=== PATIENT | male | born 1955 | race Caucasian/White ===

== ENCOUNTER 2016-06-23 15:27 | Inpatient (IN) | payer BC ==
--- NOTE | 2016-06-23 15:50 | CT ---
HISTORY: Stroke-like symptoms Study: CT brain without contrast Comparison: None available Technique: Multiple axial images of the brain were obtained from the skull base to the vertex without administr ation of IV contrast. Dose reduction techniques including Automated Exposure Control (AEC) and adju stment of mA and kV were utilized. Findings: No acute intraparenchymal hemorrhage or mass can be identified. No extra-axial fluid collections ar e seen. No alteration in the attenuation of the brain parenchyma can be identified to suggest acute or subacute ischemic change. The ventricular system is symmetric and nondilated. The extracranial structures are grossly unremarkable. IMPRESSION: 1. No acute intracranial process can be identified. Reported By:
--- NOTE | 2016-06-23 16:21 | DR.GENAD ---
HPI - PCP Primary Care Physician: DR. PETER - Complaint/Symptoms Chief Complaint:: PT'S SPOUSE STATES " HE WOKE UP AT THIS AM AND AT 0530 AND HIS BP WAS ELEVATED WITH A BP OF 202/106, AND AROUND 0630- PT STARTED HAVING PROBLEMS SWOLLWING .. PT THOUGHT THAT IS WOULD GO AWAY.... Self Treatment fo Chief Complaint: PT STATES "I TOOK A SHOWER AND I COULD NOT FEEL MY RIGHT SIDE "/ - Source History Provided: Patient - Mode of Arrival Mode of Arrival: Ambulatory - Timing Onset of Chief Complaint: 06/23/16 PMH - PMH Past Medical History: Yes Past Medical History: Hypertension Past Surgical History: No - Family History History of Family Medical Conditions: No - Social History Does patient currently use any type of tobacco product: No Have you used tobacco products in the last 12 months: No Type of Tobacco Use: None Does any household member use tobacco: No Alcohol Use: None Do you use any recreational Drugs:: No Lives With: Spouse Lives Where: Home - infectious screening In the last 2 months have you had wt loss of >10#?: NO Have you had fever, night sweats or hemotysis?: No Have you traveled outside the country in the last 6 months?: No Isolation: Standard PE - Vital Signs Vitals: Temperature 97.8 F Pulse Rate 58 Respiratory Rate 22 Blood Pressure [Right Radial 176/96 Artery] Blood Pressure [Left Arm] 164/97 Blood Pressure [Sitting] 119/77 Blood Pressure [Lying] 121/79 Blood Pressure 202/106 O2 Sat by Pulse Oximetry 94 Course - Consultation Called: 16:30 (Admit for observation and further evaluation) - Diagnosis Discharge Problem: TIA (transient ischemic attack) Qualifiers: 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
[2016-06-23] MEDS ORDERED: ATIVAN INJ 2 MG VIAL IVP ONE (16:38)
--- NOTE | 2016-06-23 16:43 | RAD ---
HISTORY: Dysphagia Study: Single-view chest Comparison: None available Findings: The trachea is midline. The cardiac silhouette is enlarged with a tortuous thoracic aorta. The lisseth gs are clear without focal infiltrate or effusion. The bony thorax is unremarkable. IMPRESSION: 1. No acute cardiopulmonary disease. Reported By:
[2016-06-23] MEDS ORDERED: ZOFRAN INJ 4 MG VIAL IVP PRN (16:51)
[2016-06-23] MEDS ORDERED: NS 1000 ML 1,000 ML ONE (16:54)
[2016-06-23] MEDS ORDERED: ATIVAN INJ 2 MG VIAL ONE (16:55)
[2016-06-23] MEDS ORDERED: NS 1000 ML 1,000 ML IV SCH (17:00)
[2016-06-23] MEDS: NS 1000 ML 1,000 ML IV SCH (17:01)
[2016-06-23 17:04] LABS: BASOPHILS % (AUTO) 0.4 % (0.2-1.0); EOSINOPHILS # (AUTO) 0.1 x10^3/uL (0.0-0.2); EOSINOPHILS % (AUTO) 2.2 % (0.9-2.9); HEMATOCRIT 42.3 % (42.0-54.0); HEMOGLOBIN 14.3 g/dL (13.5-18.0); LYMPHOCYTES # (AUTO) 1.2 X10^3/uL (1.3-2.9); LYMPHOCYTES % (AUTO) 18.7 % (21.0-51.0); MEAN CORPUSCULAR HEMOGLOBIN 31.1 pg (27.0-34.0); MEAN CORPUSCULAR HGB CONC 33.7 g/dL (33.0-35.0); MEAN CORPUSCULAR VOLUME 92.1 fL (80.0-100.0); MEAN PLATELET VOLUME 9.1 fL (7.4-11.0); MONOCYTES # (AUTO) 0.9 x10^3/uL (0.3-0.8); MONOCYTES % (AUTO) 14.4 % (0.0-13.0); NEUTROPHILS # (AUTO) 4.1 x10^3/uL (2.2-4.8); NEUTROPHILS % (AUTO) 64.3 % (42.0-75.0); PLATELET COUNT 151 X10^3/uL (150.0-450.0); RED CELL DISTRIBUTION WIDTH 13.9 % (11.6-16.5); WHITE BLOOD COUNT 6.4 X10^3/uL (3.6-10.0)
[2016-06-23 17:18] LABS: ALANINE AMINOTRANSFERASE 24 Units/L (12-78); ALBUMIN 3.6 g/dL (3.4-5.0); ALKALINE PHOSPHATASE 67 Units/L (46-116); ASPARTATE AMINO TRANSFERASE 19 Units/L (15-37); BLOOD UREA NITROGEN 12 mg/dL (7-18); CALCIUM 8.5 mg/dL (8.5-10.1); CARBON DIOXIDE 28.9 mmol/L (21-32); CHLORIDE 109 mmol/L (98-107); CREATININE 0.96 mg/dL (0.70-1.30); GLUCOSE 101 mg/dL (65-99); SODIUM 145 mmol/L (136-145); TOTAL PROTEIN 7.1 g/dL (6.4-8.2); eGFR BLACK RACES > 60 (>60); eGFR NON BLACK RACES > 60 (>60)
[2016-06-23] MEDS ORDERED: APRESOLINE INJ 20 MG VIAL IVP PRN (19:09)
[2016-06-23 21:51] LABS: BILIRUBIN,URINE NEGATIVE (NEGATIVE); BLOOD/HEMOGLOBIN,URINE NEGATIVE (NEGATIVE); GLUCOSE, URINE NEGATIVE (NEGATIVE); KETONES,URINE NEGATIVE (NEGATIVE); LEUKOCYTE ESTERASE ,URINE 1+ (NEGATIVE); NITRITES,URINE NEGATIVE (NEGATIVE); PROTEIN,URINE NEGATIVE (NEGATIVE); UROBILINOGEN,URINE NORMAL (NORMAL)
[2016-06-23 21:59] LABS: APPEARANCE,URINE CLEAR (CLEAR); BACTERIA,URINE TRACE /HPF (NEGATIVE); COLOR,URINE YELLOW (YELLOW); RBC,URINE NONE SEEN /HPF (NEGATIVE); SQUAMOUS EPITHELIAL CELL,UR RARE /HPF (NEGATIVE)
[2016-06-24 04:18] LABS: BASOPHILS % (AUTO) 0.7 % (0.2-1.0); EOSINOPHILS # (AUTO) 0.1 x10^3/uL (0.0-0.2); EOSINOPHILS % (AUTO) 1.1 % (0.9-2.9); HEMATOCRIT 42.9 % (42.0-54.0); HEMOGLOBIN 14.3 g/dL (13.5-18.0); LYMPHOCYTES # (AUTO) 1.4 X10^3/uL (1.3-2.9); LYMPHOCYTES % (AUTO) 21.7 % (21.0-51.0); MEAN CORPUSCULAR HEMOGLOBIN 30.8 pg (27.0-34.0); MEAN CORPUSCULAR HGB CONC 33.3 g/dL (33.0-35.0); MEAN CORPUSCULAR VOLUME 92.6 fL (80.0-100.0); MEAN PLATELET VOLUME 9.2 fL (7.4-11.0); MONOCYTES # (AUTO) 0.9 x10^3/uL (0.3-0.8); MONOCYTES % (AUTO) 13.5 % (0.0-13.0); NEUTROPHILS # (AUTO) 4.1 x10^3/uL (2.2-4.8); PLATELET COUNT 144 X10^3/uL (150.0-450.0); RED BLOOD COUNT 4.64 X10^6/uL (4.7-6.0); RED CELL DISTRIBUTION WIDTH 14.1 % (11.6-16.5); WHITE BLOOD COUNT 6.5 X10^3/uL (3.6-10.0)
[2016-06-24 04:33] LABS: ALANINE AMINOTRANSFERASE 25 Units/L (12-78); ALBUMIN 3.5 g/dL (3.4-5.0); ALKALINE PHOSPHATASE 68 Units/L (46-116); ASPARTATE AMINO TRANSFERASE 20 Units/L (15-37); BLOOD UREA NITROGEN 12 mg/dL (7-18); CALCIUM 8.2 mg/dL (8.5-10.1); CARBON DIOXIDE 25.6 mmol/L (21-32); CHLORIDE 111 mmol/L (98-107); CREATININE 0.82 mg/dL (0.70-1.30); GLUCOSE 104 mg/dL (65-99); SODIUM 145 mmol/L (136-145); eGFR BLACK RACES > 60 (>60); eGFR NON BLACK RACES > 60 (>60)
[2016-06-24] MEDS: NS 1000 ML 1,000 ML IV SCH ×3 (05:39→22:30)
[2016-06-24] MEDS ORDERED: [UNRECOGNIZED DRUG - OTHER] PO SCH (09:00)
--- NOTE | 2016-06-24 09:26 | DR.H&P ---
H&P - History & Physical for Day of: H&P Date: 07/23/16 - Chief Complaint Chief Complaint: Transient right-sided weakness and difficulty swallowing - Allergies Allergies/Adverse Reactions: Allergies Allergy/AdvReac Type Severity Reaction Status Date / Time Clarithromycin [From Biaxin] Allergy Verified 06/23/16 15:42 - History of Present Illness History of Present Illness: The patient is a 61-year-old white male whose primary care patient of Dr. Adair's who presented to the emergency room setting complaining of right-sided numbness and tingling and difficulty swallowing. Patient states that he awoke with the above symptoms at approximately 5:30 AM but presented to the emergency room greater than 6 hours later. Patient states that when he awoke he noticed himself having right-sided numbness and tingling with some difficulty swallowing. The patient subsequently presented to the emergency room for further evaluation. The patient's initial CT scan of the head was reported as negative. The report given to me by the emergency room physician was that the patient's neurological symptoms had resolved; however, at the time of my evaluation shortly after the patient had arrived on the floor the patient was noted to have obvious mild left facial droop and was having difficulty swallowing secretions, but the patient did state that his right upper and lower extremity numbness and tingling had resolved. Patient's blood pressure was noted to be markedly elevated emergency room setting at approximately 202/106 and the patient admits to noncompliance with his antihypertensive medication because he states the medication makes him "feel bad". Patient was subsequently admitted for further workup. - Past Medical History Past Medical History: Hypertension - Past Surgical History Additional Surgical History: Previous colonoscopy performed approx 6 years ago during a hospitalization for LGI bleeding - at which time no active bleeding or bleeding site was noted - per pt history. - Family History Family Medical History: Cancer, [place] - Social History Does patient currently use any type of tobacco product: No Have you used tobacco products in the last 12 months: No Type of Tobacco Use: None Does any household member use tobacco: No Alcohol Use: None Drug Use: None - Medications Home Medications: Losartan Potassium 1 tab PO DAILY 06/23/16 [History Confirmed 06/23/16] - Review of Systems Constitutional: No Symptoms Reported Eyes: No Symptoms Reported ENT: See HPI (difficulty swallowing secretions) Respiratory: No Symptoms Reported Cardiovascular: No Symptoms Reported Gastrointestinal: No Symptoms Reported Genitourinary: No Symptoms Reported Musculoskeletal: See HPI (mild right facial droop more predominantly involving the right periorbital region) Skin: No Symptoms Reported Neurological: See HPI - Physical Exam Vital Signs: Temperature 97.5 F Pulse Rate [Left Brachial] 53 Pulse Rate [Brachial] 66 Respiratory Rate 18 Blood Pressure [Right Radial 165/99 Artery] Blood Pressure [Left Arm] 166/88 O2 Sat by Pulse Oximetry 94 Oriented: Normal Eyes: Normal Ear: Normal Nose: Normal Throat: Normal Respiratory: Clear Throughout Cardiovascular: Normal : Normal Auscultation: Bowel Sounds: Normal Palpation: Normal Tenderness: Normal Skin: Normal Musculoskeletal: Right (mild right facial droop was noted more predominantly involving the right periorbital region.) Psychiatric: Normal Mood Description: Calm Affect: Normal Speech Pattern: Clear - Assessment/Plan (1) TIA (transient ischemic attack) Qualifiers: Qualified Code(s): G45.0 - Vertebro-basilar artery syndrome Narrative Support Text: TIA versus CVA; patient presented with right upper and lower extremity numbness and tingling that had resolved at the time of presentation in the ER, with persistent right facial weakness and dysphagia. Status: Acute Plan: 1. Admit for further workup. 2. CT scan of the head. 3. CMP and CBC. 4. UA C&S. 5. Hydralazine 10 mg IV every 4 hours when necessary for blood pressures greater than equal to 180/100. 6. Enteric-coated aspirin 81 mg by mouth daily. 7. Modified barium swallow in a.m. 8. Nothing by mouth except for ice chips. 9. For further orders see chart (2) Hypertensive urgency Status: Acute Plan: as above (3) Dysphagia Qualifiers: Dysphagia type: unspecified Qualified Code(s): R13.10 - Dysphagia, unspecified Status: Acute Plan: as above
[2016-06-24] MEDS: COZAAR PO SCH (10:06)
[2016-06-24] MEDS ORDERED: PHARMACY CONSULT - DOSE _____ XX SCH (11:00)
[2016-06-24] MEDS: APRESOLINE INJ 20 MG VIAL IVP SCH ×3 (12:53→22:23)
--- NOTE | 2016-06-24 16:07 | PCM.PROG ---
Progress Note - Progress Note for Day of Date: 06/24/16 - Subjective Subjective: PATIENT RESTS IN BED, AT BEDSIDE. PATIENT IS NOTED WITH RIGHT FACIAL DROOPING. RIGHT EYE LID IS NOTED WITH DROOPING ALONG WITH RIGHT SIDE OF MOUTH. PATIENT IS ALSO NOTED WITH SLURRED SPEECH AND HE IS REPORTING DYSPHAGIA. HE REPORTS HE CAN'T SWALLOW SALIVA, MEDICATIONS, OR LIQUIDS. PATIENT REPORTS WHEN HE ATTEMPTS TO SWALLOW, THE LIQUIDS COME BACK UP. PATIENT HAS EQUAL, BILATERAL STRENGTH TO EXTREMITIES. HE UNDERSTANDING AND OBEYS COMMANDS APPROPRIATELY. CBC WNL EXCEPT: PLT COUNT 144. CMP WNL EXCEPT: CHL 111 , GLUCOSE 104, CALCIUM 8.2. WE WILL HOLD PO MEDICATION AND HOLD PATIENT NPO UNTIL EVALUATED BY SPEECH THERAPY. WE WILL OBTAIN AN MRI OF BRAIN TODAY TO RULE OUT CVA AND CONTINUE TO MONITOR. WE WILL FOLLOW UP IN AM WITH ADDITIONAL LABS. - Past Medical Family Social History Past Med/Fam/Surg Hx: No changes since H&P Allergies: Allergies Clarithromycin [From Biaxin] Allergy (Verified 06/23/16 15:42) - Review of Systems ROS: No change since H&P - Vital Signs and I&O's Vital Signs: Temperature 98.6 F Pulse Rate [Left Brachial] 52 Pulse Rate [Brachial] 66 Respiratory Rate 18 Blood Pressure [Right Radial 165/99 Artery] Blood Pressure [Left Arm] 175/92 O2 Sat by Pulse Oximetry 97 Intake and Output: Intake & Output 06/22/16 06/23/16 06/24/16 06/25/16 11:59 11:59 11:59 11:59 Intake Total 1280 660 Balance 1280 660 - Physical Exam Oriented: Normal, Time, Person, Place Eyes: Other (Right periorbital drooping). negative: Blurred Vision, Diplopia, Discharge, Pain, Redness, Photophobia Ear: Normal. negative: Swelling, Ecchymosis, Hemotypanum, Abrasion, Laceration Nose: Normal. negative: Injected, Discharge, Blood Throat: negative: Tonsillar Hypertrophy, Red, Exudate Respiratory: Normal Cardiovascular: Normal. negative: Murmur, Edema : Normal. negative: Dysuria, Hematuria, Frequency, Discharge, Testicular Pain Auscultation: Bowel Sounds: Normal. negative: Bruit Palpation: Normal. negative: Spleen Enlarged, Liver Enlarged, Mass Pulsatile Tenderness: Normal. negative: Rebound, Guarding, Rigidity Skin: Normal. negative: Diaphoresis, Wound, Bruising, Ecchymosis Musculoskeletal: Right (Right facial muscle weakness and drooping, involving the right periorbital region, and right corner of mouth), Instability Psychiatric: Normal Mood Description: Calm, Appropriate Affect: Normal Speech Pattern: Clear, Appropriate - Laboratory and Diagnostics Result Diagrams: 06/24/16 03:55 06/24/16 03:55 Labs: Laboratory WBC 6.5 X10^3/uL (3.6-10.0) 06/24/16 03:55 RBC 4.64 X10^6/uL (4.7-6.0) L 06/24/16 03:55 Hgb 14.3 g/dL (13.5-18.0) 06/24/16 03:55 Hct 42.9 % (42.0-54.0) 06/24/16 03:55 MCV 92.6 fL (80.0-100.0) 06/24/16 03:55 MCH 30.8 pg (27.0-34.0) 06/24/16 03:55 MCHC 33.3 g/dL (33.0-35.0) 06/24/16 03:55 RDW 14.1 % (11.6-16.5) 06/24/16 03:55 Plt Count 144 X10^3/uL (150.0-450.0) L 06/24/16 03:55 MPV 9.2 fL (7.4-11.0) 06/24/16 03:55 Neut % 63.0 % (42.0-75.0) 06/24/16 03:55 Lymph % 21.7 % (21.0-51.0) 06/24/16 03:55 [place] % 13.5 % (0.0-13.0) H 06/24/16 03:55 Eos % 1.1 % (0.9-2.9) 06/24/16 03:55 Baso % 0.7 % (0.2-1.0) 06/24/16 03:55 Neut # 4.1 x10^3/uL (2.2-4.8) 06/24/16 03:55 Lymph # 1.4 X10^3/uL (1.3-2.9) 06/24/16 03:55 [place] # 0.9 x10^3/uL (0.3-0.8) H 06/24/16 03:55 Eos # 0.1 x10^3/uL (0.0-0.2) 06/24/16 03:55 Baso # 0.0 X10^3/uL (0.0-0.1) 06/24/16 03:55 Absolute Nucleated RBC 0.1 /100WBC 06/24/16 03:55 Sodium 145 mmol/L (136-145) 06/24/16 03:55 Corrected Sodium TNP 06/24/16 03:55 Potassium 4.0 mmol/L (3.5-5.1) 06/24/16 03:55 Chloride 111 mmol/L (98-107) H 06/24/16 03:55 Carbon Dioxide 25.6 mmol/L (21-32) 06/24/16 03:55 BUN 12 mg/dL (7-18) 06/24/16 03:55 Creatinine 0.82 mg/dL (0.70-1.30) 06/24/16 03:55 Est GFR (MDRD) Af Amer > 60 (>60) 06/24/16 03:55 Est GFR (MDRD) Non-Af > 60 (>60) 06/24/16 03:55 Glucose 104 mg/dL (65-99) H 06/24/16 03:55 Calcium 8.2 mg/dL (8.5-10.1) L 06/24/16 03:55 Corrected Calcium TNP 06/24/16 03:55 Total Bilirubin 0.50 mg/dL (0.2-1.0) 06/24/16 03:55 AST 20 Units/L (15-37) 06/24/16 03:55 ALT 25 Units/L (12-78) 06/24/16 03:55 Alkaline Phosphatase 68 Units/L (46-116) 06/24/16 03:55 Total Protein 7.0 g/dL (6.4-8.2) 06/24/16 03:55 Albumin 3.5 g/dL (3.4-5.0) 06/24/16 03:55 Globulin 3.5 g/dL (2.5-4.5) 06/24/16 03:55 Albumin/Globulin Ratio 1.0 Ratio (1.1-2.1) L 06/24/16 03:55 Specimen Type Clean catch urine 06/23/16 21:38 Urine Color Yellow (YELLOW) 06/23/16 21:38 Urine Appearance Clear (CLEAR) 06/23/16 21:38 Urine pH 6.0 (5.0 - 8.0) 06/23/16 21:38 Ur Specific [place] 1.015 (1.000-1.030) 06/23/16 21:38 Urine Protein Negative (NEGATIVE) 06/23/16 21:38 Urine Glucose (UA) Negative (NEGATIVE) 06/23/16 21:38 Urine Ketones Negative (NEGATIVE) 06/23/16 21:38 Urine Occult Blood Negative (NEGATIVE) 06/23/16 21:38 Urine Nitrite Negative (NEGATIVE) 06/23/16 21:38 Urine Bilirubin Negative (NEGATIVE) 06/23/16 21:38 Urine Urobilinogen Normal (NORMAL) 06/23/16 21:38 Ur Leukocyte Esterase 1+ (NEGATIVE) 06/23/16 21:38 Urine RBC None seen /HPF (NEGATIVE) 06/23/16 21:38 Urine WBC 0-3 /HPF (NEGATIVE) 06/23/16 21:38 Ur Squamous Epith Cells Rare /HPF (NEGATIVE) 06/23/16 21:38 Urine Bacteria Trace /HPF (NEGATIVE) 06/23/16 21:38 Ur Culture Indicated? No/not indicated 06/23/16 21:38 - Plan (1) CVA (cerebral vascular accident) Status: Suspected Qualifiers: CVA mechanism: C Precerebral and cerebral artery: P Laterality of affected vessel: left Plan: OBTAIN AN MRI OF BRAIN TODAY, CONTINUE TO MONITOR NEURO STATUS. (2) Dysphagia Status: Acute Qualifiers: Dysphagia type: unspecified Qualified Code(s): R13.10 - Dysphagia, unspecified Plan: CONSULT SPEECH THERAPY, HOLD NPO, MONITOR. (3) Facial droop Status: Acute Plan: ABOVE. (4) Hypertension Status: Chronic Qualifiers: Hypertension type: essential hypertension Qualified Code(s): I10 - Essential (primary) hypertension (5) Arthritis Status: Chronic
[2016-06-24 16:24] VITALS: BMI 36.2
--- NOTE | 2016-06-24 16:47 | MRI ---
Indication: Slurred speech and dysphagia. Exam: MRI brain without contrast. Comparison: CT head 06/23/2016. Findings: The ventricles are mildly enlarged and there is diffuse mild prominence of the cortical whitehead lci. There is a small 5 mm focus of abnormal signal on the diffusion-weighted data set along the bra instem inferior on the right , just below the cerebellar peduncle. No intracranial hemorrhage is see n and there is no extra-axial fluid collection. The midline structures are unremarkable. The vascula r structures show normal flow voids. The 7th and 8th nerve complexes are symmetric and normal size a nd signal intensity. There is minimal increased signal in the periventricular white matter. There is no extra-axial fluid collection or mass. No enhancing lesion or mass is seen. Impression: Small focus of acute ischemia along the brainstem inferiorly on the right, just below the cerebellar peduncle . There is no mass effect and no abnormal enhancement or hemorrhage is seen in the area. Mild atrophy and minimal chronic microischemic changes in the deep white matter. Reported By:
--- NOTE | 2016-06-24 16:51 | MRI ---
Indication: Dysphagia and slurred speech Exam: MRA brain. Technique: 3D [id number] images were obtained of the intracranial vessels. The raw data was revi ewed and 3D reconstructions were performed. Findings: Both internal carotid arteries are patent and normal caliber. The carotid siphons are unre markable. There is a normal bifurcation intracranially. There is good tapering of the peripheral MCA and PHIL vessels. Both vertebral arteries are patent and there are small foci of mild to moderate at herosclerotic narrowing along the proximal and mid basilar artery which is patent distally. There is a circulation involving both posterior cerebral arteries which are tapering distally with no proximal filling defect or vessel cut off seen. There is no vascular malformation or aneurysm. Impression: Small foci of mild to moderate atherosclerotic narrowing along the proximal and mid basi lar artery with flow seen distally . There is a circulation involving both posterior cerebral arteries. No vascular malformation is seen Reported By:
[2016-06-25 05:22] LABS: BASOPHILS % (AUTO) 0.4 % (0.2-1.0); EOSINOPHILS # (AUTO) 0.1 x10^3/uL (0.0-0.2); EOSINOPHILS % (AUTO) 1.2 % (0.9-2.9); HEMATOCRIT 44.7 % (42.0-54.0); HEMOGLOBIN 15.1 g/dL (13.5-18.0); LYMPHOCYTES % (AUTO) 16.1 % (21.0-51.0); MEAN CORPUSCULAR HEMOGLOBIN 31.1 pg (27.0-34.0); MEAN CORPUSCULAR HGB CONC 33.8 g/dL (33.0-35.0); MEAN CORPUSCULAR VOLUME 91.9 fL (80.0-100.0); MEAN PLATELET VOLUME 9.4 fL (7.4-11.0); MONOCYTES # (AUTO) 0.8 x10^3/uL (0.3-0.8); MONOCYTES % (AUTO) 11.8 % (0.0-13.0); NEUTROPHILS # (AUTO) 4.6 x10^3/uL (2.2-4.8); NEUTROPHILS % (AUTO) 70.5 % (42.0-75.0); PLATELET COUNT 156 X10^3/uL (150.0-450.0); RED BLOOD COUNT 4.87 X10^6/uL (4.7-6.0); RED CELL DISTRIBUTION WIDTH 13.9 % (11.6-16.5); WHITE BLOOD COUNT 6.5 X10^3/uL (3.6-10.0)
[2016-06-25 05:32] LABS: ALANINE AMINOTRANSFERASE 27 Units/L (12-78); ALBUMIN 3.7 g/dL (3.4-5.0); ALKALINE PHOSPHATASE 67 Units/L (46-116); ASPARTATE AMINO TRANSFERASE 21 Units/L (15-37); BLOOD UREA NITROGEN 11 mg/dL (7-18); CALCIUM 8.6 mg/dL (8.5-10.1); CARBON DIOXIDE 27.3 mmol/L (21-32); CHLORIDE 109 mmol/L (98-107); CREATININE 0.91 mg/dL (0.70-1.30); GLUCOSE 95 mg/dL (65-99); SODIUM 144 mmol/L (136-145); TOTAL PROTEIN 7.4 g/dL (6.4-8.2); eGFR BLACK RACES > 60 (>60); eGFR NON BLACK RACES > 60 (>60)
[2016-06-25] MEDS ORDERED: PHARMACY CONSULT - TPN XX SCH (10:00)
[2016-06-25] MEDS ORDERED: [UNRECOGNIZED DRUG - OTHER] IV SCH ×5 (10:00)
[2016-06-25] MEDS ORDERED: TPN ELECTROLYTES IV SCH ×5 (10:00)
[2016-06-25] MEDS ORDERED: MVI IV SCH ×5 (10:00)
[2016-06-25] MEDS ORDERED: CLINIMIX IV SCH ×5 (10:00)
[2016-06-25] MEDS: APRESOLINE INJ 20 MG VIAL IVP SCH ×4 (10:23→20:03)
[2016-06-25] MEDS ORDERED: ATIVAN INJ 2 MG VIAL IVP ONE (12:03)
[2016-06-25] MEDS: NS 1000 ML 1,000 ML IV SCH (12:54)
[2016-06-25] MEDS ORDERED: DIPRIVAN VIAL 20 ML ONE (12:54)
--- NOTE | 2016-06-25 17:11 | PCM.PROG ---
Progress Note - Progress Note for Day of Date: 06/25/16 - Subjective Subjective: PATIENT RESTS IN BED, AT BEDSIDE. PATIENT'S RIGHT FACIAL DROOPING IS IMPROVING SLIGHTLY. PATIENT HAS BEEN HELD NPO DUE TO UNSAFE SWALLOWING. MRI OF BRAIN REPORTS: SMALL FOCUS OF ACUTE ISCHEMIA ALONG THE BRAINSTEM INFERIORLY ON THE RIGHT, JUST BELOW THE CEREBELLAR PEDUNCLE. WE DISCUSS THIS WITH PATIENT AND BOTH VOICE UNDERSTANDING. WE ALSO DISCUSS POSSIBILITY OF PEG TUBE PLACEMENT FOR FURTHER NUTRITION. RIGHT SIDE IS NOTED WITH WEAKNESS THIS MORNING. HE UNDERSTANDING AND OBEYS COMMANDS APPROPRIATELY. CBC WNL. CMP WNL EXCEPT: CHL 109. WE WILL CONTINUE TO HOLD NPO. WE WILL CONSULT GI AND START TPN, ALBUMIN, AND LOVENOX. WE WILL FOLLOW UP IN AM WITH ADDITIONAL LABS. - Past Medical Family Social History Past Med/Fam/Surg Hx: No changes since H&P Allergies: Allergies Clarithromycin [From Biaxin] Allergy (Verified 06/23/16 15:42) - Review of Systems ROS: No change since H&P - Vital Signs and I&O's Vital Signs: Temperature 97.7 F Pulse Rate [Left Brachial] 62 Respiratory Rate 18 Blood Pressure [Left Arm] 180/84 O2 Sat by Pulse Oximetry 96 Intake and Output: Intake & Output 06/23/16 06/24/16 06/25/16 06/26/16 11:59 11:59 11:59 11:59 Intake Total 640 Balance 640 - Physical Exam Oriented: Normal, Time, Person, Place Eyes: Other (Right periorbital drooping). negative: Blurred Vision, Diplopia, Discharge, Pain, Redness, Photophobia Ear: Normal. negative: Swelling, Ecchymosis, Hemotypanum, Abrasion, Laceration Nose: Normal. negative: Injected, Discharge, Blood Throat: negative: Tonsillar Hypertrophy, Red, Exudate Respiratory: Normal Cardiovascular: Normal. negative: Murmur, Edema : Normal. negative: Dysuria, Hematuria, Frequency, Discharge, Testicular Pain Auscultation: Bowel Sounds: Normal. negative: Bruit Palpation: Normal. negative: Spleen Enlarged, Liver Enlarged, Mass Pulsatile Tenderness: Normal. negative: Rebound, Guarding, Rigidity Skin: Normal. negative: Diaphoresis, Wound, Bruising, Ecchymosis Musculoskeletal: Right (Right facial muscle weakness and drooping, involving the right periorbital region, and right corner of mouth), Instability Psychiatric: Normal Mood Description: Calm, Appropriate Affect: Normal Speech Pattern: Clear, Appropriate - Laboratory and Diagnostics Result Diagrams: 06/25/16 05:00 06/25/16 05:00 Labs: Laboratory WBC 6.5 X10^3/uL (3.6-10.0) 06/25/16 05:00 RBC 4.87 X10^6/uL (4.7-6.0) 06/25/16 05:00 Hgb 15.1 g/dL (13.5-18.0) 06/25/16 05:00 Hct 44.7 % (42.0-54.0) 06/25/16 05:00 MCV 91.9 fL (80.0-100.0) 06/25/16 05:00 MCH 31.1 pg (27.0-34.0) 06/25/16 05:00 MCHC 33.8 g/dL (33.0-35.0) 06/25/16 05:00 RDW 13.9 % (11.6-16.5) 06/25/16 05:00 Plt Count 156 X10^3/uL (150.0-450.0) 06/25/16 05:00 MPV 9.4 fL (7.4-11.0) 06/25/16 05:00 Neut % 70.5 % (42.0-75.0) 06/25/16 05:00 Lymph % 16.1 % (21.0-51.0) L 06/25/16 05:00 [place] % 11.8 % (0.0-13.0) 06/25/16 05:00 Eos % 1.2 % (0.9-2.9) 06/25/16 05:00 Baso % 0.4 % (0.2-1.0) 06/25/16 05:00 Neut # 4.6 x10^3/uL (2.2-4.8) 06/25/16 05:00 Lymph # 1.0 X10^3/uL (1.3-2.9) L 06/25/16 05:00 [place] # 0.8 x10^3/uL (0.3-0.8) 06/25/16 05:00 Eos # 0.1 x10^3/uL (0.0-0.2) 06/25/16 05:00 Baso # 0.0 X10^3/uL (0.0-0.1) 06/25/16 05:00 Absolute Nucleated RBC 0.1 /100WBC 06/25/16 05:00 Sodium 144 mmol/L (136-145) 06/25/16 05:00 Corrected Sodium TNP 06/25/16 05:00 Potassium 3.9 mmol/L (3.5-5.1) 06/25/16 05:00 Chloride 109 mmol/L (98-107) H 06/25/16 05:00 Carbon Dioxide 27.3 mmol/L (21-32) 06/25/16 05:00 BUN 11 mg/dL (7-18) 06/25/16 05:00 Creatinine 0.91 mg/dL (0.70-1.30) 06/25/16 05:00 Est GFR (MDRD) Af Amer > 60 (>60) 06/25/16 05:00 Est GFR (MDRD) Non-Af > 60 (>60) 06/25/16 05:00 Glucose 95 mg/dL (65-99) 06/25/16 05:00 Calcium 8.6 mg/dL (8.5-10.1) 06/25/16 05:00 Corrected Calcium TNP 06/25/16 05:00 Total Bilirubin 0.70 mg/dL (0.2-1.0) 06/25/16 05:00 AST 21 Units/L (15-37) 06/25/16 05:00 ALT 27 Units/L (12-78) 06/25/16 05:00 Alkaline Phosphatase 67 Units/L (46-116) 06/25/16 05:00 Total Protein 7.4 g/dL (6.4-8.2) 06/25/16 05:00 Albumin 3.7 g/dL (3.4-5.0) 06/25/16 05:00 Globulin 3.7 g/dL (2.5-4.5) 06/25/16 05:00 Albumin/Globulin Ratio 1.0 Ratio (1.1-2.1) L 06/25/16 05:00 Specimen Type Clean catch urine 06/23/16 21:38 Urine Color Yellow (YELLOW) 06/23/16 21:38 Urine Appearance Clear (CLEAR) 06/23/16 21:38 Urine pH 6.0 (5.0 - 8.0) 06/23/16 21:38 Ur Specific [place] 1.015 (1.000-1.030) 06/23/16 21:38 Urine Protein Negative (NEGATIVE) 06/23/16 21:38 Urine Glucose (UA) Negative (NEGATIVE) 06/23/16 21:38 Urine Ketones Negative (NEGATIVE) 06/23/16 21:38 Urine Occult Blood Negative (NEGATIVE) 06/23/16 21:38 Urine Nitrite Negative (NEGATIVE) 06/23/16 21:38 Urine Bilirubin Negative (NEGATIVE) 06/23/16 21:38 Urine Urobilinogen Normal (NORMAL) 06/23/16 21:38 Ur Leukocyte Esterase 1+ (NEGATIVE) 06/23/16 21:38 Urine RBC None seen /HPF (NEGATIVE) 06/23/16 21:38 Urine WBC 0-3 /HPF (NEGATIVE) 06/23/16 21:38 Ur Squamous Epith Cells Rare /HPF (NEGATIVE) 06/23/16 21:38 Urine Bacteria Trace /HPF (NEGATIVE) 06/23/16 21:38 Ur Culture Indicated? No/not indicated 06/23/16 21:38 Tissue Pathology To follow 06/25/16 15:05 - Plan (1) CVA (cerebral vascular accident) Status: Acute Qualifiers: CVA mechanism: C Precerebral and cerebral artery: P Laterality of affected vessel: right Plan: START LOVENOX, CONTINUE TO MONITOR NEURO STATUS. (2) Dysphagia Status: Acute Qualifiers: Dysphagia type: unspecified Qualified Code(s): R13.10 - Dysphagia, unspecified Plan: START TPN, ALBUMIN, CONSULT GI, HOLD NPO, MONITOR. (3) Facial droop Status: Acute Plan: ABOVE. (4) Hypertension Status: Chronic Qualifiers: Hypertension type: essential hypertension Qualified Code(s): I10 - Essential (primary) hypertension (5) Arthritis Status: Chronic
[2016-06-25] MEDS: TPN ELECTROLYTES IV SCH ×10 (17:31→20:08)
[2016-06-25] MEDS: ALBUMIN HUMAN 25%- 100ML 100 ML IV SCH (17:31)
[2016-06-25] MEDS: [UNRECOGNIZED DRUG - OTHER] IV SCH ×10 (17:31→20:08)
[2016-06-25] MEDS: MVI IV SCH ×10 (17:31→20:08)
[2016-06-25] MEDS: CLINIMIX IV SCH ×10 (17:31→20:08)
[2016-06-25] MEDS: LOVENOX INJ 60 MG SYR SC SCH (20:09)
[2016-06-25] MEDS: PROTONIX INJ 40 MG VIAL IVP SCH (20:12)
[2016-06-25] MEDS ORDERED: ATIVAN INJ 2 MG VIAL IVP PRN (21:20)
[2016-06-26] MEDS: NS 1000 ML 1,000 ML IV SCH (00:48)
[2016-06-26] MEDS: CLINIMIX IV SCH ×20 (02:05→16:30)
[2016-06-26] MEDS: MVI IV SCH ×20 (02:05→16:30)
[2016-06-26] MEDS: [UNRECOGNIZED DRUG - OTHER] IV SCH ×20 (02:05→16:30)
[2016-06-26] MEDS: TPN ELECTROLYTES IV SCH ×20 (02:05→16:30)
[2016-06-26 05:27] LABS: ALANINE AMINOTRANSFERASE 23 Units/L (12-78); ALBUMIN 3.9 g/dL (3.4-5.0); ALKALINE PHOSPHATASE 63 Units/L (46-116); ASPARTATE AMINO TRANSFERASE 16 Units/L (15-37); BLOOD UREA NITROGEN 18 mg/dL (7-18); CALCIUM 8.7 mg/dL (8.5-10.1); CARBON DIOXIDE 24.5 mmol/L (21-32); CHLORIDE 108 mmol/L (98-107); COR NA(FOR HYPERGLY) 143 mmol/L (136-145); CREATININE 0.95 mg/dL (0.70-1.30); GLUCOSE 112 mg/dL (65-99); SODIUM 143 mmol/L (136-145); TOTAL PROTEIN 7.3 g/dL (6.4-8.2); eGFR BLACK RACES > 60 (>60); eGFR NON BLACK RACES > 60 (>60)
[2016-06-26 05:59] LABS: BASOPHILS % (AUTO) 0.4 % (0.2-1.0); EOSINOPHILS % (AUTO) 0.2 % (0.9-2.9); HEMATOCRIT 43.7 % (42.0-54.0); HEMOGLOBIN 14.8 g/dL (13.5-18.0); LYMPHOCYTES # (AUTO) 1.3 X10^3/uL (1.3-2.9); LYMPHOCYTES % (AUTO) 11.6 % (21.0-51.0); MEAN CORPUSCULAR HEMOGLOBIN 30.9 pg (27.0-34.0); MEAN CORPUSCULAR HGB CONC 33.8 g/dL (33.0-35.0); MEAN CORPUSCULAR VOLUME 91.3 fL (80.0-100.0); MEAN PLATELET VOLUME 9.6 fL (7.4-11.0); MONOCYTES # (AUTO) 1.1 x10^3/uL (0.3-0.8); MONOCYTES % (AUTO) 10.3 % (0.0-13.0); NEUTROPHILS # (AUTO) 8.4 x10^3/uL (2.2-4.8); NEUTROPHILS % (AUTO) 77.5 % (42.0-75.0); PLATELET COUNT 158 X10^3/uL (150.0-450.0); RED BLOOD COUNT 4.78 X10^6/uL (4.7-6.0); WHITE BLOOD COUNT 10.8 X10^3/uL (3.6-10.0)
[2016-06-26] MEDS: ALBUMIN HUMAN 25%- 100ML 100 ML IV SCH (08:51)
[2016-06-26] MEDS: LOVENOX INJ 60 MG SYR SC SCH ×2 (08:52→21:51)
[2016-06-26] MEDS: PROTONIX INJ 40 MG VIAL IVP SCH ×2 (08:52→21:51)
[2016-06-26] MEDS: APRESOLINE INJ 20 MG VIAL IVP SCH ×4 (08:52→21:55)
--- NOTE | 2016-06-26 14:46 | RAD ---
HISTORY: Fever, leukocytosis Study: Chest one view Comparison: June 23, 2016 Findings: The heart is within normal limits in size. The nayana are normal. The lungs are well inflated and free of acute alveolar infiltrates. No pleural effusions are identified. The bony thorax is unremarkable . IMPRESSION: Lungs clear Reported By:
--- NOTE | 2016-06-26 16:38 | VAS ---
HISTORY: Speech difficulty Study: Carotid sonogram Comparison: None Technique: Multiple watt scale and color flow Doppler images of the right and left carotid arterial system were obtained. The vertebral arterial system was evaluated as well. Findings: Normal color flow Doppler is seen throughout the right and left carotid arterial system. No hemodyn amically significant stenosis is seen based on velocity criteria. The right and left vertebral yazmin andrey demonstrate antegrade flow. IMPRESSION: 1. No hemodynamically significant stenosis. Reported By:
[2016-06-26] MEDS: PEPCID 20 MG IV PREMIX* 20 MG/50 ML BAG IV SCH (17:44)
[2016-06-26 19:28] LABS: BILIRUBIN,URINE NEGATIVE (NEGATIVE); BLOOD/HEMOGLOBIN,URINE NEGATIVE (NEGATIVE); GLUCOSE, URINE NEGATIVE (NEGATIVE); KETONES,URINE NEGATIVE (NEGATIVE); LEUKOCYTE ESTERASE ,URINE 1+ (NEGATIVE); NITRITES,URINE NEGATIVE (NEGATIVE); PROTEIN,URINE 2+ (NEGATIVE); UROBILINOGEN,URINE 2+ (NORMAL)
[2016-06-26 19:44] LABS: APPEARANCE,URINE CLEAR (CLEAR); BACTERIA,URINE TRACE /HPF (NEGATIVE); COLOR,URINE AMBER (YELLOW); HYALINE CASTS, URINE MANY /LPF (NEGATIVE); MUCUS,URINE MODERATE /HPF (NEGATIVE); RBC,URINE NONE SEEN /HPF (NEGATIVE); SQUAMOUS EPITHELIAL CELL,UR FEW /HPF (NEGATIVE)
[2016-06-26] MEDS: CRESTOR TAB 10 MG PO SCH (21:51)
[2016-06-27] MEDS: PEPCID 20 MG IV PREMIX* 20 MG/50 ML BAG IV SCH ×3 (00:03→21:15)
[2016-06-27] MEDS: TPN ELECTROLYTES IV SCH ×10 (01:38→18:57)
[2016-06-27] MEDS: [UNRECOGNIZED DRUG - OTHER] IV SCH ×10 (01:38→18:57)
[2016-06-27] MEDS: CLINIMIX IV SCH ×10 (01:38→18:57)
[2016-06-27] MEDS: MVI IV SCH ×10 (01:38→18:57)
[2016-06-27 05:18] LABS: ALANINE AMINOTRANSFERASE 23 Units/L (12-78); ALBUMIN 3.7 g/dL (3.4-5.0); ALKALINE PHOSPHATASE 58 Units/L (46-116); ASPARTATE AMINO TRANSFERASE 17 Units/L (15-37); BLOOD UREA NITROGEN 24 mg/dL (7-18); CALCIUM 8.5 mg/dL (8.5-10.1); CHLORIDE 109 mmol/L (98-107); COR NA(FOR HYPERGLY) 144 mmol/L (136-145); CREATININE 0.94 mg/dL (0.70-1.30); GLUCOSE 117 mg/dL (65-99); SODIUM 144 mmol/L (136-145); eGFR BLACK RACES > 60 (>60); eGFR NON BLACK RACES > 60 (>60)
[2016-06-27 05:29] LABS: BASOPHILS % (AUTO) 0.5 % (0.2-1.0); EOSINOPHILS # (AUTO) 0.3 x10^3/uL (0.0-0.2); EOSINOPHILS % (AUTO) 3.6 % (0.9-2.9); HEMATOCRIT 41.9 % (42.0-54.0); HEMOGLOBIN 14.2 g/dL (13.5-18.0); LYMPHOCYTES # (AUTO) 1.7 X10^3/uL (1.3-2.9); LYMPHOCYTES % (AUTO) 20.5 % (21.0-51.0); MEAN CORPUSCULAR HEMOGLOBIN 31.1 pg (27.0-34.0); MEAN CORPUSCULAR HGB CONC 33.9 g/dL (33.0-35.0); MEAN CORPUSCULAR VOLUME 91.8 fL (80.0-100.0); MEAN PLATELET VOLUME 9.8 fL (7.4-11.0); MONOCYTES # (AUTO) 1.1 x10^3/uL (0.3-0.8); MONOCYTES % (AUTO) 13.1 % (0.0-13.0); NEUTROPHILS # (AUTO) 5.1 x10^3/uL (2.2-4.8); NEUTROPHILS % (AUTO) 62.3 % (42.0-75.0); PLATELET COUNT 147 X10^3/uL (150.0-450.0); RED BLOOD COUNT 4.56 X10^6/uL (4.7-6.0); RED CELL DISTRIBUTION WIDTH 13.9 % (11.6-16.5); WHITE BLOOD COUNT 8.1 X10^3/uL (3.6-10.0)
[2016-06-27] MEDS: PROTONIX INJ 40 MG VIAL IVP SCH (09:12)
[2016-06-27] MEDS: ALBUMIN HUMAN 25%- 100ML 100 ML IV SCH (09:12)
[2016-06-27] MEDS: LOVENOX INJ 60 MG SYR SC SCH ×2 (09:13→21:15)
[2016-06-27] MEDS: PATANOL 0.1% EYE DROPS OP SCH ×2 (10:53→21:16)
[2016-06-27] MEDS: PLAVIX PO SCH (10:54)
[2016-06-27] MEDS: COZAAR PO SCH (10:54)
[2016-06-27] MEDS: ZANTAC PO SCH ×2 (18:56→21:15)
[2016-06-27] MEDS: CRESTOR TAB 10 MG PO SCH (21:14)
[2016-06-28] MEDS: CLINIMIX IV SCH ×5 (02:41)
[2016-06-28] MEDS: [UNRECOGNIZED DRUG - OTHER] IV SCH ×5 (02:41)
[2016-06-28] MEDS: TPN ELECTROLYTES IV SCH ×5 (02:41)
[2016-06-28] MEDS: MVI IV SCH ×5 (02:41)
[2016-06-28 06:16] LABS: BASOPHILS % (AUTO) 0.5 % (0.2-1.0); EOSINOPHILS # (AUTO) 0.4 x10^3/uL (0.0-0.2); EOSINOPHILS % (AUTO) 5.2 % (0.9-2.9); HEMOGLOBIN 13.8 g/dL (13.5-18.0); LYMPHOCYTES # (AUTO) 1.2 X10^3/uL (1.3-2.9); LYMPHOCYTES % (AUTO) 14.6 % (21.0-51.0); MEAN CORPUSCULAR HEMOGLOBIN 31.2 pg (27.0-34.0); MEAN CORPUSCULAR HGB CONC 33.7 g/dL (33.0-35.0); MEAN CORPUSCULAR VOLUME 92.7 fL (80.0-100.0); MEAN PLATELET VOLUME 9.5 fL (7.4-11.0); MONOCYTES # (AUTO) 1.2 x10^3/uL (0.3-0.8); NEUTROPHILS # (AUTO) 5.2 x10^3/uL (2.2-4.8); NEUTROPHILS % (AUTO) 64.7 % (42.0-75.0); PLATELET COUNT 133 X10^3/uL (150.0-450.0); RED BLOOD COUNT 4.42 X10^6/uL (4.7-6.0); RED CELL DISTRIBUTION WIDTH 13.7 % (11.6-16.5)
[2016-06-28 07:00] LABS: ALANINE AMINOTRANSFERASE 21 Units/L (12-78); ALBUMIN 3.7 g/dL (3.4-5.0); ALKALINE PHOSPHATASE 56 Units/L (46-116); ASPARTATE AMINO TRANSFERASE 11 Units/L (15-37); BLOOD UREA NITROGEN 21 mg/dL (7-18); CALCIUM 8.5 mg/dL (8.5-10.1); CARBON DIOXIDE 26.2 mmol/L (21-32); CHLORIDE 111 mmol/L (98-107); CREATININE 0.91 mg/dL (0.70-1.30); GLUCOSE 109 mg/dL (65-99); SODIUM 148 mmol/L (136-145); TOTAL PROTEIN 6.9 g/dL (6.4-8.2); eGFR BLACK RACES > 60 (>60); eGFR NON BLACK RACES > 60 (>60)
[2016-06-28] MEDS: PEPCID 20 MG IV PREMIX* 20 MG/50 ML BAG IV SCH (09:08)
[2016-06-28] MEDS: COZAAR PO SCH (09:09)
[2016-06-28] MEDS: PLAVIX PO SCH (09:12)
[2016-06-28] MEDS: LOVENOX INJ 60 MG SYR SC SCH (09:13)
[2016-06-28] MEDS: PATANOL 0.1% EYE DROPS OP SCH (09:14)
[2016-06-28] MEDS: ALBUMIN HUMAN 25%- 100ML 100 ML IV SCH (09:14)
[2016-06-28] MEDS: ZANTAC PO SCH (09:14)
[2016-06-28 12:16] VITALS: BP 177/83
--- NOTE | 2016-06-28 17:34 | PCM.PROG ---
Progress Note - Progress Note for Day of Date: 06/26/16 - Subjective Subjective: PATIENT RESTS IN BED, AT BEDSIDE. PATIENT'S RIGHT FACIAL DROOPING CONTINUES TO IMPROVE. PATIENTS SPEECH IS BETTER WITH LESS SLURRING NOTED. PATIENT HAD AN EGD YESTERDAY THAT REPORTED ULCERS AND HE ALSO HAD A MANNING DILATATION. PATIENT REPORTS IT IS EASIER TO SWALLOW THIS MORNING. WE WILL HAVE SPEECH RE-EVALUATE. AT BEDSIDE. PATIENT HAD SOME ANXIETY YESTERDAY PRIOR TO EGD AND ATIVAN WAS ORDERED AND ANXIETY IMPROVED. CBC WNL EXCEPT: WBC 10.8. CMP WNL EXCEPT: CHL 108, GLUCOSE 112. WE WILL CONSULT SPEECH AND CONTINUE WITH TPN, ALBUMIN, AND LOVENOX. WE WILL START CRESTOR AND PEPCID. FOLLOW UP IN AM WITH ADDITIONAL LABS. - Past Medical Family Social History Past Med/Fam/Surg Hx: No changes since H&P Allergies: Allergies Clarithromycin [From Biaxin] Allergy (Verified 06/23/16 15:42) - Review of Systems ROS: No change since H&P - Vital Signs and I&O's Vital Signs: Temperature 97.9 F Pulse Rate [Right Brachial] 68 Pulse Rate [Left Brachial] 72 Respiratory Rate 20 Blood Pressure [Right Arm] 177/83 Blood Pressure [Right Radial 187/97 Artery] Blood Pressure [Left Arm] 138/68 O2 Sat by Pulse Oximetry 95 Intake and Output: Intake & Output 06/26/16 06/27/16 06/28/16 06/29/16 11:59 11:59 11:59 11:59 Intake Total 2160 1360 3582 Balance 2160 1360 3582 - Physical Exam Oriented: Normal, Time, Person, Place Eyes: Other (Right periorbital drooping). negative: Blurred Vision, Diplopia, Discharge, Pain, Redness, Photophobia Ear: Normal. negative: Swelling, Ecchymosis, Hemotypanum, Abrasion, Laceration Nose: Normal. negative: Injected, Discharge, Blood Throat: negative: Tonsillar Hypertrophy, Red, Exudate Respiratory: Normal Cardiovascular: Normal. negative: Murmur, Edema : Normal. negative: Dysuria, Hematuria, Frequency, Discharge, Testicular Pain Auscultation: Bowel Sounds: Normal. negative: Bruit Palpation: Normal. negative: Spleen Enlarged, Liver Enlarged, Mass Pulsatile Tenderness: Normal. negative: Rebound, Guarding, Rigidity Skin: Normal. negative: Diaphoresis, Wound, Bruising, Ecchymosis Musculoskeletal: Right (Right facial muscle weakness and drooping, involving the right periorbital region, and right corner of mouth), Instability Psychiatric: Normal Mood Description: Calm Affect: Normal Speech Pattern: Clear, Appropriate - Laboratory and Diagnostics Result Diagrams: 06/28/16 03:50 06/28/16 03:50 Labs: Laboratory WBC 8.0 X10^3/uL (3.6-10.0) 06/28/16 03:50 RBC 4.42 X10^6/uL (4.7-6.0) L 06/28/16 03:50 Hgb 13.8 g/dL (13.5-18.0) 06/28/16 03:50 Hct 41.0 % (42.0-54.0) L 06/28/16 03:50 MCV 92.7 fL (80.0-100.0) 06/28/16 03:50 MCH 31.2 pg (27.0-34.0) 06/28/16 03:50 MCHC 33.7 g/dL (33.0-35.0) 06/28/16 03:50 RDW 13.7 % (11.6-16.5) 06/28/16 03:50 Plt Count 133 X10^3/uL (150.0-450.0) L 06/28/16 03:50 MPV 9.5 fL (7.4-11.0) 06/28/16 03:50 Neut % 64.7 % (42.0-75.0) 06/28/16 03:50 Lymph % 14.6 % (21.0-51.0) L 06/28/16 03:50 [place] % 15.0 % (0.0-13.0) H 06/28/16 03:50 Eos % 5.2 % (0.9-2.9) H 06/28/16 03:50 Baso % 0.5 % (0.2-1.0) 06/28/16 03:50 Neut # 5.2 x10^3/uL (2.2-4.8) H 06/28/16 03:50 Lymph # 1.2 X10^3/uL (1.3-2.9) L 06/28/16 03:50 [place] # 1.2 x10^3/uL (0.3-0.8) H 06/28/16 03:50 Eos # 0.4 x10^3/uL (0.0-0.2) H 06/28/16 03:50 Baso # 0.0 X10^3/uL (0.0-0.1) 06/28/16 03:50 Absolute Nucleated RBC 0.0 /100WBC 06/28/16 03:50 Sodium 148 mmol/L (136-145) H 06/28/16 03:50 Corrected Sodium TNP 06/28/16 03:50 Potassium 3.6 mmol/L (3.5-5.1) 06/28/16 03:50 Chloride 111 mmol/L (98-107) H 06/28/16 03:50 Carbon Dioxide 26.2 mmol/L (21-32) 06/28/16 03:50 BUN 21 mg/dL (7-18) H 06/28/16 03:50 Creatinine 0.91 mg/dL (0.70-1.30) 06/28/16 03:50 Est GFR (MDRD) Af Amer > 60 (>60) 06/28/16 03:50 Est GFR (MDRD) Non-Af > 60 (>60) 06/28/16 03:50 Glucose 109 mg/dL (65-99) H 06/28/16 03:50 Calcium 8.5 mg/dL (8.5-10.1) 06/28/16 03:50 Corrected Calcium TNP 06/28/16 03:50 Total Bilirubin 0.50 mg/dL (0.2-1.0) 06/28/16 03:50 AST 11 Units/L (15-37) L 06/28/16 03:50 ALT 21 Units/L (12-78) 06/28/16 03:50 Alkaline Phosphatase 56 Units/L (46-116) 06/28/16 03:50 Total Protein 6.9 g/dL (6.4-8.2) 06/28/16 03:50 Albumin 3.7 g/dL (3.4-5.0) 06/28/16 03:50 Globulin 3.2 g/dL (2.5-4.5) 06/28/16 03:50 Albumin/Globulin Ratio 1.2 Ratio (1.1-2.1) 06/28/16 03:50 Specimen Type Clean catch urine 06/26/16 19:04 Urine Color Mimi (YELLOW) 06/26/16 19:04 Urine Appearance Clear (CLEAR) 06/26/16 19:04 Urine pH 5.0 (5.0 - 8.0) 06/26/16 19:04 Ur Specific [place] 1.020 (1.000-1.030) 06/26/16 19:04 Urine Protein 2+ (NEGATIVE) 06/26/16 19:04 Urine Glucose (UA) Negative (NEGATIVE) 06/26/16 19:04 Urine Ketones Negative (NEGATIVE) 06/26/16 19:04 Urine Occult Blood Negative (NEGATIVE) 06/26/16 19:04 Urine Nitrite Negative (NEGATIVE) 06/26/16 19:04 Urine Bilirubin Negative (NEGATIVE) 06/26/16 19:04 Urine Urobilinogen 2+ (NORMAL) 06/26/16 19:04 Ur Leukocyte Esterase 1+ (NEGATIVE) 06/26/16 19:04 Urine RBC None seen /HPF (NEGATIVE) 06/26/16 19:04 Urine WBC 0-3 /HPF (NEGATIVE) 06/26/16 19:04 Ur Squamous Epith Cells Few /HPF (NEGATIVE) 06/26/16 19:04 Urine Bacteria Trace /HPF (NEGATIVE) 06/26/16 19:04 Hyaline Casts Many /LPF (NEGATIVE) 06/26/16 19:04 Urine Mucus Moderate /HPF (NEGATIVE) 06/26/16 19:04 Ur Culture Indicated? No/not indicated 06/26/16 19:04 Tissue Pathology To follow 06/25/16 15:05 - Plan (1) CVA (cerebral vascular accident) Status: Acute Qualifiers: CVA mechanism: C Precerebral and cerebral artery: P Laterality of affected vessel: right Plan: START CRESTOR, CONTINUE LOVENOX, CONTINUE TO MONITOR NEURO STATUS. (2) Dysphagia Status: Acute Qualifiers: Dysphagia type: unspecified Qualified Code(s): R13.10 - Dysphagia, unspecified Plan: SPEECH TO RE-EVALUATE, START PEPCID, CONTINUE TPN, ALBUMIN, MONITOR. (3) Gastrointestinal ulcer Status: Acute Plan: START PEPCID, CONTINUE PROTONIX, MONITOR. (4) Facial droop Status: Acute Plan: ABOVE. (5) Hypertension Status: Chronic Qualifiers: Hypertension type: essential hypertension Qualified Code(s): I10 - Essential (primary) hypertension (6) Arthritis Status: Chronic
--- NOTE | 2016-06-28 17:40 | PCM.PROG ---
Progress Note - Progress Note for Day of Date: 06/27/16 - Subjective Subjective: PATIENT RESTS IN BED, AT BEDSIDE. PATIENT'S RIGHT FACIAL DROOPING CONTINUES TO IMPROVE. SPEECH THERAPY RE-EVALUATED PATIENT HAD SAW THAT IT WAS SAFE FOR PATIENT TO HAVE A REGULAR DIET WITH CHOPPED MEATS. PATIENT IS TOLERATING DIET WELL. HE REPORTS HE EATS SLOW AND IS DOING WELL. CBC WNL. CMP WNL EXCEPT: CHL 109, GLUCOSE 117. WE WILL DISCONTINUE PEPCID AND PROTONIX. WE WILL START ZANTAC BID, PLAVIX, AND PATANOL FOR RIGHT EYE. WE WILL CONTINUE WITH TPN, ALBUMIN, LOVENOX, AND CRESTOR. WE WILL FOLLOW UP IN AM WITH ADDITIONAL LABS. - Past Medical Family Social History Past Med/Fam/Surg Hx: No changes since H&P Allergies: Allergies Clarithromycin [From Biaxin] Allergy (Verified 06/23/16 15:42) - Review of Systems ROS: No change since H&P - Vital Signs and I&O's Vital Signs: Temperature 97.9 F Pulse Rate [Right Brachial] 68 Pulse Rate [Left Brachial] 72 Respiratory Rate 20 Blood Pressure [Right Arm] 177/83 Blood Pressure [Right Radial 187/97 Artery] Blood Pressure [Left Arm] 138/68 O2 Sat by Pulse Oximetry 95 Intake and Output: Intake & Output 06/26/16 06/27/16 06/28/16 06/29/16 11:59 11:59 11:59 11:59 Intake Total 2160 1360 3582 Balance 2160 1360 3582 - Physical Exam Oriented: Normal, Time, Person, Place Eyes: Other (Right periorbital drooping). negative: Blurred Vision, Diplopia, Discharge, Pain, Redness, Photophobia Ear: Normal. negative: Swelling, Ecchymosis, Hemotypanum, Abrasion, Laceration Nose: Normal. negative: Injected, Discharge, Blood Throat: negative: Tonsillar Hypertrophy, Red, Exudate Respiratory: Normal Cardiovascular: Normal. negative: Murmur, Edema : Normal. negative: Dysuria, Hematuria, Frequency, Discharge, Testicular Pain Auscultation: Bowel Sounds: Normal. negative: Bruit Palpation: Normal. negative: Spleen Enlarged, Liver Enlarged, Mass Pulsatile Tenderness: Normal. negative: Rebound, Guarding, Rigidity Skin: Normal. negative: Diaphoresis, Wound, Bruising, Ecchymosis Musculoskeletal: Right (Right facial muscle weakness and drooping, involving the right periorbital region, and right corner of mouth), Instability Psychiatric: Normal Mood Description: Calm Affect: Normal Speech Pattern: Clear, Appropriate - Laboratory and Diagnostics Result Diagrams: 06/28/16 03:50 06/28/16 03:50 Labs: Laboratory WBC 8.0 X10^3/uL (3.6-10.0) 06/28/16 03:50 RBC 4.42 X10^6/uL (4.7-6.0) L 06/28/16 03:50 Hgb 13.8 g/dL (13.5-18.0) 06/28/16 03:50 Hct 41.0 % (42.0-54.0) L 06/28/16 03:50 MCV 92.7 fL (80.0-100.0) 06/28/16 03:50 MCH 31.2 pg (27.0-34.0) 06/28/16 03:50 MCHC 33.7 g/dL (33.0-35.0) 06/28/16 03:50 RDW 13.7 % (11.6-16.5) 06/28/16 03:50 Plt Count 133 X10^3/uL (150.0-450.0) L 06/28/16 03:50 MPV 9.5 fL (7.4-11.0) 06/28/16 03:50 Neut % 64.7 % (42.0-75.0) 06/28/16 03:50 Lymph % 14.6 % (21.0-51.0) L 06/28/16 03:50 [place] % 15.0 % (0.0-13.0) H 06/28/16 03:50 Eos % 5.2 % (0.9-2.9) H 06/28/16 03:50 Baso % 0.5 % (0.2-1.0) 06/28/16 03:50 Neut # 5.2 x10^3/uL (2.2-4.8) H 06/28/16 03:50 Lymph # 1.2 X10^3/uL (1.3-2.9) L 06/28/16 03:50 [place] # 1.2 x10^3/uL (0.3-0.8) H 06/28/16 03:50 Eos # 0.4 x10^3/uL (0.0-0.2) H 06/28/16 03:50 Baso # 0.0 X10^3/uL (0.0-0.1) 06/28/16 03:50 Absolute Nucleated RBC 0.0 /100WBC 06/28/16 03:50 Sodium 148 mmol/L (136-145) H 06/28/16 03:50 Corrected Sodium TNP 06/28/16 03:50 Potassium 3.6 mmol/L (3.5-5.1) 06/28/16 03:50 Chloride 111 mmol/L (98-107) H 06/28/16 03:50 Carbon Dioxide 26.2 mmol/L (21-32) 06/28/16 03:50 BUN 21 mg/dL (7-18) H 06/28/16 03:50 Creatinine 0.91 mg/dL (0.70-1.30) 06/28/16 03:50 Est GFR (MDRD) Af Amer > 60 (>60) 06/28/16 03:50 Est GFR (MDRD) Non-Af > 60 (>60) 06/28/16 03:50 Glucose 109 mg/dL (65-99) H 06/28/16 03:50 Calcium 8.5 mg/dL (8.5-10.1) 06/28/16 03:50 Corrected Calcium TNP 06/28/16 03:50 Total Bilirubin 0.50 mg/dL (0.2-1.0) 06/28/16 03:50 AST 11 Units/L (15-37) L 06/28/16 03:50 ALT 21 Units/L (12-78) 06/28/16 03:50 Alkaline Phosphatase 56 Units/L (46-116) 06/28/16 03:50 Total Protein 6.9 g/dL (6.4-8.2) 06/28/16 03:50 Albumin 3.7 g/dL (3.4-5.0) 06/28/16 03:50 Globulin 3.2 g/dL (2.5-4.5) 06/28/16 03:50 Albumin/Globulin Ratio 1.2 Ratio (1.1-2.1) 06/28/16 03:50 Specimen Type Clean catch urine 06/26/16 19:04 Urine Color Mimi (YELLOW) 06/26/16 19:04 Urine Appearance Clear (CLEAR) 06/26/16 19:04 Urine pH 5.0 (5.0 - 8.0) 06/26/16 19:04 Ur Specific [place] 1.020 (1.000-1.030) 06/26/16 19:04 Urine Protein 2+ (NEGATIVE) 06/26/16 19:04 Urine Glucose (UA) Negative (NEGATIVE) 06/26/16 19:04 Urine Ketones Negative (NEGATIVE) 06/26/16 19:04 Urine Occult Blood Negative (NEGATIVE) 06/26/16 19:04 Urine Nitrite Negative (NEGATIVE) 06/26/16 19:04 Urine Bilirubin Negative (NEGATIVE) 06/26/16 19:04 Urine Urobilinogen 2+ (NORMAL) 06/26/16 19:04 Ur Leukocyte Esterase 1+ (NEGATIVE) 06/26/16 19:04 Urine RBC None seen /HPF (NEGATIVE) 06/26/16 19:04 Urine WBC 0-3 /HPF (NEGATIVE) 06/26/16 19:04 Ur Squamous Epith Cells Few /HPF (NEGATIVE) 06/26/16 19:04 Urine Bacteria Trace /HPF (NEGATIVE) 06/26/16 19:04 Hyaline Casts Many /LPF (NEGATIVE) 06/26/16 19:04 Urine Mucus Moderate /HPF (NEGATIVE) 06/26/16 19:04 Ur Culture Indicated? No/not indicated 06/26/16 19:04 Tissue Pathology To follow 06/25/16 15:05 - Plan (1) CVA (cerebral vascular accident) Status: Acute Qualifiers: CVA mechanism: C Precerebral and cerebral artery: P Laterality of affected vessel: right Plan: START PLAVIX, CONTINUE CRESTOR, LOVENOX, CONTINUE TO MONITOR NEURO STATUS. (2) Dysphagia Status: Acute Qualifiers: Dysphagia type: unspecified Qualified Code(s): R13.10 - Dysphagia, unspecified Plan: CONTINUE TPN, ALBUMIN, MONITOR. (3) Gastrointestinal ulcer Status: Acute Plan: DISCONTINUE PEPCID, PROTONIX, START ZANTAC, MONITOR. (4) Facial droop Status: Acute Plan: ABOVE. (5) Hypertension Status: Chronic Qualifiers: Hypertension type: essential hypertension Qualified Code(s): I10 - Essential (primary) hypertension (6) Arthritis Status: Chronic
== END 2016-06-28 11:15 | disposition home or self-care (01) | DRG 69 ==
LOC: ER 15:29 → MED/SURG 16:46 → OBSVTOIN 06-24 17:00
PROVIDERS: ADMIT Internal Medicine; ATTEND Internal Medicine
PROC: 0D757ZZ Dilation of Esophagus, Via Natural or Artificial Opening (ICD-10-PCS; 2016-06-25)
PROC: 0DB68ZX Excision of Stomach, Via Natural or Artificial Opening Endoscopic, Diagnostic (ICD-10-PCS; principal; 2016-06-25 13:00)
DX: G45.8 Other transient cerebral ischemic attacks and related syndromes (principal); I63.8 Other cerebral infarction; I15.8 Other secondary hypertension; R13.11 Dysphagia, oral phase; R29.810 Facial weakness; R47.81 Slurred speech; M13.89 Other specified arthritis, multiple sites; K21.9 Gastro-esophageal reflux disease without esophagitis; K25.3 Acute gastric ulcer without hemorrhage or perforation; R26.89 Other abnormalities of gait and mobility; K22.10 Ulcer of esophagus without bleeding; K31.9 Disease of stomach and duodenum, unspecified; K22.4 Dyskinesia of esophagus; K29.60 Other gastritis without bleeding
CPT/HCPCS: 36415; 70450; 70544; 70552; 71010; 80053; 81001; 85025; 93880; 94760; 96365; 96374; 99283; 99284; A4222; C9113; G8978; G8979; P9047; S0028; A4217; G0378; J0360; J1650; J2060; J3490

== ENCOUNTER 2016-08-29 13:28 | Emergency (ER) | payer BC ==
[2016-08-29 13:32] VITALS: BMI 37.6
[2016-08-29 14:01] VITALS: BP 153/91
--- NOTE | 2016-08-29 14:53 | DR.GENAD ---
HPI - PCP Primary Care Physician: DR. PETER - Complaint/Symptoms Chief Complaint Doctors Comments: " Facial numbness and dizzy since 3am" Chief Complaint:: PATIENT STATED THAT HE IS FEELING TINGLING ALL OVER. HE HAD A STROKE JUNE 23. THESE SYMPTOMS STARTED AGAIN LAST NIGHT. - Nurses notes reviewed Nurses Notes Review: Yes - Source History Provided: Patient - Mode of Arrival Mode of Arrival: Ambulatory - Timing Onset of Chief Complaint: 08/28/16 Came on: Gradually - Severity Severity: Mild - Modifying Factors Worsens:: Pt has been eating salty watermelons frequently. - Associated Signs and Symptoms Associated Signs and Symptoms: fatigue, dizzy and face,neck and head tingling. PMH - PMH Past Medical History: Yes Past Medical History: CVA, Hypertension Past Surgical History: No - Family History History of Family Medical Conditions: Yes Family Medical History: Cancer, [place] - Social History Does patient currently use any type of tobacco product: No Have you used tobacco products in the last 12 months: No Type of Tobacco Use: None Does any household member use tobacco: No Alcohol Use: None Do you use any recreational Drugs:: No Lives With: Family Lives Where: Home - infectious screening In the last 2 months have you had wt loss of >10#?: NO Have you had fever, night sweats or hemotysis?: No Have you traveled outside the country in the last 6 months?: No Isolation: Standard ROS - Review of Systems Constitutional: Weakness, Fatigue Eyes: No Symptoms Reported ENTM: No Symptoms Reported Respiratoy: No Symptoms Reported Cardiovascular: No Symptoms Reported Gastrointestinal/Abdominal: No Symptoms Reported Genitourinary: No Symptoms Reported Neurological: Anxiety, Numbness, Weakness, Dizziness Musculoskeletal: No Symptoms Reported Integumentary: No Symptoms Reported Hematologic/Lymphatic: No Symptoms Reported Endocrine: No Symptoms Reported Psychiatric: No Symptoms Reported All Other Systems: Reviewed and Negative PE - Vital Signs Vitals: Pulse Rate [Apical] 70 Pulse Rate 78 Respiratory Rate 20 Blood Pressure [Right Arm] 153/91 Blood Pressure [Right Radial 187/97 Artery] Blood Pressure [Left Arm] 138/68 Blood Pressure [Sitting] 119/77 Blood Pressure [Lying] 121/79 Blood Pressure 143/100 O2 Sat by Pulse Oximetry 97 - General Limitations: No Limitations General Appearance: Alert, Anxious, Obese - Head Head Exam: Normal Inspection - Eyes Eye exam: Normal Appearance, PERRL, EOMI, Scleral Icterus - ENT ENT Exam: Normal Exam, Normal Oropharynx, Normal External Ear Exam, Mucous Membranes Moist, TM's Normal Bilaterally External Ear Exam: Normal External Inspection, Pain with Movement Nose Exam: Normal Nose Exam Mouth Exam: Normal Inspection - Neck Neck Exam: Normal Inspection, Full ROM, Trachea Midline - Chest Chest Inspection: Normal Inspection, Symmetric Chest Wall Rise - Respiratory Respiratory Exam: Normal Lung Sounds Bilat - Cardiovascular Cardiovascular Exam: Regular Rate, Normal Rhythm, Systolic Murmur - Abdominal Exam Abdominal Exam: Normal Inspection, Normal Bowel Sounds, Soft - Extremities Extremities Exam: Normal Inspection - Back Back Exam: Normal Inspection - Neurologic Neurological Exam: Alert, Oriented X3, CN II-XII Intact - Psychiatric Psychiatric Exam: Anxious - Skin Skin Exam: Warm, Dry, Intact, Normal Color ROR - Labs Reviewed Result Diagrams: 08/29/16 14:17 08/29/16 14:17 Laboratory: WBC 6.4 X10^3/uL (3.6-10.0) 08/29/16 14:17 RBC 4.50 X10^6/uL (4.7-6.0) L 08/29/16 14:17 Hgb 14.5 g/dL (13.5-18.0) 08/29/16 14:17 Hct 41.9 % (42.0-54.0) L 08/29/16 14:17 MCV 93.1 fL (80.0-100.0) 08/29/16 14:17 MCH 32.2 pg (27.0-34.0) 08/29/16 14:17 MCHC 34.5 g/dL (33.0-35.0) 08/29/16 14:17 RDW 14.0 % (11.6-16.5) 08/29/16 14:17 Plt Count 186 X10^3/uL (150.0-450.0) 08/29/16 14:17 MPV 8.3 fL (7.4-11.0) 08/29/16 14:17 Neut % 59.5 % (42.0-75.0) 08/29/16 14:17 Lymph % 23.3 % (21.0-51.0) 08/29/16 14:17 [place] % 13.2 % (0.0-13.0) H 08/29/16 14:17 Eos % 3.5 % (0.9-2.9) H 08/29/16 14:17 Baso % 0.5 % (0.2-1.0) 08/29/16 14:17 Neut # 3.8 x10^3/uL (2.2-4.8) 08/29/16 14:17 Lymph # 1.5 X10^3/uL (1.3-2.9) 08/29/16 14:17 [place] # 0.8 x10^3/uL (0.3-0.8) 08/29/16 14:17 Eos # 0.2 x10^3/uL (0.0-0.2) 08/29/16 14:17 Baso # 0.0 X10^3/uL (0.0-0.1) 08/29/16 14:17 Absolute Nucleated RBC 0.2 /100WBC 08/29/16 14:17 D-Dimer < 100 ng/mL (0-400) 08/29/16 14:17 Sodium 144 mmol/L (136-145) 08/29/16 14:17 Corrected Sodium TNP 08/29/16 14:17 Potassium 4.5 mmol/L (3.5-5.1) 08/29/16 14:17 Chloride 109 mmol/L (98-107) H 08/29/16 14:17 Carbon Dioxide 29.7 mmol/L (21-32) 08/29/16 14:17 BUN 10 mg/dL (7-18) 08/29/16 14:17 Creatinine 0.93 mg/dL (0.70-1.30) 08/29/16 14:17 Est GFR (MDRD) Af Amer > 60 (>60) 08/29/16 14:17 Est GFR (MDRD) Non-Af > 60 (>60) 08/29/16 14:17 Glucose 107 mg/dL (65-99) H 08/29/16 14:17 Calcium 8.3 mg/dL (8.5-10.1) L 08/29/16 14:17 Corrected Calcium TNP 08/29/16 14:17 Total Bilirubin 0.40 mg/dL (0.2-1.0) 08/29/16 14:17 AST 23 Units/L (15-37) 08/29/16 14:17 ALT 33 Units/L (12-78) 08/29/16 14:17 Alkaline Phosphatase 64 Units/L (46-116) 08/29/16 14:17 Creatine Kinase 81 Units/L (39-308) 08/29/16 14:17 CK-MB (CK-2) < 1.0 ng/mL (0-4.0) 08/29/16 14:17 CK/CKMB % Calc 1.2 % (<4) 08/29/16 14:17 Troponin I < 0.02 ng/mL (0-1.5) 08/29/16 14:17 B-Natriuretic Peptide 31.0 pg/mL (0-79) 08/29/16 14:17 Total Protein 7.0 g/dL (6.4-8.2) 08/29/16 14:17 Albumin 3.4 g/dL (3.4-5.0) 08/29/16 14:17 Globulin 3.6 g/dL (2.5-4.5) 08/29/16 14:17 Albumin/Globulin Ratio 0.9 Ratio (1.1-2.1) L 08/29/16 14:17 Specimen Type Clean catch urine 08/29/16 15:10 Urine Color Yellow (YELLOW) 08/29/16 15:10 Urine Appearance Clear (CLEAR) 08/29/16 15:10 Urine pH 6.5 (5.0 - 8.0) 08/29/16 15:10 Ur Specific [place] 1.010 (1.000-1.030) 08/29/16 15:10 Urine Protein Negative (NEGATIVE) 08/29/16 15:10 Urine Glucose (UA) Negative (NEGATIVE) 08/29/16 15:10 Urine Ketones Negative (NEGATIVE) 08/29/16 15:10 Urine Occult Blood Negative (NEGATIVE) 08/29/16 15:10 Urine Nitrite Negative (NEGATIVE) 08/29/16 15:10 Urine Bilirubin Negative (NEGATIVE) 08/29/16 15:10 Urine Urobilinogen 1+ (NORMAL) 08/29/16 15:10 Ur Leukocyte Esterase Negative (NEGATIVE) 08/29/16 15:10 Urine RBC 0-2 /HPF (NEGATIVE) 08/29/16 15:10 Urine WBC 0-1 /HPF (NEGATIVE) 08/29/16 15:10 Ur Squamous Epith Cells Negative /HPF (NEGATIVE) 08/29/16 15:10 Amorphous Sediment Trace /HPF (NEGATIVE) 08/29/16 15:10 Urine Bacteria Trace /HPF (NEGATIVE) 08/29/16 15:10 Ur Culture Indicated? No/not indicated 08/29/16 15:10 - Diagnosis Discharge Problem: Hypertension, Anxiety about health - Discharge Plan Condition: Stable - Follow ups/Referrals Follow ups/Referrals: Lauri Peter [Primary Care Provider] - 3 days - Instructions
[2016-08-29 14:55] LABS: BASOPHILS % (AUTO) 0.5 % (0.2-1.0); EOSINOPHILS # (AUTO) 0.2 x10^3/uL (0.0-0.2); EOSINOPHILS % (AUTO) 3.5 % (0.9-2.9); HEMATOCRIT 41.9 % (42.0-54.0); HEMOGLOBIN 14.5 g/dL (13.5-18.0); LYMPHOCYTES # (AUTO) 1.5 X10^3/uL (1.3-2.9); LYMPHOCYTES % (AUTO) 23.3 % (21.0-51.0); MEAN CORPUSCULAR HEMOGLOBIN 32.2 pg (27.0-34.0); MEAN CORPUSCULAR HGB CONC 34.5 g/dL (33.0-35.0); MEAN CORPUSCULAR VOLUME 93.1 fL (80.0-100.0); MEAN PLATELET VOLUME 8.3 fL (7.4-11.0); MONOCYTES # (AUTO) 0.8 x10^3/uL (0.3-0.8); MONOCYTES % (AUTO) 13.2 % (0.0-13.0); NEUTROPHILS # (AUTO) 3.8 x10^3/uL (2.2-4.8); NEUTROPHILS % (AUTO) 59.5 % (42.0-75.0); PLATELET COUNT 186 X10^3/uL (150.0-450.0); WHITE BLOOD COUNT 6.4 X10^3/uL (3.6-10.0)
--- NOTE | 2016-08-29 15:09 | CT ---
HISTORY: Headache, dizziness, paresthesias Study: CT brain without contrast Comparison: June 23, 2016 Technique: Multiple axial images of the brain were obtained from the skull base to the vertex without administr ation of IV contrast. Coronal and sagittal reformats were performed. Dose reduction procedures were used with MA/kv adjusted for body size. Findings: No acute intraparenchymal hemorrhage or mass can be identified. No extra-axial fluid collections ar e seen. No alteration in the attenuation of the brain parenchyma can be identified to suggest acute or subacute ischemic change. The ventricular system is symmetric and nondilated. The extracranial structures are grossly unremarkable. if acute CVA is a strong clinical consideration MRI with diffu buddy imaging would be of further diagnostic value in should be considered. IMPRESSION: . No significant intracranial abnormality identified Reported By:
[2016-08-29 15:10] LABS: BLOOD UREA NITROGEN 10 mg/dL (7-18); CALCIUM 8.3 mg/dL (8.5-10.1); CARBON DIOXIDE 29.7 mmol/L (21-32); CHLORIDE 109 mmol/L (98-107); CREATININE 0.93 mg/dL (0.70-1.30); GLUCOSE 107 mg/dL (65-99); SODIUM 144 mmol/L (136-145); TROPONIN I < 0.02 ng/mL (0-1.5); eGFR BLACK RACES > 60 (>60); eGFR NON BLACK RACES > 60 (>60)
[2016-08-29 15:14] LABS: ALANINE AMINOTRANSFERASE 33 Units/L (12-78); ALBUMIN 3.4 g/dL (3.4-5.0); ALKALINE PHOSPHATASE 64 Units/L (46-116); ASPARTATE AMINO TRANSFERASE 23 Units/L (15-37); CKMB % 1.2 % (<4); CREATINE KINASE 81 Units/L (39-308); CREATINE KINASE MB < 1.0 ng/mL (0-4.0)
[2016-08-29 15:22] LABS: D DIMER < 100 ng/mL (0-400)
[2016-08-29 15:39] LABS: BILIRUBIN,URINE NEGATIVE (NEGATIVE); BLOOD/HEMOGLOBIN,URINE NEGATIVE (NEGATIVE); GLUCOSE, URINE NEGATIVE (NEGATIVE); KETONES,URINE NEGATIVE (NEGATIVE); LEUKOCYTE ESTERASE ,URINE NEGATIVE (NEGATIVE); NITRITES,URINE NEGATIVE (NEGATIVE); PH,URINE 6.5 (5.0 - 8.0); PROTEIN,URINE NEGATIVE (NEGATIVE); UROBILINOGEN,URINE 1+ (NORMAL)
[2016-08-29 15:46] LABS: AMORPHOUS SEDIMENT,UR TRACE /HPF (NEGATIVE); APPEARANCE,URINE CLEAR (CLEAR); BACTERIA,URINE TRACE /HPF (NEGATIVE); COLOR,URINE YELLOW (YELLOW); RBC,URINE 0-2 /HPF (NEGATIVE); SQUAMOUS EPITHELIAL CELL,UR NEGATIVE /HPF (NEGATIVE)
[2016-08-29] MEDS ORDERED: ATIVAN INJ 2 MG VIAL IM ONE (16:04)
[2016-08-29] MEDS ORDERED: ATIVAN INJ 2 MG VIAL ONE (16:04)
== END 2016-08-29 16:25 | disposition home or self-care (01) ==
LOC: ER 13:39
DX: F41.8 Other specified anxiety disorders (principal); I10 Essential (primary) hypertension
CPT/HCPCS: 36415; 70450; 80053; 81001; 82550; 82553; 83880; 84484; 85025; 85378; 93005; 96372; 99283; J2060

== ENCOUNTER → 2016-11-01 | Outpatient (CLI) | payer BC ==
--- NOTE | 2016-11-01 12:23 | MRI ---
STUDY: MRI OF THE BRAIN WITHOUT GADOLINIUM HISTORY: Cerebral infarction. Neck pain. Technique: Multiplanar multi-sequence MRI of the brain was obtained utilizing standard departmental p rotocol. Sagittal and axial T1, axial T2, FLAIR, diffusion (DWI/ADC) images through the brain were pe rformed. Comparison: Head CT from August 29, 2016. Findings: The sulci, cisterns and ventricles are age appropriate. There are confluent and scattered foci of T2 prolongation in the periventricular and subcortical white matter of both hemispheres. This is a nonsp ecific finding which likely represents mild microangiopathic change in a patient of this age. There is no evidence of acute territorial infarction, hemorrhage, mass, mass effect, or midline shift . There are no abnormal intra-axial or extra-axial fluid collections. The major intracranial vascular flow voids appear intact. The left vertebral artery appears dominant. The right vertebral artery is not clearly identified. IMPRESSION: 1. No evidence of acute intracranial abnormality. 2. Nonspecific white matter change. Reported By:
== END ==
LOC: RAD 10:32
PROVIDERS: ATTEND Internal Medicine
DX: I63.8 Other cerebral infarction (principal); M54.2 Cervicalgia
CPT/HCPCS: 70551

== ENCOUNTER → 2017-02-03 | Outpatient (CLI) | payer BC ==
--- NOTE | 2017-02-03 10:45 | RAD ---
Examination: Left humerus, two views History: Numbness in humerus Findings: Normal appearance of left humerus, no evidence for fracture, bone destruction or contour de formity. Impression: Normal examination. Reported By:
== END ==
LOC: RAD 10:17
PROVIDERS: ATTEND Internal Medicine
DX: R20.2 Paresthesia of skin (principal)
CPT/HCPCS: 73060

== ENCOUNTER → 2017-02-05 | Outpatient (CLI) | payer BC ==
--- NOTE | 2017-02-07 09:10 | CT ---
HISTORY: Numbness and tingling of the left humerus. Study: CT left humerus without contrast Comparison: Left humeral series dated February 03, 2017. Technique: Multiple axial images of the left humerus without administration of IV contrast. Sagittal and coronal reformats were performed and reviewed. Dose reduction techniques including Automated Exp osure Control (AEC) and adjustment of mA and kV were utilized. Findings: No acute fracture or dislocation. The visualized soft tissues are unremarkable. 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 No significant effusion. IMPRESSION: Unremarkable exam. Reported By:
== END ==
LOC: RAD 09:59
PROVIDERS: ATTEND Internal Medicine
DX: R20.2 Paresthesia of skin (principal)
CPT/HCPCS: 73200

== ENCOUNTER 2020-07-06 20:34 | Observation (INO) ==
--- NOTE | 2020-07-06 21:53 | DR.EXTPAIN ---
HPI Time seen Time Seen by Provider: 07/06/20 21:37 PCP Primary Care Physician: DR. PETER HPI Comment HPI Comment: PATIENT WITH A HISTORY OF PREVIOUS AORTIC VALVE REPLACEMENT, CONGESTIVE HEART FAILURE, INCREASING FLUID RETENTION IN LOWER LEGS PAST WEEK WITH A WEIGHT GAIN OF 20 POUNDS. HAS 2 PILLOW ORTHOPNEA AND EXERTIONAL DYSPNEA. DENIES CHEST PAIN, CHILLS OR COUGH. Complaint/Symptoms Chief Complaint Doctor Comments: INCREASING FLUID RETENTION IN LOWER EXTREMITIES Chief Complaint:: STATES THAT PT HAS FLUID BUILDUP IN BILATERAL LOWER EXTREMITIES. STATES THE FLUID BUILDUP IS HAS WENT TO THE GROIN AREA. STATES HE IS COMPLAINING OF PAIN IN HIS GROIN AREA. STATES HIS WEIGHT AT HOME WAS 284LBS YESTERDAY AND 286LBS TODAY. PT WAS PLACED ON STANDING SCALE IN TRIAGE AND NOTED TO BE 279.2LBS. COVID-19 Coronavirus risk:travel/contact w/high risk person: No Has patient experienced Coronavirus symptoms: No Nurses notes reviewed Nurses Notes Review: Yes Source History Provided: Patient, Parent and Significant Other Mode of arrival Mode of Arrival: Ambulatory Timing Onset of Chief Complaint: 07/04/20 Associated signs and symptoms Associated Signs and Symptoms: Swelling (MARKED SWELLING IN LOWER EXTREMITIES) and Shortness of Breath PMH PMH Past Medical History: Yes Past Medical History: CVA, Dyslipidemia and Hypertension Past Surgical History: Yes Surgical History: Angioplasty/Stents, CABG/Valve Surgery and Other Past Surgical History Comment: AORTA REPAIR Family History History of Family Medical Conditions: Yes Family Medical History: Cancer and [place] Social History Does any household member use tobacco: No Alcohol Use: None Do you use any recreational Drugs:: No Lives With: Spouse Lives Where: Home Travel Risk Coronavirus risk:travel/contact w/high risk person: No Has patient experienced Coronavirus symptoms: No Infectious screening Have you traveled outside the country in the last 6 months?: No Isolation: Standard ROS Review of Systems Constitutional: See HPI Eyes: No Symptoms Reported ENTM: No Symptoms Reported Respiratoy: Short of Breath Cardiovascular: Edema Gastrointestinal/Abdominal: No Symptoms Reported Genitourinary: No Symptoms Reported Neurological: No Symptoms Reported Musculoskeletal: No Symptoms Reported Integumentary: No Symptoms Reported Hematologic/Lymphatic: No Symptoms Reported Endocrine: No Symptoms Reported Psychiatric: No Symptoms Reported All Other Systems: Reviewed and Negative PE Vital Signs Vitals: Temperature 97.8 F Pulse Rate 67 Respiratory Rate 25 Blood Pressure [Right Arm] 173/77 Blood Pressure [Right Radial 187/97 Artery] Blood Pressure [Left Arm] 140/83 Blood Pressure [Standing] 119/72 Blood Pressure [Sitting] 123/76 Blood Pressure [Lying] 124/78 Blood Pressure 130/61 O2 Sat by Pulse Oximetry 98 General General Appearance: Alert and In No Apparent Distress Head Head Exam: Normal Inspection and Atraumatic Eyes Eye exam: Normal Appearance, PERRL and EOMI Neck Neck Exam: Normal Inspection Chest Chest Inspection: Normal Inspection and Symmetric Chest Wall Rise Respiratory Respiratory Exam: Normal Lung Sounds Bilat Respiratory Exam: Right: Decreased Breath Sounds and Lower: Decreased Breath Sounds Cardiovascular Cardiovascular Exam: Regular Rate, Normal Rhythm and JVD Abdominal Exam Abdominal Exam: Normal Inspection, Normal Bowel Sounds and Soft Extremities Extremities Exam: Edema (3+ PITTING EDEMA ANKLE TO KNEES) Neurological Neurological Exam: Alert and Oriented X3 MDM Differential Diagnosis Differential Diagnosis: Other (ACUTE CONGESTIVE HEART FAILURE) COURSE Treatment Treatment: IV LASIX 60MG, DIURESIS OVER 1 LITER Reevaluation 1st: Unchanged Consultation Call Returned: 23:55 Consultation Comments: DISCUSSED FINDINGS WITH DR PETER AT 2355 FOR OBSERVATION ROR Labs Reviewed Laboratory Results Reviewed?: Yes Result Diagrams: 07/06/20 21:55 07/06/20 21:55 Laboratory: WBC 7.6 X10^3/uL (3.6-10.0) 07/06/20 21:55 RBC 3.50 X10^6/uL (4.7-6.0) L 07/06/20 21:55 Hgb 11.4 g/dL (13.5-18.0) L 07/06/20 21:55 Hct 34.1 % (42.0-54.0) L 07/06/20 21:55 MCV 97.5 fL (80.0-100.0) 07/06/20 21:55 MCH 32.7 pg (27.0-34.0) 07/06/20 21:55 MCHC 33.5 g/dL (33.0-35.0) 07/06/20 21:55 RDW 14.3 % (11.6-16.5) 07/06/20 21:55 Plt Count 201 X10^3/uL (150.0-450.0) 07/06/20 21:55 MPV 7.9 fL (7.4-11.0) 07/06/20 21:55 Neut % (Auto) 67.0 % (42.0-75.0) 07/06/20 21:55 Lymph % (Auto) 14.5 % (21.0-51.0) L 07/06/20 21:55 [place] % (Auto) 13.3 % (0.0-13.0) H 07/06/20 21:55 Eos % (Auto) 4.7 % (0.9-2.9) H 07/06/20 21:55 Baso % (Auto) 0.5 % (0.2-1.0) 07/06/20 21:55 Neut # (Auto) 5.1 x10^3/uL (2.2-4.8) H 07/06/20 21:55 Lymph # (Auto) 1.1 X10^3/uL (1.3-2.9) L 07/06/20 21:55 [place] # (Auto) 1.0 x10^3/uL (0.3-0.8) H 07/06/20 21:55 Eos # (Auto) 0.4 x10^3/uL (0.0-0.2) H 07/06/20 21:55 Baso # (Auto) 0.0 X10^3/uL (0.0-0.1) 07/06/20 21:55 Absolute Nucleated RBC 0.0 /100WBC 07/06/20 21:55 PT 15.6 SECONDS (11.8-14.3) 07/06/20 21:55 INR Target Range - 07/06/20 21:55 INR 1.30 (0.8-1.3) 07/06/20 21:55 Sodium 140 mmol/L (136-145) 07/06/20 21:55 Corrected Sodium TNP 07/06/20 21:55 Potassium 3.4 mmol/L (3.5-5.1) L 07/06/20 21:55 Chloride 106 mmol/L (98-107) 07/06/20 21:55 Carbon Dioxide 39.2 mmol/L (21-32) H 07/06/20 21:55 BUN 19 mg/dL (7-18) H 07/06/20 21:55 Creatinine 1.37 mg/dL (0.70-1.30) H 07/06/20 21:55 Est GFR (MDRD) Af Amer > 60 (>60) 07/06/20 21:55 Est GFR (MDRD) Non-Af 55 (>60) L 07/06/20 21:55 Glucose 87 mg/dL (65-99) 07/06/20 21:55 Calcium 8.8 mg/dL (8.5-10.1) 07/06/20 21:55 Corrected Calcium TNP 07/06/20 21:55 Magnesium 2.1 mg/dL (1.7-2.9) 07/06/20 21:55 Total Bilirubin 0.90 mg/dL (0.2-1.0) 07/06/20 21:55 AST 29 Units/L (15-37) 07/06/20 21:55 ALT 24 Units/L (12-78) 07/06/20 21:55 Alkaline Phosphatase 147 Units/L (46-116) H 07/06/20 21:55 Troponin I < 0.02 ng/mL (0-1.5) 07/06/20 21:55 B-Natriuretic Peptide 97.2 pg/mL (0-79) H 07/06/20 21:55 Total Protein 7.5 g/dL (6.4-8.2) 07/06/20 21:55 Albumin 3.4 g/dL (3.4-5.0) 07/06/20 21:55 Globulin 4.1 g/dL (2.5-4.5) 07/06/20 21:55 Albumin/Globulin Ratio 0.8 Ratio (1.1-2.1) L 07/06/20 21:55 Influenza Type A Ag Negative-presumptive (NEGATIVE) 07/06/20 21:53 Influenza Type B Ag Negative-presumptive (NEGATIVE) 07/06/20 21:53 XRAY X-ray Results: PORTABLE CHEST XRAY CONSISTENT WITH A MODERATE RIGHT PLEURAL E FFUSION EKG Rate: 68 Rhythm: NSR Block: RBBB Opioid Opioid Risk Tool Age (Albert box if 16-45): No Total: 0 Total Score Risk Category: Low Risk Copyright: [facility] predicting aberrant behaviors Diagnosis Discharge Problem: Acute CHF (congestive heart failure), Pleural effusion Instructions Forms: Precautions for COVID19 Patient Portal Social Distancing
[2020-07-06] MEDS ORDERED: LASIX IVP ONE (22:20)
[2020-07-06 22:31] LABS: BASOPHILS % (AUTO) 0.5 % (0.2-1.0); EOSINOPHILS # (AUTO) 0.4 x10^3/uL (0.0-0.2); EOSINOPHILS % (AUTO) 4.7 % (0.9-2.9); HEMATOCRIT 34.1 % (42.0-54.0); HEMOGLOBIN 11.4 g/dL (13.5-18.0); LYMPHOCYTES # (AUTO) 1.1 X10^3/uL (1.3-2.9); LYMPHOCYTES % (AUTO) 14.5 % (21.0-51.0); MEAN CORPUSCULAR HEMOGLOBIN 32.7 pg (27.0-34.0); MEAN CORPUSCULAR HGB CONC 33.5 g/dL (33.0-35.0); MEAN CORPUSCULAR VOLUME 97.5 fL (80.0-100.0); MEAN PLATELET VOLUME 7.9 fL (7.4-11.0); MONOCYTES % (AUTO) 13.3 % (0.0-13.0); NEUTROPHILS # (AUTO) 5.1 x10^3/uL (2.2-4.8); PLATELET COUNT 201 X10^3/uL (150.0-450.0); RED CELL DISTRIBUTION WIDTH 14.3 % (11.6-16.5); WHITE BLOOD COUNT 7.6 X10^3/uL (3.6-10.0)
[2020-07-06 22:42] LABS: ALANINE AMINOTRANSFERASE 24 Units/L (12-78); ALBUMIN 3.4 g/dL (3.4-5.0); ALKALINE PHOSPHATASE 147 Units/L (46-116); ASPARTATE AMINO TRANSFERASE 29 Units/L (15-37); BLOOD UREA NITROGEN 19 mg/dL (7-18); CALCIUM 8.8 mg/dL (8.5-10.1); CARBON DIOXIDE 39.2 mmol/L (21-32); CHLORIDE 106 mmol/L (98-107); CREATININE 1.37 mg/dL (0.70-1.30); MAGNESIUM 2.1 mg/dL (1.7-2.9); SODIUM 140 mmol/L (136-145); TOTAL PROTEIN 7.5 g/dL (6.4-8.2); TROPONIN I < 0.02 ng/mL (0-1.5); eGFR NON BLACK RACES 55 (>60)
--- NOTE | 2020-07-06 23:03 | RAD ---
STUDY: FRONTAL VIEW CHESTCOMPARISON: September 21, 2018HISTORY: PT HAS FLUID BUILDUP IN BILATERAL LOWER EXTREMITIES. STATES THE FLUID BUILDUP IS HAS WENT TO THE GROIN AREA.FINDINGS:Moderate size right-sided pleural effusion is seen with right lower lobe airspace disease. This could represent an infectious process. Left lower lobe subsegmental atelectasis is noted.The heart size is magnified on this portable technique but also appears enlarged and stable from prior exam.The mediastinum is unremarkable.There is no evidence of pleural effusion or gross pneumothorax.The trachea is midline.IMPRESSION:1. Moderate size right-sided pleural effusion is seen with right lower lobe airspace disease. This could represent an infectious process and was not present on the prior exam.Electronically signed by: Vitor Penny (July 06, 2020 23:01:31)
[2020-07-07] MEDS ORDERED: PATIENT'S HOME MEDICATION (Oxycodone-Acetaminophen 7.5-325 mg Tablet) PO PRN (00:41)
[2020-07-07 03:23] VITALS: BMI 37.8
[2020-07-07 05:09] LABS: BASOPHILS % (AUTO) 0.4 % (0.2-1.0); EOSINOPHILS # (AUTO) 0.4 x10^3/uL (0.0-0.2); EOSINOPHILS % (AUTO) 6.1 % (0.9-2.9); HEMATOCRIT 31.1 % (42.0-54.0); HEMOGLOBIN 10.7 g/dL (13.5-18.0); LYMPHOCYTES % (AUTO) 16.4 % (21.0-51.0); MEAN CORPUSCULAR HEMOGLOBIN 33.1 pg (27.0-34.0); MEAN CORPUSCULAR HGB CONC 34.5 g/dL (33.0-35.0); MEAN CORPUSCULAR VOLUME 95.9 fL (80.0-100.0); MEAN PLATELET VOLUME 8.1 fL (7.4-11.0); MONOCYTES # (AUTO) 1.1 x10^3/uL (0.3-0.8); MONOCYTES % (AUTO) 17.4 % (0.0-13.0); NEUTROPHILS # (AUTO) 3.6 x10^3/uL (2.2-4.8); NEUTROPHILS % (AUTO) 59.7 % (42.0-75.0); PLATELET COUNT 205 X10^3/uL (150.0-450.0); RED BLOOD COUNT 3.25 X10^6/uL (4.7-6.0); RED CELL DISTRIBUTION WIDTH 14.3 % (11.6-16.5)
[2020-07-07 05:25] LABS: BLOOD UREA NITROGEN 21 mg/dL (7-18); CALCIUM 8.6 mg/dL (8.5-10.1); CARBON DIOXIDE 34.2 mmol/L (21-32); CHLORIDE 102 mmol/L (98-107); CREATININE 1.19 mg/dL (0.70-1.30); SODIUM 145 mmol/L (136-145); eGFR NON BLACK RACES > 60 (>60)
[2020-07-07] MEDS: COREG TAB 3.125 MG PO SCH ×2 (08:17→20:46)
[2020-07-07] MEDS: PLAVIX PO SCH (08:18)
[2020-07-07] MEDS: LASIX IVP SCH ×2 (08:18→18:32)
[2020-07-07] MEDS: HEMOCYTE-PLUS PO SCH (08:18)
[2020-07-07] MEDS: K-DUR TAB 20 MEQ PO SCH (08:18)
[2020-07-07] MEDS: SYNTHROID 75 mcg TAB PO SCH (08:19)
[2020-07-07] MEDS: PROzac PO SCH (08:19)
[2020-07-07] MEDS: WELLBUTRIN XL 150 MG (DAILY) PO SCH (08:19)
[2020-07-07] MEDS: REQUIP PO SCH ×2 (08:19→20:45)
[2020-07-07] MEDS: PriLOSEC PO SCH (08:19)
[2020-07-07] MEDS ORDERED: LASIX IVP SCH (09:00)
[2020-07-07] MEDS: ALBUMIN HUMAN 25%- 100 ML 100 ML IV SCH (10:12)
[2020-07-07] MEDS: FLOMAX PO SCH (20:45)
[2020-07-07] MEDS: OXYBUTYNIN CHLORIDE ER PO SCH (20:45)
[2020-07-07] MEDS: NEURONTIN CAP 300 MG PO SCH (20:46)
[2020-07-07] MEDS: CRESTOR TAB 10 MG PO SCH (20:46)
[2020-07-07] MEDS: PERCOCET TAB 5/325 MG PO PRN (21:17)
[2020-07-08 05:31] LABS: BASOPHILS % (AUTO) 0.6 % (0.2-1.0); EOSINOPHILS # (AUTO) 0.3 x10^3/uL (0.0-0.2); EOSINOPHILS % (AUTO) 6.1 % (0.9-2.9); HEMATOCRIT 32.8 % (42.0-54.0); HEMOGLOBIN 11.3 g/dL (13.5-18.0); LYMPHOCYTES % (AUTO) 18.4 % (21.0-51.0); MEAN CORPUSCULAR HEMOGLOBIN 33.1 pg (27.0-34.0); MEAN CORPUSCULAR HGB CONC 34.5 g/dL (33.0-35.0); MEAN CORPUSCULAR VOLUME 96.1 fL (80.0-100.0); MEAN PLATELET VOLUME 8.3 fL (7.4-11.0); MONOCYTES # (AUTO) 0.8 x10^3/uL (0.3-0.8); MONOCYTES % (AUTO) 15.1 % (0.0-13.0); NEUTROPHILS # (AUTO) 3.3 x10^3/uL (2.2-4.8); NEUTROPHILS % (AUTO) 59.8 % (42.0-75.0); PLATELET COUNT 199 X10^3/uL (150.0-450.0); RED BLOOD COUNT 3.42 X10^6/uL (4.7-6.0); RED CELL DISTRIBUTION WIDTH 14.1 % (11.6-16.5); WHITE BLOOD COUNT 5.5 X10^3/uL (3.6-10.0)
[2020-07-08 05:40] LABS: ALANINE AMINOTRANSFERASE 20 Units/L (12-78); ALBUMIN 3.2 g/dL (3.4-5.0); ALKALINE PHOSPHATASE 136 Units/L (46-116); ASPARTATE AMINO TRANSFERASE 20 Units/L (15-37); BLOOD UREA NITROGEN 25 mg/dL (7-18); CALCIUM 8.5 mg/dL (8.5-10.1); CARBON DIOXIDE 34.6 mmol/L (21-32); CHLORIDE 104 mmol/L (98-107); COR CA(FOR HYPOALB) 9.1 mg/dL (8.5-10.1); CREATININE 1.38 mg/dL (0.70-1.30); SODIUM 144 mmol/L (136-145); TOTAL PROTEIN 6.8 g/dL (6.4-8.2); eGFR NON BLACK RACES 55 (>60)
[2020-07-08] MEDS: ALBUMIN HUMAN 25%- 100 ML 100 ML IV SCH (06:07)
--- NOTE | 2020-07-08 06:24 | RAD ---
HISTORYDOBSTUDYCHEST, 1 [id number]/13/2021FINDINGSThe cardiomediastinal silhouette is stable. Similar post sternotomy and valve replacement changes. Similar bibasilar opacities, right worse left. The bony thorax appears intact.IMPRESSIONSimilar bibasilar opacities, right worse than left.Electronically signed by: LUDA QUEZADA (July 08, 2020 06:22:10)
[2020-07-08] MEDS: PriLOSEC PO SCH (09:43)
[2020-07-08] MEDS: HEMOCYTE-PLUS PO SCH (09:43)
[2020-07-08] MEDS: PROzac PO SCH (09:44)
[2020-07-08] MEDS: SYNTHROID 75 mcg TAB PO SCH (09:44)
[2020-07-08] MEDS: K-DUR TAB 20 MEQ PO SCH (09:44)
[2020-07-08] MEDS: REQUIP PO SCH ×2 (09:44→20:34)
[2020-07-08] MEDS: WELLBUTRIN XL 150 MG (DAILY) PO SCH (09:44)
[2020-07-08] MEDS: COREG TAB 3.125 MG PO SCH ×2 (09:45→20:35)
[2020-07-08] MEDS: LASIX IVP SCH ×2 (09:45→17:57)
[2020-07-08] MEDS: PLAVIX PO SCH (09:45)
[2020-07-08] MEDS: NEURONTIN CAP 300 MG PO SCH (20:33)
[2020-07-08] MEDS: CRESTOR TAB 10 MG PO SCH (20:34)
[2020-07-08] MEDS: PERCOCET TAB 5/325 MG PO PRN (20:35)
[2020-07-08] MEDS: FLOMAX PO SCH (20:35)
[2020-07-08] MEDS: OXYBUTYNIN CHLORIDE ER PO SCH (20:35)
[2020-07-09 05:02] LABS: BASOPHILS # (AUTO) 0.2 X10^3/uL (0.0-0.1); BASOPHILS % (AUTO) 2.6 % (0.2-1.0); EOSINOPHILS # (AUTO) 0.3 x10^3/uL (0.0-0.2); EOSINOPHILS % (AUTO) 5.5 % (0.9-2.9); HEMATOCRIT 33.8 % (42.0-54.0); HEMOGLOBIN 11.2 g/dL (13.5-18.0); LYMPHOCYTES # (AUTO) 0.8 X10^3/uL (1.3-2.9); LYMPHOCYTES % (AUTO) 14.3 % (21.0-51.0); MEAN CORPUSCULAR HEMOGLOBIN 32.5 pg (27.0-34.0); MEAN CORPUSCULAR HGB CONC 33.1 g/dL (33.0-35.0); MEAN CORPUSCULAR VOLUME 98.2 fL (80.0-100.0); MEAN PLATELET VOLUME 8.6 fL (7.4-11.0); MONOCYTES # (AUTO) 0.5 x10^3/uL (0.3-0.8); MONOCYTES % (AUTO) 8.2 % (0.0-13.0); NEUTROPHILS # (AUTO) 4.1 x10^3/uL (2.2-4.8); NEUTROPHILS % (AUTO) 69.4 % (42.0-75.0); PLATELET COUNT 176 X10^3/uL (150.0-450.0); RED BLOOD COUNT 3.44 X10^6/uL (4.7-6.0); RED CELL DISTRIBUTION WIDTH 14.3 % (11.6-16.5); WHITE BLOOD COUNT 5.9 X10^3/uL (3.6-10.0)
[2020-07-09 05:13] LABS: ALANINE AMINOTRANSFERASE 18 Units/L (12-78); ALBUMIN 3.3 g/dL (3.4-5.0); ALKALINE PHOSPHATASE 135 Units/L (46-116); ASPARTATE AMINO TRANSFERASE 22 Units/L (15-37); BLOOD UREA NITROGEN 29 mg/dL (7-18); CALCIUM 8.7 mg/dL (8.5-10.1); CARBON DIOXIDE 33.8 mmol/L (21-32); CHLORIDE 104 mmol/L (98-107); COR CA(FOR HYPOALB) 9.3 mg/dL (8.5-10.1); CREATININE 1.22 mg/dL (0.70-1.30); SODIUM 144 mmol/L (136-145); TOTAL PROTEIN 7.2 g/dL (6.4-8.2); eGFR NON BLACK RACES > 60 (>60)
--- NOTE | 2020-07-09 05:34 | RAD ---
PROCEDURE: Chest X-ray 1 View .HISTORY: Short of breath.TECHNIQUE: AP view .COMPARISON: 07/08/2020.TECHNICAL QUALITY: Satisfactory .FINDINGS:Heart size upper limits of normal and unchanged.Normal central vascularity.Continued consolidation right base with small effusion similar to previous study. Minimal consolidation left base. No pneumothorax.IMPRESSION:Unchanged bibasilar consolidation greatest on the right with small right pleural effusion.Electronically signed by: Jourdan Selby (July 09, 2020 05:32:36)
[2020-07-09] MEDS: ALBUMIN HUMAN 25%- 100 ML 100 ML IV SCH (06:10)
[2020-07-09] MEDS: LASIX IVP SCH (09:25)
[2020-07-09] MEDS: REQUIP PO SCH (09:25)
[2020-07-09] MEDS: PriLOSEC PO SCH (09:30)
[2020-07-09] MEDS: HEMOCYTE-PLUS PO SCH (09:31)
[2020-07-09] MEDS: SYNTHROID 75 mcg TAB PO SCH (09:31)
[2020-07-09] MEDS: COREG TAB 3.125 MG PO SCH (09:31)
[2020-07-09] MEDS: PLAVIX PO SCH (09:31)
[2020-07-09] MEDS: PROzac PO SCH (09:31)
[2020-07-09] MEDS: WELLBUTRIN XL 150 MG (DAILY) PO SCH (09:32)
[2020-07-09] MEDS: K-DUR TAB 20 MEQ PO SCH (09:32)
[2020-07-09 13:01] VITALS: BP 135/71
--- NOTE | 2020-07-09 19:06 | DR.H&P ---
H&P - History & Physical for Day of: H&P Date: 07/07/20 - Chief Complaint Chief Complaint: SOB, LOWER EXTREMITY SWELLING, SCROTUM SWELLING, WEIGHT GAIN - History of Present Illness History of Present Illness: IS A 65 YEAR OLD PATIENT OF OURS. HE PRESENTED TO THE ER WITH COMPLAINTS OF SHORTNESS OF BREATH AND SWELLING TO THE BILATERAL LOWER EXTREMITIES AND SCROTUM. HE REPORTS A 3 POUND WEIGHT GAIN OF TWENTY POUNDS IN THE PAST WEEK. HE HAS TWO PILLOW ORTHOPNEA AND EXERTIONAL DYSPNEA. HE DENIES CHEST PAIN, CHILLS, OR COUGH. HIS PMH INCLUES AORTIC VALVE REPLACEMENT, CONGESTIVE HEART FAILURE, HTN. EXAMINATION REVEALED + PITTING EDEMA TO BILATERAL LOWER EXTREMITIES. ON ARRIVAL TO THE ER, VITALS WERE 97.8-68-18-98%-144/66. LABS WERE OBTAINED. ABNORMAL LAB VALUES INCLUDED THE FOLLOWING: RBC 3.50, HGB 11.4, HCT 34.1, POTASSIUM 3.4, CARBON DIOXIDE 39.2, BUN 19, CREATININE 1.37, ALK PHOS 147, BNP 97.2. INFLUENZA NEGATIVE. A CHEST XRAY WAS OBTAINED AND REVEALED: 1. Moderate size right-sided pleural effusion is seen with right lower lobe airspace disease. This could represent an infectious process and was not present on the prior exam. EKG REVEALED SINUS RHYTHM WITH HR 68. AN ECHO WAS OBTAINED IN JANUARY AND REVEALED AN EJECTION FRACTION OF 54%. IN THE ER, HE WAS GIVEN LASIX 80MG IV X 1 DOSE. HE WAS ADMITTED TO THE HOSPITAL FOR FURTHER EVALUATION AND TREATMENT OF ACUTE CONGESTIVE HEART FAILURE AND PLEURAL EFFUSION. HE WAS STARTED ON LASIX 60MG IV DAILY AND HIS HOME MEDICATIONS WERE RESUMED. OTHERWISE, WE PLAN TO FOLLOW UP WITH AM LABS AND CHEST XRAY AND CONTINUE TO MONITOR. TIME SPENT ON CLINICAL ASSESSMENT, REVIEWING LABS AND IMAGING, DECISION MAKING, AND DOCUMENTATION WAS GREATER THAN 75 MINUTES. - Past Medical History Past Medical History: Hypertension, Dyslipidemia, CVA - Past Surgical History Surgical History: Angioplasty/Stents, CABG/Valve Surgery Additional Surgical History: Previous colonoscopy performed approx 6 years ago during a hospitalization for LGI bleeding - at which time no active bleeding or bleeding site was noted - per pt history. - Family History Family Medical History: Cancer, [place] - Social History Does any household member use tobacco: No Alcohol Use: None Drug Use: None - Medications Home Medications: cilastatin [From Primaxin] Allergy (Verified 09/21/18 14:46) clarithromycin [From Biaxin] Allergy (Verified 07/06/20 21:25) imipenem [From Primaxin] Allergy (Verified 09/21/18 14:46) CONTINUE taking the following medications aspirin [Aspir-81] 81 mg PO QAM 07/06/20 [History] bupropion HCl 150 mg PO QAM 07/06/20 [History] carvedilol 3.125 mg PO BID 07/06/20 [History] ferrous fumarate-folic acid [Ferrocite-F] 1 tab PO QAM 07/06/20 [History] fluoxetine 40 mg PO QAM 07/06/20 [History] furosemide 80 mg PO BID 07/06/20 [History] gabapentin 600 mg PO QHS 07/06/20 [History] levothyroxine 75 mcg PO QAM 07/06/20 [History] meclizine 25 mg PO QHS 07/06/20 [History] omeprazole 20 mg PO QAM 07/06/20 [History] oxybutynin chloride 10 mg PO QHS 07/06/20 [History] oxycodone-acetaminophen 1 tab PO Q8H PRN 07/06/20 [History] potassium chloride 20 meq PO QAM 07/06/20 [History] ropinirole 2 mg PO BID 07/06/20 [History] tamsulosin 0.4 mg PO QHS 07/06/20 [History] triamterene-hydrochlorothiazid 1 cap PO QHS 07/06/20 [History] - Review of Systems Constitutional: Weakness Eyes: No Symptoms Reported ENT: No Symptoms Reported Respiratory: See HPI, Shortness of Breath, SOB with Excertion Cardiovascular: Edema Gastrointestinal: No Symptoms Reported Genitourinary: No Symptoms Reported Musculoskeletal: No Symptoms Reported Skin: No Symptoms Reported Neurological: No Symptoms Reported - Physical Exam Vital Signs: Temperature 97.6 F Pulse Rate [Brachial] 59 Pulse Rate 68 Respiratory Rate 20 Blood Pressure [Right Arm] 135/71 Blood Pressure [Right Radial 187/97 Artery] Blood Pressure [Left Arm] 103/65 Blood Pressure [Standing] 119/72 Blood Pressure [Sitting] 123/76 Blood Pressure [Lying] 124/78 Blood Pressure 130/61 O2 Sat by Pulse Oximetry 100 Oriented: Normal Eyes: Normal Ear: Normal Nose: Normal Throat: Normal Respiratory: Diminished Throughout Cardiovascular: Normal : Normal Auscultation: Bowel Sounds: Normal Palpation: Normal Tenderness: Normal Skin: Normal Musculoskeletal: Normal Psychiatric: Normal Mood Description: Calm Affect: Normal Speech Pattern: Clear - Assessment/Plan (1) Acute CHF (congestive heart failure) Qualifiers: Heart failure type: unspecified Qualified Code(s): I50.9 - Heart failure, unspecified Status: Acute Plan: ADMIT, LASIX 60MG IV DAILY, RESUME HOME MEDICATIONS (2) Pleural effusion Status: Acute - Allergies Allergies/Adverse Reactions: Allergies Allergy/AdvReac Type Severity Reaction Status Date / Time cilastatin [From Primaxin] Allergy Verified 09/21/18 14:46 clarithromycin [From Biaxin] Allergy Verified 07/06/20 21:25 imipenem [From Primaxin] Allergy Verified 09/21/18 14:46
[2020-07-09] MEDS ORDERED: COREG TAB 3.125 MG PO SCH (21:00)
== END 2020-07-09 13:31 | disposition home or self-care (01) ==
LOC: ER 20:44 → MED/SURG 20:44
PROVIDERS: ADMIT Internal Medicine; ATTEND Internal Medicine
DX: R06.02 Shortness of breath; R94.31 Abnormal electrocardiogram [ECG] [EKG]; R94.4 Abnormal results of kidney function studies; I11.0 Hypertensive heart disease with heart failure; R00.0 Tachycardia, unspecified; Z79.01 Long term (current) use of anticoagulants; R60.0 Localized edema; Z79.899 Other long term (current) drug therapy; I50.9 Heart failure, unspecified; N50.89 Other specified disorders of the male genital organs

== ENCOUNTER 2020-09-05 13:00 | Observation (INO) ==
[2020-09-05 16:28] LABS: BASOPHILS % (AUTO) 0.8 % (0.2-1.0); EOSINOPHILS # (AUTO) 0.2 x10^3/uL (0.0-0.2); EOSINOPHILS % (AUTO) 5.1 % (0.9-2.9); HEMATOCRIT 33.8 % (42.0-54.0); HEMOGLOBIN 11.4 g/dL (13.5-18.0); LYMPHOCYTES # (AUTO) 0.8 X10^3/uL (1.3-2.9); MEAN CORPUSCULAR HEMOGLOBIN 32.2 pg (27.0-34.0); MEAN CORPUSCULAR HGB CONC 33.6 g/dL (33.0-35.0); MEAN CORPUSCULAR VOLUME 95.8 fL (80.0-100.0); MEAN PLATELET VOLUME 8.2 fL (7.4-11.0); MONOCYTES # (AUTO) 0.7 x10^3/uL (0.3-0.8); MONOCYTES % (AUTO) 16.1 % (0.0-13.0); NEUTROPHILS # (AUTO) 2.6 x10^3/uL (2.2-4.8); PLATELET COUNT 136 X10^3/uL (150.0-450.0); RED BLOOD COUNT 3.52 X10^6/uL (4.7-6.0); RED CELL DISTRIBUTION WIDTH 14.1 % (11.6-16.5); WHITE BLOOD COUNT 4.4 X10^3/uL (3.6-10.0)
[2020-09-05 16:46] LABS: ALANINE AMINOTRANSFERASE 20 Units/L (12-78); ALBUMIN 3.7 g/dL (3.4-5.0); ALKALINE PHOSPHATASE 126 Units/L (46-116); ASPARTATE AMINO TRANSFERASE 26 Units/L (15-37); BLOOD UREA NITROGEN 27 mg/dL (7-18); CALCIUM 8.9 mg/dL (8.5-10.1); CARBON DIOXIDE 35.2 mmol/L (21-32); CHLORIDE 107 mmol/L (98-107); CKMB % 1.5 % (<4); CREATINE KINASE 139 Units/L (39-308); CREATINE KINASE MB 2.1 ng/mL (0-4.0); CREATININE 1.33 mg/dL (0.70-1.30); SODIUM 146 mmol/L (136-145); TOTAL PROTEIN 7.8 g/dL (6.4-8.2); TROPONIN I < 0.02 ng/mL (0-1.5); eGFR NON BLACK RACES 57 (>60)
[2020-09-05] MEDS: LASIX IVP SCH (19:15)
[2020-09-05 21:52] LABS: CKMB % 1.5 % (<4); CREATINE KINASE 131 Units/L (39-308); CREATINE KINASE MB 1.9 ng/mL (0-4.0); TROPONIN I < 0.02 ng/mL (0-1.5)
[2020-09-05] MEDS ORDERED: NEURONTIN TAB 600 MG PO ONE (22:44)
[2020-09-05] MEDS ORDERED: NEURONTIN TAB 600 MG ONE (22:45)
[2020-09-06 03:48] LABS: BASOPHILS % (AUTO) 0.7 % (0.2-1.0); EOSINOPHILS # (AUTO) 0.2 x10^3/uL (0.0-0.2); EOSINOPHILS % (AUTO) 5.4 % (0.9-2.9); HEMATOCRIT 31.8 % (42.0-54.0); HEMOGLOBIN 10.8 g/dL (13.5-18.0); LYMPHOCYTES # (AUTO) 0.7 X10^3/uL (1.3-2.9); LYMPHOCYTES % (AUTO) 16.3 % (21.0-51.0); MEAN CORPUSCULAR HEMOGLOBIN 32.5 pg (27.0-34.0); MEAN CORPUSCULAR HGB CONC 33.8 g/dL (33.0-35.0); MEAN CORPUSCULAR VOLUME 96.1 fL (80.0-100.0); MEAN PLATELET VOLUME 8.2 fL (7.4-11.0); MONOCYTES # (AUTO) 0.7 x10^3/uL (0.3-0.8); MONOCYTES % (AUTO) 15.7 % (0.0-13.0); NEUTROPHILS # (AUTO) 2.8 x10^3/uL (2.2-4.8); NEUTROPHILS % (AUTO) 61.9 % (42.0-75.0); PLATELET COUNT 129 X10^3/uL (150.0-450.0); RED BLOOD COUNT 3.31 X10^6/uL (4.7-6.0); RED CELL DISTRIBUTION WIDTH 13.9 % (11.6-16.5); WHITE BLOOD COUNT 4.4 X10^3/uL (3.6-10.0)
[2020-09-06 04:23] LABS: ALANINE AMINOTRANSFERASE 20 Units/L (12-78); ALBUMIN 3.3 g/dL (3.4-5.0); ALKALINE PHOSPHATASE 135 Units/L (46-116); ASPARTATE AMINO TRANSFERASE 28 Units/L (15-37); BLOOD UREA NITROGEN 27 mg/dL (7-18); CALCIUM 8.6 mg/dL (8.5-10.1); CARBON DIOXIDE 36.4 mmol/L (21-32); CHLORIDE 108 mmol/L (98-107); CKMB % 1.5 % (<4); COR CA(FOR HYPOALB) 9.2 mg/dL (8.5-10.1); CREATINE KINASE 102 Units/L (39-308); CREATINE KINASE MB 1.5 ng/mL (0-4.0); CREATININE 1.32 mg/dL (0.70-1.30); SODIUM 149 mmol/L (136-145); TROPONIN I < 0.02 ng/mL (0-1.5); eGFR NON BLACK RACES 58 (>60)
--- NOTE | 2020-09-06 08:25 | RAD ---
HISTORYShortness of breathSTUDYCHEST x-ray, 1 VIEWCOMPARISONX-ray 07/09/2020FINDINGSProbable CHF. Moderate right pleural effusion. The changes are similar to prior study. No definite pulmonary edema or pneumothorax.IMPRESSIONProbable CHF and moderate right pleural effusion, similar to prior study.Electronically signed by: Robert Collier (Sep 06, 2020 08:24:08)
[2020-09-06] MEDS: LASIX IVP SCH (10:03)
[2020-09-06] MEDS ORDERED: PHENERGAN INJ 25 MG IM PRN (10:12)
[2020-09-06] MEDS ORDERED: ZOSYN VIAL 3.375 GRAMS 3.375 G in NS 100 ML IV + SPIKE MINIBAG* 100 ML IV SCH (10:13)
[2020-09-06] MEDS: GENTAMICIN TOPICAL CRM TOP SCH ×2 (11:33→20:32)
[2020-09-06] MEDS ORDERED: PERCOCET TAB 5/325 MG PO PRN (14:58)
[2020-09-06] MEDS: ZOSYN VIAL 3.375 GRAMS 3.375 G in NS 50 ML IV + SPIKE MINIBAG* 50 ML IV SCH ×2 (15:26→21:27)
[2020-09-06] MEDS: ASPIRIN EC 81 MG PO SCH (15:34)
[2020-09-06] MEDS: PROzac PO SCH (15:35)
[2020-09-06] MEDS: SYNTHROID 75 mcg TAB PO SCH (15:35)
[2020-09-06] MEDS: WELLBUTRIN XL 150 MG (DAILY) PO SCH (15:35)
[2020-09-06] MEDS: K-DUR TAB 20 MEQ PO SCH (15:36)
[2020-09-06] MEDS: PLAVIX PO SCH (15:36)
--- NOTE | 2020-09-06 16:40 | DR.UPDATE ---
H&P Update History and Physical Update: History and Physical reviewed and patient examined. Changes noted: Yes with the following: TIME SPENT ON CLINICAL ASSESSMENT, REVIEWING LABS AND IMAGING, DECISION MAKING, AND DOCUMENTATION WAS GREATER THAN 45 MINUTES. IS A 65 YEAR OLD PATIENT OF OURS. HE PRESENTED TO THE OFFICE WITH COMPLAINTS OF BLATERAL LOWER EXTREMITY SWELLING AND INCREASED SHORTNESS OF BREATH. SYMPTOMS STARTED SEVERAL DAYS AGO AND HAS PROGRESSIVELY GOTTEN WORSE. HE DOES ADMIT TO WEEPING OF THE LOWER EXTREMITIES. HE HAS TWO PILLOW ORTHOPNEA AND EXERTIONAL DYSPNEA. HE DENIES CHEST PAIN, CHILLS, OR COUGH. HIS PMH INCLUES AORTIC VALVE REPLACEMENT, CONGESTIVE HEART FAILURE, LYMPHEDEMA, HTN. EXAMINATION REVEALED 2+ PITTING EDEMA TO BILATERAL LOWER EXTREMITIES. THERE IS ALSO MODERATE ERYTHEMA NOTED. HE WAS ADMITTED TO THE HOSPITAL FOR FURTEHR EVALUATION AND TREATMENT OF CHF EXACERBATION AND LOWER EXTREMITY CELLULITIS. ON ARRIVAL TO THE HOSPITAL, VITALS WERE 97.9-55-20-97%-118/60. LABS WERE OBTAINED. ABNORMAL LAB VALUES INCLUDED THE FOLLOWING: RBC 3.52, HGB 11.4, HCT 33.8, PLT COUNT 136, SODIUM 146, BUN 27, CREATININE 1.33, ALK PHOS 126, BNP 124. BLOOD CULTURES WERE SET UP. COVID-19 NEGATIVE. A CHEST XRAY WAS OBTAINED AND REVEALED: Probable CHF. Moderate right pleural effusion. The changes are similar to prior study. No definite pulmonary edema or pneumothorax. EKG REVEALED SINUS RHYTHM WITH HR 55. AN ECHO WAS OBTAINED IN JANUARY AND REVEALED AN EJECTION FRACTION OF 54%. HE WAS STARTED ON LASIX 40MG IV BID, ZOSYN 3.375G IV TID, GENTAMICIN CREAM, PHENERGAN 25MG IM Q6H PRN, AND HIS HOME MEDICATIONS WERE RESUMED. WE WILL REPEAT AN ECHO. OTHERWISE, WE PLAN TO FOLLOW UP WITH AM LABS AND CHEST XRAY AND CONTINUE TO MONITOR. TIME SPENT ON CLINICAL ASSESSMENT, REVIEWING LABS AND IMAGING, DECISION MAKING, AND DOCUMENTATION WAS GREATER THAN 75 MINUTES. Prescription drug monitoring program results: PDMP was not reviewed H&P Reviewed: Yes Patient was examined?: Yes
[2020-09-06] MEDS ORDERED: LASIX IVP SCH (17:00)
[2020-09-06] MEDS: OXYBUTYNIN CHLORIDE ER PO SCH (20:29)
[2020-09-06] MEDS: PriLOSEC PO SCH (20:30)
[2020-09-06] MEDS: COREG TAB 3.125 MG PO SCH (20:30)
[2020-09-06] MEDS: CRESTOR TAB 10 MG PO SCH (20:30)
[2020-09-06] MEDS: ANTIVERT TAB 25 MG PO SCH (20:31)
[2020-09-06] MEDS: REQUIP PO SCH (20:31)
[2020-09-06] MEDS: FLOMAX PO SCH (20:31)
[2020-09-06] MEDS: NEURONTIN CAP 300 MG PO SCH (20:31)
[2020-09-07] MEDS: ZOSYN VIAL 3.375 GRAMS 3.375 G in NS 50 ML IV + SPIKE MINIBAG* 50 ML IV SCH ×3 (05:21→21:32)
[2020-09-07 05:30] LABS: ALANINE AMINOTRANSFERASE 19 Units/L (12-78); ALBUMIN 3.3 g/dL (3.4-5.0); ALKALINE PHOSPHATASE 122 Units/L (46-116); ASPARTATE AMINO TRANSFERASE 22 Units/L (15-37); BLOOD UREA NITROGEN 30 mg/dL (7-18); CALCIUM 8.7 mg/dL (8.5-10.1); CHLORIDE 110 mmol/L (98-107); COR CA(FOR HYPOALB) 9.3 mg/dL (8.5-10.1); CREATININE 1.39 mg/dL (0.70-1.30); SODIUM 149 mmol/L (136-145); TOTAL PROTEIN 7.1 g/dL (6.4-8.2); eGFR NON BLACK RACES 54 (>60)
[2020-09-07 05:37] LABS: BASOPHILS % (AUTO) 0.8 % (0.2-1.0); EOSINOPHILS # (AUTO) 0.2 x10^3/uL (0.0-0.2); EOSINOPHILS % (AUTO) 4.4 % (0.9-2.9); HEMATOCRIT 32.8 % (42.0-54.0); HEMOGLOBIN 11.2 g/dL (13.5-18.0); LYMPHOCYTES # (AUTO) 0.8 X10^3/uL (1.3-2.9); LYMPHOCYTES % (AUTO) 15.9 % (21.0-51.0); MEAN CORPUSCULAR HEMOGLOBIN 32.4 pg (27.0-34.0); MEAN CORPUSCULAR HGB CONC 34.1 g/dL (33.0-35.0); MEAN PLATELET VOLUME 8.3 fL (7.4-11.0); MONOCYTES # (AUTO) 0.7 x10^3/uL (0.3-0.8); MONOCYTES % (AUTO) 13.8 % (0.0-13.0); NEUTROPHILS # (AUTO) 3.3 x10^3/uL (2.2-4.8); NEUTROPHILS % (AUTO) 65.1 % (42.0-75.0); PLATELET COUNT 154 X10^3/uL (150.0-450.0); RED BLOOD COUNT 3.45 X10^6/uL (4.7-6.0); WHITE BLOOD COUNT 5.1 X10^3/uL (3.6-10.0)
--- NOTE | 2020-09-07 07:45 | RAD ---
HISTORYShortness of breathSTUDYChest AP [id number]/14/2021FINDINGSThe heart is enlarged. Pulmonary venous congestion is present. No interstitial edema, alveolar edema, or alveolar infiltrates are identified. There is a right pleural effusion present. Bony thorax is unremarkable.IMPRESSIONCardiomegaly with pulmonary venous congestionNo acute infiltratesRight pleural effusion unchangedElectronically signed by: LUDA QUEZADA (Sep 07, 2020 07:42:23)
[2020-09-07] MEDS: GENTAMICIN TOPICAL CRM TOP SCH ×2 (09:30→21:31)
[2020-09-07] MEDS: PROzac PO SCH (09:30)
[2020-09-07] MEDS: PriLOSEC PO SCH ×2 (09:30→21:30)
[2020-09-07] MEDS: PLAVIX PO SCH (09:30)
[2020-09-07] MEDS: WELLBUTRIN XL 150 MG (DAILY) PO SCH (09:30)
[2020-09-07] MEDS: HEMOCYTE-PLUS PO SCH (09:30)
[2020-09-07] MEDS: SYNTHROID 75 mcg TAB PO SCH (09:30)
[2020-09-07] MEDS: COREG TAB 3.125 MG PO SCH ×2 (09:30→21:30)
[2020-09-07] MEDS: MAXZIDE 37.5/25 MG PO SCH (09:30)
[2020-09-07] MEDS: K-DUR TAB 20 MEQ PO SCH (09:30)
[2020-09-07] MEDS: ASPIRIN EC 81 MG PO SCH (09:35)
--- NOTE | 2020-09-07 11:12 | PCM.PROG ---
Progress Note - Progress Note for Day of Date of Exam: 09/07/20 - Subjective Subjective: IS BEING TREATED FOR CHF EXACERBATION, LOWER EXTREMITY CELLULITIS, LOWER EXTREMITY SWELLING. TODAY, HE IS ALERT AND ORIENTED, LYING IN BED ON MORNING ROUNDS. HE CONTINUES WITH COMPLAINTS OF SHORTNESS OF BREATH AND LOWER EXTREMITY SWELLING TODAY. HE DOES ADMIT THAT SWELLING HAS DECREASED SINCE ADMISSION. ON EXAMINATION, HEART IS REGULAR IN RATE AND RHYTHM. BILATERAL LUNGS ARE NOTED WITH DIMINISHED LUNG SOUNDS THROUGHOUT. ABDOMEN IS ROUND, SOFT, AND NON-TENDER WITH NORMAL BOWEL SOUNDS IN ALL QUADRANTS. BLE CONTINUE WITH ERYTHEMA AND 1+ PITTING EDEMA. HIS VITALS THIS MORNING ARE: 97.6-61-20-100%-107/66. LABS WERE OBTAINED. ABNORMAL LAB VALUES INCLUDE THE FOLLOWING: RBC 3.45, HGB 11.2, HCT 32.8, SODIUM 149, CHLORIDE 110, BUN 30, CREATININE 1.39, ALK PHOS 122, BNP 142, ALBUMIN 3.3. BLOOD CULTURES ARE PENDING. AN ECHO WAS OBTAINED YESTERDAY AND REVEALED AN EJECTION FRACTION OF 64%, MILD TO MODERATE PULMONARY HYPERTENSION. ELEVATED RVSP OF 39 mmHG. TODAYS CHEST XRAY REVEALED: Cardiomegaly with pulmonary venous congestion. No acute infiltrates. Right pleural effusion un changed. HE IS CURRENTLY RECEIVING LASIX 40MG IV BID, ZOSYN 3.375G IV TID, GENTAMICIN CREAM, PHENERGAN 25MG IM Q6H PRN, AND HIS HOME MEDICATIONS WERE RESUMED. WE WILL CONTINUE WITH CURRENT PLAN OF CARE TODAY. OTHERWISE, WE PLAN TO FOLLOW UP WITH AM LABS AND CONTINUE TO MONITOR. TIME SPENT ON CLINICAL ASSESSMENT, REVIEWING LABS AND IMAGING, DECISION MAKING, AND DOCUMENTATION GREATER THAN 45 MINUTES. - Past Medical Family Social History Past Med/Fam/Surg Hx: No changes since H&P Allergies: Allergies cilastatin [From Primaxin] Allergy (Verified 09/21/18 14:46) clarithromycin [From Biaxin] Allergy (Verified 07/06/20 21:25) imipenem [From Primaxin] Allergy (Verified 09/21/18 14:46) - Review of Systems ROS: No change since H&P - Vital Signs and I&O's Vital Signs: Temperature 97.6 F Pulse Rate [Right] 61 Respiratory Rate 20 Blood Pressure [Left Arm] 107/66 Blood Pressure [Right Arm] 137/63 O2 Sat by Pulse Oximetry 100 Intake and Output: Intake & Output 09/04/20 09/05/20 09/06/20 09/07/20 11:59 11:59 11:59 11:59 Intake Total 345 / 345 1437 / 1437 Output Total 800 / 800 3550 / 3550 Balance -455 / -455 -3 / -2112 - Physical Exam Oriented: Normal Eyes: Normal Ear: Normal Nose: Normal Throat: Normal Respiratory: Generalized, Diminished Cardiovascular: Edema (BLE 1+ PITTING EDEMA ) : Normal Auscultation: Bowel Sounds: Normal Palpation: Normal Skin: Red, Tender, Wound Musculoskeletal: Normal Psychiatric: Normal Mood Description: Calm Affect: Normal Speech Pattern: Clear, Appropriate - Laboratory and Diagnostics Result Diagrams: 09/07/20 04:21 09/07/20 04:21 Labs: 09/05/20 16:04 Blood Blood Culture - Preliminary 09/05/20 16:07 Blood Blood Culture - Preliminary Laboratory WBC 5.1 X10^3/uL (3.6-10.0) 09/07/20 04:21 RBC 3.45 X10^6/uL (4.7-6.0) L 09/07/20 04:21 Hgb 11.2 g/dL (13.5-18.0) L 09/07/20 04:21 Hct 32.8 % (42.0-54.0) L 09/07/20 04:21 MCV 95.0 fL (80.0-100.0) 09/07/20 04:21 MCH 32.4 pg (27.0-34.0) 09/07/20 04:21 MCHC 34.1 g/dL (33.0-35.0) 09/07/20 04:21 RDW 14.0 % (11.6-16.5) 09/07/20 04:21 Plt Count 154 X10^3/uL (150.0-450.0) 09/07/20 04:21 MPV 8.3 fL (7.4-11.0) 09/07/20 04:21 Neut % (Auto) 65.1 % (42.0-75.0) 09/07/20 04:21 Lymph % (Auto) 15.9 % (21.0-51.0) L 09/07/20 04:21 [place] % (Auto) 13.8 % (0.0-13.0) H 09/07/20 04:21 Eos % (Auto) 4.4 % (0.9-2.9) H 09/07/20 04:21 Baso % (Auto) 0.8 % (0.2-1.0) 09/07/20 04:21 Neut # (Auto) 3.3 x10^3/uL (2.2-4.8) 09/07/20 04:21 Lymph # (Auto) 0.8 X10^3/uL (1.3-2.9) L 09/07/20 04:21 [place] # (Auto) 0.7 x10^3/uL (0.3-0.8) 09/07/20 04:21 Eos # (Auto) 0.2 x10^3/uL (0.0-0.2) 09/07/20 04:21 Baso # (Auto) 0.0 X10^3/uL (0.0-0.1) 09/07/20 04:21 Absolute Nucleated RBC 0.0 /100WBC 09/07/20 04:21 Sodium 149 mmol/L (136-145) H 09/07/20 04:21 Corrected Sodium TNP 09/07/20 04:21 Potassium 3.7 mmol/L (3.5-5.1) 09/07/20 04:21 Chloride 110 mmol/L (98-107) H 09/07/20 04:21 Carbon Dioxide 32.0 mmol/L (21-32) 09/07/20 04:21 BUN 30 mg/dL (7-18) H 09/07/20 04:21 Creatinine 1.39 mg/dL (0.70-1.30) H 09/07/20 04:21 Est GFR (MDRD) Af Amer > 60 (>60) 09/07/20 04:21 Est GFR (MDRD) Non-Af 54 (>60) L 09/07/20 04:21 Glucose 94 mg/dL (65-99) 09/07/20 04:21 Calcium 8.7 mg/dL (8.5-10.1) 09/07/20 04:21 Corrected Calcium 9.3 mg/dL (8.5-10.1) 09/07/20 04:21 Total Bilirubin 0.70 mg/dL (0.2-1.0) 09/07/20 04:21 AST 22 Units/L (15-37) 09/07/20 04:21 ALT 19 Units/L (12-78) 09/07/20 04:21 Alkaline Phosphatase 122 Units/L (46-116) H 09/07/20 04:21 Creatine Kinase 102 Units/L (39-308) 09/06/20 03:32 CK-MB (CK-2) 1.5 ng/mL (0-4.0) 09/06/20 03:32 CK/CKMB % Calc 1.5 % (<4) 09/06/20 03:32 Troponin I < 0.02 ng/mL (0-1.5) 09/06/20 03:32 B-Natriuretic Peptide 142 pg/mL (0-79) H 09/07/20 04:21 Total Protein 7.1 g/dL (6.4-8.2) 09/07/20 04:21 Albumin 3.3 g/dL (3.4-5.0) L 09/07/20 04:21 Globulin 3.8 g/dL (2.5-4.5) 09/07/20 04:21 Albumin/Globulin Ratio 0.9 Ratio (1.1-2.1) L 09/07/20 04:21 SARS CoV-2 RNA Rapid YUSUF Negative (NEGATIVE) 09/05/20 14:41 - Plan (1) Acute CHF (congestive heart failure) Status: Acute Qualifiers: Heart failure type: unspecified Plan: LASIX 40MG IV BID, ZOSYN 3.375G IV TID, GENTAMICIN CREAM, PHENERGAN 25MG IM Q6H PRN, AND HIS HOME MEDICATIONS WERE RESUMED. (2) Lower extremity cellulitis Status: Acute Qualifiers: Laterality: unspecified laterality Qualified Code(s): L03.119 - Cellulitis of unspecified part of limb
[2020-09-07] MEDS: LASIX IVP SCH (17:30)
[2020-09-07] MEDS: FLOMAX PO SCH (21:29)
[2020-09-07] MEDS: NEURONTIN CAP 300 MG PO SCH (21:30)
[2020-09-07] MEDS: ANTIVERT TAB 25 MG PO SCH (21:30)
[2020-09-07] MEDS: CRESTOR TAB 10 MG PO SCH (21:31)
[2020-09-07] MEDS: OXYBUTYNIN CHLORIDE ER PO SCH (21:31)
[2020-09-07] MEDS: REQUIP PO SCH (21:32)
[2020-09-08] MEDS: ZOSYN VIAL 3.375 GRAMS 3.375 G in NS 50 ML IV + SPIKE MINIBAG* 50 ML IV SCH (05:12)
[2020-09-08 05:30] LABS: BASOPHILS % (AUTO) 0.8 % (0.2-1.0); EOSINOPHILS # (AUTO) 0.3 x10^3/uL (0.0-0.2); EOSINOPHILS % (AUTO) 6.2 % (0.9-2.9); HEMATOCRIT 35.5 % (42.0-54.0); LYMPHOCYTES # (AUTO) 0.9 X10^3/uL (1.3-2.9); LYMPHOCYTES % (AUTO) 16.9 % (21.0-51.0); MEAN CORPUSCULAR HEMOGLOBIN 32.3 pg (27.0-34.0); MEAN CORPUSCULAR HGB CONC 33.9 g/dL (33.0-35.0); MEAN CORPUSCULAR VOLUME 95.3 fL (80.0-100.0); MEAN PLATELET VOLUME 8.3 fL (7.4-11.0); MONOCYTES # (AUTO) 0.9 x10^3/uL (0.3-0.8); NEUTROPHILS # (AUTO) 3.3 x10^3/uL (2.2-4.8); NEUTROPHILS % (AUTO) 60.1 % (42.0-75.0); PLATELET COUNT 160 X10^3/uL (150.0-450.0); RED BLOOD COUNT 3.72 X10^6/uL (4.7-6.0); WHITE BLOOD COUNT 5.5 X10^3/uL (3.6-10.0)
[2020-09-08 06:11] LABS: ALANINE AMINOTRANSFERASE 20 Units/L (12-78); ALBUMIN 3.5 g/dL (3.4-5.0); ALKALINE PHOSPHATASE 137 Units/L (46-116); ASPARTATE AMINO TRANSFERASE 23 Units/L (15-37); BLOOD UREA NITROGEN 30 mg/dL (7-18); CALCIUM 9.1 mg/dL (8.5-10.1); CARBON DIOXIDE 32.7 mmol/L (21-32); CHLORIDE 108 mmol/L (98-107); SODIUM 148 mmol/L (136-145); TOTAL PROTEIN 7.6 g/dL (6.4-8.2); eGFR NON BLACK RACES 54 (>60)
--- NOTE | 2020-09-08 07:33 | RAD ---
HISTORYShortness of breathSTUDYChest AP [id number]/15/2021FINDINGSThe heart remains enlarged. Pulmonary venous congestion is present. No interstitial edema, alveolar edema, alveolar infiltrates or pleural effusions are identified. Right pleural effusion is present. Bony thorax is unremarkable.IMPRESSIONNo significant change from the prior examinationElectronically signed by: LUDA QUEZADA (Sep 08, 2020 07:31:36)
[2020-09-08] MEDS: HEMOCYTE-PLUS PO SCH (08:37)
[2020-09-08] MEDS: WELLBUTRIN XL 150 MG (DAILY) PO SCH (08:37)
[2020-09-08] MEDS: ASPIRIN EC 81 MG PO SCH (08:37)
[2020-09-08] MEDS: GENTAMICIN TOPICAL CRM TOP SCH (08:37)
[2020-09-08] MEDS: MAXZIDE 37.5/25 MG PO SCH (08:37)
[2020-09-08] MEDS: PROzac PO SCH (08:38)
[2020-09-08] MEDS: K-DUR TAB 20 MEQ PO SCH (08:38)
[2020-09-08] MEDS: SYNTHROID 75 mcg TAB PO SCH (08:39)
[2020-09-08] MEDS: PriLOSEC PO SCH (08:39)
[2020-09-08] MEDS: COREG TAB 3.125 MG PO SCH (08:39)
[2020-09-08] MEDS: PLAVIX PO SCH (08:40)
[2020-09-08] MEDS: LASIX IVP SCH (10:01)
[2020-09-08 12:40] VITALS: BP 119/86
== END 2020-09-08 12:30 | disposition home or self-care (01) ==
LOC: MED/SURG
PROVIDERS: ADMIT Internal Medicine; ATTEND Internal Medicine
DX: Z20.822 Contact with and (suspected) exposure to COVID-19; M54.5 Low back pain; E03.8 Other specified hypothyroidism; I10 Essential (primary) hypertension; R13.12 Dysphagia, oropharyngeal phase; R06.02 Shortness of breath; I50.9 Heart failure, unspecified; I11.0 Hypertensive heart disease with heart failure; R94.31 Abnormal electrocardiogram [ECG] [EKG]; Z86.73 Personal history of transient ischemic attack (TIA), and cerebral infarction without residual deficits; R60.0 Localized edema

== ENCOUNTER 2020-11-21 13:03 | Observation (INO) ==
[2020-11-21] MEDS ORDERED: TUSSIONEX PENNKINETIC SUSP PO PRN (18:01)
--- NOTE | 2020-11-21 18:26 | RAD ---
HISTORYPNEUMONIA Relevant Clinical InformationSTUDYCHEST, 1 VIEWCOMPARISONSeptember 2019FINDINGSThe trachea is midline. The cardiac silhouette is stable. The lungs demonstrate persist interstitial infiltrates right greater than left which have improved compared to prior. There is also probable tiny effusion on the right. The bony thorax is unremarkable.IMPRESSIONImproved interstitial infiltrates bilaterally with probable small right-sided effusion.Electronically signed by: RADHA TRIVEDI (Nov 21, 2020 18:24:22)
[2020-11-21 18:44] LABS: BASOPHILS % (AUTO) 0.9 % (0.2-1.0); EOSINOPHILS # (AUTO) 0.4 x10^3/uL (0.0-0.2); HEMATOCRIT 32.1 % (42.0-54.0); HEMOGLOBIN 10.8 g/dL (13.5-18.0); LYMPHOCYTES # (AUTO) 0.7 X10^3/uL (1.3-2.9); LYMPHOCYTES % (AUTO) 12.4 % (21.0-51.0); MEAN CORPUSCULAR HEMOGLOBIN 31.8 pg (27.0-34.0); MEAN CORPUSCULAR HGB CONC 33.7 g/dL (33.0-35.0); MEAN CORPUSCULAR VOLUME 94.4 fL (80.0-100.0); MEAN PLATELET VOLUME 8.1 fL (7.4-11.0); MONOCYTES # (AUTO) 0.9 x10^3/uL (0.3-0.8); NEUTROPHILS # (AUTO) 3.5 x10^3/uL (2.2-4.8); NEUTROPHILS % (AUTO) 63.7 % (42.0-75.0); PLATELET COUNT 154 X10^3/uL (150.0-450.0); RED CELL DISTRIBUTION WIDTH 14.7 % (11.6-16.5); WHITE BLOOD COUNT 5.5 X10^3/uL (3.6-10.0)
[2020-11-21 18:57] LABS: ALANINE AMINOTRANSFERASE 27 Units/L (12-78); ALBUMIN 3.3 g/dL (3.4-5.0); ALKALINE PHOSPHATASE 145 Units/L (46-116); ASPARTATE AMINO TRANSFERASE 53 Units/L (15-37); BLOOD UREA NITROGEN 34 mg/dL (7-18); CALCIUM 8.7 mg/dL (8.5-10.1); CARBON DIOXIDE 31.6 mmol/L (21-32); CHLORIDE 100 mmol/L (98-107); COR CA(FOR HYPOALB) 9.3 mg/dL (8.5-10.1); CREATININE 1.64 mg/dL (0.70-1.30); SODIUM 140 mmol/L (136-145); TOTAL PROTEIN 7.9 g/dL (6.4-8.2); eGFR NON BLACK RACES 45 (>60)
[2020-11-21] MEDS ORDERED: K-DUR TAB 20 MEQ PO PRN (19:32)
[2020-11-21] MEDS ORDERED: POTASSIUM CHLORIDE LIQ 20 MEQ UDC PO PRN (19:32)
[2020-11-21] MEDS ORDERED: K-RIDER 10 MEQ/NS 100 ML 10 MEQ/100 ML BAG IV PRN (19:32)
[2020-11-21] MEDS ORDERED: POTASSIUM CHL 60 MEQ/NS 0.45% 500 ML IV PRN (19:32)
[2020-11-21] MEDS ORDERED: POTASSIUM CHL 40 MEQ/NS 0.45% 500 ML IV PRN (19:32)
[2020-11-21] MEDS ORDERED: MICRO K EXTEN CAP 10 MEQ PO PRN (19:32)
[2020-11-21] MEDS ORDERED: KLOR-CON PO PRN (19:32)
[2020-11-21] MEDS ORDERED: MAGNESIUM SULFATE 1 GRAM/100 mL PREMIX 1 GM/100 ML BAG IV PRN (19:36)
[2020-11-21] MEDS ORDERED: NS 1/2 1000 ML IV 1,000 ML IV ONE (20:10)
[2020-11-21] MEDS ORDERED: ACCUNEB 1.25 MG NEBULE ONE (20:39)
[2020-11-21] MEDS: LEVAQUIN PREMIX IV 500 MG 500 MG/100 ML BAG IV SCH (20:43)
[2020-11-21] MEDS: ROBITUSSIN DM PO SCH ×2 (20:43→21:08)
[2020-11-21] MEDS: VSL#3 PO SCH (20:43)
[2020-11-21] MEDS: NS 1/2 1000 ML IV 1,000 ML IV SCH (20:43)
[2020-11-21] MEDS: RESTORIL CAP 15 MG PO SCH (20:43)
[2020-11-21] MEDS: ACCUNEB 1.25 MG NEBULE NEB SCH (21:03)
[2020-11-21] MEDS: PULMICORT NEB TX 0.5 MG NEB SCH (21:03)
[2020-11-21] MEDS ORDERED: NS 100 ML IV 100 ML ONE (21:07)
[2020-11-21] MEDS ORDERED: FORTAZ or TAZICEF VIAL INJ ONE (21:38)
[2020-11-21] MEDS: FORTAZ or TAZICEF VIAL INJ 1 G in NS 100 ML IV + SPIKE MINIBAG* 100 ML IV SCH (22:00)
[2020-11-22] MEDS ORDERED: NS 100 ML IV 100 ML ONE (04:20)
[2020-11-22] MEDS: FORTAZ or TAZICEF VIAL INJ 1 G in NS 100 ML IV + SPIKE MINIBAG* 100 ML IV SCH (05:04)
[2020-11-22] MEDS: ACCUNEB 1.25 MG NEBULE NEB SCH ×3 (05:35→21:00)
--- NOTE | 2020-11-22 05:43 | RAD ---
HISTORYSOB Relevant Clinical InformationSTUDYCHEST, 1 [id number]/28/2021FINDINGSThe trachea is midline. The cardiac silhouette is stable.. Median sternotomy changes and prosthetic valve replacement noted. Is interstitial infiltrates right greater than left with small right pleural effusion unchanged. No pneumothorax.. The bony thorax is unremarkable.IMPRESSIONStable portable chestElectronically signed by: Geoff Olmos (Nov 22, 2020 05:42:02)
[2020-11-22 06:13] VITALS: BMI 39.7
[2020-11-22 06:30] LABS: BASOPHILS % (AUTO) 0.7 % (0.2-1.0); EOSINOPHILS # (AUTO) 0.3 x10^3/uL (0.0-0.2); EOSINOPHILS % (AUTO) 6.9 % (0.9-2.9); HEMATOCRIT 31.1 % (42.0-54.0); HEMOGLOBIN 10.4 g/dL (13.5-18.0); LYMPHOCYTES # (AUTO) 0.6 X10^3/uL (1.3-2.9); LYMPHOCYTES % (AUTO) 12.1 % (21.0-51.0); MEAN CORPUSCULAR HEMOGLOBIN 31.8 pg (27.0-34.0); MEAN CORPUSCULAR HGB CONC 33.4 g/dL (33.0-35.0); MEAN CORPUSCULAR VOLUME 95.1 fL (80.0-100.0); MEAN PLATELET VOLUME 8.4 fL (7.4-11.0); MONOCYTES # (AUTO) 0.8 x10^3/uL (0.3-0.8); MONOCYTES % (AUTO) 17.4 % (0.0-13.0); NEUTROPHILS # (AUTO) 2.9 x10^3/uL (2.2-4.8); NEUTROPHILS % (AUTO) 62.9 % (42.0-75.0); PLATELET COUNT 144 X10^3/uL (150.0-450.0); RED BLOOD COUNT 3.28 X10^6/uL (4.7-6.0); RED CELL DISTRIBUTION WIDTH 14.8 % (11.6-16.5); WHITE BLOOD COUNT 4.7 X10^3/uL (3.6-10.0)
[2020-11-22 06:38] LABS: CALCIUM 8.4 mg/dL (8.5-10.1); CARBON DIOXIDE 34.5 mmol/L (21-32); COR CA(FOR HYPOALB) 9.2 mg/dL (8.5-10.1); CREATININE 1.6 mg/dL (0.70-1.30); TOTAL PROTEIN 7.3 g/dL (6.4-8.2)
[2020-11-22] MEDS: PULMICORT NEB TX 0.5 MG NEB SCH ×2 (09:30→21:00)
[2020-11-22] MEDS ORDERED: LASIX IVP ONE (09:54)
[2020-11-22] MEDS: NS 1/2 1000 ML IV 1,000 ML IV SCH (10:30)
[2020-11-22] MEDS ORDERED: NS 1/2 1000 ML IV 1,000 ML IV ONE (11:15)
[2020-11-22] MEDS: ROBITUSSIN DM PO SCH ×4 (12:00→21:32)
[2020-11-22] MEDS: VSL#3 PO SCH (12:00)
--- NOTE | 2020-11-22 12:04 | DR.UPDATE ---
H&P Update History and Physical Update: History and Physical reviewed and patient examined. Changes noted: Yes with the following: IS A 65 YEAR OLD PATIENT OF OURS WHO PRESENTED TO THE OFFICE ON 11/20 WITH COMPLANTS OF COUGHING UP BLOOD, HEADACHE, WEAKNESS, CHILLS, AND SHORTNESS OF BREATH. HE REPORTS THAT HE FIRST BEGAN COUGHING UP BLOOD 3 DAYS PRIOR. HE IS ON PLAVIX DUE TO CVA SEVERAL YEARS AGO. HE WAS SENT TO THE ER FOR FURTHER EVALUATION. HE WAS DIAGNOSED WITH PNEUMONIA AT THAT TIME. HE WAS SENT HOME WITH ORAL ANTIBIOTICS. AT HOME, PATIENTS SYMPTOMS PERSISTED. HIS SPOUSE REPORTS THAT HE WAS ALSO HYPOTENSIVE. WE ADMITTED PATIENT TO THE HOSPITAL FOR FURTHER EVALUATION AND TREATMENT OF PNEUMONIA, HEMOPTYSIS. ON ARRIVAL TO THE HOSPITAL, VITALS WERE 98.0-63-18-96%-139/67. LABS WERE OBTAINED. ABNORMAL LAB VALUES INCLUDE THE FOLLOWING: RBC 3.40, HGB 10.8, HCT 32.1, D-DIMER 1.42, POTASSIUM 3.1, BUN 34, CREATININE 1.64, GLUCOSE 105, TOTAL BILI 1.40, AST 53, ALK PHOS 145, CRP 39.70, ALBUMIN 3.3. COVID, RSV, AND INFLUENZA NEGATIVE. BLOOD AND SPUTUM CULTURES WERE SET UP. A CHEST XRAY WAS OBTAINED AND REVEALED: The trachea is midline. The cardiac silhouette is stable. The lungs demonstrate persist interstitial infiltrates right greater than left which have improved compared to prior. There is also probable tiny effusion on the right. The bony thorax is unremarkable. HE WAS STARTED ON 1/2NS AT 75 ML/HR, LEVAQUIN 500MG IV HS, FORTAZ 1G IV Q8, ALBUTEROL NEB TX TID, TUSSIONEX 5ML PO Q12H PRN, ROBITUSSIN DM 10ML PO QID, VSL #3 2 CAPS DAILY, RESTORIL 15MG PO HS, AND THE POTASSIUM AND MAGNESIUM PROTOCOL. WE WILL OBTAIN A CHEST CTA DUE TO ELEVATED D-DIMER AND HEMOPTYSIS. OTHERWISE, WE PLAN TO FOLLOW UP WITH AM LABS AND CHEST XRAY AND CONTINUE TO MONITOR. TIME SPENT ON CLINICAL ASSESSMENT, REVIEWING LABS AND IMAGING, DECISION MAKING, AND DOCUMENTATION GREATER THAN 75 MINUTES. Prescription drug monitoring program results: PDMP reviewed and no concerns identified H&P Reviewed: Yes Patient was examined?: Yes
[2020-11-22] MEDS ORDERED: LASIX PO NR (14:00)
[2020-11-22] MEDS: LOVENOX INJ 40 MG SYR SC SCH (14:05)
[2020-11-22] MEDS: FORTAZ or TAZICEF VIAL INJ 1 G in NS 100 ML IV 100 ML IV SCH ×2 (14:06→22:21)
[2020-11-22] MEDS ORDERED: ANTIVERT TAB 25 MG PO PRN (17:23)
[2020-11-22] MEDS ORDERED: PERCOCET TAB 5/325 MG PO PRN (17:23)
[2020-11-22] MEDS: PriLOSEC PO SCH (18:52)
[2020-11-22] MEDS: LEVAQUIN PREMIX IV 500 MG 500 MG/100 ML BAG IV SCH (21:31)
[2020-11-22] MEDS: CRESTOR TAB 10 MG PO SCH (21:31)
[2020-11-22] MEDS: COREG TAB 6.25 MG PO SCH (21:31)
[2020-11-22] MEDS: NEURONTIN CAP 300 MG PO SCH (21:31)
[2020-11-22] MEDS: REQUIP PO SCH (21:31)
[2020-11-22] MEDS: RESTORIL CAP 15 MG PO SCH (21:31)
[2020-11-22] MEDS: ZyrTEC TAB 10 MG PO SCH (21:32)
[2020-11-23] MEDS ORDERED: NS 1/2 1000 ML IV 1,000 ML IV ONE ×2 (01:39→21:12)
[2020-11-23] MEDS: NS 1/2 1000 ML IV 1,000 ML IV SCH ×3 (01:52→21:28)
[2020-11-23] MEDS: FORTAZ or TAZICEF VIAL INJ 1 G in NS 100 ML IV 100 ML IV SCH ×3 (05:08→21:43)
[2020-11-23] MEDS: ACCUNEB 1.25 MG NEBULE NEB SCH ×3 (05:35→20:45)
[2020-11-23 06:22] LABS: ALANINE AMINOTRANSFERASE 25 Units/L (12-78); ALBUMIN 2.8 g/dL (3.4-5.0); ALKALINE PHOSPHATASE 126 Units/L (46-116); ASPARTATE AMINO TRANSFERASE 35 Units/L (15-37); BLOOD UREA NITROGEN 23 mg/dL (7-18); CALCIUM 8.4 mg/dL (8.5-10.1); CARBON DIOXIDE 29.6 mmol/L (21-32); CHLORIDE 103 mmol/L (98-107); COR CA(FOR HYPOALB) 9.4 mg/dL (8.5-10.1); CREATININE 1.32 mg/dL (0.70-1.30); SODIUM 140 mmol/L (136-145); eGFR NON BLACK RACES 58 (>60)
[2020-11-23] MEDS ORDERED: NS 100 ML IV 100 ML ONE (06:36)
[2020-11-23 06:38] LABS: BASOPHILS % (AUTO) 0.6 % (0.2-1.0); EOSINOPHILS # (AUTO) 0.3 x10^3/uL (0.0-0.2); HEMOGLOBIN 10.3 g/dL (13.5-18.0); LYMPHOCYTES # (AUTO) 0.8 X10^3/uL (1.3-2.9); LYMPHOCYTES % (AUTO) 13.2 % (21.0-51.0); MEAN CORPUSCULAR HEMOGLOBIN 32.4 pg (27.0-34.0); MEAN CORPUSCULAR HGB CONC 34.3 g/dL (33.0-35.0); MEAN CORPUSCULAR VOLUME 94.3 fL (80.0-100.0); MEAN PLATELET VOLUME 7.2 fL (7.4-11.0); MONOCYTES # (AUTO) 1.1 x10^3/uL (0.3-0.8); MONOCYTES % (AUTO) 18.8 % (0.0-13.0); NEUTROPHILS # (AUTO) 3.5 x10^3/uL (2.2-4.8); NEUTROPHILS % (AUTO) 62.4 % (42.0-75.0); PLATELET COUNT 148 X10^3/uL (150.0-450.0); RED BLOOD COUNT 3.19 X10^6/uL (4.7-6.0); RED CELL DISTRIBUTION WIDTH 14.8 % (11.6-16.5); WHITE BLOOD COUNT 5.7 X10^3/uL (3.6-10.0)
[2020-11-23] MEDS: PULMICORT NEB TX 0.5 MG NEB SCH ×2 (08:38→20:45)
[2020-11-23] MEDS ORDERED: [UNRECOGNIZED DRUG - OTHER] PO SCH (09:00)
[2020-11-23] MEDS: K-DUR TAB 20 MEQ PO SCH (10:12)
[2020-11-23] MEDS: ROBITUSSIN DM PO SCH ×4 (10:12→21:25)
[2020-11-23] MEDS: FOLIC ACID TAB 1 MG PO SCH (10:13)
[2020-11-23] MEDS: SYNTHROID 75 mcg TAB PO SCH (10:13)
[2020-11-23] MEDS: FERROUS GLUCONATE PO SCH (10:13)
[2020-11-23] MEDS: PriLOSEC PO SCH (10:13)
[2020-11-23] MEDS: WELLBUTRIN XL 150 MG (DAILY) PO SCH (10:13)
[2020-11-23] MEDS: COREG TAB 6.25 MG PO SCH ×2 (10:13→21:26)
[2020-11-23] MEDS: LOVENOX INJ 40 MG SYR SC SCH (10:14)
[2020-11-23] MEDS: PROzac PO SCH (10:14)
[2020-11-23] MEDS: VSL#3 PO SCH (10:20)
--- NOTE | 2020-11-23 10:53 | PCM.PROG ---
Progress Note - Progress Note for Day of Date of Exam: 11/23/20 - Subjective Subjective: IS BEING TREATED FOR BILATERAL PNEUMONIA AND HEMOPTYSIS. TODAY, HE IS ALERT AND ORIENTED, LYING IN BED ON MORNING ROUNDS. HE CONTINUES WITH A PRODUCTIVE COUGH THIS MORNING. HE IS CURRENTLY RECEIVING A BREATHING TREATMENT. ON EXAMINATION, HEART IS REGULAR IN RATE AND RHYTHM. BILAT ERAL LUNGS ARE NOTED WITH SCATTERED RHONCHI THROUGHOUT. ABDOMEN IS ROUND, SOFT, AND NON-TENDER WITH NORMAL BOWEL SOUNDS NOTED IN ALL QUADRANTS. HIS VITALS THIS MORNING ARE: 97.5-67-20-99%-125/56. LABS WERE OBTAINED. ABNORMAL LAB VALUES INCLUDE THE FOLLOWING: RBC 3.19, HGB 10.3, HCT 30, PTL COUNT 148, BUN 23, CREATININE 1.32, CALCIUM 8.4, ALK PHOS 126, CRP 22.90, ALBUMIN 2.8. BLOOD AND SPUTUM CULTURES ARE PENDING. A CHEST CT WAS OBTAINED THIS MORNING AND REVEALED: SCATTERED BILATERAL AIRSPACE AND GROUND GLASS OPACITIES CONSISTENT WITH PNEUMONIA. NEGATIVE FOR PULMONARY EMBOLISM. MODERATE RIGHT PLEURAL EFFUSION. ASSOCIATED RIGHT BASE ROUND OPACITY LIKELY REPRESENTS ROUND ATELECTASIS BUT FOLLOW UP IS RECOMMENDED. LIKELY REACTIVE MEDIASTINAL AND HILAR ADENOPATHY. HE IS CURRENTLY RECEIVING 1/2NS AT 75 ML/HR, LEVAQUIN 500MG IV HS, FORTAZ 1G IV Q8, ALBUTEROL NEB TX TID, TUSSIONEX 5ML PO Q12H PRN, ROBITUSSIN DM 10ML PO QID, VSL #3 2 CAPS DAILY, RESTORIL 15MG PO HS, AND THE POTASSIUM AND MAGNESIUM PROTOCOL. HIS HOME MEDICATIONS WERE RESUMED WELL. WE WILL CONTINUE WITH CURRENT PLAN OF CARE TODAY. OTHERWISE, WE PLAN TO FOLLOW UP WITH AM LABS AND CONTINUE TO MONITOR. TIME SPENT ON CLINICAL ASSESSMENT, REVIEWING LABS AND IMAGING, DECISION MAKING, AND DOCUMENTATION GREATER THAN 45 MINUTES. - Past Medical Family Social History Past Med/Fam/Surg Hx: No changes since H&P Allergies: Allergies cilastatin [From Primaxin] Allergy (Verified 11/20/20 15:14) clarithromycin [From Biaxin] Allergy (Verified 11/20/20 15:14) imipenem [From Primaxin] Allergy (Verified 11/20/20 15:14) - Review of Systems ROS: No change since H&P - Vital Signs and I&O's Vital Signs: Temperature 97.5 F Pulse Rate [Left Radial] 67 Pulse Rate 64 Respiratory Rate 20 Blood Pressure [Left Arm] 125/56 Blood Pressure 139/67 O2 Sat by Pulse Oximetry 97 Intake and Output: Intake & Output 11/20/20 11/21/20 11/22/20 11/23/20 11:59 11:59 11:59 11:59 Intake Total 1540 / 1540 4436 / 4436 Output Total 460 / 460 1999 Balance 1080 / 1080 2436 / 2436 - Physical Exam Oriented: Normal Eyes: Normal Ear: Normal Nose: Normal Throat: Normal Respiratory: Generalized, Diminished, Rhonchi Cardiovascular: Normal : Normal Auscultation: Bowel Sounds: Normal Palpation: Normal Tenderness: Normal Skin: Normal Musculoskeletal: Normal Psychiatric: Normal Mood Description: Calm Affect: Normal Speech Pattern: Clear, Appropriate, Delayed - Laboratory and Diagnostics Result Diagrams: 11/23/20 05:44 11/23/20 05:44 Labs: 11/21/20 21:22 Sputum - Expectorated Sputum Sputum Culture - Preliminary 11/21/20 21:22 Sputum - Expectorated Sputum - Final 11/21/20 18:32 Blood Blood Culture - Preliminary 11/21/20 18:27 Blood Blood Culture - Preliminary Laboratory WBC 5.7 X10^3/uL (3.6-10.0) 11/23/20 05:44 RBC 3.19 X10^6/uL (4.7-6.0) L 11/23/20 05:44 Hgb 10.3 g/dL (13.5-18.0) L 11/23/20 05:44 Hct 30.0 % (42.0-54.0) L 11/23/20 05:44 MCV 94.3 fL (80.0-100.0) 11/23/20 05:44 MCH 32.4 pg (27.0-34.0) 11/23/20 05:44 MCHC 34.3 g/dL (33.0-35.0) 11/23/20 05:44 RDW 14.8 % (11.6-16.5) 11/23/20 05:44 Plt Count 148 X10^3/uL (150.0-450.0) L 11/23/20 05:44 MPV 7.2 fL (7.4-11.0) L 11/23/20 05:44 Neut % (Auto) 62.4 % (42.0-75.0) 11/23/20 05:44 Lymph % (Auto) 13.2 % (21.0-51.0) L 11/23/20 05:44 Sheridan % (Auto) 18.8 % (0.0-13.0) H 11/23/20 05:44 Eos % (Auto) 5.0 % (0.9-2.9) H 11/23/20 05:44 Baso % (Auto) 0.6 % (0.2-1.0) 11/23/20 05:44 Neut # (Auto) 3.5 x10^3/uL (2.2-4.8) 11/23/20 05:44 Lymph # (Auto) 0.8 X10^3/uL (1.3-2.9) L 11/23/20 05:44 Sheridan # (Auto) 1.1 x10^3/uL (0.3-0.8) H 11/23/20 05:44 Eos # (Auto) 0.3 x10^3/uL (0.0-0.2) H 11/23/20 05:44 Baso # (Auto) 0.0 X10^3/uL (0.0-0.1) 11/23/20 05:44 Absolute Nucleated RBC 0.0 /100WBC 11/23/20 05:44 D-Dimer 1.42 ug/ml (0.0-0.57) H* 11/22/20 05:55 Sodium 140 mmol/L (136-145) 11/23/20 05:44 Corrected Sodium TNP 11/23/20 05:44 Potassium 3.6 mmol/L (3.5-5.1) 11/23/20 05:44 Chloride 103 mmol/L (98-107) 11/23/20 05:44 Carbon Dioxide 29.6 mmol/L (21-32) 11/23/20 05:44 BUN 23 mg/dL (7-18) H 11/23/20 05:44 Creatinine 1.32 mg/dL (0.70-1.30) H 11/23/20 05:44 Est GFR (MDRD) Af Amer > 60 (>60) 11/23/20 05:44 Est GFR (MDRD) Non-Af 58 (>60) L 11/23/20 05:44 Glucose 94 mg/dL (65-99) 11/23/20 05:44 Calcium 8.4 mg/dL (8.5-10.1) L 11/23/20 05:44 Corrected Calcium 9.4 mg/dL (8.5-10.1) 11/23/20 05:44 Magnesium 2.4 mg/dL (1.7-2.9) 11/21/20 18:32 Total Bilirubin 0.80 mg/dL (0.2-1.0) 11/23/20 05:44 AST 35 Units/L (15-37) 11/23/20 05:44 ALT 25 Units/L (12-78) 11/23/20 05:44 Alkaline Phosphatase 126 Units/L (46-116) H 11/23/20 05:44 C-Reactive Protein 22.90 mg/L (0-3.0) H 11/23/20 05:44 Total Protein 7.0 g/dL (6.4-8.2) 11/23/20 05:44 Albumin 2.8 g/dL (3.4-5.0) L 11/23/20 05:44 Globulin 4.2 g/dL (2.5-4.5) 11/23/20 05:44 Albumin/Globulin Ratio 0.7 Ratio (1.1-2.1) L 11/23/20 05:44 SARS-CoV-2 (PCR) Negative (NEGATIVE) 11/21/20 18:03 Influenza Type A (PCR) Negative (NEGATIVE) 11/21/20 18:03 Influenza Type B (PCR) Negative (NEGATIVE) 11/21/20 18:03 RSV (PCR) Negative (NEGATIVE) 11/21/20 18:03 - Plan (1) Pneumonia Status: Acute Qualifiers: Pneumonia type: due to unspecified organism Laterality: bilateral Lung location: unspecified part of lung Qualified Code(s): J18.9 - Pneumonia, unspecified organism Plan: 1/2NS AT 75 ML/HR, LEVAQUIN 500MG IV HS, FORTAZ 1G IV Q8, ALBUTEROL NEB TX TID, TUSSIONEX 5ML PO Q12H PRN, ROBITUSSIN DM 10ML PO QID, VSL #3 2 CAPS DAILY, RESTORIL 15MG PO HS, AND THE POTASSIUM AND MAGNESIUM PROTOCOL (2) Cough with hemoptysis Status: Acute
--- NOTE | 2020-11-23 12:33 | RAD ---
HISTORYSOB Relevant Clinical InformationSTUDYCHEST, 1 VIEWCOMPARISONPortable chest November 17, 2020FINDINGSThe trachea is midline. The cardiac silhouette is unremarkable. Sternotomy wires and sys sternotomy fixation devices are seen in the sternum with a prosthetic valve that appears to be aortic valve in orientation.. Infiltrate in the right lung base shows improvement but incomplete resolution. There is blunting the right costophrenic angle consistent with small pleural effusion. The bony thorax is unremarkable.IMPRESSIONPostsurgical chest with prosthetic heart valve probably aortic in place.Mild improvement in the infiltrate in the right lung base with blunting the right costophrenic angle probably due to small pleural effusion.Electronically signed by: MICHAEL LARES (Nov 23, 2020 08:21:29)
--- NOTE | 2020-11-23 12:35 | CT ---
HISTORYPNEUMONIA, R/O PESTUDYCTA CHESTCOMPARISONSame day chest radiograph.TECHNIQUECTA chest protocol with axial images from the thoracic inlet to upper abdomen with IV contrast. Sagittal and coronal reformats and MIP images were created. Automated exposure control was utilized.FINDINGSThe visualized thyroid gland appears benign. Mildly atherosclerotic normal caliber thoracic aorta. Conspicuous number of lymph nodes in the mediastinum, most of which are subcentimeter. 1.2 cm short axis right lower paratracheal lymph node image 70 series 4. 1.3 cm short axis right hilar lymph node image 94 series 4. Pulmonary artery is normal in caliber centrally. No filling defect is identified to suggest pulmonary embolism. Heart is normal in size. Aortic and mitral valve replacements are present.No pericardial effusion. Visualized upper abdomen has a benign appearance. Post median sternotomy. The trachea and mainstem bronchi appear patent. Right upper lobe patchy airspace opacity image 93 series 5. Mild patchy right middle lobe airspace and ground-glass opacity image 122 series 5. Similar left lower lobe opacities image 145 series 5. Moderate right pleural effusion with associated round opacity likely represent right lower lobe atelectasis as there are tails of opacity extending toward the hilum such as image 99 series 8.IMPRESSIONScattered bilateral airspace and ground-glass opacities consistent with pneumonia. Negative for pulmonary embolism. Moderate right pleural effusion. Associated right base round opacity likely represents round atelectasis but follow-up is recommended. Likely reactive mediastinal and hilar adenopathy.Electronically signed by: Erik Campos (Nov 23, 2020 07:29:24)
[2020-11-23] MEDS: LASIX PO SCH ×2 (14:07→21:27)
[2020-11-23] MEDS: ZOVIRAX TOP SCH ×2 (14:07→21:31)
[2020-11-23] MEDS: RESTORIL CAP 15 MG PO SCH (21:26)
[2020-11-23] MEDS: NEURONTIN CAP 300 MG PO SCH (21:26)
[2020-11-23] MEDS: LEVAQUIN PREMIX IV 500 MG 500 MG/100 ML BAG IV SCH (21:27)
[2020-11-23] MEDS: REQUIP PO SCH (21:27)
[2020-11-23] MEDS: ZyrTEC TAB 10 MG PO SCH (21:27)
[2020-11-23] MEDS: CRESTOR TAB 10 MG PO SCH (21:27)
[2020-11-24] MEDS: NS 1/2 1000 ML IV 1,000 ML IV SCH (03:19)
[2020-11-24] MEDS: ZOVIRAX TOP SCH ×2 (04:13→12:47)
[2020-11-24] MEDS: ACCUNEB 1.25 MG NEBULE NEB SCH (05:10)
[2020-11-24] MEDS: FORTAZ or TAZICEF VIAL INJ 1 G in NS 100 ML IV 100 ML IV SCH (05:47)
[2020-11-24 06:25] LABS: BASOPHILS # (AUTO) 0.1 X10^3/uL (0.0-0.1); EOSINOPHILS # (AUTO) 0.3 x10^3/uL (0.0-0.2); EOSINOPHILS % (AUTO) 5.1 % (0.9-2.9); HEMATOCRIT 29.7 % (42.0-54.0); HEMOGLOBIN 10.2 g/dL (13.5-18.0); LYMPHOCYTES # (AUTO) 0.7 X10^3/uL (1.3-2.9); MEAN CORPUSCULAR HEMOGLOBIN 32.4 pg (27.0-34.0); MEAN CORPUSCULAR HGB CONC 34.2 g/dL (33.0-35.0); MEAN PLATELET VOLUME 8.2 fL (7.4-11.0); NEUTROPHILS # (AUTO) 3.6 x10^3/uL (2.2-4.8); NEUTROPHILS % (AUTO) 63.9 % (42.0-75.0); PLATELET COUNT 134 X10^3/uL (150.0-450.0); RED BLOOD COUNT 3.13 X10^6/uL (4.7-6.0); RED CELL DISTRIBUTION WIDTH 14.6 % (11.6-16.5); WHITE BLOOD COUNT 5.6 X10^3/uL (3.6-10.0)
[2020-11-24 06:52] LABS: ALANINE AMINOTRANSFERASE 22 Units/L (12-78); ALBUMIN 2.8 g/dL (3.4-5.0); ALKALINE PHOSPHATASE 125 Units/L (46-116); ASPARTATE AMINO TRANSFERASE 32 Units/L (15-37); BLOOD UREA NITROGEN 18 mg/dL (7-18); CALCIUM 8.4 mg/dL (8.5-10.1); CHLORIDE 106 mmol/L (98-107); COR CA(FOR HYPOALB) 9.4 mg/dL (8.5-10.1); CREATININE 1.18 mg/dL (0.70-1.30); SODIUM 142 mmol/L (136-145); TOTAL PROTEIN 6.9 g/dL (6.4-8.2); eGFR NON BLACK RACES > 60 (>60)
--- NOTE | 2020-11-24 07:41 | RAD ---
HISTORYSOBSTUDYCHEST, 1 [id number]/30/2021.TECHNIQUEAP view of the chestFINDINGSStatus post cardiac valve replacements.The cardiac and mediastinal contours appear stable. No significant change in mild bilateral hazy and interstitial pulmonary opacities. Stable moderate right pleural effusion. No pneumothorax.IMPRESSIONNo significant change.Electronically signed by: Erik Campos (Nov 24, 2020 07:38:28)
[2020-11-24] MEDS: PULMICORT NEB TX 0.5 MG NEB SCH (09:53)
[2020-11-24] MEDS: K-DUR TAB 20 MEQ PO SCH (11:21)
[2020-11-24] MEDS: VSL#3 PO SCH (11:22)
[2020-11-24] MEDS: LASIX PO SCH (11:23)
[2020-11-24] MEDS: ROBITUSSIN DM PO SCH ×2 (11:23→14:57)
[2020-11-24] MEDS: SYNTHROID 75 mcg TAB PO SCH (11:23)
[2020-11-24] MEDS: PROzac PO SCH (11:24)
[2020-11-24] MEDS: WELLBUTRIN XL 150 MG (DAILY) PO SCH (11:24)
[2020-11-24] MEDS: PriLOSEC PO SCH (11:24)
[2020-11-24] MEDS: COREG TAB 6.25 MG PO SCH (11:25)
[2020-11-24] MEDS: FERROUS GLUCONATE PO SCH (11:25)
[2020-11-24] MEDS: FOLIC ACID TAB 1 MG PO SCH (11:25)
[2020-11-24] MEDS: LOVENOX INJ 40 MG SYR SC SCH (11:30)
[2020-11-24 14:55] VITALS: BP 137/64
== END 2020-11-24 13:00 | disposition home or self-care (01) ==
LOC: MED/SURG
PROVIDERS: ADMIT Internal Medicine; ATTEND Internal Medicine
DX: B37.89 Other sites of candidiasis; R04.2 Hemoptysis; R51.9 Headache, unspecified; J18.8 Other pneumonia, unspecified organism; D64.89 Other specified anemias; I95.89 Other hypotension; Z20.822 Contact with and (suspected) exposure to COVID-19

== ENCOUNTER 2021-05-31 12:05 | Observation (INO) ==
[2021-05-31 14:48] LABS: BASOPHILS % (AUTO) 0.6 % (0.2-1.0); EOSINOPHILS # (AUTO) 0.2 x10^3/uL (0.0-0.2); EOSINOPHILS % (AUTO) 2.9 % (0.9-2.9); HEMATOCRIT 30.7 % (42.0-54.0); HEMOGLOBIN 10.5 g/dL (13.5-18.0); LYMPHOCYTES # (AUTO) 0.7 X10^3/uL (1.3-2.9); LYMPHOCYTES % (AUTO) 12.2 % (21.0-51.0); MEAN CORPUSCULAR HEMOGLOBIN 31.1 pg (27.0-34.0); MEAN CORPUSCULAR HGB CONC 34.3 g/dL (33.0-35.0); MEAN CORPUSCULAR VOLUME 90.8 fL (80.0-100.0); MEAN PLATELET VOLUME 8.4 fL (7.4-11.0); MONOCYTES % (AUTO) 15.8 % (0.0-13.0); NEUTROPHILS # (AUTO) 4.2 x10^3/uL (2.2-4.8); NEUTROPHILS % (AUTO) 68.5 % (42.0-75.0); RED BLOOD COUNT 3.38 X10^6/uL (4.7-6.0); RED CELL DISTRIBUTION WIDTH 15.7 % (11.6-16.5); WHITE BLOOD COUNT 6.1 X10^3/uL (3.6-10.0)
[2021-05-31] MEDS: NS 1,000 ML IV 1,000 ML IV SCH (14:54)
[2021-05-31 15:08] VITALS: BMI 39.5
[2021-05-31 15:10] LABS: ALANINE AMINOTRANSFERASE 19 Units/L (12-78); ALKALINE PHOSPHATASE 88 Units/L (46-116); ASPARTATE AMINO TRANSFERASE 40 Units/L (15-37); BLOOD UREA NITROGEN 48 mg/dL (7-18); CALCIUM 8.2 mg/dL (8.5-10.1); CARBON DIOXIDE 34.1 mmol/L (21-32); CHLORIDE 93 mmol/L (98-107); CKMB % 0.5 % (<4); COR NA(FOR HYPERGLY) 135 mmol/L (136-145); CREATINE KINASE 213 Units/L (39-308); CREATINE KINASE MB < 1.0 ng/mL (0-4.0); CREATININE 2.88 mg/dL (0.70-1.30); MAGNESIUM 2.5 mg/dL (1.7-2.9); TOTAL PROTEIN 7.2 g/dL (6.4-8.2); eGFR NON BLACK RACES 23 (>60)
[2021-05-31 15:22] LABS: SODIUM 134 mmol/L (136-145)
[2021-05-31 15:42] LABS: IRON 41 ug/dL (50-175)
--- NOTE | 2021-05-31 16:41 | RAD ---
HISTORYARF, ANEMIA Relevant Clinical InformationSTUDYCHEST, 1 [id number]/07/2022FINDINGSTrachea is midline. Mild cardiomegaly. There is no evidence of pulmonary edema or pneumothorax. There is a trace right pleural effusion unchanged since priorNo central pulmonary edema. Patchy atelectasis at the right base.IMPRESSIONPersistent small right pleural effusion with patchy radiopacities probably atelectasis.Electronically signed by: Crystal Traore (May 31, 2021 16:40:25)
[2021-05-31 18:24] LABS: HEMATOCRIT 29.8 % (42.0-54.0); HEMOGLOBIN 10.3 g/dL (13.5-18.0)
[2021-05-31] MEDS ORDERED: K-DUR TAB 20 MEQ PO ONE (18:46)
[2021-05-31 19:08] LABS: BILIRUBIN,URINE NEGATIVE (NEGATIVE); BLOOD/HEMOGLOBIN,URINE 2+ (NEGATIVE); GLUCOSE, URINE NEGATIVE (NEGATIVE); KETONES,URINE NEGATIVE (NEGATIVE); LEUKOCYTE ESTERASE ,URINE NEGATIVE (NEGATIVE); NITRITES,URINE NEGATIVE (NEGATIVE); PROTEIN,URINE 2+ (NEGATIVE); UROBILINOGEN,URINE 2+ (NORMAL)
[2021-05-31 19:13] LABS: APPEARANCE,URINE CLEAR (CLEAR); BACTERIA,URINE TRACE /HPF (NEGATIVE); COLOR,URINE YELLOW (YELLOW); SQUAMOUS EPITHELIAL CELL,UR RARE /HPF (NEGATIVE)
[2021-05-31 19:46] LABS: CKMB % 0.6 % (<4); CREATINE KINASE 179 Units/L (39-308); CREATINE KINASE MB < 1.0 ng/mL (0-4.0)
[2021-06-01 01:00] LABS: CKMB % 0.7 % (<4); CREATINE KINASE 138 Units/L (39-308); CREATINE KINASE MB < 1.0 ng/mL (0-4.0)
[2021-06-01] MEDS: NS 1,000 ML IV 1,000 ML IV SCH ×2 (01:40→23:21)
[2021-06-01 05:46] LABS: BASOPHILS % (AUTO) 0.5 % (0.2-1.0); EOSINOPHILS # (AUTO) 0.2 x10^3/uL (0.0-0.2); EOSINOPHILS % (AUTO) 3.3 % (0.9-2.9); HEMATOCRIT 29.8 % (42.0-54.0); HEMOGLOBIN 10.4 g/dL (13.5-18.0); LYMPHOCYTES # (AUTO) 0.7 X10^3/uL (1.3-2.9); LYMPHOCYTES % (AUTO) 14.7 % (21.0-51.0); MEAN CORPUSCULAR HEMOGLOBIN 31.7 pg (27.0-34.0); MEAN CORPUSCULAR HGB CONC 34.8 g/dL (33.0-35.0); MEAN CORPUSCULAR VOLUME 90.9 fL (80.0-100.0); MEAN PLATELET VOLUME 8.5 fL (7.4-11.0); MONOCYTES # (AUTO) 0.7 x10^3/uL (0.3-0.8); NEUTROPHILS # (AUTO) 3.4 x10^3/uL (2.2-4.8); NEUTROPHILS % (AUTO) 67.5 % (42.0-75.0); RED BLOOD COUNT 3.28 X10^6/uL (4.7-6.0); RED CELL DISTRIBUTION WIDTH 15.8 % (11.6-16.5); WHITE BLOOD COUNT 5.1 X10^3/uL (3.6-10.0)
[2021-06-01 06:02] LABS: ALANINE AMINOTRANSFERASE 14 Units/L (12-78); ALBUMIN 2.8 g/dL (3.4-5.0); ALKALINE PHOSPHATASE 90 Units/L (46-116); ASPARTATE AMINO TRANSFERASE 30 Units/L (15-37); BLOOD UREA NITROGEN 45 mg/dL (7-18); CALCIUM 8.1 mg/dL (8.5-10.1); CARBON DIOXIDE 32.4 mmol/L (21-32); CHLORIDE 96 mmol/L (98-107); COR CA(FOR HYPOALB) 9.1 mg/dL (8.5-10.1); CREATININE 2.62 mg/dL (0.70-1.30); SODIUM 136 mmol/L (136-145); TOTAL PROTEIN 6.7 g/dL (6.4-8.2); eGFR NON BLACK RACES 26 (>60)
[2021-06-01] MEDS ORDERED: NS + KCL 20 MEQ/L 1,000 ML IV SCH (10:00)
[2021-06-01] MEDS: NS + KCL 20 MEQ/L 1,000 ML IV SCH ×2 (11:00→19:45)
[2021-06-01] MEDS: LOVENOX INJ 40 MG SYR SC SCH (11:00)
--- NOTE | 2021-06-01 12:25 | RAD ---
Exam:FOOT, LEFTIndication: FOOT PAIN, PREVIOUS INJURYComparison: [None available]Findings: [No acute fracture or malalignment of the left foot. There is a pes cavus deformity of the foot. Enthesopathic change of the distal Achilles tendon.Degenerative change of the dorsal talus and anterior lip of the tibial plafond.IMPRESSIONNo acute fracture or malalignment of the left foot.Degenerative change of the ankle and dorsal talus.Moderate degenerative change of the Achilles tendon.Pes cavus deformity of the left foot.Electronically signed by: GARCIA GAVIN (Jun 01, 2021 12:24:56)
[2021-06-01] MEDS ORDERED: K-DUR TAB 20 MEQ PO PRN (17:45)
[2021-06-01] MEDS ORDERED: POTASSIUM CHL 60 MEQ/NS 0.45% 500 ML IV PRN (17:45)
[2021-06-01] MEDS ORDERED: MICRO K EXTEN CAP 10 MEQ PO PRN (17:45)
[2021-06-01] MEDS ORDERED: POTASSIUM CHL 40 MEQ/NS 0.45% 500 ML IV PRN (17:45)
[2021-06-01] MEDS ORDERED: POTASSIUM CHLORIDE LIQ 20 MEQ UDC PO PRN (17:45)
[2021-06-01] MEDS ORDERED: KLOR-CON PO PRN (17:45)
[2021-06-01] MEDS: NEURONTIN TAB 600 MG PO SCH (21:30)
[2021-06-01] MEDS: CRESTOR TAB 10 MG PO SCH (21:30)
[2021-06-01] MEDS: ANTIVERT TAB 25 MG PO SCH (21:30)
[2021-06-01] MEDS: COREG TAB 3.125 MG PO SCH (21:30)
[2021-06-01] MEDS: PriLOSEC PO SCH (21:31)
[2021-06-01] MEDS: OXYBUTYNIN CHLORIDE ER PO SCH (21:31)
[2021-06-01] MEDS: REQUIP PO SCH (21:31)
[2021-06-02] MEDS: NS + KCL 20 MEQ/L 1,000 ML IV SCH ×3 (01:07→19:46)
[2021-06-02] MEDS: SYNTHROID 75 mcg TAB PO SCH (05:48)
[2021-06-02 06:55] LABS: BASOPHILS % (AUTO) 0.4 % (0.2-1.0); EOSINOPHILS # (AUTO) 0.2 x10^3/uL (0.0-0.2); EOSINOPHILS % (AUTO) 3.1 % (0.9-2.9); HEMATOCRIT 30.1 % (42.0-54.0); HEMOGLOBIN 10.1 g/dL (13.5-18.0); LYMPHOCYTES # (AUTO) 0.7 X10^3/uL (1.3-2.9); LYMPHOCYTES % (AUTO) 13.4 % (21.0-51.0); MEAN CORPUSCULAR HEMOGLOBIN 30.7 pg (27.0-34.0); MEAN CORPUSCULAR HGB CONC 33.5 g/dL (33.0-35.0); MEAN CORPUSCULAR VOLUME 91.6 fL (80.0-100.0); MEAN PLATELET VOLUME 8.5 fL (7.4-11.0); MONOCYTES # (AUTO) 0.7 x10^3/uL (0.3-0.8); MONOCYTES % (AUTO) 12.4 % (0.0-13.0); NEUTROPHILS # (AUTO) 3.7 x10^3/uL (2.2-4.8); NEUTROPHILS % (AUTO) 70.7 % (42.0-75.0); RED BLOOD COUNT 3.29 X10^6/uL (4.7-6.0); RED CELL DISTRIBUTION WIDTH 15.5 % (11.6-16.5); WHITE BLOOD COUNT 5.3 X10^3/uL (3.6-10.0)
[2021-06-02 07:14] LABS: GIANT PLATELET FEW
[2021-06-02 07:15] LABS: ANISOCYTOSIS SLIGHT; PLATELET MORPHOLOGY COMMENT ABNORMAL (NORMAL); POIKILOCYTOSIS SLIGHT
[2021-06-02 08:20] LABS: ALANINE AMINOTRANSFERASE 19 Units/L (12-78); ALBUMIN 2.7 g/dL (3.4-5.0); ALKALINE PHOSPHATASE 101 Units/L (46-116); ASPARTATE AMINO TRANSFERASE 39 Units/L (15-37); BLOOD UREA NITROGEN 38 mg/dL (7-18); CALCIUM 8.1 mg/dL (8.5-10.1); CARBON DIOXIDE 32.7 mmol/L (21-32); CHLORIDE 102 mmol/L (98-107); COR CA(FOR HYPOALB) 9.1 mg/dL (8.5-10.1); CREATININE 2.25 mg/dL (0.70-1.30); MAGNESIUM 2.2 mg/dL (1.7-2.9); SODIUM 141 mmol/L (136-145); TOTAL PROTEIN 6.8 g/dL (6.4-8.2); eGFR NON BLACK RACES 31 (>60)
[2021-06-02] MEDS: WELLBUTRIN XL 150 MG (DAILY) PO SCH (09:26)
[2021-06-02] MEDS: PriLOSEC PO SCH ×2 (09:27→21:46)
[2021-06-02] MEDS: PROzac PO SCH (09:27)
[2021-06-02] MEDS: LOVENOX INJ 40 MG SYR SC SCH (09:28)
[2021-06-02] MEDS: PLAVIX PO SCH (09:28)
[2021-06-02] MEDS: COREG TAB 3.125 MG PO SCH ×2 (09:28→21:47)
[2021-06-02] MEDS ORDERED: VOLTAREN 1 % GEL MULTI DOSE TUBE TOP PRN (09:58)
[2021-06-02] MEDS: K-RIDER 10 MEQ/NS 100 ML 10 MEQ/100 ML BAG IV PRN ×3 (11:45→14:20)
[2021-06-02] MEDS: NEURONTIN TAB 600 MG PO SCH (21:46)
[2021-06-02] MEDS: REQUIP PO SCH (21:46)
[2021-06-02] MEDS: CRESTOR TAB 10 MG PO SCH (21:46)
[2021-06-02] MEDS: OXYBUTYNIN CHLORIDE ER PO SCH (21:46)
[2021-06-02] MEDS: ANTIVERT TAB 25 MG PO SCH (21:47)
[2021-06-03] MEDS: NS + KCL 20 MEQ/L 1,000 ML IV SCH ×5 (04:25→22:23)
[2021-06-03] MEDS: SYNTHROID 75 mcg TAB PO SCH (05:29)
[2021-06-03 05:50] LABS: BASOPHILS % (AUTO) 0.6 % (0.2-1.0); EOSINOPHILS # (AUTO) 0.1 x10^3/uL (0.0-0.2); EOSINOPHILS % (AUTO) 2.1 % (0.9-2.9); HEMATOCRIT 29.3 % (42.0-54.0); HEMOGLOBIN 10.2 g/dL (13.5-18.0); LYMPHOCYTES # (AUTO) 0.9 X10^3/uL (1.3-2.9); LYMPHOCYTES % (AUTO) 17.9 % (21.0-51.0); MEAN CORPUSCULAR HEMOGLOBIN 31.7 pg (27.0-34.0); MEAN CORPUSCULAR HGB CONC 34.7 g/dL (33.0-35.0); MEAN CORPUSCULAR VOLUME 91.4 fL (80.0-100.0); MEAN PLATELET VOLUME 8.2 fL (7.4-11.0); MONOCYTES # (AUTO) 0.8 x10^3/uL (0.3-0.8); MONOCYTES % (AUTO) 15.1 % (0.0-13.0); NEUTROPHILS # (AUTO) 3.4 x10^3/uL (2.2-4.8); NEUTROPHILS % (AUTO) 64.3 % (42.0-75.0); RED BLOOD COUNT 3.21 X10^6/uL (4.7-6.0); RED CELL DISTRIBUTION WIDTH 15.7 % (11.6-16.5); WHITE BLOOD COUNT 5.3 X10^3/uL (3.6-10.0)
[2021-06-03 06:05] LABS: ALANINE AMINOTRANSFERASE 19 Units/L (12-78); ALBUMIN 2.7 g/dL (3.4-5.0); ALKALINE PHOSPHATASE 92 Units/L (46-116); ASPARTATE AMINO TRANSFERASE 44 Units/L (15-37); BLOOD UREA NITROGEN 25 mg/dL (7-18); CALCIUM 8.2 mg/dL (8.5-10.1); CARBON DIOXIDE 28.3 mmol/L (21-32); CHLORIDE 104 mmol/L (98-107); COR CA(FOR HYPOALB) 9.2 mg/dL (8.5-10.1); CREATININE 1.82 mg/dL (0.70-1.30); MAGNESIUM 1.9 mg/dL (1.7-2.9); SODIUM 142 mmol/L (136-145); TOTAL PROTEIN 6.8 g/dL (6.4-8.2); eGFR NON BLACK RACES 40 (>60)
[2021-06-03 06:20] LABS: PLATELET MORPHOLOGY COMMENT NORMAL (NORMAL)
[2021-06-03] MEDS: LOVENOX INJ 40 MG SYR SC SCH (08:12)
[2021-06-03] MEDS: PROzac PO SCH (08:13)
[2021-06-03] MEDS: COREG TAB 3.125 MG PO SCH ×2 (08:13→22:29)
[2021-06-03] MEDS: PLAVIX PO SCH (08:13)
[2021-06-03] MEDS: WELLBUTRIN XL 150 MG (DAILY) PO SCH (08:13)
[2021-06-03] MEDS: PriLOSEC PO SCH ×2 (08:14→22:27)
[2021-06-03] MEDS: REQUIP PO SCH (22:26)
[2021-06-03] MEDS: CRESTOR TAB 10 MG PO SCH (22:27)
[2021-06-03] MEDS: ANTIVERT TAB 25 MG PO SCH (22:28)
[2021-06-03] MEDS: OXYBUTYNIN CHLORIDE ER PO SCH (22:28)
[2021-06-03] MEDS: NEURONTIN TAB 600 MG PO SCH (22:29)
[2021-06-03] MEDS ORDERED: TYLENOL 325 MG TAB PO PRN (23:53)
[2021-06-04] MEDS: NS + KCL 20 MEQ/L 1,000 ML IV SCH ×4 (05:15→19:07)
[2021-06-04 05:36] LABS: BASOPHILS % (AUTO) 0.5 % (0.2-1.0); EOSINOPHILS # (AUTO) 0.1 x10^3/uL (0.0-0.2); EOSINOPHILS % (AUTO) 1.6 % (0.9-2.9); HEMOGLOBIN 9.3 g/dL (13.5-18.0); LYMPHOCYTES # (AUTO) 0.9 X10^3/uL (1.3-2.9); LYMPHOCYTES % (AUTO) 16.9 % (21.0-51.0); MEAN CORPUSCULAR HEMOGLOBIN 31.4 pg (27.0-34.0); MEAN CORPUSCULAR HGB CONC 34.2 g/dL (33.0-35.0); MEAN CORPUSCULAR VOLUME 91.7 fL (80.0-100.0); MONOCYTES % (AUTO) 19.6 % (0.0-13.0); NEUTROPHILS # (AUTO) 3.1 x10^3/uL (2.2-4.8); NEUTROPHILS % (AUTO) 61.4 % (42.0-75.0); RED BLOOD COUNT 2.95 X10^6/uL (4.7-6.0); RED CELL DISTRIBUTION WIDTH 15.8 % (11.6-16.5)
[2021-06-04] MEDS: SYNTHROID 75 mcg TAB PO SCH (05:38)
[2021-06-04 05:50] LABS: ALANINE AMINOTRANSFERASE 17 Units/L (12-78); ALBUMIN 2.4 g/dL (3.4-5.0); ALKALINE PHOSPHATASE 84 Units/L (46-116); ASPARTATE AMINO TRANSFERASE 38 Units/L (15-37); BLOOD UREA NITROGEN 21 mg/dL (7-18); CALCIUM 7.9 mg/dL (8.5-10.1); CARBON DIOXIDE 26.2 mmol/L (21-32); CHLORIDE 106 mmol/L (98-107); COR CA(FOR HYPOALB) 9.2 mg/dL (8.5-10.1); CREATININE 1.73 mg/dL (0.70-1.30); SODIUM 141 mmol/L (136-145); TOTAL PROTEIN 6.1 g/dL (6.4-8.2); eGFR NON BLACK RACES 42 (>60)
--- NOTE | 2021-06-04 06:19 | RAD ---
HISTORYSOBSTUDYCHEST, 1 [id number]/07/2022.TECHNIQUEAP view of the chestFINDINGSStatus post median sternotomy and cardiac valve replacement. The cardiac and mediastinal contours appear stable. Stable blunting of the right costophrenic sulcus. Mild patchy right base opacity appears similar. No pneumothorax. Soft tissue attenuation limits evaluation.IMPRESSIONNo significant change. Suspect small right pleural effusion. Patchy right base opacity may represent atelectasis or pneumonia.Electronically signed by: Erik Campos (Jun 04, 2021 06:18:33)
[2021-06-04 06:23] LABS: WHITE BLOOD COUNT 5.5 X10^3/uL (3.6-10.0)
[2021-06-04 06:24] LABS: BAND NEUTROPHILS % 1 % (0-10); PLATELET MORPHOLOGY COMMENT NORMAL (NORMAL)
[2021-06-04] MEDS: PriLOSEC PO SCH ×2 (08:41→20:38)
[2021-06-04] MEDS: LOVENOX INJ 40 MG SYR SC SCH (08:41)
[2021-06-04] MEDS: PLAVIX PO SCH (08:42)
[2021-06-04] MEDS: PROzac PO SCH (08:42)
[2021-06-04] MEDS: WELLBUTRIN XL 150 MG (DAILY) PO SCH (08:42)
[2021-06-04] MEDS: COREG TAB 3.125 MG PO SCH ×2 (08:42→20:38)
[2021-06-04] MEDS ORDERED: XOPENEX 1.25 MG/3 ML NEBULE NEB ONE (11:09)
[2021-06-04] MEDS: XOPENEX 1.25 MG/3 ML NEBULE NEB SCH ×2 (13:07→20:00)
[2021-06-04] MEDS: FORTAZ or TAZICEF VIAL INJ 1 G in NS 100 ML IV 100 ML IV SCH ×2 (13:45→20:39)
[2021-06-04] MEDS: TUMS PO SCH ×2 (13:45→21:28)
[2021-06-04] MEDS ORDERED: LEVAQUIN PREMIX IV 750 MG 750 MG/150 ML BAG IV SCH (14:00)
--- NOTE | 2021-06-04 20:03 | DR.H&P ---
H&P - History & Physical for Day of: H&P Date: 05/31/21 - Chief Complaint Chief Complaint: DIZZINESS, GENERALIZED WEAKNESS, DISORIENTATION - History of Present Illness History of Present Illness: IS A 66 YEAR OLD PATIENT OF OURS WHO HAS BEEN FOLLOWED IN THE OFFICE FOR COMPLAINTS OF DIZZINESS, GENERALIZED WEAKNESS, AND DISORIENTATION. OUTPATIENT LABS WERE OBTAINED AND REVEALED AN ELEVATED BUN OF 44 AND ELEVATED CREATININE OF 2.32, POTASSIUM OF 3.1, CHLORIDE 89. DECISION WAS MADE TO ADMIT PATIENT TO THE HOSPITAL FOR FURTHER EVALUATION AND TREATMENT OF ACUTE RENAL FAILURE AND HYPOKALEMIA. ON ARRIVAL TO THE HOSPITAL, VITALS WERE 98.0-62-18-92%-116/57. LABS WERE OBTAINED ON ADMISSION. WBC 6.1, RBC 3.38, HGB 10.5, HCT 30.7, PLT COUNT 137, SODIUM 134, POTASSIUM 3.2, CHLORIDE 93, CARBON DIOXIDE 34.1, BUN 48, CREATININE 2.88, GLUCOSE 124, CALCIUM 8.2, IRON 41, TRANSFERRIN 193, AST 40, ALT 19, ALK PHOS 88, TOTAL PROTEIN 7.2, ALBUMIN 3.0. CARDIAC ENZYMES WERE WITHIN NORMAL LIMITS. URINALYSIS WAS OBTAINED. WBC 5-10, RBC 3-5, BLOOD 2+, PROTEIN 2+, BACTERIA TRACE, LEUKOCYTES NEGATIVE. COVID-19 NEGATIVE. BLOOD CULTURES WERE SET UP. A CHEST XRAY WAS OBTAINED AND REVEALED: Trachea is midline. Mild cardiomegaly. There is no evidence of pulmonary edema or pneumothorax. There is a trace right pleural effusion unchanged since prior. No central pulmonary edema. Patchy atelectasis at the right base. EKG REVEALED: SINUS RHYTHM WITH HR 60. HE WAS STARTED ON NORMAL SALINE WITH 20MEQ KCL AT 75 ML/HR. WE WILL REPEAT SERIAL CARDIAC ENZYMES AND EKGS. OTHERWISE, WE PLAN TO FOLLOW UP WITH AM LABS AND CHEST XRAY AND CONTINUE TO MONITOR. TIME SPENT ON CLINICAL ASSESSMENT, REVIEWING LABS AND IMAGING, DECISION MAKING, AND DOCUMENTATION GREATER THAN 75 MINUTES. - Past Medical History Past Medical History: Anemia, CHF, CVA, Dyslipidemia, Hypertension Additional Medical History: VALVULAR HEART DISEASE - Past Surgical History Surgical History: AAA Repair, CABG/Valve Surgery Additional Surgical History: Previous colonoscopy performed approx 6 years ago during a hospitalization for LGI bleeding - at which time no active bleeding or bleeding site was noted - per pt history. - Family History Family Medical History: Hypertension - Social History Does patient currently use any type of tobacco product: No Have you used tobacco products in the last 12 months: No Type of Tobacco Use: None Does any household member use tobacco: No Alcohol Use: None Drug Use: None - Medications Home Medications: cilastatin [From Primaxin] Allergy (Verified 11/20/20 15:14) clarithromycin [From Biaxin] Allergy (Verified 11/20/20 15:14) imipenem [From Primaxin] Allergy (Verified 11/20/20 15:14) CONTINUE taking the following medications oxybutynin chloride 10 mg PO HS 05/31/21 [History] - Review of Systems Constitutional: Weakness Eyes: No Symptoms Reported ENT: No Symptoms Reported Respiratory: No Symptoms Reported Cardiovascular: Light Headedness Gastrointestinal: No Symptoms Reported Genitourinary: No Symptoms Reported Musculoskeletal: Foot Pain (LEFT FOOT PAIN ) Skin: No Symptoms Reported Neurological: Weakness - Physical Exam Vital Signs: Temperature 98.1 F Pulse Rate [Left Brachial] 86 Pulse Rate 92 Respiratory Rate 20 Blood Pressure [Left Arm] 104/51 O2 Sat by Pulse Oximetry 95 Oriented: Normal Eyes: Normal Ear: Normal Nose: Normal Throat: Normal Respiratory: Diminished Throughout Cardiovascular: Normal : Normal Auscultation: Bowel Sounds: Normal Palpation: Normal Tenderness: Normal Skin: Decreased Turgur Musculoskeletal: Left, Foot, Tender Psychiatric: Normal Mood Description: Calm Affect: Normal Speech Pattern: Clear - Assessment/Plan (1) Acute renal insufficiency Status: Acute Plan: ADMIT, NORMAL SALINE WITH 20MEQ KCL AT 75 ML/HR, CONTINUE TO MONITOR (2) Dehydration Status: Acute (3) Acute hypokalemia Status: Acute (4) CHF (congestive heart failure) Qualifiers: Heart failure type: unspecified Heart failure chronicity: chronic Qualified Code(s): I50.9 - Heart failure, unspecified Status: Acute (5) Hypertension Qualifiers: Hypertension type: primary hypertension Qualified Code(s): I10 - Essential (primary) hypertension Status: Chronic - Allergies Allergies/Adverse Reactions: Allergies Allergy/AdvReac Type Severity Reaction Status Date / Time cilastatin [From Primaxin] Allergy Verified 11/20/20 15:14 clarithromycin [From Biaxin] Allergy Verified 11/20/20 15:14 imipenem [From Primaxin] Allergy Verified 11/20/20 15:14
[2021-06-04] MEDS: NEURONTIN TAB 600 MG PO SCH (20:38)
[2021-06-04] MEDS: REQUIP PO SCH (20:38)
[2021-06-04] MEDS: OXYBUTYNIN CHLORIDE ER PO SCH (20:38)
[2021-06-04] MEDS: CRESTOR TAB 10 MG PO SCH (20:38)
[2021-06-04] MEDS: ANTIVERT TAB 25 MG PO SCH (20:38)
--- NOTE | 2021-06-04 22:35 | PCM.PROG ---
Progress Note - Progress Note for Day of Date of Exam: 06/02/21 - Subjective Subjective: WAS ADMITTED OBSERVATION STATUS FOR TREATMENT OF ACUTE RENAL INSUFFICIENCY, DEHYDRATION, AND HYPOKALEMIA. HE HAS A PMH OF CHF AND HTN. TODAY, HE IS ALERT NAD ORIETNED, LYING IN BED ON MORNING ROUNDS. HE CONTINUES WITH COMPLAINTS OF GENERALIZED WEAKNESS TODAY. HE ALSO COMPLAINS OF PERSISTENT LEFT FOOT PAIN FROM A PREVIOUS INJURY. ON EXAMINATION, HEART IS REGULAR IN RATE AND RHYTHM. BILATERAL LUNG NOTED WITH DIMINISHED LUNG SOUNDS THROUGHOUT. ABDOMEN IS ROUND, SOFT, AND NON-TENDER WITH NORMAL BOWEL SOUNDS NOTED IN ALL QUADRANTS. THERE IS A NEW SKIN TEAR TO THE LEFT ELBOW. LOWER EXTREMITIES ARE NOTED WITH TRACE EDEMA. HIS VITALS THIS MORNING ARE: 98.2-64-20-96%-110/57. LABS WERE OBTAINED. ABNORMAL LAB VALUES INCLUDE THE FOLLOWING: RBC 3.29, HGB 10.1, HCT 30.1, PLT COUNT 145, POTASSIUM 2.8, CARBON DIOXIDE 32.7, BUN 38, CREATININE 2.25, URIC ACID 8.1, GLUCOSE 107, CALCIUM 8.1, AST 39, ALBUMIN 2.7. CARDIAC ENZYMES HAVE BEEN WNL. MOST RECENT EKG REVEALED SINUS BRADYCARDIA WITH HR 53. A LEFT FOOT XRAY WAS OBTAINED YESTERDAY AND REVEALED: No acute fracture or malalignment of the left foot. Degenerative change of the ankle and dorsal talus. Moderate degenerative change of the Achilles tendon. Pes cavus deformity of the left foot. HE IS CURRENTLY RECEIVING NORMAL SALINE WITH 20MEQ KCL AT 75 ML/HR AND LOVENOX 40MG SC DAILY. HIS HOME MEDICATIONS OF WLLBUTRIN, COREG, PLAVIX, VOLTAREN GEL, PROZAC, NEURONTN, SYNTHROID, ANTIVERT, PRILOSEC, OXYBUTYNIN, REQUIP, AND CRESTOR WERE RESUMED. WE WILL CONTINUE WITH CURRENT PLAN OF CARE TODAY. OTHERWISE, WE PLAN TO FOLLOW-UP WITH AM LABS AND CONTINUE TO MONITOR. TIME SPENT ON CLINICAL ASSESSMENT, REVIEWING LABS AND IMAGING, DECISION MAKING, AND DOCUMENTATION GREATER THAN 45 MINUTES. - Past Medical Family Social History Past Med/Fam/Surg Hx: No changes since H&P Allergies: Allergies cilastatin [From Primaxin] Allergy (Verified 11/20/20 15:14) clarithromycin [From Biaxin] Allergy (Verified 11/20/20 15:14) imipenem [From Primaxin] Allergy (Verified 11/20/20 15:14) - Review of Systems ROS: No change since H&P - Vital Signs and I&O's Vital Signs: Temperature 98.5 F Pulse Rate [Left Brachial] 81 Pulse Rate 80 Respiratory Rate 20 Blood Pressure [Left Arm] 130/61 O2 Sat by Pulse Oximetry 98 Intake and Output: Intake & Output 06/02/21 06/03/21 06/04/21 06/05/21 11:59 11:59 11:59 11:59 Intake Total 2140 / 2140 2062 / 2062 2272 / 2272 Output Total 375 / 375 425 / 425 Balance 1765 / 1765 1638 / 1638 2272 / 2272 - Physical Exam Oriented: Normal Eyes: Normal Ear: Normal Nose: Normal Throat: Normal Respiratory: Generalized, Diminished Cardiovascular: Edema (BLE) : Normal Auscultation: Bowel Sounds: Normal Palpation: Normal Tenderness: Normal Skin: Decreased Turgur, Wound (LEFT ELBOW SKIN TEAR ) Musculoskeletal: Left, Foot, Tender Psychiatric: Normal Mood Description: Calm Affect: Normal Speech Pattern: Clear - Laboratory and Diagnostics Result Diagrams: 06/04/21 04:25 06/04/21 04:25 Labs: Laboratory WBC 5.5 X10^3/uL (3.6-10.0) 06/04/21 04:25 RBC 2.95 X10^6/uL (4.7-6.0) L 06/04/21 04:25 Hgb 9.3 g/dL (13.5-18.0) L 06/04/21 04:25 Hct 27.0 % (42.0-54.0) L 06/04/21 04:25 MCV 91.7 fL (80.0-100.0) 06/04/21 04:25 MCH 31.4 pg (27.0-34.0) 06/04/21 04:25 MCHC 34.2 g/dL (33.0-35.0) 06/04/21 04:25 RDW 15.8 % (11.6-16.5) 06/04/21 04:25 Plt Count 131 X10^3/uL (150.0-450.0) L 06/04/21 04:25 Plt Count Comment Decreased (ADEQUATE) 06/04/21 04:25 MPV 8.0 fL (7.4-11.0) 06/04/21 04:25 Neut % (Auto) 61.4 % (42.0-75.0) 06/04/21 04:25 Lymph % (Auto) 16.9 % (21.0-51.0) L 06/04/21 04:25 [place] % (Auto) 19.6 % (0.0-13.0) H 06/04/21 04:25 Eos % (Auto) 1.6 % (0.9-2.9) 06/04/21 04:25 Baso % (Auto) 0.5 % (0.2-1.0) 06/04/21 04:25 Neut # (Auto) 3.1 x10^3/uL (2.2-4.8) 06/04/21 04:25 Lymph # (Auto) 0.9 X10^3/uL (1.3-2.9) L 06/04/21 04:25 [place] # (Auto) 1.0 x10^3/uL (0.3-0.8) H 06/04/21 04:25 Eos # (Auto) 0.1 x10^3/uL (0.0-0.2) 06/04/21 04:25 Baso # (Auto) 0.0 X10^3/uL (0.0-0.1) 06/04/21 04:25 Absolute Nucleated RBC 0.1 /100WBC 06/04/21 04:25 Total Counted 100 06/04/21 04:25 Neutrophils % (Manual) 67 % (39-76) 06/04/21 04:25 Band Neutrophils % 1 % (0-10) 06/04/21 04:25 Lymphocytes % (Manual) 14 % (13-43) 06/04/21 04:25 Monocytes % (Manual) 15 % (4-9) H 06/04/21 04:25 Eosinophils % (Manual) 3 % (0-6) 06/04/21 04:25 Giant Platelets Few 06/02/21 05:59 Plt Morphology Comment Normal (NORMAL) 06/04/21 04:25 RBC Morphology Normal (NORMAL) 06/04/21 04:25 Poikilocytosis Slight A 06/02/21 05:59 Anisocytosis Slight A 06/02/21 05:59 Sodium 141 mmol/L (136-145) 06/04/21 04:25 Corrected Sodium TNP 06/04/21 04:25 Potassium 3.0 mmol/L (3.5-5.1) L* 06/04/21 04:25 Chloride 106 mmol/L (98-107) 06/04/21 04:25 Carbon Dioxide 26.2 mmol/L (21-32) 06/04/21 04:25 BUN 21 mg/dL (7-18) H 06/04/21 04:25 Creatinine 1.73 mg/dL (0.70-1.30) H 06/04/21 04:25 Est GFR (MDRD) Af Amer 51 (>60) L 06/04/21 04:25 Est GFR (MDRD) Non-Af 42 (>60) L 06/04/21 04:25 Glucose 88 mg/dL (65-99) 06/04/21 04:25 Uric Acid 8.1 mg/dL (3.5-7.2) H 06/01/21 04:10 Calcium 7.9 mg/dL (8.5-10.1) L 06/04/21 04:25 Corrected Calcium 9.2 mg/dL (8.5-10.1) 06/04/21 04:25 Magnesium 1.9 mg/dL (1.7-2.9) 06/03/21 04:16 Iron 41 ug/dL (50-175) L 05/31/21 14:39 Transferrin 193 mg/dL (202-364) L 05/31/21 14:39 Ferritin 227 ng/mL (26-388) 05/31/21 14:39 Total Bilirubin 0.60 mg/dL (0.2-1.0) 06/04/21 04:25 AST 38 Units/L (15-37) H 06/04/21 04:25 ALT 17 Units/L (12-78) 06/04/21 04:25 Alkaline Phosphatase 84 Units/L (46-116) 06/04/21 04:25 Creatine Kinase 138 Units/L (39-308) 06/01/21 00:35 CK-MB (CK-2) < 1.0 ng/mL (0-4.0) 06/01/21 00:35 CK/CKMB % Calc 0.7 % (<4) 06/01/21 00:35 Troponin I High Sens 8.1 ng/L (4.0-60.0) 06/01/21 00:35 B-Natriuretic Peptide 224 pg/mL (0-79) H 06/04/21 12:22 Total Protein 6.1 g/dL (6.4-8.2) L 06/04/21 04:25 Albumin 2.4 g/dL (3.4-5.0) L 06/04/21 04:25 Globulin 3.7 g/dL (2.5-4.5) 06/04/21 04:25 Albumin/Globulin Ratio 0.6 Ratio (1.1-2.1) L 06/04/21 04:25 Vitamin B12 350 pg/mL (193-986) 05/31/21 14:39 Folate > 20.0 ng/mL (>8.6) 05/31/21 14:39 Specimen Type Clean catch urine 05/31/21 18:50 Urine Color Yellow (YELLOW) 05/31/21 18:50 Urine Appearance Clear (CLEAR) 05/31/21 18:50 Urine pH 6.0 (5.0 - 8.0) 05/31/21 18:50 Ur Specific [place] 1.010 (1.000-1.030) 05/31/21 18:50 Urine Protein 2+ (NEGATIVE) 05/31/21 18:50 Urine Glucose (UA) Negative (NEGATIVE) 05/31/21 18:50 Urine Ketones Negative (NEGATIVE) 05/31/21 18:50 Urine Blood 2+ (NEGATIVE) 05/31/21 18:50 Urine Nitrite Negative (NEGATIVE) 05/31/21 18:50 Urine Bilirubin Negative (NEGATIVE) 05/31/21 18:50 Urine Urobilinogen 2+ (NORMAL) 05/31/21 18:50 Ur Leukocyte Esterase Negative (NEGATIVE) 05/31/21 18:50 Urine RBC 5-10 /HPF (0-3) A 05/31/21 18:50 Urine WBC 3-5 /HPF (0-5) 05/31/21 18:50 Ur Squamous Epith Cells Rare /HPF (NEGATIVE) 05/31/21 18:50 Urine Bacteria Trace /HPF (NEGATIVE) 05/31/21 18:50 Ur Culture Indicated? No/not indicated 05/31/21 18:50 Stool Description 500 g. [email or web address] 06/04/21 21:30 Stl Occult Blood (IFOB) Negative (NEGATIVE) 06/04/21 21:30 SARS CoV-2 RNA Rapid YUSUF Negative (NEGATIVE) 05/31/21 14:27 - Plan (1) Acute renal insufficiency Status: Acute Plan: NORMAL SALINE WITH 20MEQ KCL AT 75 ML/HR, LOVENOX 40MG SQ DAILY. HOME MEDS OF WLLBUTRIN, COREG, PLAVIX, VOLTAREN GEL, PROZAC, NEURONTN, SYNTHROID, ANTIVERT, PRILOSEC, OXYBUTYNIN, REQUIP, AND CRESTOR WERE RESUMED (2) Dehydration Status: Acute (3) Acute hypokalemia Status: Acute (4) Left foot pain Status: Acute (5) CHF (congestive heart failure) Status: Acute Qualifiers: Heart failure type: unspecified Heart failure chronicity: chronic Qualified Code(s): I50.9 - Heart failure, unspecified (6) Hypertension Status: Chronic Qualifiers: Hypertension type: primary hypertension Qualified Code(s): I10 - Essential (primary) hypertension
[2021-06-05] MEDS: NS + KCL 20 MEQ/L 1,000 ML IV SCH (05:26)
[2021-06-05] MEDS: SYNTHROID 75 mcg TAB PO SCH (05:31)
[2021-06-05] MEDS: TUMS PO SCH (05:31)
[2021-06-05 06:11] LABS: BASOPHILS % (AUTO) 0.3 % (0.2-1.0); EOSINOPHILS # (AUTO) 0.1 x10^3/uL (0.0-0.2); EOSINOPHILS % (AUTO) 2.8 % (0.9-2.9); HEMATOCRIT 26.1 % (42.0-54.0); HEMOGLOBIN 8.9 g/dL (13.5-18.0); LYMPHOCYTES % (AUTO) 22.9 % (21.0-51.0); MEAN CORPUSCULAR HEMOGLOBIN 31.1 pg (27.0-34.0); MEAN CORPUSCULAR VOLUME 91.6 fL (80.0-100.0); MEAN PLATELET VOLUME 7.6 fL (7.4-11.0); MONOCYTES # (AUTO) 0.9 x10^3/uL (0.3-0.8); MONOCYTES % (AUTO) 21.8 % (0.0-13.0); NEUTROPHILS # (AUTO) 2.2 x10^3/uL (2.2-4.8); NEUTROPHILS % (AUTO) 52.2 % (42.0-75.0); RED BLOOD COUNT 2.85 X10^6/uL (4.7-6.0); RED CELL DISTRIBUTION WIDTH 16.2 % (11.6-16.5); WHITE BLOOD COUNT 4.3 X10^3/uL (3.6-10.0)
[2021-06-05] MEDS: XOPENEX 1.25 MG/3 ML NEBULE NEB SCH (06:24)
--- NOTE | 2021-06-05 06:24 | RAD ---
HISTORYShortness of breathSTUDYChest AP [id number] ent is status post median sternotomy and valve replacement. Heart size is within normal limits. [place] are normal. Right upper lung field and left lung appear clear. There is some subsegmental atelectasis in the right lower lobe. There is depression of the minor fissure which may indicate some volume loss in the right lower lobe. There is blunting of the right costophrenic angle possibly indicative of a small right pleural effusion. Bony thorax is unremarkable.IMPRESSIONSubsegmental atelectasis right lung baseBlunt right costophrenic angle suggestive of a small effusionDepression of the minor fissure which may indicate some volume loss in the right lower lobe.Electronically signed by: LUDA QUEZADA (Jun 05, 2021 06:23:28)
[2021-06-05 06:27] LABS: ALANINE AMINOTRANSFERASE 17 Units/L (12-78); ALBUMIN 2.4 g/dL (3.4-5.0); ALKALINE PHOSPHATASE 79 Units/L (46-116); ASPARTATE AMINO TRANSFERASE 42 Units/L (15-37); BLOOD UREA NITROGEN 20 mg/dL (7-18); CARBON DIOXIDE 24.7 mmol/L (21-32); CHLORIDE 107 mmol/L (98-107); COR CA(FOR HYPOALB) 9.3 mg/dL (8.5-10.1); CREATININE 1.67 mg/dL (0.70-1.30); SODIUM 140 mmol/L (136-145); TOTAL PROTEIN 6.1 g/dL (6.4-8.2); eGFR NON BLACK RACES 44 (>60)
[2021-06-05 06:50] LABS: METAMYELOCYTES % 1; PLATELET MORPHOLOGY COMMENT NORMAL (NORMAL)
[2021-06-05] MEDS: FORTAZ or TAZICEF VIAL INJ 1 G in NS 100 ML IV 100 ML IV SCH (08:06)
[2021-06-05] MEDS: PROzac PO SCH (08:08)
[2021-06-05] MEDS: WELLBUTRIN XL 150 MG (DAILY) PO SCH (08:08)
[2021-06-05] MEDS: PriLOSEC PO SCH (08:08)
[2021-06-05] MEDS: COREG TAB 3.125 MG PO SCH (08:10)
[2021-06-05] MEDS: LOVENOX INJ 40 MG SYR SC SCH (08:30)
[2021-06-05] MEDS: PLAVIX PO SCH (08:30)
[2021-06-05 12:20] VITALS: BP 128/58
--- NOTE | 2021-07-12 18:03 | PCM.PROG ---
Progress Note - Progress Note for Day of Date of Exam: 06/03/21 - Subjective Subjective: WAS ADMITTED OBSERVATION STATUS FOR TREATMENT OF ACUTE RENAL INSUFFICIENCY, DEHYDRATION, AND HYPOKALEMIA. HE HAS A PMH OF CHF AND HTN. TODAY, HE IS ALERT NAD ORIETNED, LYING IN BED ON MORNING ROUNDS. HE CONTINUES WITH COMPLAINTS OF GENERALIZED WEAKNESS TODAY. HE ALSO COMPLAINS OF PERSISTENT LEFT FOOT PAIN FROM A PREVIOUS INJURY. ON EXAMINATION, HEART IS REGULAR IN RATE AND RHYTHM. BILATERAL LUNG NOTED WITH DIMINISHED LUNG SOUNDS THROUGHOUT. ABDOMEN IS ROUND, SOFT, AND NON-TENDER WITH NORMAL BOWEL SOUNDS NOTED IN ALL QUADRANTS. SKIN TEAR TO LEFT ELBOW NOTED. LOWER EXTREMITIES ARE NOTED WITH TRACE EDEMA. HIS VITALS THIS MORNING ARE: 98.2-80-20-92%-121/80. LABS WERE OBTAINED. ABNORMAL LAB VALUES INCLUDE THE FOLLOWING: RBC 3.21, HGB 10.2, HCT 29.3, POTASSIUM 3.0, BUN 25, CREATININE 1.82, CALCIUM 8.2, AST 44. BLOOD CULTURES ARE PENDING. HE IS CURRENTLY RECEIVING NORMAL SALINE WITH 20MEQ KCL AT 75 ML/HR AND LOVENOX 40MG SC DAILY. HIS HOME MEDICATIONS OF WLLBUTRIN, COREG, PLAVIX, VOLTAREN GEL, PROZAC, NEURONTN, SYNTHROID, ANTIVERT, PRILOSEC, OXYBUTYNIN, REQUIP, AND CRESTOR WERE RESUMED. WE WILL CONTINUE WITH CURRENT PLAN OF CARE TODAY. OTHERWISE, WE PLAN TO FOLLOW-UP WITH AM LABS AND CONTINUE TO MONITOR. TIME SPENT ON CLINICAL ASSESSMENT, REVIEWING LABS AND IMAGING, DECISION MAKING, AND DOCUMENTATION GREATER THAN 45 MINUTES. - Past Medical Family Social History Past Med/Fam/Surg Hx: No changes since H&P Allergies: Allergies cilastatin [From Primaxin] Allergy (Verified 06/22/21 17:35) clarithromycin [From Biaxin] Allergy (Verified 06/22/21 17:35) imipenem [From Primaxin] Allergy (Verified 06/22/21 17:35) - Review of Systems ROS: No change since H&P - Vital Signs and I&O's Vital Signs: Temperature 97.4 F Pulse Rate [Left Brachial] 80 Pulse Rate 80 Respiratory Rate 20 Blood Pressure [Left Arm] 128/58 O2 Sat by Pulse Oximetry 99 - Physical Exam Oriented: Normal Eyes: Normal Ear: Normal Nose: Normal Throat: Normal Respiratory: Generalized, Diminished Cardiovascular: Edema (BLE) : Normal Auscultation: Bowel Sounds: Normal Palpation: Normal Tenderness: Normal Skin: Decreased Turgur, Wound (LEFT ELBOW SKIN TEAR ) Musculoskeletal: Left, Foot, Tender Psychiatric: Normal Mood Description: Calm Affect: Normal Speech Pattern: Clear, Appropriate - Laboratory and Diagnostics Result Diagrams: 06/05/21 05:40 06/05/21 05:40 Labs: 06/04/21 12:30 Blood Blood Culture - Final 06/04/21 12:22 Blood Blood Culture - Final Laboratory WBC 4.3 X10^3/uL (3.6-10.0) 06/05/21 05:40 RBC 2.85 X10^6/uL (4.7-6.0) L 06/05/21 05:40 Hgb 8.9 g/dL (13.5-18.0) L 06/05/21 05:40 Hct 26.1 % (42.0-54.0) L 06/05/21 05:40 MCV 91.6 fL (80.0-100.0) 06/05/21 05:40 MCH 31.1 pg (27.0-34.0) 06/05/21 05:40 MCHC 34.0 g/dL (33.0-35.0) 06/05/21 05:40 RDW 16.2 % (11.6-16.5) 06/05/21 05:40 Plt Count 108 X10^3/uL (150.0-450.0) L 06/05/21 05:40 Plt Count Comment Decreased (ADEQUATE) 06/05/21 05:40 MPV 7.6 fL (7.4-11.0) 06/05/21 05:40 Neut % (Auto) 52.2 % (42.0-75.0) 06/05/21 05:40 Lymph % (Auto) 22.9 % (21.0-51.0) 06/05/21 05:40 [place] % (Auto) 21.8 % (0.0-13.0) H 06/05/21 05:40 Eos % (Auto) 2.8 % (0.9-2.9) 06/05/21 05:40 Baso % (Auto) 0.3 % (0.2-1.0) 06/05/21 05:40 Neut # (Auto) 2.2 x10^3/uL (2.2-4.8) 06/05/21 05:40 Lymph # (Auto) 1.0 X10^3/uL (1.3-2.9) L 06/05/21 05:40 [place] # (Auto) 0.9 x10^3/uL (0.3-0.8) H 06/05/21 05:40 Eos # (Auto) 0.1 x10^3/uL (0.0-0.2) 06/05/21 05:40 Baso # (Auto) 0.0 X10^3/uL (0.0-0.1) 06/05/21 05:40 Absolute Nucleated RBC 0.1 /100WBC 06/05/21 05:40 Total Counted 100 06/05/21 05:40 Neutrophils % (Manual) 66 % (39-76) 06/05/21 05:40 Band Neutrophils % 1 % (0-10) 06/04/21 04:25 Lymphocytes % (Manual) 20 % (13-43) 06/05/21 05:40 Monocytes % (Manual) 12 % (4-9) H 06/05/21 05:40 Eosinophils % (Manual) 1 % (0-6) 06/05/21 05:40 Metamyelocytes % 1 06/05/21 05:40 Giant Platelets Few 06/02/21 05:59 Plt Morphology Comment Normal (NORMAL) 06/05/21 05:40 RBC Morphology Normal (NORMAL) 06/05/21 05:40 Poikilocytosis Slight A 06/02/21 05:59 Anisocytosis Slight A 06/02/21 05:59 Sodium 140 mmol/L (136-145) 06/05/21 05:40 Corrected Sodium TNP 06/05/21 05:40 Potassium 3.3 mmol/L (3.5-5.1) L 06/05/21 05:40 Chloride 107 mmol/L (98-107) 06/05/21 05:40 Carbon Dioxide 24.7 mmol/L (21-32) 06/05/21 05:40 BUN 20 mg/dL (7-18) H 06/05/21 05:40 Creatinine 1.67 mg/dL (0.70-1.30) H 06/05/21 05:40 Est GFR (MDRD) Af Amer 53 (>60) L 06/05/21 05:40 Est GFR (MDRD) Non-Af 44 (>60) L 06/05/21 05:40 Glucose 99 mg/dL (65-99) 06/05/21 05:40 Uric Acid 8.1 mg/dL (3.5-7.2) H 06/01/21 04:10 Calcium 8.0 mg/dL (8.5-10.1) L 06/05/21 05:40 Corrected Calcium 9.3 mg/dL (8.5-10.1) 06/05/21 05:40 Magnesium 1.6 mg/dL (1.7-2.9) L 06/05/21 05:40 Iron 41 ug/dL (50-175) L 05/31/21 14:39 Transferrin 193 mg/dL (202-364) L 05/31/21 14:39 Ferritin 227 ng/mL (26-388) 05/31/21 14:39 Total Bilirubin 0.50 mg/dL (0.2-1.0) 06/05/21 05:40 AST 42 Units/L (15-37) H 06/05/21 05:40 ALT 17 Units/L (12-78) 06/05/21 05:40 Alkaline Phosphatase 79 Units/L (46-116) 06/05/21 05:40 Creatine Kinase 138 Units/L (39-308) 06/01/21 00:35 CK-MB (CK-2) < 1.0 ng/mL (0-4.0) 06/01/21 00:35 CK/CKMB % Calc 0.7 % (<4) 06/01/21 00:35 Troponin I High Sens 8.1 ng/L (4.0-60.0) 06/01/21 00:35 B-Natriuretic Peptide 132 pg/mL (0-79) H 06/05/21 05:40 Total Protein 6.1 g/dL (6.4-8.2) L 06/05/21 05:40 Albumin 2.4 g/dL (3.4-5.0) L 06/05/21 05:40 Globulin 3.7 g/dL (2.5-4.5) 06/05/21 05:40 Albumin/Globulin Ratio 0.6 Ratio (1.1-2.1) L 06/05/21 05:40 Vitamin B12 350 pg/mL (193-986) 05/31/21 14:39 Folate > 20.0 ng/mL (>8.6) 05/31/21 14:39 Specimen Type Clean catch urine 05/31/21 18:50 Urine Color Yellow (YELLOW) 05/31/21 18:50 Urine Appearance Clear (CLEAR) 05/31/21 18:50 Urine pH 6.0 (5.0 - 8.0) 05/31/21 18:50 Ur Specific [place] 1.010 (1.000-1.030) 05/31/21 18:50 Urine Protein 2+ (NEGATIVE) 05/31/21 18:50 Urine Glucose (UA) Negative (NEGATIVE) 05/31/21 18:50 Urine Ketones Negative (NEGATIVE) 05/31/21 18:50 Urine Blood 2+ (NEGATIVE) 05/31/21 18:50 Urine Nitrite Negative (NEGATIVE) 05/31/21 18:50 Urine Bilirubin Negative (NEGATIVE) 05/31/21 18:50 Urine Urobilinogen 2+ (NORMAL) 05/31/21 18:50 Ur Leukocyte Esterase Negative (NEGATIVE) 05/31/21 18:50 Urine RBC 5-10 /HPF (0-3) A 05/31/21 18:50 Urine WBC 3-5 /HPF (0-5) 05/31/21 18:50 Ur Squamous Epith Cells Rare /HPF (NEGATIVE) 05/31/21 18:50 Urine Bacteria Trace /HPF (NEGATIVE) 05/31/21 18:50 Ur Culture Indicated? No/not indicated 05/31/21 18:50 Stool Description 500 g. [email or web address] 06/04/21 21:30 Stl Occult Blood (IFOB) Negative (NEGATIVE) 06/04/21 21:30 SARS CoV-2 RNA Rapid YUSUF Negative (NEGATIVE) 05/31/21 14:27 - Plan (1) Acute renal insufficiency Status: Acute Plan: NORMAL SALINE WITH 20MEQ KCL AT 75 ML/HR, LOVENOX 40MG SQ DAILY. HOME MEDS OF WLLBUTRIN, COREG, PLAVIX, VOLTAREN GEL, PROZAC, NEURONTN, SYNTHROID, ANTIVERT, PRILOSEC, OXYBUTYNIN, REQUIP, AND CRESTOR WERE RESUMED (2) Dehydration Status: Acute (3) Acute hypokalemia Status: Acute (4) Left foot pain Status: Acute (5) CHF (congestive heart failure) Status: Acute Qualifiers: Heart failure type: unspecified Heart failure chronicity: chronic Qualif ied Code(s): I50.9 - Heart failure, unspecified (6) Hypertension Status: Chronic Qualifiers: Hypertension type: primary hypertension Qualified Code(s): I10 - Essential (primary) hypertension
--- NOTE | 2021-07-12 18:11 | PCM.PROG ---
Progress Note - Progress Note for Day of Date of Exam: 06/04/21 - Subjective Subjective: WAS ADMITTED OBSERVATION STATUS FOR TREATMENT OF ACUTE RENAL INSUFFICIENCY, DEHYDRATION, AND HYPOKALEMIA. HE HAS A PMH OF CHF AND HTN. TODAY, HE IS ALERT AND ORIETNED, LYING IN BED ON MORNING ROUNDS. HE CONTINUES WITH COMPLAINTS OF GENERALIZED WEAKNESS TODAY. HE ALSO COMPLAINS OF PERSISTENT LEFT FOOT PAIN FROM A PREVIOUS INJURY AND SHORTNESS OF BREATH. ON EXAMINATION, HEART IS REGULAR IN RATE AND RHYTHM. BILATERAL LUNG NOTED WITH DIMINISHED LUNG SOUNDS THROUGHOUT. ABDOMEN IS ROUND, SOFT, AND NON-TENDER WITH NORMAL BOWEL SOUNDS NOTED IN ALL QUADRANTS. SKIN TEAR TO LEFT ELBOW NOTED. LOWER EXTREMITIES ARE NOTED WITH TRACE EDEMA. HIS VITALS THIS MORNING ARE: 99.4-80-20-96%-143/68. LABS WERE OBTAINED. ABNORMAL LAB VALUES INCLUDE THE FOLLOWING: RBC 2.95, HGB 9.3, HCT 27.0, PLT COUNT 131, POTASSIUM 3.0, BUN 21, CREATININE 1.73, CALCIUM 7.9, AST 38. BLOOD CULTURES ARE PENDING. A CHEST XRAY WAS OBTAINED AND REVEALED: No significant change. Suspect small right pleural effusion. Patchy right base opacity may represent atelectasis or pneumonia. HE IS CURRENTLY RECEIVING NORMAL SALINE WITH 20MEQ KCL AT 75 ML/HR AND LOVENOX 40MG SC DAILY. HIS HOME MEDICATIONS OF WLLBUTRIN, COREG, PLAVIX, VOLTAREN GEL, PROZAC, NEURONTIN, SYNTHROID, ANTIVERT, PRILOSEC, OXYBUTYNIN, REQUIP, AND CRESTOR WERE RESUMED. TODAY, WE WILL ADD FORTAZ 1G IV Q12H, LEVAQUIN 750MG IV Q48H, AND XOPENEX NEBS TID FOR TREATMENT OF PNEUMONIA. OTHERWISE, WE PLAN TO FOLLOW-UP WITH AM LABS AND CONTINUE TO MONITOR. TIME SPENT ON CLINICAL ASSESSMENT, REVIEWING LABS AND IMAGING, DECISION MAKING, AND DOCUMENTATION GREATER THAN 45 MINUTES. - Past Medical Family Social History Past Med/Fam/Surg Hx: No changes since H&P Allergies: Allergies cilastatin [From Primaxin] Allergy (Verified 06/22/21 17:35) clarithromycin [From Biaxin] Allergy (Verified 06/22/21 17:35) imipenem [From Primaxin] Allergy (Verified 06/22/21 17:35) - Review of Systems ROS: No change since H&P - Vital Signs and I&O's Vital Signs: Temperature 97.4 F Pulse Rate [Left Brachial] 80 Pulse Rate 80 Respiratory Rate 20 Blood Pressure [Left Arm] 128/58 O2 Sat by Pulse Oximetry 99 - Physical Exam Oriented: Normal Eyes: Normal Ear: Normal Nose: Normal Throat: Normal Respiratory: Generalized, Diminished Cardiovascular: Edema (BLE) : Normal Auscultation: Bowel Sounds: Normal Tenderness: Normal Skin: Decreased Turgur, Wound (LEFT ELBOW SKIN TEAR ) Musculoskeletal: Left, Foot, Tender Psychiatric: Normal Mood Description: Calm Affect: Normal Speech Pattern: Clear, Appropriate - Laboratory and Diagnostics Result Diagrams: 06/05/21 05:40 06/05/21 05:40 Labs: 06/04/21 12:30 Blood Blood Culture - Final 06/04/21 12: Blood Blood Culture - Final Laboratory WBC 4.3 X10^3/uL (3.6-10.0) 06/05/21 05:40 RBC 2.85 X10^6/uL (4.7-6.0) L 06/05/21 05:40 Hgb 8.9 g/dL (13.5-18.0) L 06/05/21 05:40 Hct 26.1 % (42.0-54.0) L 06/05/21 05:40 MCV 91.6 fL (80.0-100.0) 06/05/21 05:40 MCH 31.1 pg (27.0-34.0) 06/05/21 05:40 MCHC 34.0 g/dL (33.0-35.0) 06/05/21 05:40 RDW 16.2 % (11.6-16.5) 06/05/21 05:40 Plt Count 108 X10^3/uL (150.0-450.0) L 06/05/21 05:40 Plt Count Comment Decreased (ADEQUATE) 06/05/21 05:40 MPV 7.6 fL (7.4-11.0) 06/05/21 05:40 Neut % (Auto) 52.2 % (42.0-75.0) 06/05/21 05:40 Lymph % (Auto) 22.9 % (21.0-51.0) 06/05/21 05:40 [place] % (Auto) 21.8 % (0.0-13.0) H 06/05/21 05:40 Eos % (Auto) 2.8 % (0.9-2.9) 06/05/21 05:40 Baso % (Auto) 0.3 % (0.2-1.0) 06/05/21 05:40 Neut # (Auto) 2.2 x10^3/uL (2.2-4.8) 06/05/21 05:40 Lymph # (Auto) 1.0 X10^3/uL (1.3-2.9) L 06/05/21 05:40 [place] # (Auto) 0.9 x10^3/uL (0.3-0.8) H 06/05/21 05:40 Eos # (Auto) 0.1 x10^3/uL (0.0-0.2) 06/05/21 05:40 Baso # (Auto) 0.0 X10^3/uL (0.0-0.1) 06/05/21 05:40 Absolute Nucleated RBC 0.1 /100WBC 06/05/21 05:40 Total Counted 100 06/05/21 05:40 Neutrophils % (Manual) 66 % (39-76) 06/05/21 05:40 Band Neutrophils % 1 % (0-10) 06/04/21 04:25 Lymphocytes % (Manual) 20 % (13-43) 06/05/21 05:40 Monocytes % (Manual) 12 % (4-9) H 06/05/21 05:40 Eosinophils % (Manual) 1 % (0-6) 06/05/21 05:40 Metamyelocytes % 1 06/05/21 05:40 Giant Platelets Few 06/02/21 05:59 Plt Morphology Comment Normal (NORMAL) 06/05/21 05:40 RBC Morphology Normal (NORMAL) 06/05/21 05:40 Poikilocytosis Slight A 06/02/21 05:59 Anisocytosis Slight A 06/02/21 05:59 Sodium 140 mmol/L (136-145) 06/05/21 05:40 Corrected Sodium TNP 06/05/21 05:40 Potassium 3.3 mmol/L (3.5-5.1) L 06/05/21 05:40 Chloride 107 mmol/L (98-107) 06/05/21 05:40 Carbon Dioxide 24.7 mmol/L (21-32) 06/05/21 05:40 BUN 20 mg/dL (7-18) H 06/05/21 05:40 Creatinine 1.67 mg/dL (0.70-1.30) H 06/05/21 05:40 Est GFR (MDRD) Af Amer 53 (>60) L 06/05/21 05:40 Est GFR (MDRD) Non-Af 44 (>60) L 06/05/21 05:40 Glucose 99 mg/dL (65-99) 06/05/21 05:40 Uric Acid 8.1 mg/dL (3.5-7.2) H 06/01/21 04:10 Calcium 8.0 mg/dL (8.5-10.1) L 06/05/21 05:40 Corrected Calcium 9.3 mg/dL (8.5-10.1) 06/05/21 05:40 Magnesium 1.6 mg/dL (1.7-2.9) L 06/05/21 05:40 Iron 41 ug/dL (50-175) L 05/31/21 14:39 Transferrin 193 mg/dL (202-364) L 05/31/21 14:39 Ferritin 227 ng/mL (26-388) 05/31/21 14:39 Total Bilirubin 0.50 mg/dL (0.2-1.0) 06/05/21 05:40 AST 42 Units/L (15-37) H 06/05/21 05:40 ALT 17 Units/L (12-78) 06/05/21 05:40 Alkaline Phosphatase 79 Units/L (46-116) 06/05/21 05:40 Creatine Kinase 138 Units/L (39-308) 06/01/21 00:35 CK-MB (CK-2) < 1.0 ng/mL (0-4.0) 06/01/21 00:35 CK/CKMB % Calc 0.7 % (<4) 06/01/21 00:35 Troponin I High Sens 8.1 ng/L (4.0-60.0) 06/01/21 00:35 B-Natriuretic Peptide 132 pg/mL (0-79) H 06/05/21 05:40 Total Protein 6.1 g/dL (6.4-8.2) L 06/05/21 05:40 Albumin 2.4 g/dL (3.4-5.0) L 06/05/21 05:40 Globulin 3.7 g/dL (2.5-4.5) 06/05/21 05:40 Albumin/Globulin Ratio 0.6 Ratio (1.1-2.1) L 06/05/21 05:40 Vitamin B12 350 pg/mL (193-986) 05/31/21 14:39 Folate > 20.0 ng/mL (>8.6) 05/31/21 14:39 Specimen Type Clean catch urine 05/31/21 18:50 Urine Color Yellow (YELLOW) 05/31/21 18:50 Urine Appearance Clear (CLEAR) 05/31/21 18:50 Urine pH 6.0 (5.0 - 8.0) 05/31/21 18:50 Ur Specific [place] 1.010 (1.000-1.030) 05/31/21 18:50 Urine Protein 2+ (NEGATIVE) 05/31/21 18:50 Urine Glucose (UA) Negative (NEGATIVE) 05/31/21 18:50 Urine Ketones Negative (NEGATIVE) 05/31/21 18:50 Urine Blood 2+ (NEGATIVE) 05/31/21 18:50 Urine Nitrite Negative (NEGATIVE) 05/31/21 18:50 Urine Bilirubin Negative (NEGATIVE) 05/31/21 18:50 Urine Urobilinogen 2+ (NORMAL) 05/31/21 18:50 Ur Leukocyte Esterase Negative (NEGATIVE) 05/31/21 18:50 Urine RBC 5-10 /HPF (0-3) A 05/31/21 18:50 Urine WBC 3-5 /HPF (0-5) 05/31/21 18:50 Ur Squamous Epith Cells Rare /HPF (NEGATIVE) 05/31/21 18:50 Urine Bacteria Trace /HPF (NEGATIVE) 05/31/21 18:50 Ur Culture Indicated? No/not indicated 05/31/21 18:50 Stool Description 500 g. brown.unforme 06/04/21 21:30 Stl Occult Blood (IFOB) Negative (NEGATIVE) 06/04/21 21:30 SARS CoV-2 RNA Rapid YUSUF Negative (NEGATIVE) 05/31/21 14:27 - Plan (1) Acute renal insufficiency Status: Acute Plan: NORMAL SALINE WITH 20MEQ KCL AT 75 ML/HR, LOVENOX 40MG SQ DAILY. HOME MEDS OF WLLBUTRIN, COREG, PLAVIX, VOLTAREN GEL, PROZAC, NEURONTN, SYNTHROID, ANTIVERT, PRILOSEC, OXYBUTYNIN, REQUIP, AND CRESTOR WERE RESUMED (2) Pneumonia Status: Acute Qualifiers: Pneumonia type: due to unspecified organism Laterality: right Lung location: lower lobe of lung Qualified Code(s): J18.9 - Pneumonia, unspecified organism Plan: AL WOR[place], NEB [place] (3) Dehydration Status: Acute (4) Acute hypokalemia Status: Acute (5) Left foot pain Status: Acute (6) CHF (congestive heart failure) Status: Acute Qualifiers: Heart failure type: unspecified Heart failure chronicity: chronic Qualified Code(s): I50.9 - Heart failure, unspecified (7) Hypertension Status: Chronic Qualifiers: Hypertension type: primary hypertension Qualified Code(s): I10 - Essential (primary) hypertension
== END 2021-06-05 12:10 | disposition home or self-care (01) ==
LOC: MED/SURG
PROVIDERS: ADMIT Internal Medicine; ATTEND Internal Medicine
DX: R26.89 Other abnormalities of gait and mobility; R42 Dizziness and giddiness; M79.672 Pain in left foot; I50.9 Heart failure, unspecified; E86.0 Dehydration; I11.0 Hypertensive heart disease with heart failure; E78.2 Mixed hyperlipidemia; R94.31 Abnormal electrocardiogram [ECG] [EKG]; R53.1 Weakness; Z20.822 Contact with and (suspected) exposure to COVID-19; E87.6 Hypokalemia; J90 Pleural effusion, not elsewhere classified; N17.8 Other acute kidney failure; D64.89 Other specified anemias

== ENCOUNTER 2021-08-16 10:37 | Inpatient (IN) ==
[2021-08-16 15:52] LABS: BASOPHILS # (AUTO) 0.1 X10^3/uL (0.0-0.1); EOSINOPHILS # (AUTO) 0.2 x10^3/uL (0.0-0.2); EOSINOPHILS % (AUTO) 4.1 % (0.9-2.9); HEMATOCRIT 28.2 % (42.0-54.0); HEMOGLOBIN 9.5 g/dL (13.5-18.0); LYMPHOCYTES # (AUTO) 1.1 X10^3/uL (1.3-2.9); LYMPHOCYTES % (AUTO) 19.9 % (21.0-51.0); MEAN CORPUSCULAR HEMOGLOBIN 31.2 pg (27.0-34.0); MEAN CORPUSCULAR HGB CONC 33.7 g/dL (33.0-35.0); MEAN CORPUSCULAR VOLUME 92.7 fL (80.0-100.0); MONOCYTES % (AUTO) 17.2 % (0.0-13.0); NEUTROPHILS # (AUTO) 3.3 x10^3/uL (2.2-4.8); NEUTROPHILS % (AUTO) 57.8 % (42.0-75.0); RED BLOOD COUNT 3.04 X10^6/uL (4.7-6.0); RED CELL DISTRIBUTION WIDTH 18.5 % (11.6-16.5); WHITE BLOOD COUNT 5.8 X10^3/uL (3.6-10.0)
[2021-08-16 16:04] LABS: ALANINE AMINOTRANSFERASE 15 Units/L (12-78); ALBUMIN 2.9 g/dL (3.4-5.0); ALKALINE PHOSPHATASE 114 Units/L (46-116); ASPARTATE AMINO TRANSFERASE 17 Units/L (15-37); BLOOD UREA NITROGEN 17 mg/dL (7-18); CALCIUM 8.9 mg/dL (8.5-10.1); CARBON DIOXIDE 30.5 mmol/L (21-32); CHLORIDE 106 mmol/L (98-107); COR CA(FOR HYPOALB) 9.8 mg/dL (8.5-10.1); CREATININE 1.09 mg/dL (0.70-1.30); SODIUM 142 mmol/L (136-145); TOTAL PROTEIN 7.7 g/dL (6.4-8.2); eGFR NON BLACK RACES > 60 (>60)
--- NOTE | 2021-08-16 16:04 | PT/OTEVAL ---
PT/OT OBJECTIVES - HISTORY Prescription: OT consult Precautions: Fall risk Prior Level of Function: Independent - COGNITION Mental Status: Alert, Oriented, Name, Date, Place, Purpose Communication Status: Verbal Ability to Follow Directions: 3 Step Memory Loss: None - BED MOBILITY Rolling: Independent - TRANSFERS Supine to Sit: Minimal Sit to Stand: Moderate Sit to Stand Comment: varies depending on energy level Sit or Stand Pivot: Supervision - ADL'S Feeding: Supervision Grooming: Supervision, Setup Toileting: Minimum - BALANCE Static Sitting: Good Standing: Good Dynamic Sitting: Good Standing: Good - NEUROMOTOR/SENSATION Masood. Lower Ext Sensation: WFL Coordination: WFL Masood. Upper Ext Sensation: WFL Coordination: WFL - HAND DOMINANCE Extremity Function: Hand Dominance: Right - ROM Bilateral UE ROM: WFL Muscle Tone: WFL - STRENGTH Bilateral LE Strength Number: 4 Other comment: 4+/5 grossly graded Bilateral UE Strength Number: 3 PT/OT ASSESSMENT - OT Problem List: Decreased Mobility ADL's, Decreased Dressing, Decreased Bathing, Decreased UE Strength, Other Other, comment: Decreased functional activity tolerance - OT GOALS Short Term Goals Days: 10 Mobility for ADL's: Will demonstrate safe functional transfer w/ SW for BADLs w/ Supv. Dressing: Will demonstrate UB and LB dressing w/ set up. Bathing: Will demonstrate UB and LB bathing w/ Supv. Upper Ext. Strength/Use: Will improve BUE strength to 3+/5 for BADLs and transfers. Other: Will demonstrate F.A.T. to >10 min in standing for BADLs. Feed Manager Goals Days: 20 Mobility for ADL's: Will demonstrate safe functional transfer w/ SW for BADLs Ind. Dressing: Will demonstrate UB and LB dressing Ind. Bathing: Will demonstrate UB and LB bathing Ind. Upper Ext. Strength/Use: Will improve BUE strength to 4-/5 for BADLs and barnett sfers. Other: Will demonstrate F.A.T. to >15 min in standing for BADLs. - PATIENT GOALS Patient/Family Goals: To get stronger and go home Goals Discussed with Patient/Family: Yes Rehabilitation Potential: Good Justification for Potential: Higher PLOF, supportive family, motivated Weakness and Barriers: None - PLAN Suggested Treatment Plan: Therapeutic Activity, Self Care Training, Therapeutic Ex with HEP, Patient Education, Family Education - FREQUENCY AND DURATION OT: 5x/wk x 20 days Expected Continuation of Care at Discharge: Home, Home Health
--- NOTE | 2021-08-16 16:15 | PT/OTEVAL ---
PT/OT OBJECTIVES - HISTORY Prescription: PT Consult Diagnosis: s/p CVA, CHF, Weakness Precautions: Fall Risk PMH: Fall with SDH, R Lower Lobe Mass, Cardiomegaly, GERD, Hypothyroidism, Acute Blood Loss Anemia, Dysphagia, Bronchoscopy (07/07/2021), Percutaneous Tracheostomy (07/13/2021), Percutaneous PEG Tube Placement (07/31/2021) Prior Level of Function: Independent Other: Pt resides in single story home with his . Pt reports being independent with all mobility tasks without a device but does report using walking stick when walking outdoors on uneven surfaces. However, pt was having multiple falls at home prior to hospitalization. - COGNITION Mental Status: Alert, Oriented, Name, Date, Place, Purpose Communication Status: Verbal Ability to Follow Directions: 2 Step Memory Loss: None - BED MOBILITY Rolling: Supervision Scooting: Supervision - TRANSFERS Supine to Sit: Minimal Sit to Stand: Minimal, Moderate Sit to Stand Comment: Min to mod assist x 1 depending on surface height. Sit or Stand Pivot: Minimal - BALANCE Static Sitting: Good Standing: Fair Dynamic Sitting: Good Standing: Poor - NEUROMOTOR/SENSATION Masood. Lower Ext Sensation: WFL Coordination: WFL Proprioception: WFL Masood. Upper Ext Sensation: WFL Coordination: WFL - ROM Bilateral LE ROM: WFL Muscle Tone: WFL - STRENGTH Bilateral LE Strength Number: 3 Other comment: 3/5 to proximal hips, 4-/5 to knees and ankles Bilateral UE Strength Number: 3 - GAIT Pt. ambulates how many feet?: 75 Amount of assistance required: Minimal Type of Assistive Device: Standard Walker Comments: Standard walker per pt preference PT/OT ASSESSMENT - PT Problem List: Decreased Bed Mobility, Decreased Transfers, Decreased Gait, Decreased Balance, Decreased LE Strength - PT GOALS Short Term Goals Days: 10 Mobility: Pt will perform bed mobility tasks with mod I Transfers: Pt will perform functional transfers with CGA Gait: Pt will ambulate 300ft with SW with supervision Balance: Pt will increase static standing balance to good- Shelter Goals Days: 20 Transfers: Pt will perform functional transfers with mod I Gait: Pt will ambulate 500ft with LRAD with mod I Balance: Pt will increase dynamic standing balance to fair+/good- ROM/Strength: Pt will increase BLE strength to 5/5 Others: Pt will ascend/descend 4 stairs with HR with mod I - OT GOALS Short Term Goals Days: 10 Mobility for ADL's: Will demonstrate safe functional transfer w/ SW for BADLs w/ Supv. Dressing: Will demonstrate UB and LB dressing w/ set up. Bathing: Will demonstrate UB and LB bathing w/ Supv. Upper Ext. Strength/Use: Will improve BUE strength to 3+/5 for BADLs and transfers. Other: Will demonstrate F.A.T. to >10 min in standing for BADLs. Shelter Goals Days: 20 Mobility for ADL's: Will demonstrate safe functional transfer w/ SW for BADLs Ind. Dressing: Will demonstrate UB and LB dressing Ind. Bathing: Will demonstrate UB and LB bathing Ind. Upper Ext. Strength/Use: Will improve BUE strength to 4-/5 for BADLs and transfers. Other: Will demonstrate F.A.T. to >15 min in standing for BADLs. - PATIENT GOALS Patient/Family Goals: "I want to build my strength and stamina back up so I can get home" Goals Discussed with Patient/Family: Yes (Pt and pt's ) Rehabilitation Potential: Good to meet stated goals Justification for Potential: Facilitate highest level of function & safe discharge planning - PLAN Suggested Treatment Plan: Bed Mobility Training, Therapeutic Activity, Gait Training, Neuro Re-education, Therapeutic Ex with HEP, Patient Education - FREQUENCY AND DURATION PT: 5x per week x hospital stay Expected Continuation of Care at Discharge: Outpatient Therapy, Home Health Comments: Pending progress
[2021-08-16] MEDS: COREG TAB 6.25 MG PO SCH (20:36)
[2021-08-16] MEDS: PROzac PO SCH (20:37)
[2021-08-16] MEDS: REQUIP PO SCH (20:37)
[2021-08-16] MEDS: FLOMAX PO SCH (20:38)
[2021-08-16] MEDS: MICRO K EXTEN CAP 10 MEQ PO SCH (20:38)
[2021-08-16] MEDS: OXYBUTYNIN CHLORIDE ER PO SCH (20:38)
[2021-08-16] MEDS: PriLOSEC PO SCH (20:38)
[2021-08-16] MEDS: NEURONTIN CAP 300 MG PO SCH (20:38)
[2021-08-16] MEDS: LASIX PO SCH (20:39)
[2021-08-16] MEDS: CRESTOR TAB 10 MG PO SCH (20:39)
--- NOTE | 2021-08-17 05:01 | RAD ---
PROCEDURE: Chest X-ray 1 View .HISTORY: Dyspnea.TECHNIQUE: AP view .COMPARISON: 07/04/2021.TECHNICAL QUALITY: Satisfactory .FINDINGS:Normal size heart .Mediastinum and hilar regions show no masses or lymphadenopathy .Normal central vascularity .Some discoid atelectasis right lung base. No pulmonary consolidation or pleural fluid. No masses.No acute bony abnormality .IMPRESSION:Some discoid atelectasis right base with no other evidence of active disease.Electronically signed by: Jourdan Selby (Aug 17, 2021 04:58:59)
[2021-08-17] MEDS: ASPIRIN EC 81 MG PO SCH (08:14)
[2021-08-17] MEDS: SYNTHROID 75 mcg TAB PO SCH (08:15)
[2021-08-17] MEDS: NEURONTIN CAP 300 MG PO SCH ×2 (08:15→20:42)
[2021-08-17] MEDS: MAXZIDE 37.5/25 MG PO SCH (08:15)
[2021-08-17] MEDS: MICRO K EXTEN CAP 10 MEQ PO SCH ×2 (08:16→20:42)
[2021-08-17] MEDS: ZyrTEC TAB 10 MG PO SCH (08:16)
[2021-08-17] MEDS: PROzac PO SCH ×2 (08:16→20:41)
[2021-08-17] MEDS: PriLOSEC PO SCH ×2 (08:16→20:41)
[2021-08-17] MEDS: FERROUS GLUCONATE PO SCH (08:16)
[2021-08-17] MEDS: WELLBUTRIN XL 150 MG (DAILY) PO SCH (08:16)
[2021-08-17] MEDS: LASIX PO SCH ×2 (08:17→20:43)
[2021-08-17] MEDS: COREG TAB 6.25 MG PO SCH ×2 (08:17→20:43)
[2021-08-17] MEDS ORDERED: ROXICODONE TAB 5 MG PO PRN (08:44)
[2021-08-17] MEDS: PLAVIX PO SCH (09:57)
[2021-08-17] MEDS: FLONASE NASAL SPRAY ENOSTRIL SCH (11:49)
--- NOTE | 2021-08-17 12:24 | DR.H&P ---
H&P - History & Physical for Day of: H&P Date: 08/16/21 - Chief Complaint Chief Complaint: S/P SUBDURAL HEMATOMA, FREQUENT FALLS - History of Present Illness History of Present Illness: IS A 66 YEAR OLD PATIENT OF OURS. HE WAS ADMITTED A SWINGBED PATIENT FOR PHYSICAL THERAPY AND REHAB FOLLOWING A RECENT SUBDURAL HEMATOMA THAT HE OBTAINED FROM A FALL. HE WAS ON BLOOD THINNERS AT THE TIME OF FALL. HE WAS TRANSFERRED FROM THE ER TO [facility] ON 07/04/21. UPON TRANSFER TO [facility], HIS GCS WAS 14. DURING HIS HOSPITAL STAY, HE REQUIRED INTUBATION. A TRACHEOSTOMY WAS PLACED, THEN REMOVED ONCE RESPIRATORY INSUFFICIENCY RESOLVED. HE WAS ALSO TREATED FOR ASPIRATION PNEUMONIA, ACUTE RENAL FAILURE, AND DYSPHAGIA. A PEG TUBE WAS PLACED DUE TO DYSPHAGIA TO THE LEFT UPPER QUADRANT. PEG TUBE IS NOT BEING USED AT THIS TIME. HE IS CURRENTLY ON MINCED AND MOIST MEATS WITH NECTAR THICKENED LIQUIDS. HIS PMH INCLUDES: CVA, TIA, CAD, CHF, HYPERLIPIDEMIA, HTN, COPD, SLEEP APNEA, GERD, PUD, HYPOTHYROIDISM, AAA REPAIR, CABG. UPON ARRIVAL TO OUR FACILITY, VITALS WERE: 98.4-83-20-98%-173/79. LABS WERE OBTAINED. WBC 5.8, RBC 3.04, HGB 9.5, HCT 28.2, PLT COUNT 209, SODIUM 142, POTASSIUM 3.8, CHLORIDE 106, BUN 17, CREATININE 1.09, GLUCOSE 95, CALCIUM 8.9, AST 17, ALT 15, ALK PHOS 114, BNP 207, TOTAL PROTEIN 7.7, ALBUMIN 2.9. COVID-19 NEGATIVE. A CHEST XRAY WAS OBTAINED AND REVEALED: Some discoid atelectasis right base with no other evidence of active disease. HE WAS STARTED ON MAXZIDE 1 CAPSULE DAILY, RESTROIL 15MG PO HS, TAMSULOSIN 0.4MG PO HS, CRESTOR 20MG PO HS, REQUIP 2MG PO HS, MICRO K 10MEQ PO BID, ROXICODONE 5MG PO Q6H PRN, OXYBUTYNIN 10MG PO HS, OMEPRAZOLE 20MG PO BID, SINGULAIR 10MG PO HS, MECLIZINE 25MG PO HS PRN, LEVOTHYROXINE 75MCG PO DAILY, GABAPENTIN 300MG PO BID, FUROSEMIDE 20MG PO BID, FLONASE 2 SPRAYS EACH NOSTRIL DAILY, PROZAC 20MG PO BID, FERROUS GLUCONATE 324MG PO DAILY, PLAVIX 75MG PO DAILY, ZYRTEC 10MG PO DAILY, COREG 3.125MG PO BID, WELLBUTRIN 150MG PO DAILY, ASPIRIN 81MG PO DAILY, FIORICET 1 TABLET PO Q4H PRN. PHYSICAL THERAPY EVALUATED PATIENT. HE IS ABLE TO AMULATE WITH ASSISTANCE, BUT IS UNSTEADY ON AMBULATION AND NOTED WITH DIFFUSE WEAKNESS. PHYSICAL THERAPY WILL WORK WITH HIM DAILY DURING HIS STAY. OTHERWISE, WE WILL MONITOR LABS 2-3 TIMES DURING THE WEEK AND MAKE CHANGES APPROPRIATE. TIME SPENT ON CLINICAL ASSESSMENT, REVIEWING LABS AND IMAGING, DECISION MAKING, AND DOCUMENTATION GREATER THAN 75 MINUTES. - Past Medical History Past Medical History: Hypertension, Dyslipidemia, Depression, Hypothyroidism, Anemia, CVA, GERD, CHF Additional Medical History: VALVULAR HEART DISEASE - Past Surgical History Surgical History: AAA Repair, CABG/Valve Surgery Additional Surgical History: Previous colonoscopy performed approx 6 years ago during a hospitalization for LGI bleeding - at which time no active bleeding or bleeding site was noted - per pt history. - Family History Family Medical History: Hypertension - Medications Home Medications: cilastatin [From Primaxin] Allergy (Verified 06/22/21 17:35) clarithromycin [From Biaxin] Allergy (Verified 06/22/21 17:35) imipenem [From Primaxin] Allergy (Verified 06/22/21 17:35) CONTINUE taking the following medications aspirin 81 mg tablet,delayed release 81 mg PO ONCE 08/16/21 [History] cetirizine 10 mg tablet (Zyrtec) 10 mg PO DAILY 08/16/21 [History] furosemide 20 mg tablet (Lasix) 20 mg PO BID 08/16/21 [History] potassium chloride 10 mEq capsule,extended release 10 meq PO BID 08/16/21 [History] tamsulosin 0.4 mg capsule (Flomax) 0.4 mg PO QHS 08/16/21 [History] qtwwufobjs-ydpnyuucjpmvm-igvoovno 50 mg-325 mg-40 mg tablet 1 tab PO Q4H PRN Headache 08/17/21 [History] oxycodone 5 mg tablet 5 mg PO Q6H PRN Pain 08/17/21 [History] - Review of Systems Constitutional: Weakness Eyes: No Symptoms Reported ENT: No Symptoms Reported Respiratory: SOB with Excertion Cardiovascular: No Symptoms Reported Gastrointestinal: Other (PEG TUBE LUQ ) Genitourinary: No Symptoms Reported Musculoskeletal: Back Pain Skin: Bruising Neurological: Weakness, Other (CONFUSION AND AGITATION AT TIMES ) - Physical Exam Vital Signs: Temperature 98.6 F Pulse Rate [Left] 98 Respiratory Rate 20 Blood Pressure [Left Arm] 173/79 Blood Pressure [Right Arm] 110/55 Blood Pressure 138/63 O2 Sat by Pulse Oximetry 94 Oriented: Normal Eyes: Normal Ear: Normal Nose: Normal Throat: Normal Respiratory: Diminished Throughout Cardiovascular: Normal : Normal Auscultation: Bowel Sounds: Normal Palpation: Normal Tenderness: Normal Skin: Bruising (SCATTERED ) Musculoskeletal: Back:Lumbar, Tender Psychiatric: Normal Mood Description: Calm Affect: Normal Speech Pattern: Clear - Assessment/Plan (1) Chronic subdural hematoma Status: Acute Plan: ADMIT, PHYSICAL THERAPY, RESUME HOME MEDICATIONS, MONITOR LABS (2) Generalized weakness Status: Acute (3) Acute confusion Status: Acute (4) Anxiety about health Status: Acute (5) GERD (gastroesophageal reflux disease) Qualifiers: Esophagitis presence: esophagitis presence not specified Qualified Code(s): K21.9 - Gastro-esophageal reflux disease without esophagitis Status: Chronic (6) Hypothyroidism Qualifiers: Hypothyroidism type: acquired Qualified Code(s): E03.9 - Hypothyroidism, unspecified Status: Chronic (7) Hyperlipidemia Qualifiers: Hyperlipidemia type: mixed hyperlipidemia Qualified Code(s): E78.2 - Mixed hyperlipidemia Status: Chronic (8) COPD (chronic obstructive pulmonary disease) Qualifiers: COPD type: unspecified COPD Qualified Code(s): J44.9 - Chronic obstructive pulmonary disease, unspecified Status: Chronic (9) Sleep apnea Qualifiers: Sleep apnea type: unspecified type Qualified Code(s): G47.30 - Sleep apnea, unspecified Status: Chronic - Allergies Allergies/Adverse Reactions: Allergies Allergy/AdvReac Type Severity Reaction Status Date / Time cilastatin [From Primaxin] Allergy Verified 06/22/21 17:35 clarithromycin [From Biaxin] Allergy Verified 06/22/21 17:35 imipenem [From Primaxin] Allergy Verified 06/22/21 17:35
[2021-08-17] MEDS: RESTORIL CAP 15 MG PO PRN (20:40)
[2021-08-17] MEDS: SINGULAIR TAB 10 MG PO SCH (20:40)
[2021-08-17] MEDS: OXYBUTYNIN CHLORIDE ER PO SCH (20:41)
[2021-08-17] MEDS: REQUIP PO SCH (20:41)
[2021-08-17] MEDS: CRESTOR TAB 10 MG PO SCH (20:43)
[2021-08-17] MEDS: FLOMAX PO SCH (20:43)
[2021-08-18] MEDS: WELLBUTRIN XL 150 MG (DAILY) PO SCH (08:44)
[2021-08-18] MEDS: PLAVIX PO SCH (08:44)
[2021-08-18] MEDS: SYNTHROID 75 mcg TAB PO SCH (08:45)
[2021-08-18] MEDS: NEURONTIN CAP 300 MG PO SCH ×2 (08:45→20:47)
[2021-08-18] MEDS: MICRO K EXTEN CAP 10 MEQ PO SCH ×2 (08:45→20:47)
[2021-08-18] MEDS: PriLOSEC PO SCH ×2 (08:45→20:47)
[2021-08-18] MEDS: FERROUS GLUCONATE PO SCH (08:46)
[2021-08-18] MEDS: ASPIRIN EC 81 MG PO SCH (08:46)
[2021-08-18] MEDS: ZyrTEC TAB 10 MG PO SCH (08:46)
[2021-08-18] MEDS: PROzac PO SCH ×2 (08:46→20:48)
[2021-08-18] MEDS: MAXZIDE 37.5/25 MG PO SCH (08:46)
[2021-08-18] MEDS: FLONASE NASAL SPRAY ENOSTRIL SCH (08:47)
[2021-08-18] MEDS: LASIX PO SCH ×2 (08:48→20:47)
[2021-08-18] MEDS: COREG TAB 6.25 MG PO SCH ×2 (08:48→20:43)
[2021-08-18] MEDS: CRESTOR TAB 10 MG PO SCH (20:46)
[2021-08-18] MEDS: OXYBUTYNIN CHLORIDE ER PO SCH (20:47)
[2021-08-18] MEDS: FLOMAX PO SCH (20:47)
[2021-08-18] MEDS: SINGULAIR TAB 10 MG PO SCH (20:48)
[2021-08-18] MEDS: RESTORIL CAP 15 MG PO PRN (20:48)
[2021-08-18] MEDS: REQUIP PO SCH (20:48)
[2021-08-19 04:52] LABS: BASOPHILS % (AUTO) 0.4 % (0.2-1.0); EOSINOPHILS # (AUTO) 0.2 x10^3/uL (0.0-0.2); EOSINOPHILS % (AUTO) 3.4 % (0.9-2.9); HEMATOCRIT 25.1 % (42.0-54.0); HEMOGLOBIN 8.7 g/dL (13.5-18.0); LYMPHOCYTES # (AUTO) 0.9 X10^3/uL (1.3-2.9); LYMPHOCYTES % (AUTO) 13.2 % (21.0-51.0); MEAN CORPUSCULAR HEMOGLOBIN 31.7 pg (27.0-34.0); MEAN CORPUSCULAR HGB CONC 34.6 g/dL (33.0-35.0); MEAN CORPUSCULAR VOLUME 91.5 fL (80.0-100.0); MEAN PLATELET VOLUME 8.3 fL (7.4-11.0); MONOCYTES % (AUTO) 15.5 % (0.0-13.0); NEUTROPHILS # (AUTO) 4.4 x10^3/uL (2.2-4.8); NEUTROPHILS % (AUTO) 67.5 % (42.0-75.0); RED BLOOD COUNT 2.74 X10^6/uL (4.7-6.0); RED CELL DISTRIBUTION WIDTH 18.2 % (11.6-16.5); WHITE BLOOD COUNT 6.6 X10^3/uL (3.6-10.0)
[2021-08-19 05:00] LABS: ALANINE AMINOTRANSFERASE 16 Units/L (12-78); ALBUMIN 2.5 g/dL (3.4-5.0); ALKALINE PHOSPHATASE 117 Units/L (46-116); ASPARTATE AMINO TRANSFERASE 17 Units/L (15-37); BLOOD UREA NITROGEN 13 mg/dL (7-18); CALCIUM 8.3 mg/dL (8.5-10.1); CARBON DIOXIDE 31.4 mmol/L (21-32); CHLORIDE 103 mmol/L (98-107); COR CA(FOR HYPOALB) 9.5 mg/dL (8.5-10.1); CREATININE 1.25 mg/dL (0.70-1.30); SODIUM 139 mmol/L (136-145); TOTAL PROTEIN 6.8 g/dL (6.4-8.2); eGFR NON BLACK RACES > 60 (>60)
[2021-08-19] MEDS: MICRO K EXTEN CAP 10 MEQ PO SCH ×2 (08:25→20:41)
[2021-08-19] MEDS: MAXZIDE 37.5/25 MG PO SCH (08:25)
[2021-08-19] MEDS: ASPIRIN EC 81 MG PO SCH (08:25)
[2021-08-19] MEDS: PROzac PO SCH ×2 (08:26→20:42)
[2021-08-19] MEDS: FERROUS GLUCONATE PO SCH (08:26)
[2021-08-19] MEDS: ZyrTEC TAB 10 MG PO SCH (08:26)
[2021-08-19] MEDS: SYNTHROID 75 mcg TAB PO SCH (08:26)
[2021-08-19] MEDS: WELLBUTRIN XL 150 MG (DAILY) PO SCH (08:26)
[2021-08-19] MEDS: NEURONTIN CAP 300 MG PO SCH ×2 (08:26→20:41)
[2021-08-19] MEDS: PriLOSEC PO SCH ×2 (08:26→20:42)
[2021-08-19] MEDS: PLAVIX PO SCH (08:26)
[2021-08-19] MEDS: COREG TAB 6.25 MG PO SCH ×2 (08:26→20:41)
[2021-08-19] MEDS: LASIX PO SCH ×2 (08:27→20:41)
[2021-08-19] MEDS: FLONASE NASAL SPRAY ENOSTRIL SCH (08:27)
[2021-08-19] MEDS: CRESTOR TAB 10 MG PO SCH (20:41)
[2021-08-19] MEDS: FLOMAX PO SCH (20:41)
[2021-08-19] MEDS: OXYBUTYNIN CHLORIDE ER PO SCH (20:42)
[2021-08-19] MEDS: SINGULAIR TAB 10 MG PO SCH (20:42)
[2021-08-19] MEDS: REQUIP PO SCH (20:42)
[2021-08-19] MEDS: RESTORIL CAP 15 MG PO PRN (20:46)
[2021-08-20] MEDS: MAXZIDE 37.5/25 MG PO SCH (08:20)
[2021-08-20] MEDS: COREG TAB 6.25 MG PO SCH ×2 (08:20→21:08)
[2021-08-20] MEDS: ASPIRIN EC 81 MG PO SCH (08:20)
[2021-08-20] MEDS: LASIX PO SCH ×2 (08:21→21:09)
[2021-08-20] MEDS: NEURONTIN CAP 300 MG PO SCH ×2 (08:21→21:09)
[2021-08-20] MEDS: FLONASE NASAL SPRAY ENOSTRIL SCH (08:21)
[2021-08-20] MEDS: FERROUS GLUCONATE PO SCH (08:21)
[2021-08-20] MEDS: MICRO K EXTEN CAP 10 MEQ PO SCH ×2 (08:21→21:09)
[2021-08-20] MEDS: PLAVIX PO SCH (08:21)
[2021-08-20] MEDS: ZyrTEC TAB 10 MG PO SCH (08:22)
[2021-08-20] MEDS: WELLBUTRIN XL 150 MG (DAILY) PO SCH (08:22)
[2021-08-20] MEDS: SYNTHROID 75 mcg TAB PO SCH (08:22)
[2021-08-20] MEDS: PROzac PO SCH ×2 (08:22→21:10)
[2021-08-20] MEDS: PriLOSEC PO SCH ×2 (08:22→21:09)
[2021-08-20] MEDS: CRESTOR TAB 10 MG PO SCH (21:08)
[2021-08-20] MEDS: OXYBUTYNIN CHLORIDE ER PO SCH (21:09)
[2021-08-20] MEDS: FLOMAX PO SCH (21:09)
[2021-08-20] MEDS: RESTORIL CAP 15 MG PO PRN (21:10)
[2021-08-20] MEDS: SINGULAIR TAB 10 MG PO SCH (21:10)
[2021-08-20] MEDS: REQUIP PO SCH (21:10)
[2021-08-21 06:47] LABS: BILIRUBIN,URINE NEGATIVE (NEGATIVE); BLOOD/HEMOGLOBIN,URINE NEGATIVE (NEGATIVE); GLUCOSE, URINE NEGATIVE (NEGATIVE); KETONES,URINE NEGATIVE (NEGATIVE); LEUKOCYTE ESTERASE ,URINE NEGATIVE (NEGATIVE); NITRITES,URINE NEGATIVE (NEGATIVE); PROTEIN,URINE NEGATIVE (NEGATIVE); UROBILINOGEN,URINE NORMAL (NORMAL)
[2021-08-21 06:54] LABS: APPEARANCE,URINE CLEAR (CLEAR); COLOR,URINE YELLOW (YELLOW)
[2021-08-21] MEDS: ASPIRIN EC 81 MG PO SCH (08:57)
[2021-08-21] MEDS: FLONASE NASAL SPRAY ENOSTRIL SCH (08:58)
[2021-08-21] MEDS: LASIX PO SCH ×2 (08:58→20:13)
[2021-08-21] MEDS: MICRO K EXTEN CAP 10 MEQ PO SCH ×2 (08:58→20:13)
[2021-08-21] MEDS: COREG TAB 6.25 MG PO SCH ×2 (08:58→20:12)
[2021-08-21] MEDS: FERROUS GLUCONATE PO SCH (08:58)
[2021-08-21] MEDS: MAXZIDE 37.5/25 MG PO SCH (08:58)
[2021-08-21] MEDS: NEURONTIN CAP 300 MG PO SCH ×2 (08:59→20:13)
[2021-08-21] MEDS: PLAVIX PO SCH (09:00)
[2021-08-21] MEDS: PROzac PO SCH ×2 (09:00→20:14)
[2021-08-21] MEDS: PriLOSEC PO SCH ×2 (09:00→20:14)
[2021-08-21] MEDS: SYNTHROID 75 mcg TAB PO SCH (09:00)
[2021-08-21] MEDS: WELLBUTRIN XL 150 MG (DAILY) PO SCH (09:01)
[2021-08-21] MEDS: ZyrTEC TAB 10 MG PO SCH (09:01)
[2021-08-21] MEDS ORDERED: VOLTAREN 1 % GEL MULTI DOSE TUBE TOP PRN (10:13)
[2021-08-21] MEDS: FLOMAX PO SCH (20:13)
[2021-08-21] MEDS: OXYBUTYNIN CHLORIDE ER PO SCH (20:13)
[2021-08-21] MEDS: CRESTOR TAB 10 MG PO SCH (20:13)
[2021-08-21] MEDS: REQUIP PO SCH (20:14)
[2021-08-21] MEDS: SINGULAIR TAB 10 MG PO SCH (20:14)
[2021-08-22 05:41] LABS: BASOPHILS % (AUTO) 0.3 % (0.2-1.0); EOSINOPHILS # (AUTO) 0.3 x10^3/uL (0.0-0.2); EOSINOPHILS % (AUTO) 2.7 % (0.9-2.9); HEMATOCRIT 27.2 % (42.0-54.0); HEMOGLOBIN 9.3 g/dL (13.5-18.0); LYMPHOCYTES # (AUTO) 1.1 X10^3/uL (1.3-2.9); LYMPHOCYTES % (AUTO) 11.3 % (21.0-51.0); MEAN CORPUSCULAR HEMOGLOBIN 31.4 pg (27.0-34.0); MEAN CORPUSCULAR HGB CONC 34.3 g/dL (33.0-35.0); MEAN CORPUSCULAR VOLUME 91.6 fL (80.0-100.0); MEAN PLATELET VOLUME 8.1 fL (7.4-11.0); MONOCYTES # (AUTO) 1.4 x10^3/uL (0.3-0.8); MONOCYTES % (AUTO) 14.6 % (0.0-13.0); NEUTROPHILS % (AUTO) 71.1 % (42.0-75.0); RED BLOOD COUNT 2.97 X10^6/uL (4.7-6.0); WHITE BLOOD COUNT 9.8 X10^3/uL (3.6-10.0)
[2021-08-22 05:55] LABS: ALANINE AMINOTRANSFERASE 17 Units/L (12-78); ALBUMIN 2.6 g/dL (3.4-5.0); ALKALINE PHOSPHATASE 125 Units/L (46-116); ASPARTATE AMINO TRANSFERASE 19 Units/L (15-37); BLOOD UREA NITROGEN 16 mg/dL (7-18); CALCIUM 8.5 mg/dL (8.5-10.1); CARBON DIOXIDE 33.2 mmol/L (21-32); CHLORIDE 100 mmol/L (98-107); COR CA(FOR HYPOALB) 9.6 mg/dL (8.5-10.1); CREATININE 1.42 mg/dL (0.70-1.30); SODIUM 139 mmol/L (136-145); TOTAL PROTEIN 7.1 g/dL (6.4-8.2); eGFR NON BLACK RACES 53 (>60)
[2021-08-22] MEDS: ASPIRIN EC 81 MG PO SCH (10:00)
[2021-08-22] MEDS: FERROUS GLUCONATE PO SCH (10:01)
[2021-08-22] MEDS: FLONASE NASAL SPRAY ENOSTRIL SCH (10:01)
[2021-08-22] MEDS: COREG TAB 6.25 MG PO SCH ×2 (10:01→21:18)
[2021-08-22] MEDS: MAXZIDE 37.5/25 MG PO SCH (10:02)
[2021-08-22] MEDS: WELLBUTRIN XL 150 MG (DAILY) PO SCH (10:03)
[2021-08-22] MEDS: ZyrTEC TAB 10 MG PO SCH (10:04)
[2021-08-22] MEDS: PLAVIX PO SCH (10:06)
[2021-08-22] MEDS: PROzac PO SCH ×2 (10:06→21:20)
[2021-08-22] MEDS: NEURONTIN CAP 300 MG PO SCH ×2 (10:07→21:19)
[2021-08-22] MEDS: PriLOSEC PO SCH ×2 (10:07→21:19)
[2021-08-22] MEDS: MICRO K EXTEN CAP 10 MEQ PO SCH ×2 (10:07→21:19)
[2021-08-22] MEDS: SYNTHROID 75 mcg TAB PO SCH (10:08)
[2021-08-22] MEDS: LASIX PO SCH ×2 (10:08→21:19)
--- NOTE | 2021-08-22 19:53 | RAD ---
HISTORYFALL, LEFT ELBOW PAIN Relevant Clinical InformationSTUDYLeft elbow, three viewsCOMPARISONNoneFINDINGSLarge joint effusion is noted. There is questionable lucency overlying the lateral aspect of the radial head. Additionally, there is increased angulation at the radial head-neck junction, although this could be secondary to degenerative disease. There is mild degenerative change of the humeral ulnar joint.IMPRESSIONLarge joint effusion concerning for intra-articular fracture. There is question of acute radial head fracture.Consider CT for further evaluation.Electronically signed by: JENNIFER MAGALLANES (Aug 22, 2021 19:52:14)
[2021-08-22] MEDS: CRESTOR TAB 10 MG PO SCH (21:18)
[2021-08-22] MEDS: REQUIP PO SCH (21:18)
[2021-08-22] MEDS: FLOMAX PO SCH (21:19)
[2021-08-22] MEDS: OXYBUTYNIN CHLORIDE ER PO SCH (21:19)
[2021-08-22] MEDS: SINGULAIR TAB 10 MG PO SCH (21:20)
[2021-08-22] MEDS: RESTORIL CAP 15 MG PO PRN (21:20)
[2021-08-23] MEDS: FIORICET TAB PO PRN (00:03)
[2021-08-23] MEDS: ASPIRIN EC 81 MG PO SCH (08:49)
[2021-08-23] MEDS: PROzac PO SCH ×2 (08:49→21:20)
[2021-08-23] MEDS: WELLBUTRIN XL 150 MG (DAILY) PO SCH (08:50)
[2021-08-23] MEDS: COREG TAB 6.25 MG PO SCH ×2 (08:50→21:20)
[2021-08-23] MEDS: SYNTHROID 75 mcg TAB PO SCH (08:50)
[2021-08-23] MEDS: MAXZIDE 37.5/25 MG PO SCH (08:50)
[2021-08-23] MEDS: ZyrTEC TAB 10 MG PO SCH (08:50)
[2021-08-23] MEDS: MICRO K EXTEN CAP 10 MEQ PO SCH ×2 (08:50→21:20)
[2021-08-23] MEDS: FERROUS GLUCONATE PO SCH (08:50)
[2021-08-23] MEDS: PLAVIX PO SCH (08:50)
[2021-08-23] MEDS: PriLOSEC PO SCH ×2 (08:50→21:20)
[2021-08-23] MEDS: NEURONTIN CAP 300 MG PO SCH ×2 (08:51→21:20)
[2021-08-23] MEDS: LASIX PO SCH ×2 (08:51→21:20)
[2021-08-23] MEDS: FLONASE NASAL SPRAY ENOSTRIL SCH (08:53)
[2021-08-23] MEDS: REQUIP PO SCH (21:20)
[2021-08-23] MEDS: CRESTOR TAB 10 MG PO SCH (21:20)
[2021-08-23] MEDS: OXYBUTYNIN CHLORIDE ER PO SCH (21:20)
[2021-08-23] MEDS: FLOMAX PO SCH (21:20)
[2021-08-23] MEDS: RESTORIL CAP 15 MG PO PRN (21:20)
[2021-08-23] MEDS: SINGULAIR TAB 10 MG PO SCH (21:30)
--- NOTE | 2021-08-23 23:12 | PCM.PROG ---
Progress Note - Progress Note for Day of Date of Exam: 08/22/21 - Subjective Subjective: IS CURRENTLY INPATIENT, SWINGBED STATUS FOR PHYSICAL AND REHAB DUE TO GENERALIZED WEAKNES, ACUTE CONFUSION, FREQUENT FALLS, ALL OF WHICH STARTED AFTER A RECENT SUBDURAL HEMATOMA. HE HAS A PMH OF CHF, GERD, HYPOTHYROIDISM, HYPERLIPIDEMIA, ANXIETY, COPD, AND SLEEP APNEA. TODAY, HE IS ALERT AND ORIENTED, SITTING UP ON THE SIDE OF THE BED ON MORNING ROUNDS. NURSING STAFF REPORTS THAT PATIENT HAS GOTTEN OUT OF BED BY HIMSELF ON MULTIPLE OCCASIONS. YESTERDAY, PATIENT GOT OUT OF BED AND FELL ONTO THE FLOOR. BED ALARM WAS APPARTENTLY SET, BUT PATIENT WAS ABLE TO GET UP BEFORE STAFF MADE IT TO HIS ROOM. TODAY, HE COMPLAINS OF LEFT ELBOW PAIN. PAIN STARTED AFTER HE FELL. STAFF REPORTS THAT HE HAS CONFUSION AND AGITATION AT TIMES. ON EXAMINATION, HEART IS REGULAR IN RATE AND RHYTHM. BILATERAL LUNGS NOTED WITH DIMINISHED LUNG SOUNDS THROUGHOUT. ABDOMEN IS ROUND, SOFT, AND NON-TENDER WITH NORMAL BOWEL SOUNDS NOTED IN ALL QUADRANTS. PEG TUBE NOTED TO ABDOMEN. THERE IS A MILD AMOUNT OF PURULENT DRAINAGE NOTED AROUND INSERTION SITE OF PEG TUBE. PEG TUBE IS NOT BEING USED, HE HAS BEEN ABLE TO EAT BY MOUTH. THERE IS SOME MILD EDEMA TO THE LEFT ELBOW. TRACE LOWER EXTREMITY EDEMA NOTED. HIS VITALS THIS MORNING ARE: 98.1-94-20-94%-151/77. LABS WERE OBTAINED. WBC 9.8, RBC 2.97, HGB 9.3, HCT 27.2, PLT COUNT 205, SODIUM 139, POTASSIUM 3.5, CHLORIDE 100, BUN 16, CREATININE 1.42, GLUCOSE 92, AST 19, ALT 17, ALK PHOS 125, TOTAL PROTEIN 7.1, ALBUMIN 2.6. HE IS CURRENTLY RECEIVING MAXZIDE 1 CAPSULE DAILY, RESTROIL 15MG PO HS, TAMSULOSIN 0.4MG PO HS, CRESTOR 20MG PO HS, REQUIP 2MG PO HS, MICRO K 10MEQ PO BID, ROXICODONE 5MG PO Q6H PRN, OXYBUTYNIN 10MG PO HS, OMEPRAZOLE 20MG PO BID, SINGULAIR 10MG PO HS, MECLIZINE 25MG PO HS PRN, LEVOTHYROXINE 75MCG PO DAILY, GABAPENTIN 300MG PO BID, FUROSEMIDE 20MG PO BID, FLONASE 2 SPRAYS EACH NOSTRIL DAILY, PROZAC 20MG PO BID, FERROUS GLUCONATE 324MG PO DAILY, PLAVIX 75MG PO DAILY, ZYRTEC 10MG PO DAILY, COREG 3.125MG PO BID, WELLBUTRIN 150MG PO DAILY, ASPIRIN 81MG PO DAILY, FIORICET 1 TABLET PO Q4H PRN, AND VOLTAREN GEL QID PRN. A LEFT ELBOW XRAY WAS OBTAINED YESTERDAY. WE ARE WAITING ON XRAY TO BE READ. WE WILL CONTINUE WITH CURRENT PLAN OF CARE TODAY. PHYSICAL/OCCUPATIONAL THERAPIES HAVE BEEN WORKING WITH HIM DAILY. HE HAS BEEN COOPERATIVE WITH THERAPY. WE EMMANUELLE CONTINUE WITH CURRENT PLAN OF CARE TODAY. OTHERWISE, WE PLAN TO FOLLOW-UP WITH AM LABS AND CONTINUE TO MONITOR. - Past Medical Family Social History Past Med/Fam/Surg Hx: No changes since H&P Allergies: Allergies cilastatin [From Primaxin] Allergy (Verified 06/22/21 17:35) clarithromycin [From Biaxin] Allergy (Verified 06/22/21 17:35) imipenem [From Primaxin] Allergy (Verified 06/22/21 17:35) - Review of Systems ROS: No change since H&P - Vital Signs and I&O's Vital Signs: Temperature 98.2 F Pulse Rate [Left Brachial] 84 Pulse Rate [Left] 65 Respiratory Rate 20 Blood Pressure [Left Arm] 121/64 Blood Pressure [Right Arm] 112/69 Blood Pressure 138/63 O2 Sat by Pulse Oximetry 97 Intake and Output: Intake & Output 08/21/21 08/22/21 08/23/21 08/24/21 11:59 11:59 11:59 11:59 Intake Total 1260 / 1260 1580 / 1580 2460 / 2460 960 / 960 Output Total 1000 / 1000 500 / 500 Balance 260 / 260 1080 / 1080 2460 / 2460 960 / 960 - Physical Exam Oriented: Normal Eyes: Normal Ear: Normal Nose: Normal Throat: Normal Respiratory: Generalized, Diminished Cardiovascular: Normal : Normal Auscultation: Bowel Sounds: Normal Palpation: Normal Tenderness: Normal Skin: Bruising (SCATTERED ) Musculoskeletal: Left, Elbow, Back:Lumbar, Swelling, Tender Psychiatric: Normal Mood Description: Calm Affect: Normal Speech Pattern: Clear, Appropriate - Laboratory and Diagnostics Result Diagrams: 08/22/21 05:00 08/22/21 05:00 Labs: 08/22/21 06:18 Peg Tube Wound Gram Stain - Final 08/22/21 06:18 Peg Tube Wound Culture - Preliminary Laboratory WBC 9.8 X10^3/uL (3.6-10.0) 08/22/21 05:00 RBC 2.97 X10^6/uL (4.7-6.0) L 08/22/21 05:00 Hgb 9.3 g/dL (13.5-18.0) L 08/22/21 05:00 Hct 27.2 % (42.0-54.0) L 08/22/21 05:00 MCV 91.6 fL (80.0-100.0) 08/22/21 05:00 MCH 31.4 pg (27.0-34.0) 08/22/21 05:00 MCHC 34.3 g/dL (33.0-35.0) 08/22/21 05:00 RDW 18.0 % (11.6-16.5) H 08/22/21 05:00 Plt Count 205 X10^3/uL (150.0-450.0) 08/22/21 05:00 MPV 8.1 fL (7.4-11.0) 08/22/21 05:00 Neut % (Auto) 71.1 % (42.0-75.0) 08/22/21 05:00 Lymph % (Auto) 11.3 % (21.0-51.0) L 08/22/21 05:00 Benzie % (Auto) 14.6 % (0.0-13.0) H 08/22/21 05:00 Eos % (Auto) 2.7 % (0.9-2.9) 08/22/21 05:00 Baso % (Auto) 0.3 % (0.2-1.0) 08/22/21 05:00 Neut # (Auto) 7.0 x10^3/uL (2.2-4.8) H 08/22/21 05:00 Lymph # (Auto) 1.1 X10^3/uL (1.3-2.9) L 08/22/21 05:00 Benzie # (Auto) 1.4 x10^3/uL (0.3-0.8) H 08/22/21 05:00 Eos # (Auto) 0.3 x10^3/uL (0.0-0.2) H 08/22/21 05:00 Baso # (Auto) 0.0 X10^3/uL (0.0-0.1) 08/22/21 05:00 Absolute Nucleated RBC 0.0 /100WBC 08/22/21 05:00 Sodium 139 mmol/L (136-145) 08/22/21 05:00 Corrected Sodium TNP 08/22/21 05:00 Potassium 3.5 mmol/L (3.5-5.1) 08/22/21 05:00 Chloride 100 mmol/L (98-107) 08/22/21 05:00 Carbon Dioxide 33.2 mmol/L (21-32) H 08/22/21 05:00 BUN 16 mg/dL (7-18) 08/22/21 05:00 Creatinine 1.42 mg/dL (0.70-1.30) H 08/22/21 05:00 Est GFR (MDRD) Af Amer > 60 (>60) 08/22/21 05:00 Est GFR (MDRD) Non-Af 53 (>60) L 08/22/21 05:00 Glucose 92 mg/dL (65-99) 08/22/21 05:00 Calcium 8.5 mg/dL (8.5-10.1) 08/22/21 05:00 Corrected Calcium 9.6 mg/dL (8.5-10.1) 08/22/21 05:00 Total Bilirubin 0.40 mg/dL (0.2-1.0) 08/22/21 05:00 AST 19 Units/L (15-37) 08/22/21 05:00 ALT 17 Units/L (12-78) 08/22/21 05:00 Alkaline Phosphatase 125 Units/L (46-116) H 08/22/21 05:00 B-Natriuretic Peptide 207 pg/mL (0-79) H 08/16/21 15:40 Total Protein 7.1 g/dL (6.4-8.2) 08/22/21 05:00 Albumin 2.6 g/dL (3.4-5.0) L 08/22/21 05:00 Globulin 4.5 g/dL (2.5-4.5) 08/22/21 05:00 Albumin/Globulin Ratio 0.6 Ratio (1.1-2.1) L 08/22/21 05:00 Specimen Type Clean catch urine 08/21/21 06:36 Urine Color Yellow (YELLOW) 08/21/21 06:36 Urine Appearance Clear (CLEAR) 08/21/21 06:36 Urine pH 6.0 (5.0 - 8.0) 08/21/21 06:36 Ur Specific [place] 1.010 (1.000-1.030) 08/21/21 06:36 Urine Protein Negative (NEGATIVE) 08/21/21 06:36 Urine Glucose (UA) Negative (NEGATIVE) 08/21/21 06:36 Urine Ketones Negative (NEGATIVE) 08/21/21 06:36 Urine Blood Negative (NEGATIVE) 08/21/21 06:36 Urine Nitrite Negative (NEGATIVE) 08/21/21 06:36 Urine Bilirubin Negative (NEGATIVE) 08/21/21 06:36 Urine Urobilinogen Normal (NORMAL) 08/21/21 06:36 Ur Leukocyte Esterase Negative (NEGATIVE) 08/21/21 06:36 SARS-CoV-2 (PCR) Negative (NEGATIVE) 08/16/21 15:45 - Plan (1) Chronic subdural hematoma Status: Acute Plan: PHYSICAL/OCCUPATIONAL THERAPIES, VOLTAREN GEL, RESUME HOME MEDICATIONS (2) Left elbow pain Status: Acute (3) Generalized weakness Status: Acute (4) Acute confusion Status: Acute (5) Anxiety about health Status: Acute (6) GERD (gastroesophageal reflux disease) Status: Chronic Qualifiers: Esophagitis presence: esophagitis presence not specified Qualified Code(s): K21.9 - Gastro-esophageal reflux disease without esophagitis (7) Hypothyroidism Status: Chronic Qualifiers: Hypothyroidism type: acquired Qualified Code(s): E03.9 - Hypothyroidism, unspecified (8) Hyperlipidemia Status: Chronic Qualifiers: Hyperlipidemia type: mixed hyperlipidemia Qualified Code(s): E78.2 - Mixed hyperlipidemia (9) COPD (chronic obstructive pulmonary disease) Status: Chronic Qualifiers: COPD type: unspecified COPD Qualified Code(s): J44.9 - Chronic obstructive pulmonary disease, unspecified (10) Sleep apnea Status: Chronic Qualifiers: Sleep apnea type: unspecified type Qualified Code(s): G47.30 - Sleep apnea, unspecified
--- NOTE | 2021-08-24 07:30 | CT ---
HISTORYFall, left elbow painSTUDYCT left elbow without contrastTechnique: Axial noncontrast images with coronal and sagittal reformats. Dose reduction procedures were used with mA/kv adjusted for body size.COMPARISONPlain films 08/22/2021FINDINGSThere is a minimal elbow joint effusion present. The distal humerus appears intact. The radial head, radial neck, and visualized proximal radial shaft appear intact. There is a tiny chip fracture of the tip of the coronoid process visualized on CT series 4, image 20. This could be acute, subacute, or old. There is a well corticated fragment of bone adjacent to the tip of the olecranon best visualized on CT series 4, image 19 this could represent evidence for old trauma or could represent a congenital os. An acute fracture is not felt to be present in that area.IMPRESSIONMinimal joint effusionIntact distal humerus, radial head, radial neck and proximal radial shaftTiny chip fracture of the tip of the coronoid process of the olecranon which could be acute, subacute, or oldWell corticated fragment of bone adjacent to the tip of the posterior aspect of the olecranon which could represent evidence for old trauma or perhaps a congenital os.Electronically signed by: LUDA QUEZADA (Aug 24, 2021 07:28:19)
[2021-08-24] MEDS: FERROUS GLUCONATE PO SCH (09:16)
[2021-08-24] MEDS: ASPIRIN EC 81 MG PO SCH (09:16)
[2021-08-24] MEDS: ZyrTEC TAB 10 MG PO SCH (09:16)
[2021-08-24] MEDS: MICRO K EXTEN CAP 10 MEQ PO SCH ×2 (09:16→20:53)
[2021-08-24] MEDS: PROzac PO SCH ×2 (09:16→20:53)
[2021-08-24] MEDS: COREG TAB 6.25 MG PO SCH ×2 (09:16→23:45)
[2021-08-24] MEDS: NEURONTIN CAP 300 MG PO SCH ×2 (09:16→20:54)
[2021-08-24] MEDS: FLONASE NASAL SPRAY ENOSTRIL SCH (09:17)
[2021-08-24] MEDS: LASIX PO SCH ×2 (09:17→20:54)
[2021-08-24] MEDS: PriLOSEC PO SCH ×2 (09:17→20:55)
[2021-08-24] MEDS: PLAVIX PO SCH (09:17)
[2021-08-24] MEDS: SYNTHROID 75 mcg TAB PO SCH (09:17)
[2021-08-24] MEDS: WELLBUTRIN XL 150 MG (DAILY) PO SCH (09:17)
[2021-08-24] MEDS: MAXZIDE 37.5/25 MG PO SCH (09:19)
--- NOTE | 2021-08-24 10:26 | CT ---
HISTORYFREQUENT FALLSSTUDYBRAIN W/O [id number] axial images of the head were performed from the skull base to the vertex using standard departmental protocol. Sagittal and coronal reformatted images were performed. Dose reduction techniques including Automated Exposure Control (AEC) and adjustment of mA and kV were utilized.FINDINGSNo evidence of acute territorial infarct. No acute intracranial hemorrhage. No evidence of intracranial mass or midline shift. No hydrocephalus. No abnormal intra or extra-axial fluid collections. Chronic small vessel ischemic changes. Intracranial vascular calcifications.The calvaria is intact. The bilateral mastoid air cells and visualized paranasal sinuses are well pneumatized. The bilateral orbits are unremarkable.IMPRESSIONNo acute intracranial findings.Electronically signed by: LUDA QUEZADA (Aug 24, 2021 10:23:41)
[2021-08-24] MEDS: ANTIVERT TAB 25 MG PO PRN (14:22)
[2021-08-24] MEDS: CRESTOR TAB 10 MG PO SCH (20:51)
[2021-08-24] MEDS: REQUIP PO SCH (20:52)
[2021-08-24] MEDS: FLOMAX PO SCH (20:55)
[2021-08-24] MEDS: SINGULAIR TAB 10 MG PO SCH (20:56)
[2021-08-24] MEDS: OXYBUTYNIN CHLORIDE ER PO SCH (20:59)
[2021-08-24] MEDS: FIORICET TAB PO PRN (21:29)
[2021-08-24] MEDS: RESTORIL CAP 15 MG PO PRN (23:17)
[2021-08-25] MEDS ORDERED: POTASSIUM CHL 60 MEQ/NS 0.45% 500 ML IV PRN (04:17)
[2021-08-25] MEDS ORDERED: K-RIDER 10 MEQ/NS 100 ML 10 MEQ/100 ML BAG IV PRN (04:17)
[2021-08-25] MEDS ORDERED: POTASSIUM CHL 40 MEQ/NS 0.45% 500 ML IV PRN (04:17)
[2021-08-25] MEDS ORDERED: POTASSIUM CHLORIDE LIQ 20 MEQ UDC PO PRN (04:17)
[2021-08-25] MEDS ORDERED: MICRO K EXTEN CAP 10 MEQ PO PRN (04:17)
[2021-08-25 05:53] LABS: BASOPHILS % (AUTO) 0.7 % (0.2-1.0); EOSINOPHILS # (AUTO) 0.3 x10^3/uL (0.0-0.2); EOSINOPHILS % (AUTO) 5.6 % (0.9-2.9); HEMATOCRIT 27.3 % (42.0-54.0); HEMOGLOBIN 9.2 g/dL (13.5-18.0); LYMPHOCYTES # (AUTO) 1.2 X10^3/uL (1.3-2.9); LYMPHOCYTES % (AUTO) 21.6 % (21.0-51.0); MEAN CORPUSCULAR HEMOGLOBIN 31.1 pg (27.0-34.0); MEAN CORPUSCULAR HGB CONC 33.7 g/dL (33.0-35.0); MEAN CORPUSCULAR VOLUME 92.4 fL (80.0-100.0); MEAN PLATELET VOLUME 7.7 fL (7.4-11.0); MONOCYTES # (AUTO) 0.9 x10^3/uL (0.3-0.8); MONOCYTES % (AUTO) 16.9 % (0.0-13.0); NEUTROPHILS % (AUTO) 55.2 % (42.0-75.0); RED BLOOD COUNT 2.96 X10^6/uL (4.7-6.0); RED CELL DISTRIBUTION WIDTH 17.4 % (11.6-16.5); WHITE BLOOD COUNT 5.5 X10^3/uL (3.6-10.0)
[2021-08-25] MEDS: KLOR-CON PO PRN ×2 (05:54→21:19)
[2021-08-25 06:03] LABS: ALANINE AMINOTRANSFERASE 19 Units/L (12-78); ALBUMIN 2.8 g/dL (3.4-5.0); ALKALINE PHOSPHATASE 123 Units/L (46-116); ASPARTATE AMINO TRANSFERASE 20 Units/L (15-37); BLOOD UREA NITROGEN 18 mg/dL (7-18); CALCIUM 8.7 mg/dL (8.5-10.1); CARBON DIOXIDE 33.8 mmol/L (21-32); CHLORIDE 101 mmol/L (98-107); COR CA(FOR HYPOALB) 9.7 mg/dL (8.5-10.1); CREATININE 1.42 mg/dL (0.70-1.30); SODIUM 139 mmol/L (136-145); TOTAL PROTEIN 7.2 g/dL (6.4-8.2); eGFR NON BLACK RACES 53 (>60)
[2021-08-25] MEDS: MICRO K EXTEN CAP 10 MEQ PO SCH ×2 (08:19→21:15)
[2021-08-25] MEDS: NEURONTIN CAP 300 MG PO SCH ×2 (08:19→21:15)
[2021-08-25] MEDS: ASPIRIN EC 81 MG PO SCH (08:19)
[2021-08-25] MEDS: FLONASE NASAL SPRAY ENOSTRIL SCH (08:19)
[2021-08-25] MEDS: FERROUS GLUCONATE PO SCH (08:19)
[2021-08-25] MEDS: PriLOSEC PO SCH ×2 (08:20→21:16)
[2021-08-25] MEDS: PLAVIX PO SCH (08:20)
[2021-08-25] MEDS: PROzac PO SCH ×2 (08:20→21:17)
[2021-08-25] MEDS: ANTIVERT TAB 25 MG PO PRN (08:21)
[2021-08-25] MEDS: ZyrTEC TAB 10 MG PO SCH (08:21)
[2021-08-25] MEDS: SYNTHROID 75 mcg TAB PO SCH (08:21)
[2021-08-25] MEDS: WELLBUTRIN XL 150 MG (DAILY) PO SCH (08:21)
[2021-08-25] MEDS: LASIX PO SCH ×2 (08:26→21:14)
[2021-08-25 08:30] VITALS: BMI 33.6
[2021-08-25] MEDS: VIBRAMYCIN PO SCH ×2 (10:26→21:18)
[2021-08-25] MEDS: BACTRIM DS TAB PO SCH ×2 (10:26→21:13)
--- NOTE | 2021-08-25 18:14 | PCM.PROG ---
Progress Note Progress Note for Day of Date of Exam: 08/25/21 Subjective Subjective: IS CURRENTLY INPATIENT, SWINGBED STATUS FOR PHYSICAL AND REHAB DUE TO GENERALIZED WEAKNES, ACUTE CONFUSION, FREQUENT FALLS, ALL OF WHICH STARTED AFTER A RECENT SUBDURAL HEMATOMA. HE HAS A PMH OF CHF, GERD, HYPOTHYROIDISM, HYPERLIPIDEMIA, ANXIETY, COPD, AND SLEEP APNEA. TODAY, HE IS ALERT AND ORIENTED, SITTING UP ON THE SIDE OF THE BED ON MORNING ROUNDS. NURSING STAFF REPORTS THAT PATIENT HAS GOTTEN OUT OF BED BY HIMSELF ON MULTIPLE OCCASIONS. YESTERDAY, PATIENT GOT OUT OF BED AND FELL ONTO THE FLOOR. BED ALARM WAS APPARTENTLY SET, BUT PATIENT WAS ABLE TO GET UP BEFORE STAFF MADE IT TO HIS ROOM. TODAY, HE COMPLAINS OF LEFT ELBOW PAIN. PAIN STARTED AFTER HE FELL. STAFF REPORTS THAT HE HAS CONFUSION AND AGITATION AT TIMES. ON EXAMINATION, HEART IS REGULAR IN RATE AND RHYTHM. BILATERAL LUNGS NOTED WITH DIMINISHED LUNG SOUNDS THROUGHOUT. ABDOMEN IS ROUND, SOFT, AND NON-TENDER WITH NORMAL BOWEL SOUNDS NOTED IN ALL QUADRANTS. PEG TUBE NOTED TO ABDOMEN. THERE IS A MILD AMOUNT OF PURULENT DRAINAGE NOTED AROUND INSERTION SITE OF PEG TUBE. PEG TUBE IS NOT BEING USED, HE HAS BEEN ABLE TO EAT BY MOUTH. THERE IS SOME MILD EDEMA TO THE LEFT ELBOW. TRACE LOWER EXTREMITY EDEMA NOTED. HE IS CURRENTLY RECEIVING RESTROIL 15MG PO HS, TAMSULOSIN 0.4MG PO HS, CRESTOR 20MG PO HS, REQUIP 2MG PO HS, MICRO K 10MEQ PO BID, ROXICODONE 5MG PO Q6H PRN, OXYBUTYNIN 10MG PO HS, OMEPRAZOLE 20MG PO BID, SINGULAIR 10MG PO HS, MECLIZINE 25MG PO HS PRN, LEVOTHYROXINE 75MCG PO DAILY, GABAPENTIN 300MG PO BID, FUROSEMIDE 20MG PO BID, FLONASE 2 SPRAYS EACH NOSTRIL DAILY, PROZAC 20MG PO BID, FERROUS GLUCONATE 324MG PO DAILY, PLAVIX 75MG PO DAILY, ZYRTEC 10MG PO DAILY, COREG 3.125MG PO BID, WELLBUTRIN 150MG PO DAILY, ASPIRIN 81MG PO DAILY, FIORICET 1 TABLET PO Q4H PRN, AND VOLTAREN GEL QID PRN. A LEFT ELBOW XRAY WAS OBTAINED YESTERDAY. WE ARE WAITING ON XRAY TO BE READ. WE WILL CONTINUE WITH CURRENT PLAN OF CARE TODAY. PHYSICAL/OCCUPATIONAL THERAPIES HAVE BEEN WORKING WITH HIM DAILY. HE HAS BEEN COOPERATIVE WITH THERAPY. WE EMMANUELLE CONTINUE WITH CURRENT PLAN OF CARE TODAY. OTHERWISE, WE PLAN TO FOLLOW-UP WITH AM LABS AND CONTINUE TO MONITOR. I was called about the patient's blood pressure last night and he was running low. I stopped his Maxide and again he was slightly hypotensive again this morning. He is still taking Coreg 3.125 mg twice daily so wanted to stop that. We will foot follow his blood pressure closely to see if I need to restart it over the next day or so. No other problems through the night last night and he voices no new concerns. Past Medical Family Social History Past Med/Fam/Surg Hx: No changes since H&P Allergies: Allergies cilastatin [From Primaxin] Allergy (Verified 06/22/21 17:35) clarithromycin [From Biaxin] Allergy (Verified 06/22/21 17:35) imipenem [From Primaxin] Allergy (Verified 06/22/21 17:35) Review of Systems ROS: No change since H&P Vital Signs and I&O's Vital Signs: Temperature 97.4 F Pulse Rate [Left Brachial] 117 Pulse Rate [Left] 65 Respiratory Rate 20 Blood Pressure [Left Arm] 135/82 Blood Pressure [Right Arm] 98/53 Blood Pressure 138/63 O2 Sat by Pulse Oximetry 98 Intake and Output: Intake & Output 08/23/21 08/24/21 08/25/21 08/26/21 11:59 11:59 11:59 11:59 Intake Total 2460 / 2460 0 / 1880 2069 450 / 450 Balance 2460 / 2460 1880 / 1880 2069 450 / 450 Physical Exam Oriented: Normal Eyes: Normal Ear: Normal Nose: Normal Throat: Normal Respiratory: Generalized and Diminished Cardiovascular: Normal : Normal Auscultation: Bowel Sounds: Normal Palpation: Normal Tenderness: Normal Skin: Bruising (SCATTERED ) Musculoskeletal: Left, Elbow, Back:Lumbar, Swelling and Tender Psychiatric: Normal Mood Description: Calm Affect: Normal Speech Pattern: Clear and Appropriate Laboratory and Diagnostics Result Diagrams: 08/25/21 05:22 08/25/21 09:45 Labs: 08/22/21 06:18 Peg Tube Wound Gram Stain - Final 08/22/21 06:18 Peg Tube Wound Culture - Preliminary Laboratory WBC 5.5 X10^3/uL (3.6-10.0) 08/25/21 05:22 RBC 2.96 X10^6/uL (4.7-6.0) L 08/25/21 05:22 Hgb 9.2 g/dL (13.5-18.0) L 08/25/21 05:22 Hct 27.3 % (42.0-54.0) L 08/25/21 05:22 MCV 92.4 fL (80.0-100.0) 08/25/21 05:22 MCH 31.1 pg (27.0-34.0) 08/25/21 05:22 MCHC 33.7 g/dL (33.0-35.0) 08/25/21 05:22 RDW 17.4 % (11.6-16.5) H 08/25/21 05:22 Plt Count 207 X10^3/uL (150.0-450.0) 08/25/21 05:22 MPV 7.7 fL (7.4-11.0) 08/25/21 05:22 Neut % (Auto) 55.2 % (42.0-75.0) 08/25/21 05:22 Lymph % (Auto) 21.6 % (21.0-51.0) 08/25/21 05:22 [place] % (Auto) 16.9 % (0.0-13.0) H 08/25/21 05:22 Eos % (Auto) 5.6 % (0.9-2.9) H 08/25/21 05:22 Baso % (Auto) 0.7 % (0.2-1.0) 08/25/21 05:22 Neut # (Auto) 3.0 x10^3/uL (2.2-4.8) 08/25/21 05:22 Lymph # (Auto) 1.2 X10^3/uL (1.3-2.9) L 08/25/21 05:22 [place] # (Auto) 0.9 x10^3/uL (0.3-0.8) H 08/25/21 05:22 Eos # (Auto) 0.3 x10^3/uL (0.0-0.2) H 08/25/21 05:22 Baso # (Auto) 0.0 X10^3/uL (0.0-0.1) 08/25/21 05:22 Absolute Nucleated RBC 0.1 /100WBC 08/25/21 05:22 Sodium 139 mmol/L (136-145) 08/25/21 05:22 Corrected Sodium TNP 08/25/21 05:22 Potassium 3.7 mmol/L (3.5-5.1) 08/25/21 09:45 Chloride 101 mmol/L (98-107) 08/25/21 05:22 Carbon Dioxide 33.8 mmol/L (21-32) H 08/25/21 05:22 BUN 18 mg/dL (7-18) 08/25/21 05:22 Creatinine 1.42 mg/dL (0.70-1.30) H 08/25/21 05:22 Est GFR (MDRD) Af Amer > 60 (>60) 08/25/21 05:22 Est GFR (MDRD) Non-Af 53 (>60) L 08/25/21 05:22 Glucose 93 mg/dL (65-99) 08/25/21 05:22 Calcium 8.7 mg/dL (8.5-10.1) 08/25/21 05:22 Corrected Calcium 9.7 mg/dL (8.5-10.1) 08/25/21 05:22 Magnesium 1.8 mg/dL (1.7-2.9) 08/25/21 05:22 Total Bilirubin 0.50 mg/dL (0.2-1.0) 08/25/21 05:22 AST 20 Units/L (15-37) 08/25/21 05:22 ALT 19 Units/L (12-78) 08/25/21 05:22 Alkaline Phosphatase 123 Units/L (46-116) H 08/25/21 05:22 B-Natriuretic Peptide 207 pg/mL (0-79) H 08/16/21 15:40 Total Protein 7.2 g/dL (6.4-8.2) 08/25/21 05:22 Albumin 2.8 g/dL (3.4-5.0) L 08/25/21 05:22 Globulin 4.4 g/dL (2.5-4.5) 08/25/21 05:22 Albumin/Globulin Ratio 0.6 Ratio (1.1-2.1) L 08/25/21 05:22 Specimen Type Clean catch urine 08/21/21 06:36 Urine Color Yellow (YELLOW) 08/21/21 06:36 Urine Appearance Clear (CLEAR) 08/21/21 06:36 Urine pH 6.0 (5.0 - 8.0) 08/21/21 06:36 Ur Specific [place] 1.010 (1.000-1.030) 08/21/21 06:36 Urine Protein Negative (NEGATIVE) 08/21/21 06:36 Urine Glucose (UA) Negative (NEGATIVE) 08/21/21 06:36 Urine Ketones Negative (NEGATIVE) 08/21/21 06:36 Urine Blood Negative (NEGATIVE) 08/21/21 06:36 Urine Nitrite Negative (NEGATIVE) 08/21/21 06:36 Urine Bilirubin Negative (NEGATIVE) 08/21/21 06:36 Urine Urobilinogen Normal (NORMAL) 08/21/21 06:36 Ur Leukocyte Esterase Negative (NEGATIVE) 08/21/21 06:36 SARS-CoV-2 (PCR) Negative (NEGATIVE) 08/16/21 15:45 Plan (1) Chronic subdural hematoma: Status: Acute Plan: PHYSICAL/OCCUPATIONAL THERAPIES, VOLTAREN GEL, RESUME HOME MEDICATIONS (2) Left elbow pain: Status: Acute (3) Generalized weakness: Status: Acute (4) Acute confusion: Status: Acute (5) Anxiety about health: Status: Acute (6) GERD (gastroesophageal reflux disease): Status: Chronic Qualifiers: Esophagitis presence: esophagitis presence not specified Qualified Code(s): K21.9 - Gastro-esophageal reflux disease without esophagitis (7) Hypothyroidism: Status: Chronic Qualifiers: Hypothyroidism type: acquired Qualified Code(s): E03.9 - Hypothyroidism, unspecified (8) Hyperlipidemia: Status: Chronic Qualifiers: Hyperlipidemia type: mixed hyperlipidemia Qualified Code(s): E78.2 - Mixed hyperlipidemia (9) COPD (chronic obstructive pulmonary disease): Status: Chronic Qualifiers: COPD type: unspecified COPD Qualified Code(s): J44.9 - Chronic obstructive pulmonary disease, unspecified (10) Sleep apnea: Status: Chronic Qualifiers: Sleep apnea type: unspecified type Qualified Code(s): G47.30 - Sleep apnea, unspecified (11) Hypotension: Status: Acute Plan: Continue to DC Maxide. DC Coreg 3.125 mg p.o. twice daily at this time. Monitor blood pressure over the next few days to see if we need to restart the Coreg.
[2021-08-25] MEDS: CRESTOR TAB 10 MG PO SCH (21:13)
[2021-08-25] MEDS: FLOMAX PO SCH (21:14)
[2021-08-25] MEDS: OXYBUTYNIN CHLORIDE ER PO SCH (21:16)
[2021-08-25] MEDS: REQUIP PO SCH (21:17)
[2021-08-25] MEDS: SINGULAIR TAB 10 MG PO SCH (21:18)
[2021-08-25] MEDS: RESTORIL CAP 15 MG PO PRN (21:19)
[2021-08-26] MEDS ORDERED: MAGNESIUM SULFATE 1 GRAM/100 mL PREMIX 1 G/100 ML BAG IV PRN (05:00)
[2021-08-26] MEDS: KLOR-CON PO PRN (06:59)
[2021-08-26] MEDS: FERROUS GLUCONATE PO SCH (08:45)
[2021-08-26] MEDS: ASPIRIN EC 81 MG PO SCH (08:45)
[2021-08-26] MEDS: FLONASE NASAL SPRAY ENOSTRIL SCH (08:45)
[2021-08-26] MEDS: BACTRIM DS TAB PO SCH ×2 (08:45→20:36)
[2021-08-26] MEDS: NEURONTIN CAP 300 MG PO SCH ×2 (08:46→20:44)
[2021-08-26] MEDS: PLAVIX PO SCH (08:46)
[2021-08-26] MEDS: MICRO K EXTEN CAP 10 MEQ PO SCH ×2 (08:46→20:45)
[2021-08-26] MEDS: PriLOSEC PO SCH ×2 (08:46→20:43)
[2021-08-26] MEDS: LASIX PO SCH ×2 (08:46→20:44)
[2021-08-26] MEDS: WELLBUTRIN XL 150 MG (DAILY) PO SCH (08:47)
[2021-08-26] MEDS: ZyrTEC TAB 10 MG PO SCH (08:47)
[2021-08-26] MEDS: VIBRAMYCIN PO SCH ×2 (08:47→20:42)
[2021-08-26] MEDS: PROzac PO SCH ×2 (08:47→20:43)
[2021-08-26] MEDS: SYNTHROID 75 mcg TAB PO SCH (08:47)
[2021-08-26] MEDS: MAG-OX TAB PO SCH ×2 (09:14→17:43)
[2021-08-26] MEDS: COREG TAB 3.125 MG PO SCH ×2 (09:14→20:40)
[2021-08-26] MEDS ORDERED: STERILE WATER IRRIGATION IR ONE (20:06)
[2021-08-26] MEDS: CRESTOR TAB 10 MG PO SCH (20:39)
[2021-08-26] MEDS: OXYBUTYNIN CHLORIDE ER PO SCH (20:41)
[2021-08-26] MEDS: REQUIP PO SCH (20:42)
[2021-08-26] MEDS: SINGULAIR TAB 10 MG PO SCH (20:44)
[2021-08-26] MEDS: FLOMAX PO SCH (20:45)
[2021-08-26] MEDS: RESTORIL CAP 15 MG PO PRN (20:46)
[2021-08-27] MEDS: ASPIRIN EC 81 MG PO SCH (09:14)
[2021-08-27] MEDS: BACTRIM DS TAB PO SCH (09:14)
[2021-08-27] MEDS: WELLBUTRIN XL 150 MG (DAILY) PO SCH (09:14)
[2021-08-27] MEDS: NEURONTIN CAP 300 MG PO SCH ×2 (09:14→21:45)
[2021-08-27] MEDS: K-DUR TAB 20 MEQ PO PRN (09:14)
[2021-08-27] MEDS: VIBRAMYCIN PO SCH ×2 (09:14→21:45)
[2021-08-27] MEDS: PriLOSEC PO SCH ×2 (09:14→21:45)
[2021-08-27] MEDS: PLAVIX PO SCH (09:15)
[2021-08-27] MEDS: ZyrTEC TAB 10 MG PO SCH (09:15)
[2021-08-27] MEDS: COREG TAB 3.125 MG PO SCH ×2 (09:15→21:45)
[2021-08-27] MEDS: FERROUS GLUCONATE PO SCH (09:15)
[2021-08-27] MEDS: PROzac PO SCH ×2 (09:15→21:45)
[2021-08-27] MEDS: MICRO K EXTEN CAP 10 MEQ PO SCH ×2 (09:16→21:45)
[2021-08-27] MEDS: SYNTHROID 75 mcg TAB PO SCH (09:16)
[2021-08-27] MEDS: FLONASE NASAL SPRAY ENOSTRIL SCH (09:16)
[2021-08-27] MEDS: LASIX PO SCH ×2 (09:16→21:45)
[2021-08-27] MEDS: MAG-OX TAB PO SCH (18:10)
[2021-08-27] MEDS: CRESTOR TAB 10 MG PO SCH (21:45)
[2021-08-27] MEDS: OXYBUTYNIN CHLORIDE ER PO SCH (21:45)
[2021-08-27] MEDS: SINGULAIR TAB 10 MG PO SCH (21:45)
[2021-08-27] MEDS: REQUIP PO SCH (21:45)
[2021-08-27] MEDS: FLOMAX PO SCH (21:45)
[2021-08-28 06:29] LABS: BASOPHILS # (AUTO) 0.1 X10^3/uL (0.0-0.1); BASOPHILS % (AUTO) 0.6 % (0.2-1.0); EOSINOPHILS # (AUTO) 0.3 x10^3/uL (0.0-0.2); EOSINOPHILS % (AUTO) 3.9 % (0.9-2.9); HEMATOCRIT 23.2 % (42.0-54.0); LYMPHOCYTES % (AUTO) 11.7 % (21.0-51.0); MEAN CORPUSCULAR HEMOGLOBIN 32.3 pg (27.0-34.0); MEAN CORPUSCULAR HGB CONC 34.6 g/dL (33.0-35.0); MEAN CORPUSCULAR VOLUME 93.3 fL (80.0-100.0); MEAN PLATELET VOLUME 7.7 fL (7.4-11.0); MONOCYTES # (AUTO) 1.1 x10^3/uL (0.3-0.8); MONOCYTES % (AUTO) 13.3 % (0.0-13.0); NEUTROPHILS # (AUTO) 5.8 x10^3/uL (2.2-4.8); NEUTROPHILS % (AUTO) 70.5 % (42.0-75.0); RED BLOOD COUNT 2.48 X10^6/uL (4.7-6.0); RED CELL DISTRIBUTION WIDTH 17.7 % (11.6-16.5); WHITE BLOOD COUNT 8.3 X10^3/uL (3.6-10.0)
[2021-08-28 06:52] LABS: ALANINE AMINOTRANSFERASE 16 Units/L (12-78); ALBUMIN 2.5 g/dL (3.4-5.0); ALKALINE PHOSPHATASE 121 Units/L (46-116); ASPARTATE AMINO TRANSFERASE 19 Units/L (15-37); BLOOD UREA NITROGEN 19 mg/dL (7-18); CALCIUM 8.3 mg/dL (8.5-10.1); CARBON DIOXIDE 30.6 mmol/L (21-32); CHLORIDE 103 mmol/L (98-107); COR CA(FOR HYPOALB) 9.5 mg/dL (8.5-10.1); CREATININE 1.45 mg/dL (0.70-1.30); MAGNESIUM 1.6 mg/dL (1.7-2.9); SODIUM 140 mmol/L (136-145); TOTAL PROTEIN 6.4 g/dL (6.4-8.2); eGFR NON BLACK RACES 51 (>60)
[2021-08-28] MEDS: COREG TAB 3.125 MG PO SCH ×2 (08:57→21:01)
[2021-08-28] MEDS: ASPIRIN EC 81 MG PO SCH (08:57)
[2021-08-28] MEDS: FLONASE NASAL SPRAY ENOSTRIL SCH (08:58)
[2021-08-28] MEDS: FERROUS GLUCONATE PO SCH (08:58)
[2021-08-28] MEDS: LASIX PO SCH ×2 (08:59→21:04)
[2021-08-28] MEDS: MICRO K EXTEN CAP 10 MEQ PO SCH ×2 (08:59→21:04)
[2021-08-28] MEDS: NEURONTIN CAP 300 MG PO SCH ×2 (09:00→21:04)
[2021-08-28] MEDS: PROzac PO SCH ×2 (09:00→21:03)
[2021-08-28] MEDS: PriLOSEC PO SCH ×2 (09:01→21:03)
[2021-08-28] MEDS: SYNTHROID 75 mcg TAB PO SCH (09:01)
[2021-08-28] MEDS: WELLBUTRIN XL 150 MG (DAILY) PO SCH (09:02)
[2021-08-28] MEDS: ZyrTEC TAB 10 MG PO SCH (09:02)
[2021-08-28] MEDS: VIBRAMYCIN PO SCH ×2 (09:02→21:02)
[2021-08-28] MEDS: PLAVIX PO SCH (09:30)
[2021-08-28] MEDS: MAG-OX TAB PO SCH (18:48)
--- NOTE | 2021-08-28 19:26 | PCM.PROG ---
Progress Note Progress Note for Day of Date of Exam: 08/28/21 Subjective Subjective: IS A PATIENT OF . HE IS CURRENTLY INPATIENT, SWINGBED STATUS FOR PHYSICAL AND REHAB DUE TO GENERALIZED WEAKNES, ACUTE CONFUSION, FREQUENT FALLS, ALL OF WHICH STARTED AFTER A RECENT SUBDURAL HEMATOMA. HE HAS A PMH OF CHF, GERD, HYPOTHYROIDISM, HYPERLIPIDEMIA, ANXIETY, COPD, AND SLEEP APNEA. TODAY, HE IS ALERT AND ORIENTED, SITTING UP ON THE SIDE OF THE BED ON MORNING ROUNDS. NURSING STAFF REPORTS THAT PATIENT HAS GOTTEN OUT OF BED BY HIMSELF ON MULTIPLE OCCASIONS SINCE ADMISSION AND HAS FALLEN A FEW TIMES. STAFF REPORTS THAT HE HAS CONFUSION AND AGITATION AT TIMES. ON EXAMINATION, HEART IS REGULAR IN RATE AND RHYTHM. BILATERAL LUNGS NOTED WITH DIMINISHED LUNG SOUNDS THROUGHOUT. ABDOMEN IS ROUND, SOFT, AND NON-TENDER WITH NORMAL BOWEL SOUNDS NOTED IN ALL QUADRANTS. PEG TUBE NOTED TO ABDOMEN. PEG TUBE IS NOT BEING USED, HE HAS BEEN ABLE TO EAT BY MOUTH. THERE IS MILD BRUISING TO THE LEFT ELBOW. CT OBTAINED LAST WEEK REVEALED A TINY CHIP FX OF THE TIP OF THE CORONID PROCESS OF THE [place] WHICH COULD BE ACUTE, SUBACUTE, OR OLD. TRACE LOWER EXTREMITY EDEMA NOTED. HE IS CURRENTLY RECEIVING RESTROIL 15MG PO HS, TAMSULOSIN 0.4MG PO HS, CRESTOR 20MG PO HS, REQUIP 2MG PO HS, MICRO K 10MEQ PO BID, ROXICODONE 5MG PO Q6H PRN, OXYBUTYNIN 10MG PO HS, OMEPRAZOLE 20MG PO BID, SINGULAIR 10MG PO HS, MECLIZINE 25MG PO HS PRN, LEVOTHYROXINE 75MCG PO DAILY, GABAPENTIN 300MG PO BID, FUROSEMIDE 20MG PO BID, FLONASE 2 SPRAYS EACH NOSTRIL DAILY, PROZAC 20MG PO BID, FERROUS GLUCONATE 324MG PO DAILY, PLAVIX 75MG PO DAILY, ZYRTEC 10MG PO DAILY, WELLBUTRIN 150MG PO DAILY, ASPIRIN 81MG PO DAILY, FIORICET 1 TABLET PO Q4H PRN, AND VOLTAREN GEL QID PRN. HIS MAXIDE AND COREG WERE HELD YESTERDAY DUE TO HYPOTENSION. BLOOD PRESSURE HAS COME UP SINCE HOLDING THEM. WE WILL CONTINUE WITH CURRENT PLAN OF CARE TODAY. PHYSICAL/OCCUPATIONAL THERAPIES HAVE BEEN WORKING WITH HIM DAILY. THEY REPORT THAT HE REQUIRES CONSTANT VERBAL CUES FOR SAFETY WITH PATIENT BEING EASILY DI STRACTED. WE WILL CONTINUE WITH CURRENT PLAN OF CARE TODAY. OTHERWISE, WE PLAN TO FOLLOW-UP WITH LABS AND CONTINUE TO MONITOR. TIME SPENT ON CLINICAL ASSESSMENT, REVIEWING LABS AND IMAGING, DECISION MAKING, AND DOCUMENTATION GREATER THAN 75 MINUTES. Past Medical Family Social History Past Med/Fam/Surg Hx: No changes since H&P Allergies: Allergies cilastatin [From Primaxin] Allergy (Verified 06/22/21 17:35) clarithromycin [From Biaxin] Allergy (Verified 06/22/21 17:35) imipenem [From Primaxin] Allergy (Verified 06/22/21 17:35) Review of Systems ROS: No change since H&P Vital Signs and I&O's Vital Signs: Temperature 98.3 F Pulse Rate [Left Brachial] 96 Pulse Rate [Left] 65 Respiratory Rate 20 Blood Pressure [Left Arm] 133/57 Blood Pressure [Right Arm] 98/53 Blood Pressure 138/63 O2 Sat by Pulse Oximetry 95 Intake and Output: Intake & Output 08/26/21 08/27/21 08/28/21 08/29/21 11:59 11:59 11:59 11:59 Intake Total 1450 / 1450 194 / 1940 680 / 680 360 / 360 Output Total 300 / 300 240 / 240 Balance 1150 / 1150 1940 / 1940 680 / 680 120 / 120 Physical Exam Oriented: Normal Eyes: Normal Ear: Normal Nose: Normal Throat: Normal Respiratory: Generalized and Diminished Cardiovascular: Normal : Normal Auscultation: Bowel Sounds: Normal Tenderness: Normal Skin: Bruising (SCATTERED ) Musculoskeletal: Left, Elbow, Back:Lumbar, Swelling and Tender Psychiatric: Normal Mood Description: Calm Affect: Normal Speech Pattern: Clear and Appropriate Laboratory and Diagnostics Result Diagrams: 08/28/21 05:42 08/28/21 05:42 Labs: 08/22/21 06:18 Peg Tube Wound Gram Stain - Final 08/22/21 06:18 Peg Tube Wound Culture - Final Staphylococcus Haemolyticus Laboratory WBC 8.3 X10^3/uL (3.6-10.0) 08/28/21 05:42 RBC 2.48 X10^6/uL (4.7-6.0) L 08/28/21 05:42 Hgb 8.0 g/dL (13.5-18.0) L 08/28/21 05:42 Hct 23.2 % (42.0-54.0) L 08/28/21 05:42 MCV 93.3 fL (80.0-100.0) 08/28/21 05:42 MCH 32.3 pg (27.0-34.0) 08/28/21 05:42 MCHC 34.6 g/dL (33.0-35.0) 08/28/21 05:42 RDW 17.7 % (11.6-16.5) H 08/28/21 05:42 Plt Count 180 X10^3/uL (150.0-450.0) 08/28/21 05:42 MPV 7.7 fL (7.4-11.0) 08/28/21 05:42 Neut % (Auto) 70.5 % (42.0-75.0) 08/28/21 05:42 Lymph % (Auto) 11.7 % (21.0-51.0) L 08/28/21 05:42 [place] % (Auto) 13.3 % (0.0-13.0) H 08/28/21 05:42 Eos % (Auto) 3.9 % (0.9-2.9) H 08/28/21 05:42 Baso % (Auto) 0.6 % (0.2-1.0) 08/28/21 05:42 Neut # (Auto) 5.8 x10^3/uL (2.2-4.8) H 08/28/21 05:42 Lymph # (Auto) 1.0 X10^3/uL (1.3-2.9) L 08/28/21 05:42 [place] # (Auto) 1.1 x10^3/uL (0.3-0.8) H 08/28/21 05:42 Eos # (Auto) 0.3 x10^3/uL (0.0-0.2) H 08/28/21 05:42 Baso # (Auto) 0.1 X10^3/uL (0.0-0.1) 08/28/21 05:42 Absolute Nucleated RBC 0.0 /100WBC 08/28/21 05:42 Sodium 140 mmol/L (136-145) 08/28/21 05:42 Corrected Sodium TNP 08/28/21 05:42 Potassium 3.9 mmol/L (3.5-5.1) 08/28/21 05:42 Chloride 103 mmol/L (98-107) 08/28/21 05:42 Carbon Dioxide 30.6 mmol/L (21-32) 08/28/21 05:42 BUN 19 mg/dL (7-18) H 08/28/21 05:42 Creatinine 1.45 mg/dL (0.70-1.30) H 08/28/21 05:42 Est GFR (MDRD) Af Amer > 60 (>60) 08/28/21 05:42 Est GFR (MDRD) Non-Af 51 (>60) L 08/28/21 05:42 Glucose 85 mg/dL (65-99) 08/28/21 05:42 Calcium 8.3 mg/dL (8.5-10.1) L 08/28/21 05:42 Corrected Calcium 9.5 mg/dL (8.5-10.1) 08/28/21 05:42 Magnesium 1.6 mg/dL (1.7-2.9) L 08/28/21 05:42 Total Bilirubin 0.40 mg/dL (0.2-1.0) 08/28/21 05:42 AST 19 Units/L (15-37) 08/28/21 05:42 ALT 16 Units/L (12-78) 08/28/21 05:42 Alkaline Phosphatase 121 Units/L (46-116) H 08/28/21 05:42 B-Natriuretic Peptide 207 pg/mL (0-79) H 08/16/21 15:40 Total Protein 6.4 g/dL (6.4-8.2) 08/28/21 05:42 Albumin 2.5 g/dL (3.4-5.0) L 08/28/21 05:42 Globulin 3.9 g/dL (2.5-4.5) 08/28/21 05:42 Albumin/Globulin Ratio 0.6 Ratio (1.1-2.1) L 08/28/21 05:42 Specimen Type Clean catch urine 08/21/21 06:36 Urine Color Yellow (YELLOW) 08/21/21 06:36 Urine Appearance Clear (CLEAR) 08/21/21 06:36 Urine pH 6.0 (5.0 - 8.0) 08/21/21 06:36 Ur Specific [place] 1.010 (1.000-1.030) 08/21/21 06:36 Urine Protein Negative (NEGATIVE) 08/21/21 06:36 Urine Glucose (UA) Negative (NEGATIVE) 08/21/21 06:36 Urine Ketones Negative (NEGATIVE) 08/21/21 06:36 Urine Blood Negative (NEGATIVE) 08/21/21 06:36 Urine Nitrite Negative (NEGATIVE) 08/21/21 06:36 Urine Bilirubin Negative (NEGATIVE) 08/21/21 06:36 Urine Urobilinogen Normal (NORMAL) 08/21/21 06:36 Ur Leukocyte Esterase Negative (NEGATIVE) 08/21/21 06:36 SARS-CoV-2 (PCR) Negative (NEGATIVE) 08/26/21 01:50 Influenza Type A (PCR) Negative (NEGATIVE) 08/26/21 01:50 Influenza Type B (PCR) Negative (NEGATIVE) 08/26/21 01:50 RSV (PCR) Negative (NEGATIVE) 08/26/21 01:50 Plan (1) Chronic subdural hematoma: Status: Acute Plan: PHYSICAL/OCCUPATIONAL THERAPIES, VOLTAREN GEL, RESUME HOME MEDICATIONS (2) Left elbow pain: Status: Acute (3) Generalized weakness: Status: Acute (4) Acute confusion: Status: Acute (5) Anxiety about health: Status: Acute (6) GERD (gastroesophageal reflux disease): Status: Chronic Qualifiers: Esophagitis presence: esophagitis presence not specified Qualified Code(s): K21.9 - Gastro-esophageal reflux disease without esophagitis (7) Hypothyroidism: Status: Chronic Qualifiers: Hypothyroidism type: acquired Qualified Code(s): E03.9 - Hypothyroidism, unspecified (8) Hyperlipidemia: Status: Chronic Qualifiers: Hyperlipidemia type: mixed hyperlipidemia Qualified Code(s): E78.2 - Mixed hyperlipidemia (9) COPD (chronic obstructive pulmonary disease): Status: Chronic Qualifiers: COPD type: unspecified COPD Qualified Code(s): J44.9 - Chronic obstructive pulmonary disease, unspecified (10) Sleep apnea: Status: Chronic Qualifiers: Sleep apnea type: unspecified type Qualified Code(s): G47.30 - Sleep apnea, unspecified (11) Hypotension: Status: Acute Plan: RESOLVED, BUT CONTINUE TO HOLD MAXIDE AND COREG FOR A FEW DAYS. MAY HAVE TO END UP RESUMING COREG
[2021-08-28] MEDS: SINGULAIR TAB 10 MG PO SCH (21:02)
[2021-08-28] MEDS: REQUIP PO SCH (21:03)
[2021-08-28] MEDS: FLOMAX PO SCH (21:04)
[2021-08-28] MEDS: RESTORIL CAP 15 MG PO PRN (21:05)
[2021-08-28] MEDS: CRESTOR TAB 10 MG PO SCH (21:05)
[2021-08-28] MEDS: OXYBUTYNIN CHLORIDE ER PO SCH (21:10)
[2021-08-29] MEDS: ASPIRIN EC 81 MG PO SCH (08:30)
[2021-08-29] MEDS: LASIX PO SCH ×2 (08:31→21:30)
[2021-08-29] MEDS: COREG TAB 3.125 MG PO SCH ×2 (08:31→21:28)
[2021-08-29] MEDS: MICRO K EXTEN CAP 10 MEQ PO SCH ×2 (08:31→21:30)
[2021-08-29] MEDS: FERROUS GLUCONATE PO SCH (08:31)
[2021-08-29] MEDS: FLONASE NASAL SPRAY ENOSTRIL SCH (08:31)
[2021-08-29] MEDS: PROzac PO SCH ×2 (08:32→21:31)
[2021-08-29] MEDS: NEURONTIN CAP 300 MG PO SCH ×2 (08:32→21:31)
[2021-08-29] MEDS: PLAVIX PO SCH (08:32)
[2021-08-29] MEDS: PriLOSEC PO SCH ×2 (08:32→21:31)
[2021-08-29] MEDS: VIBRAMYCIN PO SCH ×2 (08:33→21:32)
[2021-08-29] MEDS: SYNTHROID 75 mcg TAB PO SCH (08:33)
[2021-08-29] MEDS: ZyrTEC TAB 10 MG PO SCH (08:33)
[2021-08-29] MEDS: WELLBUTRIN XL 150 MG (DAILY) PO SCH (08:33)
[2021-08-29] MEDS ORDERED: SEROquel TAB 25 mg PO ONE (09:29)
[2021-08-29] MEDS ORDERED: ATIVAN INJ 2 MG VIAL IM PRN (09:30)
[2021-08-29] MEDS ORDERED: HALDOL INJ IM PRN (09:30)
[2021-08-29] MEDS: MAG-OX TAB PO SCH (17:20)
[2021-08-29] MEDS: RESTORIL CAP 15 MG PO PRN (21:15)
[2021-08-29] MEDS: CRESTOR TAB 10 MG PO SCH (21:29)
[2021-08-29] MEDS: FLOMAX PO SCH (21:30)
[2021-08-29] MEDS: OXYBUTYNIN CHLORIDE ER PO SCH (21:31)
[2021-08-29] MEDS: SINGULAIR TAB 10 MG PO SCH (21:32)
[2021-08-29] MEDS: REQUIP PO SCH (21:32)
[2021-08-30] MEDS: ASPIRIN EC 81 MG PO SCH (09:45)
[2021-08-30] MEDS: COREG TAB 3.125 MG PO SCH ×2 (09:46→20:37)
[2021-08-30] MEDS: FERROUS GLUCONATE PO SCH (09:46)
[2021-08-30] MEDS: LASIX PO SCH ×2 (09:46→20:38)
[2021-08-30] MEDS: MICRO K EXTEN CAP 10 MEQ PO SCH ×2 (09:47→20:38)
[2021-08-30] MEDS: NEURONTIN CAP 300 MG PO SCH ×2 (09:47→20:38)
[2021-08-30] MEDS: FLONASE NASAL SPRAY ENOSTRIL SCH (09:47)
[2021-08-30] MEDS: PriLOSEC PO SCH ×2 (09:48→20:39)
[2021-08-30] MEDS: PROzac PO SCH ×2 (09:48→20:39)
[2021-08-30] MEDS: PLAVIX PO SCH (09:48)
[2021-08-30] MEDS: SYNTHROID 75 mcg TAB PO SCH (09:48)
[2021-08-30] MEDS: ZyrTEC TAB 10 MG PO SCH (09:49)
[2021-08-30] MEDS: VIBRAMYCIN PO SCH ×2 (09:49→20:40)
[2021-08-30] MEDS: MAG-OX TAB PO SCH (17:36)
[2021-08-30] MEDS ORDERED: STERILE WATER IRRIGATION IR ONE (20:12)
[2021-08-30] MEDS: CRESTOR TAB 10 MG PO SCH (20:37)
[2021-08-30] MEDS: OXYBUTYNIN CHLORIDE ER PO SCH (20:38)
[2021-08-30] MEDS: FLOMAX PO SCH (20:38)
[2021-08-30] MEDS: REQUIP PO SCH (20:39)
[2021-08-30] MEDS: SINGULAIR TAB 10 MG PO SCH (20:39)
[2021-08-30] MEDS: RESTORIL CAP 15 MG PO PRN (20:40)
[2021-08-31 06:02] LABS: BASOPHILS % (AUTO) 0.6 % (0.2-1.0); EOSINOPHILS # (AUTO) 0.3 x10^3/uL (0.0-0.2); EOSINOPHILS % (AUTO) 6.4 % (0.9-2.9); HEMATOCRIT 22.3 % (42.0-54.0); HEMOGLOBIN 7.5 g/dL (13.5-18.0); LYMPHOCYTES # (AUTO) 0.8 X10^3/uL (1.3-2.9); LYMPHOCYTES % (AUTO) 16.6 % (21.0-51.0); MEAN CORPUSCULAR HEMOGLOBIN 31.3 pg (27.0-34.0); MEAN CORPUSCULAR HGB CONC 33.6 g/dL (33.0-35.0); MEAN PLATELET VOLUME 7.7 fL (7.4-11.0); MONOCYTES # (AUTO) 0.8 x10^3/uL (0.3-0.8); MONOCYTES % (AUTO) 17.4 % (0.0-13.0); NEUTROPHILS # (AUTO) 2.7 x10^3/uL (2.2-4.8); RED CELL DISTRIBUTION WIDTH 17.3 % (11.6-16.5); WHITE BLOOD COUNT 4.5 X10^3/uL (3.6-10.0)
[2021-08-31 06:05] LABS: ALANINE AMINOTRANSFERASE 17 Units/L (12-78); ALBUMIN 2.4 g/dL (3.4-5.0); ALKALINE PHOSPHATASE 107 Units/L (46-116); ASPARTATE AMINO TRANSFERASE 19 Units/L (15-37); BLOOD UREA NITROGEN 17 mg/dL (7-18); CALCIUM 8.4 mg/dL (8.5-10.1); CARBON DIOXIDE 31.1 mmol/L (21-32); CHLORIDE 106 mmol/L (98-107); COR CA(FOR HYPOALB) 9.7 mg/dL (8.5-10.1); CREATININE 1.14 mg/dL (0.70-1.30); SODIUM 143 mmol/L (136-145); TOTAL PROTEIN 6.2 g/dL (6.4-8.2); eGFR NON BLACK RACES > 60 (>60)
[2021-08-31] MEDS: LASIX PO SCH ×2 (08:08→20:20)
[2021-08-31] MEDS: FLONASE NASAL SPRAY ENOSTRIL SCH (08:08)
[2021-08-31] MEDS: FERROUS GLUCONATE PO SCH (08:08)
[2021-08-31] MEDS: ASPIRIN EC 81 MG PO SCH (08:08)
[2021-08-31] MEDS: COREG TAB 3.125 MG PO SCH ×2 (08:08→21:19)
[2021-08-31] MEDS: PriLOSEC PO SCH ×2 (08:09→20:20)
[2021-08-31] MEDS: NEURONTIN CAP 300 MG PO SCH ×2 (08:09→20:20)
[2021-08-31] MEDS: MICRO K EXTEN CAP 10 MEQ PO SCH ×2 (08:09→20:20)
[2021-08-31] MEDS: PLAVIX PO SCH (08:09)
[2021-08-31] MEDS: VIBRAMYCIN PO SCH ×2 (08:10→20:20)
[2021-08-31] MEDS: ZyrTEC TAB 10 MG PO SCH (08:10)
[2021-08-31] MEDS: PROzac PO SCH ×2 (08:10→20:20)
[2021-08-31] MEDS: SYNTHROID 75 mcg TAB PO SCH (08:10)
[2021-08-31] MEDS: MAG-OX TAB PO SCH (17:22)
[2021-08-31] MEDS: OXYBUTYNIN CHLORIDE ER PO SCH (20:20)
[2021-08-31] MEDS: K-DUR TAB 20 MEQ PO PRN (20:20)
[2021-08-31] MEDS: REQUIP PO SCH (20:20)
[2021-08-31] MEDS: FLOMAX PO SCH (20:20)
[2021-08-31] MEDS: SINGULAIR TAB 10 MG PO SCH (20:20)
[2021-08-31] MEDS: CRESTOR TAB 10 MG PO SCH (20:20)
[2021-08-31] MEDS: RESTORIL CAP 15 MG PO PRN (20:20)
[2021-08-31] MEDS: FIORICET TAB PO PRN (23:08)
[2021-09-01 05:47] LABS: HEMATOCRIT 21.8 % (42.0-54.0); HEMOGLOBIN 7.4 g/dL (13.5-18.0)
[2021-09-01] MEDS: COREG TAB 3.125 MG PO SCH ×2 (08:44→20:40)
[2021-09-01] MEDS: LASIX PO SCH ×2 (08:45→20:40)
[2021-09-01] MEDS: FERROUS GLUCONATE PO SCH (08:45)
[2021-09-01] MEDS: PLAVIX PO SCH (08:46)
[2021-09-01] MEDS: MICRO K EXTEN CAP 10 MEQ PO SCH ×2 (08:46→20:40)
[2021-09-01] MEDS: NEURONTIN CAP 300 MG PO SCH ×2 (08:46→20:40)
[2021-09-01] MEDS: PriLOSEC PO SCH ×2 (08:47→20:40)
[2021-09-01] MEDS: PROzac PO SCH ×2 (08:48→20:40)
[2021-09-01] MEDS: ZyrTEC TAB 10 MG PO SCH (08:48)
[2021-09-01] MEDS: VIBRAMYCIN PO SCH ×2 (08:48→20:40)
[2021-09-01] MEDS: SYNTHROID 75 mcg TAB PO SCH (08:48)
[2021-09-01] MEDS: FLONASE NASAL SPRAY ENOSTRIL SCH (08:54)
[2021-09-01] MEDS: ASPIRIN EC 81 MG PO SCH (08:54)
--- NOTE | 2021-09-01 11:35 | PCM.PROG ---
Progress Note Progress Note for Day of Date of Exam: 09/01/21 Subjective Subjective: IS A PATIENT OF . HE IS CURRENTLY INPATIENT, SWINGBED STATUS FOR PHYSICAL AND REHAB DUE TO GENERALIZED WEAKNES, ACUTE CONFUSION, FREQUENT FALLS, ALL OF WHICH STARTED AFTER A RECENT SUBDURAL HEMATOMA. HE HAS A PMH OF CHF, GERD, HYPOTHYROIDISM, HYPERLIPIDEMIA, ANXIETY, COPD, AND SLEEP APNEA. THIS MORNING HE IS SITTING ON SIDE OF BED. PER NURSING STAFF PATIENT HAS BEEN DOING WELL WITH PHYSICAL THERAPY AND IS AMBULATING BETTER. PEG TUBE NOTED TO ABDOMEN. PEG TUBE IS NOT BEING USED, HE HAS BEEN ABLE TO EAT BY MOUTH. HE IS CURRENTLY RECEIVING RESTROIL 15MG PO HS, TAMSULOSIN 0.4MG PO HS, CRESTOR 20MG PO HS, REQUIP 2MG PO HS, MICRO K 10MEQ PO BID, ROXICODONE 5MG PO Q6H PRN, OXYBUTYNIN 10MG PO HS, OMEPRAZOLE 20MG PO BID, SINGULAIR 10MG PO HS, MECLIZINE 25MG PO HS PRN, LEVOTHYROXINE 75MCG PO DAILY, GABAPENTIN 300MG PO BID, FUROSEMIDE 20MG PO BID, FLONASE 2 SPRAYS EACH NOSTRIL DAILY, PROZAC 20MG PO BID, FERROUS GLUCONATE 324MG PO DAILY, PLAVIX 75MG PO DAILY, ZYRTEC 10MG PO DAILY, WELLBUTRIN 150MG PO DAILY, ASPIRIN 81MG PO DAILY, FIORICET 1 TABLET PO Q4H PRN, AND VOLTAREN GEL QID PRN. WE WILL CONTINUE WITH CURRENT PLAN OF CARE TODAY. PHYSICAL/OCCUPATIONAL THERAPIES HAVE BEEN WORKING WITH HIM DAILY. OTHERWISE, WE PLAN TO FOLLOW-UP WITH LABS AND CONTINUE TO M ONITOR. Past Medical Family Social History Past Med/Fam/Surg Hx: No changes since H&P Allergies: Allergies cilastatin [From Primaxin] Allergy (Verified 06/22/21 17:35) clarithromycin [From Biaxin] Allergy (Verified 06/22/21 17:35) imipenem [From Primaxin] Allergy (Verified 06/22/21 17:35) Review of Systems ROS: No change since H&P Vital Signs and I&O's Vital Signs: Temperature 98.6 F Pulse Rate [Left Brachial] 85 Pulse Rate [Left] 65 Respiratory Rate 20 Blood Pressure [Left Arm] 144/65 Blood Pressure [Right Arm] 98/53 Blood Pressure 138/63 O2 Sat by Pulse Oximetry 94 Intake and Output: Intake & Output 08/29/21 08/30/21 08/31/21 09/01/21 23:59 23:59 23:59 23:59 Intake Total 1570 / 1570 2120 / 2120 2480 / 2480 150 / 150 Output Total 200 / 200 Balance 1370 / 1370 2120 / 2120 2480 / 2480 150 / 150 Physical Exam Oriented: Normal Eyes: Normal Ear: Normal Nose: Normal Throat: Normal Respiratory: Generalized and Diminished Cardiovascular: Normal : Normal Auscultation: Bowel Sounds: Normal Tenderness: Normal Skin: Bruising (SCATTERED ) Musculoskeletal: Left, Elbow, Back:Lumbar, Swelling and Tender Psychiatric: Normal Mood Description: Calm Affect: Normal Speech Pattern: Clear and Appropriate Laboratory and Diagnostics Result Diagrams: 09/01/21 04:30 08/31/21 04:53 Labs: 08/22/21 06:18 Peg Tube Wound Gram Stain - Final 08/22/21 06:18 Peg Tube Wound Culture - Final Staphylococcus Haemolyticus Laboratory WBC 4.5 X10^3/uL (3.6-10.0) 08/31/21 04:53 RBC 2.40 X10^6/uL (4.7-6.0) L 08/31/21 04:53 Hgb 7.4 g/dL (13.5-18.0) L 09/01/21 04:30 Hct 21.8 % (42.0-54.0) L 09/01/21 04:30 MCV 93.0 fL (80.0-100.0) 08/31/21 04:53 MCH 31.3 pg (27.0-34.0) 08/31/21 04:53 MCHC 33.6 g/dL (33.0-35.0) 08/31/21 04:53 RDW 17.3 % (11.6-16.5) H 08/31/21 04:53 Plt Count 159 X10^3/uL (150.0-450.0) 08/31/21 04:53 MPV 7.7 fL (7.4-11.0) 08/31/21 04:53 Neut % (Auto) 59.0 % (42.0-75.0) 08/31/21 04:53 Lymph % (Auto) 16.6 % (21.0-51.0) L 08/31/21 04:53 [place] % (Auto) 17.4 % (0.0-13.0) H 08/31/21 04:53 Eos % (Auto) 6.4 % (0.9-2.9) H 08/31/21 04:53 Baso % (Auto) 0.6 % (0.2-1.0) 08/31/21 04:53 Neut # (Auto) 2.7 x10^3/uL (2.2-4.8) 08/31/21 04:53 Lymph # (Auto) 0.8 X10^3/uL (1.3-2.9) L 08/31/21 04:53 [place] # (Auto) 0.8 x10^3/uL (0.3-0.8) 08/31/21 04:53 Eos # (Auto) 0.3 x10^3/uL (0.0-0.2) H 08/31/21 04:53 Baso # (Auto) 0.0 X10^3/uL (0.0-0.1) 08/31/21 04:53 Absolute Nucleated RBC 0.0 /100WBC 08/31/21 04:53 Sodium 143 mmol/L (136-145) 08/31/21 04:53 Corrected Sodium TNP 08/31/21 04:53 Potassium 3.5 mmol/L (3.5-5.1) 08/31/21 04:53 Chloride 106 mmol/L (98-107) 08/31/21 04:53 Carbon Dioxide 31.1 mmol/L (21-32) 08/31/21 04:53 BUN 17 mg/dL (7-18) 08/31/21 04:53 Creatinine 1.14 mg/dL (0.70-1.30) 08/31/21 04:53 Est GFR (MDRD) Af Amer > 60 (>60) 08/31/21 04:53 Est GFR (MDRD) Non-Af > 60 (>60) 08/31/21 04:53 Glucose 87 mg/dL (65-99) 08/31/21 04:53 Calcium 8.4 mg/dL (8.5-10.1) L 08/31/21 04:53 Corrected Calcium 9.7 mg/dL (8.5-10.1) 08/31/21 04:53 Magnesium 1.7 mg/dL (1.7-2.9) 08/31/21 04:53 Total Bilirubin 0.50 mg/dL (0.2-1.0) 08/31/21 04:53 AST 19 Units/L (15-37) 08/31/21 04:53 ALT 17 Units/L (12-78) 08/31/21 04:53 Alkaline Phosphatase 107 Units/L (46-116) 08/31/21 04:53 B-Natriuretic Peptide 207 pg/mL (0-79) H 08/16/21 15:40 Total Protein 6.2 g/dL (6.4-8.2) L 08/31/21 04:53 Albumin 2.4 g/dL (3.4-5.0) L 08/31/21 04:53 Globulin 3.8 g/dL (2.5-4.5) 08/31/21 04:53 Albumin/Globulin Ratio 0.6 Ratio (1.1-2.1) L 08/31/21 04:53 Specimen Type Clean catch urine 08/21/21 06:36 Urine Color Yellow (YELLOW) 08/21/21 06:36 Urine Appearance Clear (CLEAR) 08/21/21 06:36 Urine pH 6.0 (5.0 - 8.0) 08/21/21 06:36 Ur Specific [place] 1.010 (1.000-1.030) 08/21/21 06:36 Urine Protein Negative (NEGATIVE) 08/21/21 06:36 Urine Glucose (UA) Negative (NEGATIVE) 08/21/21 06:36 Urine Ketones Negative (NEGATIVE) 08/21/21 06:36 Urine Blood Negative (NEGATIVE) 08/21/21 06:36 Urine Nitrite Negative (NEGATIVE) 08/21/21 06:36 Urine Bilirubin Negative (NEGATIVE) 08/21/21 06:36 Urine Urobilinogen Normal (NORMAL) 08/21/21 06:36 Ur Leukocyte Esterase Negative (NEGATIVE) 08/21/21 06:36 SARS-CoV-2 (PCR) Negative (NEGATIVE) 08/26/21 01:50 Influenza Type A (PCR) Negative (NEGATIVE) 08/26/21 01:50 Influenza Type B (PCR) Negative (NEGATIVE) 08/26/21 01:50 RSV (PCR) Negative (NEGATIVE) 08/26/21 01:50 Plan (1) Chronic subdural hematoma: Status: Acute Plan: PHYSICAL/OCCUPATIONAL THERAPIES, VOLTAREN GEL, RESUME HOME MEDICATIONS (2) Left elbow pain: Status: Acute (3) Generalized weakness: Status: Acute (4) Acute confusion: Status: Acute (5) Anxiety about health: Status: Acute (6) GERD (gastroesophageal reflux disease): Status: Chronic Qualifiers: Esophagitis presence: esophagitis presence not specified Qualified Code(s): K21.9 - Gastro-esophageal reflux disease without esophagitis (7) Hypothyroidism: Status: Chronic Qualifiers: Hypothyroidism type: acquired Qualified Code(s): E03.9 - Hypothyroid ism, unspecified (8) Hyperlipidemia: Status: Chronic Qualifiers: Hyperlipidemia type: mixed hyperlipidemia Qualified Code(s): E78.2 - Mixed hyperlipidemia (9) COPD (chronic obstructive pulmonary disease): Status: Chronic Qualifiers: COPD type: unspecified COPD Qualified Code(s): J44.9 - Chronic obstructive pulmonary disease, unspecified (10) Sleep apnea: Status: Chronic Qualifiers: Sleep apnea type: unspecified type Qualified Code(s): G47.30 - Sleep apnea, unspecified (11) Hypotension: Status: Acute
[2021-09-01] MEDS: MAG-OX TAB PO SCH (17:48)
[2021-09-01] MEDS: CRESTOR TAB 10 MG PO SCH (20:40)
[2021-09-01] MEDS: OXYBUTYNIN CHLORIDE ER PO SCH (20:40)
[2021-09-01] MEDS: SINGULAIR TAB 10 MG PO SCH (20:40)
[2021-09-01] MEDS: REQUIP PO SCH (20:40)
[2021-09-01] MEDS: FLOMAX PO SCH (20:40)
[2021-09-01] MEDS: RESTORIL CAP 15 MG PO PRN (20:50)
[2021-09-02 05:09] LABS: HEMATOCRIT 21.2 % (42.0-54.0); HEMOGLOBIN 7.2 g/dL (13.5-18.0)
[2021-09-02] MEDS: ASPIRIN EC 81 MG PO SCH (09:21)
[2021-09-02] MEDS: COREG TAB 3.125 MG PO SCH ×2 (09:22→20:26)
[2021-09-02] MEDS: FERROUS GLUCONATE PO SCH (09:22)
[2021-09-02] MEDS: FLONASE NASAL SPRAY ENOSTRIL SCH (09:22)
[2021-09-02] MEDS: LASIX PO SCH ×2 (09:23→20:30)
[2021-09-02] MEDS: NEURONTIN CAP 300 MG PO SCH ×2 (09:23→20:29)
[2021-09-02] MEDS: MICRO K EXTEN CAP 10 MEQ PO SCH ×2 (09:23→20:29)
[2021-09-02] MEDS: PLAVIX PO SCH (09:23)
[2021-09-02] MEDS: SYNTHROID 75 mcg TAB PO SCH (09:24)
[2021-09-02] MEDS: PROzac PO SCH ×2 (09:24→20:28)
[2021-09-02] MEDS: PriLOSEC PO SCH ×2 (09:24→20:28)
[2021-09-02] MEDS: VIBRAMYCIN PO SCH ×2 (09:25→20:27)
[2021-09-02] MEDS: ZyrTEC TAB 10 MG PO SCH (09:25)
[2021-09-02] MEDS: MAG-OX TAB PO SCH (17:51)
[2021-09-02] MEDS: SINGULAIR TAB 10 MG PO SCH (20:27)
[2021-09-02] MEDS: CRESTOR TAB 10 MG PO SCH (20:27)
[2021-09-02] MEDS: RESTORIL CAP 15 MG PO PRN (20:27)
[2021-09-02] MEDS: REQUIP PO SCH (20:28)
[2021-09-02] MEDS: OXYBUTYNIN CHLORIDE ER PO SCH (20:29)
[2021-09-02] MEDS: FLOMAX PO SCH (20:30)
[2021-09-03 05:47] LABS: BASOPHILS % (AUTO) 0.5 % (0.2-1.0); EOSINOPHILS # (AUTO) 0.2 x10^3/uL (0.0-0.2); EOSINOPHILS % (AUTO) 3.9 % (0.9-2.9); HEMATOCRIT 21.2 % (42.0-54.0); HEMOGLOBIN 7.2 g/dL (13.5-18.0); LYMPHOCYTES # (AUTO) 0.8 X10^3/uL (1.3-2.9); MEAN CORPUSCULAR HEMOGLOBIN 32.2 pg (27.0-34.0); MEAN CORPUSCULAR VOLUME 94.8 fL (80.0-100.0); MONOCYTES # (AUTO) 0.6 x10^3/uL (0.3-0.8); NEUTROPHILS # (AUTO) 2.6 x10^3/uL (2.2-4.8); NEUTROPHILS % (AUTO) 60.6 % (42.0-75.0); RED BLOOD COUNT 2.23 X10^6/uL (4.7-6.0); RED CELL DISTRIBUTION WIDTH 17.5 % (11.6-16.5); WHITE BLOOD COUNT 4.2 X10^3/uL (3.6-10.0)
[2021-09-03 05:57] LABS: ALANINE AMINOTRANSFERASE 16 Units/L (12-78); ALBUMIN 2.3 g/dL (3.4-5.0); ALKALINE PHOSPHATASE 100 Units/L (46-116); ASPARTATE AMINO TRANSFERASE 17 Units/L (15-37); BLOOD UREA NITROGEN 16 mg/dL (7-18); CALCIUM 8.3 mg/dL (8.5-10.1); CARBON DIOXIDE 30.6 mmol/L (21-32); CHLORIDE 106 mmol/L (98-107); COR CA(FOR HYPOALB) 9.7 mg/dL (8.5-10.1); CREATININE 1.01 mg/dL (0.70-1.30); SODIUM 142 mmol/L (136-145); TOTAL PROTEIN 5.9 g/dL (6.4-8.2); eGFR NON BLACK RACES > 60 (>60)
[2021-09-03] MEDS: FERROUS GLUCONATE PO SCH (09:28)
[2021-09-03] MEDS: ASPIRIN EC 81 MG PO SCH (09:28)
[2021-09-03] MEDS: FLONASE NASAL SPRAY ENOSTRIL SCH (09:30)
[2021-09-03] MEDS: COREG TAB 3.125 MG PO SCH ×2 (09:30→20:06)
[2021-09-03] MEDS: LASIX PO SCH ×2 (09:31→20:06)
[2021-09-03] MEDS: MICRO K EXTEN CAP 10 MEQ PO SCH ×2 (09:32→20:06)
[2021-09-03] MEDS: NEURONTIN CAP 300 MG PO SCH ×2 (09:32→20:06)
[2021-09-03] MEDS: PLAVIX PO SCH (09:35)
[2021-09-03] MEDS: PriLOSEC PO SCH ×2 (09:36→20:07)
[2021-09-03] MEDS: SYNTHROID 75 mcg TAB PO SCH (09:36)
[2021-09-03] MEDS: VIBRAMYCIN PO SCH ×2 (09:37→20:08)
[2021-09-03] MEDS: ZyrTEC TAB 10 MG PO SCH (09:37)
[2021-09-03] MEDS: PROzac PO SCH ×2 (09:39→20:07)
--- NOTE | 2021-09-03 10:39 | PCM.PROG ---
Progress Note - Progress Note for Day of Date of Exam: 09/03/21 - Subjective Subjective: IS CURRENTLY INPATIENT, SWINGBED STATUS FOR PHYSICAL AND REHAB DUE TO GENERALIZED WEAKNES, ACUTE CONFUSION, FREQUENT FALLS, ALL OF WHICH STARTED AFTER A RECENT SUBDURAL HEMATOMA. HE HAS A PMH OF CHF, GERD, HYPOTHYROIDISM, HYPERLIPIDEMIA, ANXIETY, COPD, AND SLEEP APNEA. TODAY, HE IS ALERT AND ORIENTED, SITTING UP ON THE SIDE OF THE BED ON MORNING ROUNDS. STAFF REPORTS THAT HE HAS CONFUSION AT TIMES, BUT IT HAS BEEN BETTER SINCE ADDING SEROQUEL. ON EXAMINATION, HEART IS REGULAR IN RATE AND RHYTHM. BILATERAL LUNGS NOTED WITH DIMINISHED LUNG SOUNDS THROUGHOUT. ABDOMEN IS ROUND, SOFT, AND NON- TENDER WITH NORMAL BOWEL SOUNDS NOTED IN ALL QUADRANTS. PEG TUBE NOTED TO ABDOMEN. THERE IS A MILD AMOUNT OF DRAINAGE NOTED AROUND INSERTION SITE OF PEG TUBE. WOUND CULTURES DID GROW OUT STAPHYLOCOCCUS HAEMOLYTICUS. PEG TUBE IS NOT BEING USED, HE HAS BEEN ABLE TO EAT BY MOUTH. LABS WERE OBTAINED THIS MORNING. WBC 4.2, RBC 2.23, HGB 7.2, HCT 21.2, PLT COUNT 143, SODIUM 142, PTOASS IUM 3.7, CHLORIDE 106, BUN 16, CREATININE 1.01, GLUCOSE 83, AST 17, ALT 16, ALK PHOS 100, TOTAP PROTEIN 5.9, ALBUMIN 2.3. HE IS CURRENTLY RECEIVING HALDOL 1-2MG IM Q4H PRN, VIBRAMYCIN 100MG PO BID, SEROQUEL 100MG PO HS, RESTROIL 15MG PO HS, TAMSULOSIN 0.4MG PO HS, CRESTOR 20MG PO HS, REQUIP 2MG PO HS, MICRO K 10MEQ PO BID, ROXICODONE 5MG PO Q6H PRN, MAG OX 400MG PO DAILY, OXYBUTYNIN 10MG PO HS, OM EPRAZOLE 20MG PO BID, SINGULAIR 10MG PO HS, MECLIZINE 25MG PO HS PRN, LEVOTHYROXINE 75MCG PO DAILY, GABAPENTIN 300MG PO BID, FUROSEMIDE 20MG PO BID, FLONASE 2 SPRAYS EACH NOSTRIL DAILY, PROZAC 20MG PO BID, FERROUS GLUCONATE 324MG PO DAILY, PLAVIX 75MG PO DAILY, ZYRTEC 10MG PO DAILY, COREG 3.125MG PO BID, ASPIRIN 81MG PO DAILY, FIORICET 1 TABLET PO Q4H PRN, AND VOLTAREN GEL QID PRN. WE WILL CONTINUE WITH CURRENT PLAN OF CARE TODAY AND ADD HEMOCYTE PLUS 1 TABLET PO DAILY DUE TO ANEMIA. PHYSICAL/OCCUPATIONAL THERAPIES HAVE BEEN WORKING WITH HIM DAILY. HE HAS BEEN COOPERATIVE WITH THERAPY. WE WILL CONTINUE WITH CURRENT PLAN OF CARE TODAY. OTHERWISE, WE PLAN TO FOLLOW-UP WITH AM LABS AND CONTINUE TO MONITOR. - Past Medical Family Social History Past Med/Fam/Surg Hx: No changes since H&P Allergies: Allergies cilastatin [From Primaxin] Allergy (Verified 06/22/21 17:35) clarithromycin [From Biaxin] Allergy (Verified 06/22/21 17:35) imipenem [From Primaxin] Allergy (Verified 06/22/21 17:35) - Review of Systems ROS: No change since H&P - Vital Signs and I&O's Vital Signs: Temperature 97.7 F Pulse Rate [Left Brachial] 82 Pulse Rate [Left] 65 Respiratory Rate 20 Blood Pressure [Left Arm] 118/56 Blood Pressure [Right Arm] 98/53 Blood Pressure 138/63 O2 Sat by Pulse Oximetry 98 Intake and Output: Intake & Output 08/31/21 09/01/21 09/02/21 09/03/21 11:59 11:59 11:59 11:59 Intake Total 0 / 2120 2230 / 2230 790 / 790 2400 / 2400 Balance 2120 / 2120 2230 / 2230 790 / 790 2400 / 2400 - Physical Exam Oriented: Normal Eyes: Normal Ear: Normal Nose: Normal Throat: Normal Respiratory: Generalized, Diminished Cardiovascular: Normal : Normal Auscultation: Bowel Sounds: Normal Palpation: Normal Tenderness: Normal Skin: Bruising (SCATTERED) Musculoskeletal: Elbow, Left, Back:Lumbar, Swelling, Tender Psychiatric: Normal Mood Description: Calm Affect: Normal Speech Pattern: Clear, Appropriate - Laboratory and Diagnostics Result Diagrams: 09/03/21 04:25 09/03/21 04:25 Labs: 08/22/21 06:18 Peg Tube Wound Gram Stain - Final 08/22/21 06:18 Peg Tube Wound Culture - Final Staphylococcus Haemolyticus Laboratory WBC 4.2 X10^3/uL (3.6-10.0) 09/03/21 04:25 RBC 2.23 X10^6/uL (4.7-6.0) L 09/03/21 04:25 Hgb 7.2 g/dL (13.5-18.0) L 09/03/21 04:25 Hct 21.2 % (42.0-54.0) L 09/03/21 04:25 MCV 94.8 fL (80.0-100.0) 09/03/21 04:25 MCH 32.2 pg (27.0-34.0) 09/03/21 04:25 MCHC 34.0 g/dL (33.0-35.0) 09/03/21 04:25 RDW 17.5 % (11.6-16.5) H 09/03/21 04:25 Plt Count 143 X10^3/uL (150.0-450.0) L 09/03/21 04:25 MPV 8.0 fL (7.4-11.0) 09/03/21 04:25 Neut % (Auto) 60.6 % (42.0-75.0) 09/03/21 04:25 Lymph % (Auto) 20.0 % (21.0-51.0) L 09/03/21 04:25 [place] % (Auto) 15.0 % (0.0-13.0) H 09/03/21 04:25 Eos % (Auto) 3.9 % (0.9-2.9) H 09/03/21 04:25 Baso % (Auto) 0.5 % (0.2-1.0) 09/03/21 04:25 Neut # (Auto) 2.6 x10^3/uL (2.2-4.8) 09/03/21 04:25 Lymph # (Auto) 0.8 X10^3/uL (1.3-2.9) L 09/03/21 04:25 [place] # (Auto) 0.6 x10^3/uL (0.3-0.8) 09/03/21 04:25 Eos # (Auto) 0.2 x10^3/uL (0.0-0.2) 09/03/21 04:25 Baso # (Auto) 0.0 X10^3/uL (0.0-0.1) 09/03/21 04:25 Absolute Nucleated RBC 0.0 /100WBC 09/03/21 04:25 Sodium 142 mmol/L (136-145) 09/03/21 04:25 Corrected Sodium TNP 09/03/21 04:25 Potassium 3.7 mmol/L (3.5-5.1) 09/03/21 04:25 Chloride 106 mmol/L (98-107) 09/03/21 04:25 Carbon Dioxide 30.6 mmol/L (21-32) 09/03/21 04:25 BUN 16 mg/dL (7-18) 09/03/21 04:25 Creatinine 1.01 mg/dL (0.70-1.30) 09/03/21 04:25 Est GFR (MDRD) Af Amer > 60 (>60) 09/03/21 04:25 Est GFR (MDRD) Non-Af > 60 (>60) 09/03/21 04:25 Glucose 83 mg/dL (65-99) 09/03/21 04:25 Calcium 8.3 mg/dL (8.5-10.1) L 09/03/21 04:25 Corrected Calcium 9.7 mg/dL (8.5-10.1) 09/03/21 04:25 Magnesium 1.7 mg/dL (1.7-2.9) 08/31/21 04:53 Total Bilirubin 0.30 mg/dL (0.2-1.0) 09/03/21 04:25 AST 17 Units/L (15-37) 09/03/21 04:25 ALT 16 Units/L (12-78) 09/03/21 04:25 Alkaline Phosphatase 100 Units/L (46-116) 09/03/21 04:25 B-Natriuretic Peptide 207 pg/mL (0-79) H 08/16/21 15:40 Total Protein 5.9 g/dL (6.4-8.2) L 09/03/21 04:25 Albumin 2.3 g/dL (3.4-5.0) L 09/03/21 04:25 Globulin 3.6 g/dL (2.5-4.5) 09/03/21 04:25 Albumin/Globulin Ratio 0.6 Ratio (1.1-2.1) L 09/03/21 04:25 Specimen Type Clean catch urine 08/21/21 06:36 Urine Color Yellow (YELLOW) 08/21/21 06:36 Urine Appearance Clear (CLEAR) 08/21/21 06:36 Urine pH 6.0 (5.0 - 8.0) 08/21/21 06:36 Ur Specific [place] 1.010 (1.000-1.030) 08/21/21 06:36 Urine Protein Negative (NEGATIVE) 08/21/21 06:36 Urine Glucose (UA) Negative (NEGATIVE) 08/21/21 06:36 Urine Ketones Negative (NEGATIVE) 08/21/21 06:36 Urine Blood Negative (NEGATIVE) 08/21/21 06:36 Urine Nitrite Negative (NEGATIVE) 08/21/21 06:36 Urine Bilirubin Negative (NEGATIVE) 08/21/21 06:36 Urine Urobilinogen Normal (NORMAL) 08/21/21 06:36 Ur Leukocyte Esterase Negative (NEGATIVE) 08/21/21 06:36 Stool Description 200g formed brown 09/02/21 09:18 Stl Occult Blood (IFOB) Negative (NEGATIVE) 09/02/21 09:18 SARS-CoV-2 (PCR) Negative (NEGATIVE) 08/26/21 01:50 Influenza Type A (PCR) Negative (NEGATIVE) 08/26/21 01:50 Influenza Type B (PCR) Negative (NEGATIVE) 08/26/21 01:50 RSV (PCR) Negative (NEGATIVE) 08/26/21 01:50 - Plan (1) Chronic subdural hematoma Status: Acute Plan: PHYSICAL/OCCUPATIONAL THERAPIES, VOLTAREN GEL, SEROQUEL 100MG PO HS, HEMOCYTE PLUS DAILY, RESUME HOME MEDICATIONS (2) Anemia Status: Acute Qualifiers: Anemia type: unspecified type Qualified Code(s): D64.9 - Anemia, unspecified (3) Generalized weakness Status: Acute (4) Acute confusion Status: Acute (5) Anxiety about health Status: Acute (6) GERD (gastroesophageal reflux disease) Status: Chronic Qualifiers: Esophagitis presence: esophagitis presence not specified Qualified Code(s): K21.9 - Gastro-esophageal reflux disease without esophagitis (7) Hypothyroidism Status: Chronic Qualifiers: Hypothyroidism type: acquired Qualified Code(s): E03.9 - Hypothyroidism, unspecified (8) Hyperlipidemia Status: Chronic Qualifiers: Hyperlipidemia type: mixed hyperlipidemia Qualified Code(s): E78.2 - Mixed hyperlipidemia (9) COPD (chronic obstructive pulmonary disease) Status: Chronic Qualifiers: COPD type: unspecified COPD Qualified Code(s): J44.9 - Chronic obstructive pulmonary disease, unspecified (10) Sleep apnea Status: Chronic Qualifiers: Sleep apnea type: unspecified type Qualified Code(s): G47.30 - Sleep apnea, unspecified (11) Left elbow pain Status: Resolved
[2021-09-03] MEDS: HEMOCYTE-PLUS PO SCH (11:08)
[2021-09-03] MEDS: MAG-OX TAB PO SCH (18:33)
[2021-09-03] MEDS: FLOMAX PO SCH (20:06)
[2021-09-03] MEDS: CRESTOR TAB 10 MG PO SCH (20:06)
[2021-09-03] MEDS: SINGULAIR TAB 10 MG PO SCH (20:07)
[2021-09-03] MEDS: REQUIP PO SCH (20:07)
[2021-09-03] MEDS: OXYBUTYNIN CHLORIDE ER PO SCH (20:07)
[2021-09-03] MEDS: RESTORIL CAP 15 MG PO PRN (20:08)
[2021-09-04 06:14] LABS: HEMATOCRIT 23.7 % (42.0-54.0); HEMOGLOBIN 7.9 g/dL (13.5-18.0)
[2021-09-04 09:01] VITALS: BP 113/54
[2021-09-04] MEDS: NEURONTIN CAP 300 MG PO SCH (09:03)
[2021-09-04] MEDS: HEMOCYTE-PLUS PO SCH (09:03)
[2021-09-04] MEDS: VIBRAMYCIN PO SCH (09:03)
[2021-09-04] MEDS: ZyrTEC TAB 10 MG PO SCH (09:03)
[2021-09-04] MEDS: PROzac PO SCH (09:03)
[2021-09-04] MEDS: COREG TAB 3.125 MG PO SCH (09:03)
[2021-09-04] MEDS: PriLOSEC PO SCH (09:03)
[2021-09-04] MEDS: SYNTHROID 75 mcg TAB PO SCH (09:03)
[2021-09-04] MEDS: PLAVIX PO SCH (09:04)
[2021-09-04] MEDS: FLONASE NASAL SPRAY ENOSTRIL SCH (09:04)
[2021-09-04] MEDS: MICRO K EXTEN CAP 10 MEQ PO SCH (09:04)
[2021-09-04] MEDS: ASPIRIN EC 81 MG PO SCH (09:04)
[2021-09-04] MEDS: LASIX PO SCH (09:04)
== END 2021-09-04 13:00 | disposition home health service (06) | DRG 66 ==
LOC: MED/SURG 13:30
PROVIDERS: ADMIT Internal Medicine; ATTEND Internal Medicine
DX: B95.7 Other staphylococcus as the cause of diseases classified elsewhere; I62.03 Nontraumatic chronic subdural hemorrhage; R53.1 Weakness; M25.522 Pain in left elbow; S81.812A Laceration without foreign body, left lower leg, initial encounter; G47.30 Sleep apnea, unspecified; D64.89 Other specified anemias; Z20.822 Contact with and (suspected) exposure to COVID-19; E78.2 Mixed hyperlipidemia; I95.89 Other hypotension; F41.8 Other specified anxiety disorders; S51.811A Laceration without foreign body of right forearm, initial encounter; R29.6 Repeated falls; J44.9 Chronic obstructive pulmonary disease, unspecified; I10 Essential (primary) hypertension; E03.8 Other specified hypothyroidism; R41.0 Disorientation, unspecified; Y92.231 Patient bathroom in hospital as the place of occurrence of the external cause; Z91.81 History of falling; Z51.89 Encounter for other specified aftercare; W18.39XA Other fall on same level, initial encounter; S81.011A Laceration without foreign body, right knee, initial encounter; Z93.1 Gastrostomy status; K21.9 Gastro-esophageal reflux disease without esophagitis

== ENCOUNTER 2021-09-28 00:45 | Inpatient (IN) ==
--- NOTE | 2021-09-28 00:51 | DR.GENAD ---
HPI Time Seen Time Seen by Provider: 09/28/21 00:50 HPI Comment HPI Comment: Sudden onset of cough, hemoptysis and sob tonight; persists and brings in bloody sputum sample; got peg tube out on Friday after having it placed due to cva and vent placement x 63 days; no fever or chills although he's "always cold"; no abd pain, n/v/d; ? hx copd per PMH PMH Past Medical History: Anemia, CHF, CVA, Depression, Dyslipidemia, GERD, Hypertension and Hypothyroidism Past Surgical History: Yes Surgical History: AAA Repair and CABG/Valve Surgery Family History Family Medical History: Hypertension Social History Do you use any recreational Drugs:: No ROS Review of Systems Constitutional: No Symptoms Reported Eyes: No Symptoms Reported ENTM: No Symptoms Reported Cardiovascular: No Symptoms Reported Gastrointestinal/Abdominal: No Symptoms Reported Genitourinary: No Symptoms Reported Neurological: No Symptoms Reported Musculoskeletal: No Symptoms Reported Integumentary: No Symptoms Reported Hematologic/Lymphatic: No Symptoms Reported Endocrine: No Symptoms Reported Psychiatric: No Symptoms Reported PE Vital Signs Vitals: Temperature 97.6 F Pulse Rate [Right Radial] 92 Pulse Rate 97 Respiratory Rate 22 Blood Pressure [Left Arm] 148/67 Blood Pressure [Right Arm] 98/53 Blood Pressure 146/68 O2 Sat by Pulse Oximetry 100 General Limitations: Physical Limitation (gives out while talking) General Appearance: Alert and In No Apparent Distress Head Head Exam: Normal Inspection Eyes Eye exam: Normal Appearance ENT ENT Exam: Normal Exam External Ear Exam: Normal External Inspection TM/Canal Exam: Bilateral: Normal Nose Exam: Normal Nose Exam Mouth Exam: Normal Inspection Throat Exam: Normal Inspection Neck Neck Exam: Normal Inspection Chest Chest Inspection: Normal Inspection, Symmetric Chest Wall Rise and Other (persistently coughing up blood) Respiratory Respiratory Exam: Bilateral: Rhonchi and Lower: Rhonchi Cardiovascular Cardiovascular Exam: Regular Rate and Normal Rhythm Abdominal Exam Abdominal Exam: Normal Inspection, Normal Bowel Sounds and Soft Extremities Extremities Exam: Normal Inspection Back Back Exam: Normal Inspection Neurologic Neurological Exam: Alert and Oriented X3 Psychiatric Psychiatric Exam: Normal Affect and Normal Mood Skin Skin Exam: Warm, Dry, Intact and Pallor ROR Labs Reviewed Result Diagrams: 09/28/21 00:55 09/28/21 00:55 Laboratory: WBC 10.4 X10^3/uL (3.6-10.0) H 09/28/21 00:55 RBC 2.80 X10^6/uL (4.7-6.0) L 09/28/21 00:55 Hgb 9.0 g/dL (13.5-18.0) L 09/28/21 00:55 Hct 27.1 % (42.0-54.0) L 09/28/21 00:55 MCV 96.7 fL (80.0-100.0) 09/28/21 00:55 MCH 32.0 pg (27.0-34.0) 09/28/21 00:55 MCHC 33.1 g/dL (33.0-35.0) 09/28/21 00:55 RDW 16.0 % (11.6-16.5) 09/28/21 00:55 Plt Count 162 X10^3/uL (150.0-450.0) 09/28/21 00:55 MPV 7.3 fL (7.4-11.0) L 09/28/21 00:55 Neut % (Auto) 89.8 % (42.0-75.0) H 09/28/21 00:55 Lymph % (Auto) 4.3 % (21.0-51.0) L 09/28/21 00:55 [place] % (Auto) 4.1 % (0.0-13.0) 09/28/21 00:55 Eos % (Auto) 1.4 % (0.9-2.9) 09/28/21 00:55 Baso % (Auto) 0.4 % (0.2-1.0) 09/28/21 00:55 Neut # (Auto) 9.3 x10^3/uL (2.2-4.8) H 09/28/21 00:55 Lymph # (Auto) 0.4 X10^3/uL (1.3-2.9) L 09/28/21 00:55 [place] # (Auto) 0.4 x10^3/uL (0.3-0.8) 09/28/21 00:55 Eos # (Auto) 0.1 x10^3/uL (0.0-0.2) 09/28/21 00:55 Baso # (Auto) 0.0 X10^3/uL (0.0-0.1) 09/28/21 00:55 Absolute Nucleated RBC 0.1 /100WBC 09/28/21 00:55 PT 15.7 SECONDS (11.8-14.3) 09/28/21 00:55 INR Target Range - 09/28/21 00:55 INR 1.30 (0.8-1.3) 08 00:55 Sample Site Lr 09/28/21 00:56 ABG pH 7.380 (7.35-7.45) 09/28/21 00:56 ABG pCO2 56.0 mmHg (35.0-45.0) H* 09/28/21 00:56 ABG pO2 67.0 mmHg (80.0-100.0) L 09/28/21 00:56 ABG HCO3 33.1 mmol/L (22-26) H* 09/28/21 00:56 ABG O2 Saturation 93.0 % (90-100) 09/28/21 00:56 ABG Base Excess 6.4 mmol/L (-2.0-2.0) H 09/28/21 00:56 Sunny Test Pos 09/28/21 00:56 A-a Gradient 148.0 mmHg 09/28/21 00:56 FiO2 40.0 09/28/21 00:56 Blood Gas Comments Joy well ae 09/28/21 00:56 Sodium 141 mmol/L (136-145) 09/28/21 00:55 Corrected Sodium 141 mmol/L (136-145) 09/28/21 00:55 Potassium 3.6 mmol/L (3.5-5.1) 09/28/21 00:55 Chloride 102 mmol/L (98-107) 09/28/21 00:55 Carbon Dioxide 34.1 mmol/L (21-32) H 09/28/21 00:55 BUN 17 mg/dL (7-18) 09/28/21 00:55 Creatinine 1.84 mg/dL (0.70-1.30) H 09/28/21 00:55 Est GFR (MDRD) Af Amer 47 (>60) L 08 00:55 Est GFR (MDRD) Non-Af 39 (>60) L 09/28/21 00:55 Glucose 117 mg/dL (65-99) H 09/28/21 00:55 Calcium 8.4 mg/dL (8.5-10.1) L 09/28/21 00:55 Corrected Calcium 9.4 mg/dL (8.5-10.1) 09/28/21 00:55 Total Bilirubin 0.50 mg/dL (0.2-1.0) 09/28/21 00:55 AST 16 Units/L (15-37) 09/28/21 00:55 ALT 9 Units/L (12-78) L 09/28/21 00:55 Alkaline Phosphatase 118 Units/L (46-116) H 09/28/21 00:55 Creatine Kinase 32 Units/L (39-308) L 09/28/21 00:55 Troponin I High Sens 6.4 ng/L (4.0-60.0) 09/28/21 00:55 Total Protein 6.9 g/dL (6.4-8.2) 09/28/21 00:55 Albumin 2.8 g/dL (3.4-5.0) L 09/28/21 00:55 Globulin 4.1 g/dL (2.5-4.5) 08 00:55 Albumin/Globulin Ratio 0.7 Ratio (1.1-2.1) L 08 00:55 SARS-CoV-2 (PCR) Negative (NEGATIVE) 09/28/21 00:55 Influenza Type A (PCR) Negative (NEGATIVE) 09/28/21 00:55 Influenza Type B (PCR) Negative (NEGATIVE) 09/28/21 00:55 RSV (PCR) Negative (NEGATIVE) 09/28/21 00:55 SARS CoV-2 RNA Rapid YUSUF Cancelled 09/28/21 00:55 Blood Type O POSITIVE 09/28/21 00:55 Antibody Screen Positive 09/28/21 00:55 Other Results Comments: hb improved to 9.0 XRAY XRAY Interpreted by: Radiologist X-ray Results: abd/pelvis ct: 1. No significant abnormality involving abdomen or pelvis. 2. Moderate consolidation both lung bases could be related to pneumonia, edema, or hemorrhage with small right pleural effusion. chest ct: 1. Moderate bilateral consolidation could be related to pneumonia, edema, or hemorrhage. 2. Small right pleural effusion. 3. Unchanged mild mediastinal lymphadenopathy. Opioid Opioid Risk Tool Age (Albert box if 16-45): No History of Preadolescent Sexual Abuse: No Total: 0 Total Score Risk Category: Low Risk Copyright: Tyson LR predicting aberrant behaviors Discharge Plan Diagnosis Discharge Problem: Bilateral pneumonia, Cough with hemoptysis, Anemia Discharge Plan Patient Disposition: 09 ADMITTED INPATIENT Condition: Stable Prescriptions: No Action clopidogrel [Plavix] 75 MG tablet 75 mg PO DAILY Qty: 30 3RF Rx Instructions: TAKE 1 TABLET BY MOUTH ONCE DAILY rosuvastatin [Crestor] 20 MG tablet 20 mg PO HS Qty: 30 3RF Rx Instructions: TAKE 1 TABLET BY MOUTH AT BEDTIME levothyroxine 75 mcg tablet 75 mcg PO QAM ropinirole 2 mg tablet 2 mg PO BID gabapentin 300 mg capsule 300 mg PO BID omeprazole 20 mg capsule,delayed release(DR/EC) 20 mg PO QAM fluoxetine 20 mg capsule 20 mg PO QAM bupropion HCl 150 mg tablet extended release 24 hr 150 mg PO QAM meclizine 25 mg Tablet 25 mg PO QHS cetirizine [Zyrtec] 10 mg Tablet 10 mg PO HS furosemide [Lasix] 20 mg Tablet 20 mg PO BID potassium chloride [Micro-K 10] 10 mEq Capsule, Extended Release 10 meq PO BID tamsulosin [Flomax] 0.4 mg Capsule 0.4 mg PO QHS aspirin [Aspir-81] 81 mg Tablet,Delayed Release (Dr/Ec) 81 mg PO ONCE quetiapine 100 mg Tablet 100 mg PO HS Qty: 30 3RF Rx Instructions: take one tablet at bedtime magnesium oxide 400 mg (241.3 mg magnesium) Tablet 400 mg PO DAILY Qty: 30 3RF Rx Instructions: take one tablet daily montelukast 10 mg Tablet 10 mg PO HS Qty: 30 3RF Rx Instructions: take one tablet at bedtime fluticasone propionate 50 mcg/actuation [place],Suspension 2 spr ENOSTRIL DAILY Qty: 1 3RF Rx Instructions: 2 sprays to each nostril daily carvedilol 6.25 mg Tablet 3.125 mg PO BID oxybutynin chloride 10 mg tablet extended release 24hr 10 mg PO HS clopidogrel 75 mg Tablet 75 mg PO QDAY oxycodone-acetaminophen 7.5-325 mg tablet 1 tab PO TID PRN eszopiclone [Lunesta] 1 mg Tablet 1 mg PO HS Ferrocite Plus 106 mg iron- 1 mg Capsule 1 cap PO QDAY Rx Instructions: PATIENT TAKES 324 MG DAILY Health Concerns: Post Hospitalization: new medications and changes needed to prevent readmission or further decline. Pt educated and given instructions on all concerns. Plan of Treatment: Continue with present treatment and follow up plan. Pt is to keep follow up appointment as instructed and take medications as ordered. Follow ups/Referrals Follow ups/Referrals: Lauri Adair [Primary Care Provider] - 3 days Instructions Stand Alone Forms: [facility], Patient Portal, Social Distancing
[2021-09-28] MEDS ORDERED: NS 1,000 ML IV 1,000 ML IV ONE (00:56)
[2021-09-28 01:02] LABS: ABG BASE EXCESS 6.4 mmol/L (-2.0-2.0)
[2021-09-28 01:03] LABS: ABG ALLEN TEST POS; ABG HCO3 33.1 mmol/L (22-26)
[2021-09-28] MEDS ORDERED: NS 1,000 ML IV 1,000 ML ONE (01:05)
[2021-09-28 01:15] LABS: BASOPHILS % (AUTO) 0.4 % (0.2-1.0); EOSINOPHILS # (AUTO) 0.1 x10^3/uL (0.0-0.2); EOSINOPHILS % (AUTO) 1.4 % (0.9-2.9); HEMATOCRIT 27.1 % (42.0-54.0); LYMPHOCYTES # (AUTO) 0.4 X10^3/uL (1.3-2.9); LYMPHOCYTES % (AUTO) 4.3 % (21.0-51.0); MEAN CORPUSCULAR HGB CONC 33.1 g/dL (33.0-35.0); MEAN CORPUSCULAR VOLUME 96.7 fL (80.0-100.0); MEAN PLATELET VOLUME 7.3 fL (7.4-11.0); MONOCYTES # (AUTO) 0.4 x10^3/uL (0.3-0.8); MONOCYTES % (AUTO) 4.1 % (0.0-13.0); NEUTROPHILS # (AUTO) 9.3 x10^3/uL (2.2-4.8); NEUTROPHILS % (AUTO) 89.8 % (42.0-75.0); WHITE BLOOD COUNT 10.4 X10^3/uL (3.6-10.0)
[2021-09-28 01:28] LABS: ALBUMIN 2.8 g/dL (3.4-5.0); CALCIUM 8.4 mg/dL (8.5-10.1); CARBON DIOXIDE 34.1 mmol/L (21-32); COR CA(FOR HYPOALB) 9.4 mg/dL (8.5-10.1); CREATININE 1.84 mg/dL (0.70-1.30); TOTAL PROTEIN 6.9 g/dL (6.4-8.2)
[2021-09-28] MEDS ORDERED: ZOFRAN INJ 4 MG VIAL IVP ONE (02:10)
[2021-09-28] MEDS ORDERED: MORPHINE SULFATE INJ 2 MG INJ IVP ONE (02:10)
[2021-09-28] MEDS ORDERED: ZOFRAN INJ 4 MG VIAL ONE (02:39)
[2021-09-28] MEDS ORDERED: MORPHINE SULFATE INJ 2 MG INJ ONE (02:39)
--- NOTE | 2021-09-28 02:54 | CT ---
PROCEDURE: CT Abdomen and Pelvis with Contrast .HISTORY: Hemoptysis status post PEG tube removal.TECHNIQUE: Axial images were performed through the abdomen and pelvis with the administration of IV contrast with multiplanar reformations . Oral contrast was not administered. Dose reduction techniques including Automated Exposure Control (AEC) and adjustment of mA and kV were utilized .COMPARISON: None .TECHNICAL QUALITY: Satisfactory .FINDINGS:Moderately dense consolidation both lower lung manriquez consistent with pneumonia, edema, or hemorrhage with small right pleural effusion.Liver, spleen, adrenals, pancreas show no abnormality.Kidneys show no masses or obstruction.Normal biliary tract.No ascites or pneumoperitoneum.Mild atherosclerosis aorta.No lymphadenopathy.No bowel obstruction or inflammation. Normal appendix.Pelvis shows no masses or free fluid and normal urinary bladder.Mild stranding anterior abdominal wall over the stomach related to recent PEG tube placement with no fluid collections or soft tissue air.No acute bony abnormality see.IMPRESSION:1. No significant abnormality involving abdomen or pelvis.2. Moderate consolidation both lung bases could be related to pneumonia, edema, or hemorrhage with small right pleural effusion.Electronically signed by: Jourdan Selby (Sep 28, 2021 02:52:42)
--- NOTE | 2021-09-28 03:11 | CT ---
PROCEDURE: CT Chest with Contrast .HISTORY: Hemoptysis and hypoxia.TECHNIQUE: Axial images were performed through the chest with the administration of IV contrast with multiplanar reformations . Dose reduction techniques including Automated Exposure Control (AEC) and adjustment of mA and kV were utilized .COMPARISON: 11/23/2020.TECHNICAL QUALITY: Satisfactory .FINDINGS:Mild atherosclerosis aorta with no aneurysm or dissection. Mild tortuosity aorta.Scattered prominent lymph nodes throughout the mediastinum and hilar regions that were seen previously and are unchanged with the largest measuring 2.5 cm paratracheal region.Normal size heart with no pericardial fluid. Artificial mitral valve. Severe atherosclerotic coronary artery calcifications that are unchanged.Moderate patchy consolidation throughout both lung manriquez involving all lobes consistent with edema, pneumonia, or hemorrhage. Small right pleural effusion. No pulmonary masses.See CT abdomen pelvis report done contemporaneously for findings of the upper visualized abdomen.No acute bony abnormality.IMPRESSION:1. Moderate bilateral consolidation could be related to pneumonia, edema, or hemorrhage.2. Small right pleural effusion.3. Unchanged mild mediastinal lymphadenopathy.Electronically signed by: Jourdan Selby (Sep 28, 2021 03:09:14)
[2021-09-28] MEDS ORDERED: ZOSYN VIAL 3.375 GRAMS 3.375 G in NS 100 ML IV 100 ML IV ONE (03:46)
[2021-09-28] MEDS ORDERED: ZOSYN VIAL 3.375 GRAMS IV ONE (03:53)
[2021-09-28] MEDS ORDERED: NS 100 ML IV 100 ML ONE (03:54)
[2021-09-28] MEDS: ZOSYN VIAL 3.375 GRAMS 3.375 G in NS 100 ML IV 100 ML IV SCH ×4 (04:29→21:44)
[2021-09-28 05:30] LABS: ALANINE AMINOTRANSFERASE 9 Units/L (12-78); ALBUMIN 2.3 g/dL (3.4-5.0); ALKALINE PHOSPHATASE 96 Units/L (46-116); ASPARTATE AMINO TRANSFERASE 15 Units/L (15-37); BASOPHILS % (AUTO) 0.3 % (0.2-1.0); BLOOD UREA NITROGEN 16 mg/dL (7-18); CARBON DIOXIDE 31.1 mmol/L (21-32); CHLORIDE 105 mmol/L (98-107); COR CA(FOR HYPOALB) 9.4 mg/dL (8.5-10.1); CREATININE 1.66 mg/dL (0.70-1.30); EOSINOPHILS % (AUTO) 0.3 % (0.9-2.9); HEMATOCRIT 23.8 % (42.0-54.0); HEMOGLOBIN 7.8 g/dL (13.5-18.0); LYMPHOCYTES # (AUTO) 0.3 X10^3/uL (1.3-2.9); LYMPHOCYTES % (AUTO) 2.3 % (21.0-51.0); MEAN CORPUSCULAR HEMOGLOBIN 31.5 pg (27.0-34.0); MEAN CORPUSCULAR HGB CONC 32.8 g/dL (33.0-35.0); MEAN CORPUSCULAR VOLUME 96.1 fL (80.0-100.0); MEAN PLATELET VOLUME 7.5 fL (7.4-11.0); MONOCYTES # (AUTO) 0.7 x10^3/uL (0.3-0.8); MONOCYTES % (AUTO) 5.5 % (0.0-13.0); NEUTROPHILS # (AUTO) 11.4 x10^3/uL (2.2-4.8); NEUTROPHILS % (AUTO) 91.6 % (42.0-75.0); RED BLOOD COUNT 2.48 X10^6/uL (4.7-6.0); SODIUM 142 mmol/L (136-145); TOTAL PROTEIN 5.8 g/dL (6.4-8.2); WHITE BLOOD COUNT 12.5 X10^3/uL (3.6-10.0); eGFR NON BLACK RACES 44 (>60)
[2021-09-28 06:12] LABS: ANISOCYTOSIS SLIGHT; BAND NEUTROPHILS % 8 % (0-10); PLATELET MORPHOLOGY COMMENT NORMAL (NORMAL)
[2021-09-28] MEDS ORDERED: XOPENEX 1.25 MG/3 ML NEBULE NEB ONE (07:24)
[2021-09-28] MEDS ORDERED: PULMICORT NEB TX 0.5 MG NEB ONE (07:24)
[2021-09-28] MEDS: XOPENEX 1.25 MG/3 ML NEBULE NEB SCH ×4 (08:01→20:05)
[2021-09-28] MEDS: PULMICORT NEB TX 0.5 MG NEB SCH ×2 (08:01→20:05)
[2021-09-28] MEDS ORDERED: DUONEB 0.5 MG/3 MG (3 mL) NEB SCH (09:00)
[2021-09-28] MEDS: NS 1,000 ML IV 1,000 ML IV SCH ×2 (09:10→18:19)
[2021-09-28] MEDS: CIPRO IV 400 MG PREMIX* 400 MG/200 ML IV.SOLN. IV SCH ×2 (11:29→20:37)
--- NOTE | 2021-09-28 13:50 | DR.H&P ---
H&P - History & Physical for Day of: H&P Date: 09/28/21 - Chief Complaint Chief Complaint: COUGH, COUGHING UP BLOOD, SOB - History of Present Illness History of Present Illness: IS A 66 YEAR OLD PATIENT OF OURS. HE PRESENTED TO THE ER WITH COMPLAINTS OF COUGH, COUGHING UP BLOOD, AND SHORTNESS OF BREATH. HE DENIES RECENT FEVER, CHILLS, ABDOMINAL PAIN, NAUSEA, VOMITING, OR DIARRHEA. HE REPORTS RECENTLY HAVING HIS PEG TUBE REMOVED. HE HAD THE PEG TUBE DUE TO RECENT CVA AND VENT PLACEMENT. HIS PMH INCLUDES: ANEMIA, CHF, CVA, DEPRESSION, DYSLIPIDEMIA, GERD, HTN, HYPOTHYROIDISM, AAA REPAIR, CABG. ON EXAMINATION, AUSCULTATION OF LUNG DOMINGO REVEALED BILATERAL RHONCHI. HIS VITALS ON ADMISSION WERE: 97.6-97-20-64% RA-146/68. HE WAS PLACED ON NASAL CANNULA AT 4 LPM. SATURATIONS INCREASED TO 100%. LABS WERE OBTAINED. WBC 10.4, RBC 2.80, HGB 9.0, HCT 27.1, PLT COUNT 162, SODIUM 141, POTASSIUM 3.6, CARBON DIOXIDE 34.1, BUN 17, CREATININE 1.84, GLUCOSE 117, CALCIUM 8.4, AST 16, ALT 9, ALK PHOS 118, CREATINE 32, TROPONIN 6.4, TOTAL PROTEIN 6.9, ALBUMIN 2.8. COVID, INFLUENZA, AND RSV NEGATIVE. BLOOD CULTURES WERE SET UP. A CHEST CT WITH CONTRAST WAS OBTAINED AND REVEALED: 1. Moderate bilateral consolidation could be related to pneumonia, edema, or hemorrhage.2. Small right pleural effusion. 3. Unchanged mild mediastinal lymphadenopathy. AN ABDOMEN/PELVIS CT WITH CONTRAST WAS OBTAINED AND REVEALED: 1. No significant abnormality involving abdomen or pelvis.2. Moderate consolidation both lung bases could be related to pneumonia, edema, or hemorrhage with small right pleural effusion. EKG REVEALED: NORMAL SINUS RHYTHM WITH HR 96. - Past Medical History Past Medical History: Hypertension, Dyslipidemia, Depression, Hypothyroidism, Anemia, CVA, GERD, CHF Additional Medical History: VALVULAR HEART DISEASE - Past Surgical History Surgical History: AAA Repair, CABG/Valve Surgery Additional Surgical History: Previous colonoscopy performed approx 6 years ago during a hospitalization for LGI bleeding - at which time no active bleeding or bleeding site was noted - per pt history. - Family History Family Medical History: Heart Failure - Social History Does patient currently use any type of tobacco product: No Have you used tobacco products in the last 12 months: No Type of Tobacco Use: None Does any household member use tobacco: No Alcohol Use: None Drug Use: None - Medications Home Medications: cilastatin [From Primaxin] Allergy (Verified 06/22/21 17:35) clarithromycin [From Biaxin] Allergy (Verified 06/22/21 17:35) imipenem [From Primaxin] Allergy (Verified 06/22/21 17:35) CONTINUE taking the following medications clopidogrel 75 mg tablet 75 mg PO QDAY 09/28/21 [History] eszopiclone 1 mg tablet (Lunesta) 1 mg PO HS 09/28/21 [History] iron-folic acid-multivitamin, mineral comb#15 106 mg iron-1 mg capsule 1 cap PO QDAY 09/28/21 [History] oxycodone-acetaminophen 7.5 mg-325 mg tablet 1 tab PO TID PRN 09/28/21 [History] - Review of Systems Constitutional: Weakness Eyes: No Symptoms Reported ENT: No Symptoms Reported Respiratory: See HPI, Cough, Shortness of Breath, Hemoptysis, SOB with Excertion Cardiovascular: No Symptoms Reported Gastrointestinal: No Symptoms Reported Genitourinary: No Symptoms Reported Musculoskeletal: No Symptoms Reported Skin: No Symptoms Reported Neurological: Weakness - Physical Exam Vital Signs: Temperature 97.6 F Pulse Rate [Right Radial] 85 Pulse Rate 64 Respiratory Rate 19 Blood Pressure [Left Arm] 108/55 Blood Pressure [Right Arm] 98/53 Blood Pressure 96/55 O2 Sat by Pulse Oximetry 99 Oriented: Normal Eyes: Normal Ear: Normal Nose: Normal Throat: Normal Respiratory: Rhonchi Throughout Cardiovascular: Normal : Normal Auscultation: Bowel Sounds: Normal Palpation: Normal Tenderness: Normal Skin: Normal Musculoskeletal: Normal Psychiatric: Normal Mood Description: Calm Affect: Normal Speech Pattern: Clear - Assessment/Plan (1) Bilateral pneumonia Qualifiers: Pneumonia type: due to unspecified organism Lung location: unspecified part of lung Qualified Code(s): J18.9 - Pneumonia, unspecified organism Status: Acute Plan: admit, supplemental oxygen, iv antibiotics, nebulizer treatments, resume home meds (2) Hypoxemia Status: Acute (3) Hemoptysis Status: Acute - Allergies Allergies/Adverse Reactions: Allergies Allergy/AdvReac Type Severity Reaction Status Date / Time cilastatin [From Primaxin] Allergy Verified 06/22/21 17:35 clarithromycin [From Biaxin] Allergy Verified 06/22/21 17:35 imipenem [From Primaxin] Allergy Verified 06/22/21 17:35
[2021-09-28] MEDS: HEMOCYTE-PLUS PO SCH (13:52)
[2021-09-28] MEDS: FLONASE NASAL SPRAY ENOSTRIL SCH (13:52)
[2021-09-28] MEDS: NEURONTIN CAP 300 MG PO SCH ×2 (13:53→20:39)
[2021-09-28] MEDS: MAG-OX TAB PO SCH (13:53)
[2021-09-28] MEDS: PERCOCET TAB 5/325 MG PO PRN (19:10)
[2021-09-28 20:00] LABS: BILIRUBIN,URINE NEGATIVE (NEGATIVE); BLOOD/HEMOGLOBIN,URINE NEGATIVE (NEGATIVE); GLUCOSE, URINE NEGATIVE (NEGATIVE); KETONES,URINE NEGATIVE (NEGATIVE); LEUKOCYTE ESTERASE ,URINE NEGATIVE (NEGATIVE); NITRITES,URINE NEGATIVE (NEGATIVE); PROTEIN,URINE 1+ (NEGATIVE); UROBILINOGEN,URINE NORMAL (NORMAL)
[2021-09-28 20:03] LABS: APPEARANCE,URINE CLEAR (CLEAR); COLOR,URINE YELLOW (YELLOW)
[2021-09-28 20:08] LABS: BACTERIA,URINE NEGATIVE /HPF (NEGATIVE); HYALINE CASTS, URINE FEW /LPF (NEGATIVE); RBC,URINE 0-2 /HPF (0-3); SQUAMOUS EPITHELIAL CELL,UR RARE /HPF (NEGATIVE)
[2021-09-28] MEDS: CRESTOR TAB 10 MG PO SCH (20:38)
[2021-09-28] MEDS: REQUIP PO SCH (20:38)
[2021-09-28] MEDS: OXYBUTYNIN CHLORIDE ER PO SCH (20:38)
[2021-09-28] MEDS: ZyrTEC TAB 10 MG PO SCH (20:39)
[2021-09-28] MEDS: SINGULAIR TAB 10 MG PO SCH (20:39)
[2021-09-28] MEDS: FLOMAX PO SCH (20:39)
[2021-09-28] MEDS: MICRO K EXTEN CAP 10 MEQ PO SCH (20:40)
[2021-09-28] MEDS: ANTIVERT TAB 25 MG PO SCH (20:40)
[2021-09-28] MEDS ORDERED: ESZOPICLONE 1 MG PO SCH (21:00)
[2021-09-29 05:19] LABS: ALANINE AMINOTRANSFERASE 7 Units/L (12-78); ALBUMIN 2.1 g/dL (3.4-5.0); ALKALINE PHOSPHATASE 83 Units/L (46-116); ASPARTATE AMINO TRANSFERASE 14 Units/L (15-37); BLOOD UREA NITROGEN 17 mg/dL (7-18); CALCIUM 7.9 mg/dL (8.5-10.1); CARBON DIOXIDE 32.7 mmol/L (21-32); CHLORIDE 106 mmol/L (98-107); COR CA(FOR HYPOALB) 9.4 mg/dL (8.5-10.1); CREATININE 1.29 mg/dL (0.70-1.30); SODIUM 142 mmol/L (136-145); TOTAL PROTEIN 5.5 g/dL (6.4-8.2); eGFR NON BLACK RACES 59 (>60)
[2021-09-29 05:28] LABS: HEMOGLOBIN 7.3 g/dL (13.5-18.0); LYMPHOCYTES # (AUTO) 0.5 X10^3/uL (1.3-2.9); MEAN CORPUSCULAR HEMOGLOBIN 32.1 pg (27.0-34.0)
[2021-09-29 05:33] LABS: BASOPHILS % (AUTO) 0.2 % (0.2-1.0); EOSINOPHILS # (AUTO) 0.1 x10^3/uL (0.0-0.2); EOSINOPHILS % (AUTO) 1.7 % (0.9-2.9); HEMATOCRIT 22.1 % (42.0-54.0); LYMPHOCYTES % (AUTO) 7.5 % (21.0-51.0); MEAN CORPUSCULAR HGB CONC 33.1 g/dL (33.0-35.0); MEAN CORPUSCULAR VOLUME 96.9 fL (80.0-100.0); MONOCYTES # (AUTO) 0.5 x10^3/uL (0.3-0.8); MONOCYTES % (AUTO) 7.8 % (0.0-13.0); NEUTROPHILS # (AUTO) 5.8 x10^3/uL (2.2-4.8); NEUTROPHILS % (AUTO) 82.8 % (42.0-75.0); RED BLOOD COUNT 2.28 X10^6/uL (4.7-6.0); RED CELL DISTRIBUTION WIDTH 15.9 % (11.6-16.5)
[2021-09-29] MEDS: NS 1,000 ML IV 1,000 ML IV SCH ×3 (05:47→21:18)
[2021-09-29] MEDS: ZOSYN VIAL 3.375 GRAMS 3.375 G in NS 100 ML IV 100 ML IV SCH ×3 (06:21→22:55)
[2021-09-29] MEDS: K-DUR TAB 20 MEQ PO PRN (06:22)
[2021-09-29] MEDS: XOPENEX 1.25 MG/3 ML NEBULE NEB SCH ×4 (08:30→21:02)
[2021-09-29] MEDS: PULMICORT NEB TX 0.5 MG NEB SCH ×2 (08:30→21:02)
[2021-09-29] MEDS: CIPRO IV 400 MG PREMIX* 400 MG/200 ML IV.SOLN. IV SCH ×2 (08:58→21:19)
[2021-09-29] MEDS: MICRO K EXTEN CAP 10 MEQ PO SCH ×2 (08:59→21:20)
[2021-09-29] MEDS: HEMOCYTE-PLUS PO SCH (08:59)
[2021-09-29] MEDS: MAG-OX TAB PO SCH (08:59)
[2021-09-29] MEDS: FLONASE NASAL SPRAY ENOSTRIL SCH (08:59)
[2021-09-29] MEDS: NEURONTIN CAP 300 MG PO SCH ×2 (09:00→21:20)
[2021-09-29] MEDS: REQUIP PO SCH ×2 (09:00→21:20)
[2021-09-29] MEDS: PriLOSEC PO SCH (09:00)
[2021-09-29] MEDS: PROzac PO SCH (09:00)
[2021-09-29] MEDS: SYNTHROID 75 mcg TAB PO SCH (09:01)
[2021-09-29] MEDS: WELLBUTRIN XL 150 MG (DAILY) PO SCH (09:01)
--- NOTE | 2021-09-29 09:58 | PCM.PROG ---
Progress Note Progress Note for Day of Date of Exam: 09/29/21 Subjective Subjective: PT IS A 66 YEAR OLD MALE ADMITTED FOR BILATERAL PNEUMONIA AND HEMOPTYSIS. HIS PMH INCLUDES: ANEMIA, CHF, CVA, DEPRESSION, DYSLIPIDEMIA, GERD, HTN, HYPOTHYROIDISM, AAA REPAIR, CABG. THIS MORNING HE REPORTS FEELING SOME IMPROVEMENT IN HIS SYMPTOMS. NO ACUTE EVENTS OVERNIGHT. ON EXAMINATION, AU SCULTATION OF LUNG DOMINGO REVEALED BILATERAL RHONCHI. HE IS CURRENTLY REQUIRING SUPPLEMENTAL OXYGEN OF 2L NASAL CANNULA. LABS/IMAGING: WBC 7, HGB 7.3, PLT 104, NA 142, K 3.6, CREATININE 1.29, GLUCOSE 90, SPUTUME AND BLOOD CULTURES WERE SET UP AND PENDING. CXR THIS MORNING IS PENDING. A CHEST CT WITH CONTRAST WAS OBTAINED AND REVEALED: 1. Moderate bilateral consolidation could be related to pneumonia, edema, or hemorrhage.2. Small right pleural effusion. 3. Unchanged mild mediastinal lymphadenopathy. HE IS CURRENTLY RECEIVING IVF NS@80ML/H, ANTIBIOTICS; IV CIPRO 400MG Q12H, ZOSYN 3.375G Q8H, SCHEDULED BRONCHODILATORS. HIS HOME MEDICATIONS HAVE BEEN RESUMED. WILL ORDER TUSSIONEX AND TESSALON PERRLES FOR COUGH, OTHERWISE CONTINUE WITH CURRENT TREATMENT PLAN. CONTINUE TO CLOSELY MONITOR AND FOLLOW UP LABS/IMAGING. Time spent on clinical assessment, reviewing labs and imaging, decision making, and documentation greater than 45 minutes. Past Medical Family Social History Allergies: Allergies cilastatin [From Primaxin] Allergy (Verified 06/22/21 17:35) clarithromycin [From Biaxin] Allergy (Verified 06/22/21 17:35) imipenem [From Primaxin] Allergy (Verified 06/22/21 17:35) Vital Signs and I&O's Vital Signs: Temperature 98.6 F Pulse Rate [Right Radial] 85 Pulse Rate 96 Respiratory Rate 23 Blood Pressure [Left Arm] 108/55 Blood Pressure [Right Arm] 98/53 Blood Pressure 107/56 O2 Sat by Pulse Oximetry 94 Intake and Output: Intake & Output 09/26/21 09/27/21 09/28/21 09/29/21 23:59 23:59 23:59 23:59 Intake Total 1627 / 1627 560 / 560 Output Total 700 / 700 Balance 927 / 927 560 / 560 Physical Exam Oriented: Normal Eyes: Normal Ear: Normal Nose: Normal Throat: Normal Respiratory: Wheezes and Rhonchi Cardiovascular: Normal : Normal Auscultation: Bowel Sounds: Normal Tenderness: Normal Skin: Normal Musculoskeletal: Normal Psychiatric: Normal Mood Description: Calm Affect: Normal Speech Pattern: Clear and Appropriate Laboratory and Diagnostics Result Diagrams: 09/29/21 04:12 09/29/21 04:12 Labs: 09/28/21 13:37 Sputum - Expectorated Sputum - Final Laboratory WBC 7.0 X10^3/uL (3.6-10.0) 09/29/21 04:12 RBC 2.28 X10^6/uL (4.7-6.0) L 09/29/21 04:12 Hgb 7.3 g/dL (13.5-18.0) L 09/29/21 04:12 Hct 22.1 % (42.0-54.0) L 09/29/21 04:12 MCV 96.9 fL (80.0-100.0) 09/29/21 04:12 MCH 32.1 pg (27.0-34.0) 09/29/21 04:12 MCHC 33.1 g/dL (33.0-35.0) 09/29/21 04:12 RDW 15.9 % (11.6-16.5) 09/29/21 04:12 Plt Count 104 X10^3/uL (150.0-450.0) L 09/29/21 04:12 Plt Count Comment Decreased (ADEQUATE) 09/28/21 05:09 MPV 8.0 fL (7.4-11.0) 09/29/21 04:12 Neut % (Auto) 82.8 % (42.0-75.0) H 09/29/21 04:12 Lymph % (Auto) 7.5 % (21.0-51.0) L 09/29/21 04:12 [place] % (Auto) 7.8 % (0.0-13.0) 09/29/21 04:12 Eos % (Auto) 1.7 % (0.9-2.9) 09/29/21 04:12 Baso % (Auto) 0.2 % (0.2-1.0) 09/29/21 04:12 Neut # (Auto) 5.8 x10^3/uL (2.2-4.8) H 09/29/21 04:12 Lymph # (Auto) 0.5 X10^3/uL (1.3-2.9) L 09/29/21 04:12 [place] # (Auto) 0.5 x10^3/uL (0.3-0.8) 09/29/21 04:12 Eos # (Auto) 0.1 x10^3/uL (0.0-0.2) 09/29/21 04:12 Baso # (Auto) 0.0 X10^3/uL (0.0-0.1) 09/29/21 04:12 Absolute Nucleated RBC 0.0 /100WBC 09/29/21 04:12 Total Counted 100 09/28/21 05:09 Neutrophils % (Manual) 84 % (39-76) H 09/28/21 05:09 Band Neutrophils % 8 % (0-10) 09/28/21 05:09 Lymphocytes % (Manual) 3 % (13-43) L 09/28/21 05:09 Monocytes % (Manual) 5 % (4-9) 09/28/21 05:09 Plt Morphology Comment Normal (NORMAL) 09/28/21 05:09 RBC Morphology Abnormal (NORMAL) 09/28/21 05:09 Anisocytosis Slight A 09/28/21 05:09 PT 15.7 SECONDS (11.8-14.3) 09/28/21 00:55 INR Target Range - 09/28/21 00:55 INR 1.30 (0.8-1.3) 09/28/21 00:55 Sample Site Lr 09/28/21 00:56 ABG pH 7.380 (7.35-7.45) 09/28/21 00:56 ABG pCO2 56.0 mmHg (35.0-45.0) H* 09/28/21 00:56 ABG pO2 67.0 mmHg (80.0-100.0) L 09/28/21 00:56 ABG HCO3 33.1 mmol/L (22-26) H* 09/28/21 00:56 ABG O2 Saturation 93.0 % (90-100) 09/28/21 00:56 ABG Base Excess 6.4 mmol/L (-2.0-2.0) H 09/28/21 00:56 Sunny Test Pos 08/05/22 00:56 A-a Gradient 148.0 mmHg 09/28/21 00:56 FiO2 40.0 09/28/21 00:56 Blood Gas Comments Joy well ae 09/28/21 00:56 Sodium 142 mmol/L (136-145) 09/29/21 04:12 Corrected Sodium TNP 09/29/21 04:12 Potassium 3.6 mmol/L (3.5-5.1) 09/29/21 04:12 Chloride 106 mmol/L (98-107) 09/29/21 04:12 Carbon Dioxide 32.7 mmol/L (21-32) H 09/29/21 04:12 BUN 17 mg/dL (7-18) 09/29/21 04:12 Creatinine 1.29 mg/dL (0.70-1.30) 09/29/21 04:12 Est GFR (MDRD) Af Amer > 60 (>60) 09/29/21 04:12 Est GFR (MDRD) Non-Af 59 (>60) 09/29/21 04:12 Glucose 90 mg/dL (65-99) 09/29/21 04:12 POC Glucose (mg/dL) 81 mg/dL (65-99) 09/29/21 05:41 Calcium 7.9 mg/dL (8.5-10.1) L 09/29/21 04:12 Corrected Calcium 9.4 mg/dL (8.5-10.1) 09/29/21 04:12 Magnesium 2.0 mg/dL (1.7-2.9) 09/29/21 04:12 Total Bilirubin 0.50 mg/dL (0.2-1.0) 09/29/21 04:12 AST 14 Units/L (15-37) L 09/29/21 04:12 ALT 7 Units/L (12-78) L 09/29/21 04:12 Alkaline Phosphatase 83 Units/L (46-116) 09/29/21 04:12 Creatine Kinase 32 Units/L (39-308) L 09/28/21 00:55 Troponin I High Sens 6.4 ng/L (4.0-60.0) 09/28/21 00:55 Total Protein 5.5 g/dL (6.4-8.2) L 09/29/21 04:12 Albumin 2.1 g/dL (3.4-5.0) L 09/29/21 04:12 Globulin 3.4 g/dL (2.5-4.5) 09/29/21 04:12 Albumin/Globulin Ratio 0.6 Ratio (1.1-2.1) L 09/29/21 04:12 Specimen Type Clean catch urine 09/28/21 19:55 Urine Color Yellow (YELLOW) 09/28/21 19:55 Urine Appearance Clear (CLEAR) 09/28/21 19:55 Urine pH 5.0 (5.0 - 8.0) 09/28/21 19:55 Ur Specific [place] 1.015 (1.000-1.030) 09/28/21 19:55 Urine Protein 1+ (NEGATIVE) 09/28/21 19:55 Urine Glucose (UA) Negative (NEGATIVE) 09/28/21 19:55 Urine Ketones Negative (NEGATIVE) 09/28/21 19:55 Urine Blood Negative (NEGATIVE) 09/28/21 19:55 Urine Nitrite Negative (NEGATIVE) 09/28/21 19:55 Urine Bilirubin Negative (NEGATIVE) 09/28/21 19:55 Urine Urobilinogen Normal (NORMAL) 09/28/21 19:55 Ur Leukocyte Esterase Negative (NEGATIVE) 09/28/21 19:55 Urine RBC 0-2 /HPF (0-3) 09/28/21 19:55 Urine WBC None seen /HPF (0-5) 09/28/21 19:55 Ur Squamous Epith Cells Rare /HPF (NEGATIVE) 09/28/21 19:55 Urine Bacteria Negative /HPF (NEGATIVE) 09/28/21 19:55 Hyaline Casts Few /LPF (NEGATIVE) 09/28/21 19:55 Urine Mucus Few /HPF (NEGATIVE) 09/28/21 19:55 Ur Culture Indicated? No/not indicated 09/28/21 19:55 SARS-CoV-2 (PCR) Negative (NEGATIVE) 09/28/21 00:55 Influenza Type A (PCR) Negative (NEGATIVE) 09/28/21 00:55 Influenza Type B (PCR) Negative (NEGATIVE) 09/28/21 00:55 RSV (PCR) Negative (NEGATIVE) 09/28/21 00:55 SARS CoV-2 RNA Rapid YUSUF Cancelled 09/28/21 00:55 Blood Type O POSITIVE 09/28/21 00:55 Antibody Screen Positive 09/28/21 00:55 Plan (1) Bilateral pneumonia: Status: Acute Qualifiers: Lung location: unspecified part of lung Pneumonia type: due to unsp ecified organism Qualified Code(s): J18.9 - Pneumonia, unspecified organism Plan: admit, supplemental oxygen, iv antibiotics, nebulizer treatments, resume home meds (2) Hypoxemia: Status: Acute (3) Hemoptysis: Status: Acute
[2021-09-29] MEDS: PERCOCET TAB 5/325 MG PO PRN (10:00)
[2021-09-29] MEDS: TUSSIONEX PENNKINETIC SUSP PO PRN (11:02)
--- NOTE | 2021-09-29 11:53 | RAD ---
HISTORYSOBSTUDYAP [id number]/2022FINDINGSInterva l increase in cardiomegaly with extensive distension and indistinctness of the pulmonary vessels. Developing airspace consolidation in both lower lungs.IMPRESSIONCardiomegaly with pulmonary vascular dilatation and bilateral airspace disease consistent with pneumonia/pulmonary edema. A small right pleural effusion is suggested.Electronically signed by: ALLA WEI (Sep 29, 2021 11:51:45)
[2021-09-29] MEDS: TESSALON PERLES PO PRN (12:46)
[2021-09-29] MEDS: CRESTOR TAB 10 MG PO SCH (21:19)
[2021-09-29] MEDS: ANTIVERT TAB 25 MG PO SCH (21:19)
[2021-09-29] MEDS: FLOMAX PO SCH (21:20)
[2021-09-29] MEDS: SINGULAIR TAB 10 MG PO SCH (21:21)
[2021-09-29] MEDS: ZyrTEC TAB 10 MG PO SCH (21:21)
[2021-09-29] MEDS: OXYBUTYNIN CHLORIDE ER PO SCH (21:21)
[2021-09-30 05:35] LABS: BASOPHILS % (AUTO) 0.2 % (0.2-1.0); EOSINOPHILS # (AUTO) 0.1 x10^3/uL (0.0-0.2); EOSINOPHILS % (AUTO) 1.3 % (0.9-2.9); HEMATOCRIT 22.1 % (42.0-54.0); HEMOGLOBIN 7.4 g/dL (13.5-18.0); LYMPHOCYTES # (AUTO) 0.6 X10^3/uL (1.3-2.9); LYMPHOCYTES % (AUTO) 7.1 % (21.0-51.0); MEAN CORPUSCULAR HEMOGLOBIN 32.2 pg (27.0-34.0); MEAN CORPUSCULAR HGB CONC 33.4 g/dL (33.0-35.0); MEAN CORPUSCULAR VOLUME 96.4 fL (80.0-100.0); MEAN PLATELET VOLUME 8.3 fL (7.4-11.0); MONOCYTES # (AUTO) 0.9 x10^3/uL (0.3-0.8); MONOCYTES % (AUTO) 10.7 % (0.0-13.0); NEUTROPHILS # (AUTO) 6.8 x10^3/uL (2.2-4.8); NEUTROPHILS % (AUTO) 80.7 % (42.0-75.0); RED BLOOD COUNT 2.29 X10^6/uL (4.7-6.0); RED CELL DISTRIBUTION WIDTH 16.1 % (11.6-16.5); WHITE BLOOD COUNT 8.4 X10^3/uL (3.6-10.0)
[2021-09-30 05:40] LABS: ALANINE AMINOTRANSFERASE 7 Units/L (12-78); ALBUMIN 2.1 g/dL (3.4-5.0); ALKALINE PHOSPHATASE 86 Units/L (46-116); ASPARTATE AMINO TRANSFERASE 13 Units/L (15-37); BLOOD UREA NITROGEN 14 mg/dL (7-18); CALCIUM 8.1 mg/dL (8.5-10.1); CARBON DIOXIDE 31.8 mmol/L (21-32); CHLORIDE 106 mmol/L (98-107); CREATININE 1.18 mg/dL (0.70-1.30); SODIUM 141 mmol/L (136-145); TOTAL PROTEIN 5.9 g/dL (6.4-8.2); eGFR NON BLACK RACES > 60 (>60)
[2021-09-30 05:41] LABS: COR CA(FOR HYPOALB) 9.6 mg/dL (8.5-10.1)
[2021-09-30] MEDS: ZOSYN VIAL 3.375 GRAMS 3.375 G in NS 100 ML IV 100 ML IV SCH ×3 (06:04→22:00)
--- NOTE | 2021-09-30 06:18 | RAD ---
HISTORYSOBSTUDYCHEST, 1 [id number]/06/2022.FINDINGSCardiom ediastinal silhouette is unchanged with persistent patchy interstitial and diffuse airspace opacities throughout the perihilar regions and both lung bases. There is no enlarging pleural effusion or evidence of pneumothorax. The bony thorax is grossly unremarkable.IMPRESSIONUnchanged exam compared with the previous day.Electronically signed by: FATOUMATA TOBIN (Sep 30, 2021 06:17:09)
[2021-09-30] MEDS: NS 1,000 ML IV 1,000 ML IV SCH ×3 (06:23→22:00)
[2021-09-30] MEDS: PULMICORT NEB TX 0.5 MG NEB SCH ×2 (08:30→20:47)
[2021-09-30] MEDS: XOPENEX 1.25 MG/3 ML NEBULE NEB SCH ×4 (08:30→20:48)
[2021-09-30] MEDS: CIPRO IV 400 MG PREMIX* 400 MG/200 ML IV.SOLN. IV SCH ×2 (09:46→20:58)
[2021-09-30] MEDS: FLONASE NASAL SPRAY ENOSTRIL SCH (09:47)
[2021-09-30] MEDS: HEMOCYTE-PLUS PO SCH (09:47)
[2021-09-30] MEDS: PROzac PO SCH (09:51)
[2021-09-30] MEDS: WELLBUTRIN XL 150 MG (DAILY) PO SCH (09:52)
[2021-09-30] MEDS: MICRO K EXTEN CAP 10 MEQ PO SCH ×2 (09:57→20:30)
[2021-09-30] MEDS: MAG-OX TAB PO SCH (09:57)
[2021-09-30] MEDS: PriLOSEC PO SCH (09:58)
[2021-09-30] MEDS: NEURONTIN CAP 300 MG PO SCH ×2 (09:58→20:30)
[2021-09-30] MEDS: REQUIP PO SCH ×2 (09:59→20:30)
[2021-09-30] MEDS: SYNTHROID 75 mcg TAB PO SCH (09:59)
[2021-09-30] MEDS ORDERED: TORADOL 30 MG VIAL IVP ONE (10:52)
--- NOTE | 2021-09-30 11:12 | PCM.PROG ---
Progress Note Progress Note for Day of Date of Exam: 09/30/21 Subjective Subjective: PT IS A 66 YEAR OLD MALE ADMITTED FOR BILATERAL PNEUMONIA AND HEMOPTYSIS. HIS PMH INCLUDES: ANEMIA, CHF, CVA, DEPRESSION, DYSLIPIDEMIA, GERD, HTN, HYPOTHYROIDISM, AAA REPAIR, CABG. THIS MORNING HE REPORTS FEELING THE SAME YESTERDAY. NO ACUTE EVENTS OVERNIGHT. ON EXAMINATION, AUSCULTATION OF LUNG DOMINGO REVEALED BILATERAL RHONCHI. HE IS CURRENTLY REQUIRING SUPPLEMENTAL OXYGEN OF 3L NASAL CANNULA. LABS/IMAGING: WBC 8.4, HGB 7.4, PLT 118, NA 141, K 4.1, CREATININE 1.18, GLUCOSE 95, SPUTUM CULTURE POSITIVE FOR KLEBSIELLA PNEUM, SENSITIVITIES PENDING. BLOOD CULTURES WERE SET UP AND PENDING. CXR THIS MORNING WAS OBTAINED THAT REVEALED: Cardiomediastinal silhouette is unchanged with per sistent patchy interstitial and diffuse airspace opacities throughout the perihilar regions and both lung bases. There is no enlarging pleural effusion or evidence of pneumothorax. HE IS CURRENTLY RECEIVING IVF NS@80ML/H, ANTIBIOTICS; IV CIPRO 400MG Q12H, ZOSYN 3.375G Q8H, SCHEDULED BRONCHODILATORS, TUSSIONEX AND TESSALON PERRLES FOR COUGH. WILL CONTINUE WITH CURRENT TREATMENT PLAN. CONTINUE TO CLOSELY MONITOR AND FOLLOW UP LABS/IMAGING. Time spent on clinical assessment, reviewing labs and imaging, decision making, and documentation greater than 45 minutes. Past Medical Family Social History Allergies: Allergies cilastatin [From Primaxin] Allergy (Verified 06/22/21 17:35) clarithromycin [From Biaxin] Allergy (Verified 06/22/21 17:35) imipenem [From Primaxin] Allergy (Verified 06/22/21 17:35) Vital Signs and I&O's Vital Signs: Temperature 98.4 F Pulse Rate [Right Radial] 85 Pulse Rate 89 Respiratory Rate 20 Blood Pressure [Left Arm] 108/55 Blood Pressure [Right Arm] 98/53 Blood Pressure 139/88 O2 Sat by Pulse Oximetry 95 Intake and Output: Intake & Output 09/27/21 09/28/21 09/29/21 09/30/21 23:59 23:59 23:59 23:59 Intake Total 1627 / 1627 2733 / 2733 1116 / 1116 Output Total 700 / 700 200 / 200 Balance 927 / 927 2733 / 2733 916 / 916 Physical Exam Oriented: Normal Eyes: Normal Ear: Normal Nose: Normal Throat: Normal Respiratory: Wheezes and Rhonchi Cardiovascular: Normal : Normal Auscultation: Bowel Sounds: Normal Tenderness: Normal Skin: Normal Musculoskeletal: Normal Psychiatric: Normal Mood Description: Calm Affect: Normal Speech Pattern: Clear and Appropriate Laboratory and Diagnostics Result Diagrams: 09/30/21 04:35 09/30/21 04:35 Labs: 09/28/21 13:37 Sputum - Expectorated Sputum Sputum Culture - Preliminary Klebsiella Pneumoniae 09/28/21 13:37 Sputum - Expectorated Sputum - Final 09/28/21 10:50 Blood Blood Culture - Preliminary 09/28/21 10:41 Blood Blood Culture - Preliminary Laboratory WBC 8.4 X10^3/uL (3.6-10.0) 09/30/21 04:35 RBC 2.29 X10^6/uL (4.7-6.0) L 09/30/21 04:35 Hgb 7.4 g/dL (13.5-18.0) L 09/30/21 04:35 Hct 22.1 % (42.0-54.0) L 09/30/21 04:35 MCV 96.4 fL (80.0-100.0) 09/30/21 04:35 MCH 32.2 pg (27.0-34.0) 09/30/21 04:35 MCHC 33.4 g/dL (33.0-35.0) 09/30/21 04:35 RDW 16.1 % (11.6-16.5) 09/30/21 04:35 Plt Count 118 X10^3/uL (150.0-450.0) L 09/30/21 04:35 Plt Count Comment Decreased (ADEQUATE) 09/28/21 05:09 MPV 8.3 fL (7.4-11.0) 09/30/21 04:35 Neut % (Auto) 80.7 % (42.0-75.0) H 09/30/21 04:35 Lymph % (Auto) 7.1 % (21.0-51.0) L 09/30/21 04:35 [place] % (Auto) 10.7 % (0.0-13.0) 09/30/21 04:35 Eos % (Auto) 1.3 % (0.9-2.9) 09/30/21 04:35 Baso % (Auto) 0.2 % (0.2-1.0) 09/30/21 04:35 Neut # (Auto) 6.8 x10^3/uL (2.2-4.8) H 09/30/21 04:35 Lymph # (Auto) 0.6 X10^3/uL (1.3-2.9) L 09/30/21 04:35 [place] # (Auto) 0.9 x10^3/uL (0.3-0.8) H 09/30/21 04:35 Eos # (Auto) 0.1 x10^3/uL (0.0-0.2) 09/30/21 04:35 Baso # (Auto) 0.0 X10^3/uL (0.0-0.1) 09/30/21 04:35 Absolute Nucleated RBC 0.0 /100WBC 09/30/21 04:35 Total Counted 100 09/28/21 05:09 Neutrophils % (Manual) 84 % (39-76) H 09/28/21 05:09 Band Neutrophils % 8 % (0-10) 09/28/21 05:09 Lymphocytes % (Manual) 3 % (13-43) L 09/28/21 05:09 Monocytes % (Manual) 5 % (4-9) 09/28/21 05:09 Plt Morphology Comment Normal (NORMAL) 09/28/21 05:09 RBC Morphology Abnormal (NORMAL) 09/28/21 05:09 Anisocytosis Slight A 09/28/21 05:09 PT 15.7 SECONDS (11.8-14.3) 09/28/21 00:55 INR Target Range - 09/28/21 00:55 INR 1.30 (0.8-1.3) 09/28/21 00:55 Sample Site Lr 09/28/21 00:56 ABG pH 7.380 (7.35-7.45) 09/28/21 00:56 ABG pCO2 56.0 mmHg (35.0-45.0) H* 09/28/21 00:56 ABG pO2 67.0 mmHg (80.0-100.0) L 09/28/21 00:56 ABG HCO3 33.1 mmol/L (22-26) H* 09/28/21 00:56 ABG O2 Saturation 93.0 % (90-100) 09/28/21 00:56 ABG Base Excess 6.4 mmol/L (-2.0-2.0) H 09/28/21 00:56 Sunny Test Pos 09/28/21 00:56 A-a Gradient 148.0 mmHg 09/28/21 00:56 FiO2 40.0 09/28/21 00:56 Blood Gas Comments Joy well ae 09/28/21 00:56 Sodium 141 mmol/L (136-145) 09/30/21 04:35 Corrected Sodium TNP 09/30/21 04:35 Potassium 4.1 mmol/L (3.5-5.1) 09/30/21 04:35 Chloride 106 mmol/L (98-107) 09/30/21 04:35 Carbon Dioxide 31.8 mmol/L (21-32) 09/30/21 04:35 BUN 14 mg/dL (7-18) 09/30/21 04:35 Creatinine 1.18 mg/dL (0.70-1.30) 09/30/21 04:35 Est GFR (MDRD) Af Amer > 60 (>60) 09/30/21 04:35 Est GFR (MDRD) Non-Af > 60 (>60) 09/30/21 04:35 Glucose 95 mg/dL (65-99) 09/30/21 04:35 POC Glucose (mg/dL) 173 mg/dL (65-99) H 09/29/21 21:08 Calcium 8.1 mg/dL (8.5-10.1) L 09/30/21 04:35 Corrected Calcium 9.6 mg/dL (8.5-10.1) 09/30/21 04:35 Magnesium 2.0 mg/dL (1.7-2.9) 09/29/21 04:12 Total Bilirubin 0.60 mg/dL (0.2-1.0) 09/30/21 04:35 AST 13 Units/L (15-37) L 09/30/21 04:35 ALT 7 Units/L (12-78) L 09/30/21 04:35 Alkaline Phosphatase 86 Units/L (46-116) 09/30/21 04:35 Creatine Kinase 32 Units/L (39-308) L 09/28/21 00:55 Troponin I High Sens 6.4 ng/L (4.0-60.0) 09/28/21 00:55 Total Protein 5.9 g/dL (6.4-8.2) L 09/30/21 04:35 Albumin 2.1 g/dL (3.4-5.0) L 09/30/21 04:35 Globulin 3.8 g/dL (2.5-4.5) 09/30/21 04:35 Albumin/Globulin Ratio 0.6 Ratio (1.1-2.1) L 09/30/21 04:35 Specimen Type Clean catch urine 09/28/21 19:55 Urine Color Yellow (YELLOW) 09/28/21 19:55 Urine Appearance Clear (CLEAR) 09/28/21 19:55 Urine pH 5.0 (5.0 - 8.0) 09/28/21 19:55 Ur Specific [place] 1.015 (1.000-1.030) 09/28/21 19:55 Urine Protein 1+ (NEGATIVE) 09/28/21 19:55 Urine Glucose (UA) Negative (NEGATIVE) 09/28/21 19:55 Urine Ketones Negative (NEGATIVE) 09/28/21 19:55 Urine Blood Negative (NEGATIVE) 09/28/21 19:55 Urine Nitrite Negative (NEGATIVE) 09/28/21 19:55 Urine Bilirubin Negative (NEGATIVE) 09/28/21 19:55 Urine Urobilinogen Normal (NORMAL) 09/28/21 19:55 Ur Leukocyte Esterase Negative (NEGATIVE) 09/28/21 19:55 Urine RBC 0-2 /HPF (0-3) 09/28/21 19:55 Urine WBC None seen /HPF (0-5) 09/28/21 19:55 Ur Squamous Epith Cells Rare /HPF (NEGATIVE) 09/28/21 19:55 Urine Bacteria Negative /HPF (NEGATIVE) 09/28/21 19:55 Hyaline Casts Few /LPF (NEGATIVE) 09/28/21 19:55 Urine Mucus Few /HPF (NEGATIVE) 09/28/21 19:55 Ur Culture Indicated? No/not indicated 09/28/21 19:55 SARS-CoV-2 (PCR) Negative (NEGATIVE) 09/28/21 00:55 Influenza Type A (PCR) Negative (NEGATIVE) 09/28/21 00:55 Influenza Type B (PCR) Negative (NEGATIVE) 09/28/21 00:55 RSV (PCR) Negative (NEGATIVE) 09/28/21 00:55 SARS CoV-2 RNA Rapid YUSUF Cancelled 09/28/21 00:55 Blood Type O POSITIVE 09/28/21 00:55 Antibody Screen Positive 09/28/21 00:55 Plan (1) Bilateral pneumonia: Status: Acute Qualifiers: Lung location: unspecified part of lung Pneumonia type: due to unspecified organism Qualified Code(s): J18.9 - Pneumonia, unspecified organism Plan: admit, supplemental oxygen, iv antibiotics, nebulizer treatments, resume home meds (2) Hypoxemia: Status: Acute (3) Hemoptysis: Status: Acute
[2021-09-30] MEDS: ANTIVERT TAB 25 MG PO SCH (20:30)
[2021-09-30] MEDS: FLOMAX PO SCH (20:30)
[2021-09-30] MEDS: OXYBUTYNIN CHLORIDE ER PO SCH (20:30)
[2021-09-30] MEDS: ZyrTEC TAB 10 MG PO SCH (20:30)
[2021-09-30] MEDS: CRESTOR TAB 10 MG PO SCH (20:30)
[2021-09-30] MEDS: SINGULAIR TAB 10 MG PO SCH (20:30)
[2021-10-01] MEDS: ZOSYN VIAL 3.375 GRAMS 3.375 G in NS 100 ML IV 100 ML IV SCH ×3 (05:01→21:50)
[2021-10-01 05:31] LABS: BASOPHILS % (AUTO) 0.3 % (0.2-1.0); EOSINOPHILS # (AUTO) 0.1 x10^3/uL (0.0-0.2); EOSINOPHILS % (AUTO) 2.1 % (0.9-2.9); HEMATOCRIT 22.4 % (42.0-54.0); HEMOGLOBIN 7.5 g/dL (13.5-18.0); LYMPHOCYTES # (AUTO) 0.4 X10^3/uL (1.3-2.9); LYMPHOCYTES % (AUTO) 5.6 % (21.0-51.0); MEAN CORPUSCULAR HEMOGLOBIN 32.4 pg (27.0-34.0); MEAN CORPUSCULAR HGB CONC 33.5 g/dL (33.0-35.0); MEAN CORPUSCULAR VOLUME 96.7 fL (80.0-100.0); MEAN PLATELET VOLUME 7.8 fL (7.4-11.0); MONOCYTES # (AUTO) 0.8 x10^3/uL (0.3-0.8); MONOCYTES % (AUTO) 12.3 % (0.0-13.0); NEUTROPHILS # (AUTO) 5.5 x10^3/uL (2.2-4.8); NEUTROPHILS % (AUTO) 79.7 % (42.0-75.0); RED BLOOD COUNT 2.32 X10^6/uL (4.7-6.0); RED CELL DISTRIBUTION WIDTH 15.9 % (11.6-16.5); WHITE BLOOD COUNT 6.9 X10^3/uL (3.6-10.0)
[2021-10-01 05:38] LABS: ALANINE AMINOTRANSFERASE 6 Units/L (12-78); ALBUMIN 2.1 g/dL (3.4-5.0); ALKALINE PHOSPHATASE 86 Units/L (46-116); ASPARTATE AMINO TRANSFERASE 14 Units/L (15-37); BLOOD UREA NITROGEN 17 mg/dL (7-18); CALCIUM 8.1 mg/dL (8.5-10.1); CARBON DIOXIDE 31.2 mmol/L (21-32); CHLORIDE 106 mmol/L (98-107); COR CA(FOR HYPOALB) 9.6 mg/dL (8.5-10.1); CREATININE 1.09 mg/dL (0.70-1.30); SODIUM 140 mmol/L (136-145); eGFR NON BLACK RACES > 60 (>60)
--- NOTE | 2021-10-01 06:55 | RAD ---
HISTORYFollow-up bilateral pneumonia, shortness of breathSTUDYChest AP [id number]/07/2022 and multiple priorFINDINGSPatient is status post median sternotomy and valve replacements. The heart is enlarged. No definite congestive heart failure is noted. Bilateral patchy and confluent alveolar infiltrates are present not significantly changed in degree or distribution from the prior examinations considering a difference in film technique. There is a question of some right lower lobe volume loss new since the prior examination. The apices remain clear. No pleural effusions are identified. Bony thorax is unremarkable.IMPRESSIONNo significant change diffuse patchy and confluent bilateral alveolar infiltrates considering a difference in film techniquePossible new right lower lobe volume lossElectronically signed by: LUDA QUEZADA (Oct 01, 2021 06:52:59)
[2021-10-01] MEDS: PULMICORT NEB TX 0.5 MG NEB SCH ×2 (08:25→21:25)
[2021-10-01] MEDS: XOPENEX 1.25 MG/3 ML NEBULE NEB SCH ×4 (08:25→21:25)
[2021-10-01] MEDS: FLONASE NASAL SPRAY ENOSTRIL SCH (08:59)
[2021-10-01] MEDS: CIPRO IV 400 MG PREMIX* 400 MG/200 ML IV.SOLN. IV SCH ×2 (08:59→20:42)
[2021-10-01] MEDS: MICRO K EXTEN CAP 10 MEQ PO SCH ×2 (09:00→20:46)
[2021-10-01] MEDS: MAG-OX TAB PO SCH (09:00)
[2021-10-01] MEDS: HEMOCYTE-PLUS PO SCH (09:00)
[2021-10-01] MEDS: NEURONTIN CAP 300 MG PO SCH ×2 (09:00→20:44)
[2021-10-01] MEDS: REQUIP PO SCH ×2 (09:01→20:46)
[2021-10-01] MEDS: PriLOSEC PO SCH (09:01)
[2021-10-01] MEDS: WELLBUTRIN XL 150 MG (DAILY) PO SCH (09:01)
[2021-10-01] MEDS: SYNTHROID 75 mcg TAB PO SCH (09:01)
[2021-10-01] MEDS: PROzac PO SCH (09:01)
[2021-10-01] MEDS: LASIX IVP SCH (10:19)
[2021-10-01] MEDS: NS 1,000 ML IV 1,000 ML IV SCH (11:12)
--- NOTE | 2021-10-01 11:36 | PCM.PROG ---
Progress Note - Progress Note for Day of Date of Exam: 10/01/21 - Subjective Subjective: IS CURRENTLY BEING TREATED FOR BILATERAL PNEUMONIA, HYPOXIEMIA, AND HEMOPTYSIS. HE HAS A PMH OF HTN, DYSLIPIDEMIA, DEPRESSION, HYPOTHYROIDISM, ANEMIA, CVA, GERD, CHF, AND VALVULAR HEART DISEASE. TODAY, HE IS ALERT AND ORIENTED, LYING IN BED ON MORNING ROUNDS. HE COMPLAINS OF PERSISTENT COUGH, SHORTNESS OF BREATH, AND WEAKNESS. HE ALSO COMPLAINS OF INCREASED SWELLING TO BILATERAL LOWER EXTREMITIES. HE IS CURRENTLY ON NASAL CANNULA AT 3 LPM. STAFF REPORTS THAT HIS OXYGEN SATURATIONS HAVE DROPPED TO THE UPPER 80s AT TIMES. ON EXAMINATION, HEART IS REGULAR IN RATE AND RHYTHM. BILATERAL LUNGS NOTED WITH SCATTERED WHEEZING AND RHONCHI THROUGHOUT. ABDOMEN IS ROUND, SOFT, AND NON-TENDER WITH NORMAL BOWEL SOUNDS NOTED IN ALL QUADRANTS. BILATERAL LOWER EXTREMITIES ARE NOTED WITH 2+ PITTING EDEMA. HIS VITALS THIS MORNING ARE: 98.2-92-19-100% NC@3-115/55. LABS WERE OBTAINED. WBC 6.9, RBC 2.32, HGB 7.5, HCT 22.4, PLT COUNT 115, SODIUM 140, POTASSIUM 4.2, CHLORIDE 106, CARBON DIOXIDE 31.2, BUN 17, CREATININE 1.09, GLUCOSE 90, CALCIUM 8.1, AST 14, ALT 6, ALK PHOS 86, TOTAL PROTEIN 6.0, ALBUMIN 2.1. SPUTUM CULTURES REVEAL GROWTH OF KLEBSIELLA PNEUMONIAE. BLOOD CULTURES ARE PENDING. CHEST XRAY OBTAINED AND REVEALED: No significant change diffuse patchy and confluent bilateral alveolar infiltrates considering a difference in film technique. Possible new right lower lobe volume loss. HE IS CURRENTLY RECEIVING NORMAL SALINE AT 80 ML/HR, ZOSYN 3.375G IV TID, CIPRO 400MG IV Q12H, XOPENEX NEBS QID, PULMICORT NEBS BID, TUSSIONEX 5ML PO Q12H PRN, TESSALON PERLES 200MG PO TID PRN, OTBS ACHS, HIS HOME MEDICATIONS OF WELLBUTRIN, ZYRTEC, PROZAC, FLOANSE, NEURONTIN, SYNTHROID, MAGNESIUM OXIDE, ANTIVERT, SINGULAIR, HEMOCYTE PLUS, PRILOSEC, OXYBUTYNIN, PERCOCET, MICRO K, SEROQUEL, REQUIP, CRESTOR, AND FLOMAX WERE RESUMED. TODAY, WE WILL START LASIX 20MG IV DAILY. OTHERWISE, WE WILL FOLLOW UP WITH AM LABS AND CHEST XRAY AND CONTINUE TO MONITOR. TIME SPENT ON CLINICAL ASSESSMENT, REVIWING LABS AND IMAGING, DECISION MAKING, AND DOCUMENTATION GREATER THAN 45 MINUTES. - Past Medical Family Social History Past Med/Fam/Surg Hx: No changes since H&P Allergies: Allergies cilastatin [From Primaxin] Allergy (Verified 06/22/21 17:35) clarithromycin [From Biaxin] Allergy (Verified 06/22/21 17:35) imipenem [From Primaxin] Allergy (Verified 06/22/21 17:35) - Review of Systems ROS: No change since H&P - Vital Signs and I&O's Vital Signs: Temperature 98.2 F Pulse Rate [Right Radial] 85 Pulse Rate 78 Respiratory Rate 19 Blood Pressure [Left Arm] 108/55 Blood Pressure [Right Arm] 98/53 Blood Pressure 115/55 O2 Sat by Pulse Oximetry 98 Intake and Output: Intake & Output 09/28/21 09/29/21 09/30/21 10/01/21 11:59 11:59 11:59 11:59 Intake Total 2170 / 2170 3289 / 3289 2187 / 2187 Output Total 700 / 700 200 / 200 Balance 1470 / 1470 3089 / 3089 2187 / 2187 - Physical Exam Oriented: Normal Eyes: Normal Ear: Normal Nose: Normal Throat: Normal Respiratory: Wheezes, Rhonchi Cardiovascular: Normal : Normal Auscultation: Bowel Sounds: Normal Palpation: Normal Tenderness: Normal Skin: Normal Musculoskeletal: Normal Psychiatric: Normal Mood Description: Calm Affect: Normal Speech Pattern: Clear, Appropriate - Laboratory and Diagnostics Result Diagrams: 10/01/21 04:55 10/01/21 04:55 Labs: 09/28/21 13:37 Sputum - Expectorated Sputum Sputum Culture - Final Klebsiella Pneumoniae 09/28/21 13:37 Sputum - Expectorated Sputum - Final 09/28/21 10:50 Blood Blood Culture - Preliminary 09/28/21 10:41 Blood Blood Culture - Preliminary Laboratory WBC 6.9 X10^3/uL (3.6-10.0) 10/01/21 04:55 RBC 2.32 X10^6/uL (4.7-6.0) L 10/01/21 04:55 Hgb 7.5 g/dL (13.5-18.0) L 10/01/21 04:55 Hct 22.4 % (42.0-54.0) L 10/01/21 04:55 MCV 96.7 fL (80.0-100.0) 10/01/21 04:55 MCH 32.4 pg (27.0-34.0) 10/01/21 04:55 MCHC 33.5 g/dL (33.0-35.0) 10/01/21 04:55 RDW 15.9 % (11.6-16.5) 10/01/21 04:55 Plt Count 115 X10^3/uL (150.0-450.0) L 10/01/21 04:55 Plt Count Comment Decreased (ADEQUATE) 09/28/21 05:09 MPV 7.8 fL (7.4-11.0) 10/01/21 04:55 Neut % (Auto) 79.7 % (42.0-75.0) H 10/01/21 04:55 Lymph % (Auto) 5.6 % (21.0-51.0) L 10/01/21 04:55 [place] % (Auto) 12.3 % (0.0-13.0) 10/01/21 04:55 Eos % (Auto) 2.1 % (0.9-2.9) 10/01/21 04:55 Baso % (Auto) 0.3 % (0.2-1.0) 10/01/21 04:55 Neut # (Auto) 5.5 x10^3/uL (2.2-4.8) H 10/01/21 04:55 Lymph # (Auto) 0.4 X10^3/uL (1.3-2.9) L 10/01/21 04:55 [place] # (Auto) 0.8 x10^3/uL (0.3-0.8) 10/01/21 04:55 Eos # (Auto) 0.1 x10^3/uL (0.0-0.2) 10/01/21 04:55 Baso # (Auto) 0.0 X10^3/uL (0.0-0.1) 10/01/21 04:55 Absolute Nucleated RBC 0.0 /100WBC 10/01/21 04:55 Total Counted 100 09/28/21 05:09 Neutrophils % (Manual) 84 % (39-76) H 09/28/21 05:09 Band Neutrophils % 8 % (0-10) 09/28/21 05:09 Lymphocytes % (Manual) 3 % (13-43) L 09/28/21 05:09 Monocytes % (Manual) 5 % (4-9) 09/28/21 05:09 Plt Morphology Comment Normal (NORMAL) 09/28/21 05:09 RBC Morphology Abnormal (NORMAL) 09/28/21 05:09 Anisocytosis Slight A 09/28/21 05:09 PT 15.7 SECONDS (11.8-14.3) 09/28/21 00:55 INR Target Range - 09/28/21 00:55 INR 1.30 (0.8-1.3) 09/28/21 00:55 Sample Site Lr 09/28/21 00:56 ABG pH 7.380 (7.35-7.45) 09/28/21 00:56 ABG pCO2 56.0 mmHg (35.0-45.0) H* 09/28/21 00:56 ABG pO2 67.0 mmHg (80.0-100.0) L 09/28/21 00:56 ABG HCO3 33.1 mmol/L (22-26) H* 09/28/21 00:56 ABG O2 Saturation 93.0 % (90-100) 09/28/21 00:56 ABG Base Excess 6.4 mmol/L (-2.0-2.0) H 09/28/21 00:56 Sunny Test Pos 09/28/21 00:56 A-a Gradient 148.0 mmHg 09/28/21 00:56 FiO2 40.0 09/28/21 00:56 Blood Gas Comments Joy well ae 09/28/21 00:56 Sodium 140 mmol/L (136-145) 10/01/21 04:55 Corrected Sodium TNP 10/01/21 04:55 Potassium 4.2 mmol/L (3.5-5.1) 10/01/21 04:55 Chloride 106 mmol/L (98-107) 10/01/21 04:55 Carbon Dioxide 31.2 mmol/L (21-32) 10/01/21 04:55 BUN 17 mg/dL (7-18) 10/01/21 04:55 Creatinine 1.09 mg/dL (0.70-1.30) 10/01/21 04:55 Est GFR (MDRD) Af Amer > 60 (>60) 10/01/21 04:55 Est GFR (MDRD) Non-Af > 60 (>60) 10/01/21 04:55 Glucose 90 mg/dL (65-99) 10/01/21 04:55 POC Glucose (mg/dL) 142 mg/dL (65-99) H 10/01/21 11:10 Calcium 8.1 mg/dL (8.5-10.1) L 10/01/21 04:55 Corrected Calcium 9.6 mg/dL (8.5-10.1) 10/01/21 04:55 Magnesium 2.0 mg/dL (1.7-2.9) 09/29/21 04:12 Total Bilirubin 0.60 mg/dL (0.2-1.0) 10/01/21 04:55 AST 14 Units/L (15-37) L 10/01/21 04:55 ALT 6 Units/L (12-78) L 10/01/21 04:55 Alkaline Phosphatase 86 Units/L (46-116) 10/01/21 04:55 Creatine Kinase 32 Units/L (39-308) L 09/28/21 00:55 Troponin I High Sens 6.4 ng/L (4.0-60.0) 09/28/21 00:55 Total Protein 6.0 g/dL (6.4-8.2) L 10/01/21 04:55 Albumin 2.1 g/dL (3.4-5.0) L 10/01/21 04:55 Globulin 3.9 g/dL (2.5-4.5) 10/01/21 04:55 Albumin/Globulin Ratio 0.5 Ratio (1.1-2.1) L 10/01/21 04:55 Specimen Type Clean catch urine 09/28/21 19:55 Urine Color Yellow (YELLOW) 09/28/21 19:55 Urine Appearance Clear (CLEAR) 09/28/21 19:55 Urine pH 5.0 (5.0 - 8.0) 09/28/21 19:55 Ur Specific [place] 1.015 (1.000-1.030) 09/28/21 19:55 Urine Protein 1+ (NEGATIVE) 09/28/21 19:55 Urine Glucose (UA) Negative (NEGATIVE) 09/28/21 19:55 Urine Ketones Negative (NEGATIVE) 09/28/21 19:55 Urine Blood Negative (NEGATIVE) 09/28/21 19:55 Urine Nitrite Negative (NEGATIVE) 09/28/21 19:55 Urine Bilirubin Negative (NEGATIVE) 09/28/21 19:55 Urine Urobilinogen Normal (NORMAL) 09/28/21 19:55 Ur Leukocyte Esterase Negative (NEGATIVE) 09/28/21 19:55 Urine RBC 0-2 /HPF (0-3) 09/28/21 19:55 Urine WBC None seen /HPF (0-5) 09/28/21 19:55 Ur Squamous Epith Cells Rare /HPF (NEGATIVE) 09/28/21 19:55 Urine Bacteria Negative /HPF (NEGATIVE) 09/28/21 19:55 Hyaline Casts Few /LPF (NEGATIVE) 09/28/21 19:55 Urine Mucus Few /HPF (NEGATIVE) 09/28/21 19:55 Ur Culture Indicated? No/not indicated 09/28/21 19:55 SARS-CoV-2 (PCR) Negative (NEGATIVE) 09/28/21 00:55 Influenza Type A (PCR) Negative (NEGATIVE) 09/28/21 00:55 Influenza Type B (PCR) Negative (NEGATIVE) 09/28/21 00:55 RSV (PCR) Negative (NEGATIVE) 09/28/21 00:55 SARS CoV-2 RNA Rapid YUSUF Cancelled 09/28/21 00:55 Blood Type O POSITIVE 09/28/21 00:55 Antibody Screen Positive 09/28/21 00:55 Antibody Identification Anti-E Anti-Fya 09/28/21 00:55 Antibody Identification Anti-E Anti-Fya 09/28/21 00:55 - Plan (1) Bilateral pneumonia Status: Acute Qualifiers: Pneumonia type: due to unspecified organism Lung location: unspecified part of lung Qualified Code(s): J18.9 - Pneumonia, unspecified organism Plan: supplemental oxygen, iv antibiotics, nebulizer treatments, resume home meds (2) Hypoxemia Status: Acute (3) Hemoptysis Status: Acute (4) Anemia Status: Acute Qualifiers: Anemia type: unspecified type (5) CHF (congestive heart failure) Status: Chronic Qualifiers: Heart failure type: combined systolic and diastolic Heart failure chronicity: chronic Qualified Code(s): I50.42 - Chronic combined systolic (congestive) and diastolic (congestive) heart failure (6) COPD (chronic obstructive pulmonary disease) Status: Chronic Qualifiers: COPD type: unspecified COPD Qualified Code(s): J44.9 - Chronic obstructive pulmonary disease, unspecified (7) Hyperlipidemia Status: Chronic Qualifiers: Hyperlipidemia type: mixed hyperlipidemia Qualified Code(s): E78.2 - Mixed hyperlipidemia (8) Hypertension Status: Chronic Qualifiers: Hypertension type: primary hypertension Qualified Code(s): I10 - Essential (primary) hypertension (9) History of CVA (cerebrovascular accident) Status: Chronic
[2021-10-01] MEDS ORDERED: ATIVAN INJ 2 MG VIAL IVP PRN (11:57)
[2021-10-01] MEDS: HALDOL INJ IM PRN ×2 (12:27→22:45)
[2021-10-01] MEDS: TUSSIONEX PENNKINETIC SUSP PO PRN (17:22)
[2021-10-01] MEDS: ZyrTEC TAB 10 MG PO SCH (20:43)
[2021-10-01] MEDS: CRESTOR TAB 10 MG PO SCH (20:43)
[2021-10-01] MEDS: SINGULAIR TAB 10 MG PO SCH (20:43)
[2021-10-01] MEDS: OXYBUTYNIN CHLORIDE ER PO SCH (20:44)
[2021-10-01] MEDS: ANTIVERT TAB 25 MG PO SCH (20:45)
[2021-10-01] MEDS: FLOMAX PO SCH (20:46)
[2021-10-01] MEDS: PERCOCET TAB 5/325 MG PO PRN (21:36)
[2021-10-02] MEDS: NS 1,000 ML IV 1,000 ML IV SCH ×2 (01:09→13:08)
--- NOTE | 2021-10-02 04:50 | RAD ---
HISTORYBIL PNEUMONIA; SOB Relevant Clinical InformationSTUDYCHEST, 1 [id number]/08/2022FINDINGSThe trachea is midline. The cardiac silhouette is enlarged.. Bilateral patchy and confluent alveolar infiltrates unchanged. No pneumothorax the bony thorax is unremarkable.IMPRESSIONStable portable chest.Electronically signed by: Geoff Olmos (Oct 02, 2021 04:48:55)
[2021-10-02] MEDS: ZOSYN VIAL 3.375 GRAMS 3.375 G in NS 100 ML IV 100 ML IV SCH ×3 (05:28→21:20)
[2021-10-02 05:32] LABS: BASOPHILS % (AUTO) 0.6 % (0.2-1.0); EOSINOPHILS # (AUTO) 0.1 x10^3/uL (0.0-0.2); EOSINOPHILS % (AUTO) 0.7 % (0.9-2.9); HEMATOCRIT 23.4 % (42.0-54.0); HEMOGLOBIN 7.7 g/dL (13.5-18.0); LYMPHOCYTES # (AUTO) 0.4 X10^3/uL (1.3-2.9); LYMPHOCYTES % (AUTO) 4.6 % (21.0-51.0); MEAN CORPUSCULAR HEMOGLOBIN 31.6 pg (27.0-34.0); MEAN CORPUSCULAR VOLUME 95.6 fL (80.0-100.0); MEAN PLATELET VOLUME 7.7 fL (7.4-11.0); MONOCYTES # (AUTO) 1.3 x10^3/uL (0.3-0.8); MONOCYTES % (AUTO) 16.2 % (0.0-13.0); NEUTROPHILS # (AUTO) 6.2 x10^3/uL (2.2-4.8); NEUTROPHILS % (AUTO) 77.9 % (42.0-75.0); RED BLOOD COUNT 2.45 X10^6/uL (4.7-6.0); RED CELL DISTRIBUTION WIDTH 15.8 % (11.6-16.5)
[2021-10-02 05:53] LABS: ALANINE AMINOTRANSFERASE 8 Units/L (12-78); ALBUMIN 2.1 g/dL (3.4-5.0); ALKALINE PHOSPHATASE 95 Units/L (46-116); ASPARTATE AMINO TRANSFERASE 17 Units/L (15-37); BLOOD UREA NITROGEN 13 mg/dL (7-18); CALCIUM 8.2 mg/dL (8.5-10.1); CARBON DIOXIDE 30.6 mmol/L (21-32); CHLORIDE 107 mmol/L (98-107); COR CA(FOR HYPOALB) 9.7 mg/dL (8.5-10.1); CREATININE 1.01 mg/dL (0.70-1.30); SODIUM 143 mmol/L (136-145); TOTAL PROTEIN 6.2 g/dL (6.4-8.2); eGFR NON BLACK RACES > 60 (>60)
[2021-10-02 06:24] LABS: PLATELET MORPHOLOGY COMMENT NORMAL (NORMAL)
[2021-10-02] MEDS: FLONASE NASAL SPRAY ENOSTRIL SCH (08:28)
[2021-10-02] MEDS: HEMOCYTE-PLUS PO SCH (08:28)
[2021-10-02] MEDS: NEURONTIN CAP 300 MG PO SCH ×2 (08:29→20:30)
[2021-10-02] MEDS: PriLOSEC PO SCH (08:29)
[2021-10-02] MEDS: MAG-OX TAB PO SCH (08:29)
[2021-10-02] MEDS: LASIX IVP SCH (08:29)
[2021-10-02] MEDS: MICRO K EXTEN CAP 10 MEQ PO SCH ×2 (08:29→20:29)
[2021-10-02] MEDS: SYNTHROID 75 mcg TAB PO SCH (08:30)
[2021-10-02] MEDS: REQUIP PO SCH ×2 (08:30→20:30)
[2021-10-02] MEDS: WELLBUTRIN XL 150 MG (DAILY) PO SCH (08:30)
[2021-10-02] MEDS: PROzac PO SCH (08:30)
[2021-10-02] MEDS: PULMICORT NEB TX 0.5 MG NEB SCH ×2 (08:40→20:05)
[2021-10-02] MEDS: XOPENEX 1.25 MG/3 ML NEBULE NEB SCH ×4 (08:40→20:05)
[2021-10-02] MEDS: CIPRO IV 400 MG PREMIX* 400 MG/200 ML IV.SOLN. IV SCH ×2 (08:54→20:31)
[2021-10-02] MEDS ORDERED: PROzac PO ONE (12:08)
[2021-10-02] MEDS: TUSSIONEX PENNKINETIC SUSP PO PRN (14:32)
[2021-10-02] MEDS: VALIUM INJ IM PRN (17:55)
[2021-10-02] MEDS: HALDOL INJ IM PRN ×2 (17:55→22:06)
[2021-10-02] MEDS: ANTIVERT TAB 25 MG PO SCH (20:29)
[2021-10-02] MEDS: CRESTOR TAB 10 MG PO SCH (20:29)
[2021-10-02] MEDS: SINGULAIR TAB 10 MG PO SCH (20:29)
[2021-10-02] MEDS: FLOMAX PO SCH (20:30)
[2021-10-02] MEDS: OXYBUTYNIN CHLORIDE ER PO SCH (20:30)
[2021-10-02] MEDS: ZyrTEC TAB 10 MG PO SCH (20:30)
[2021-10-02] MEDS: COLACE CAP 100 MG PO SCH (20:32)
[2021-10-03] MEDS: VALIUM INJ IM PRN (02:25)
[2021-10-03] MEDS: NS 1,000 ML IV 1,000 ML IV SCH ×3 (02:29→18:16)
[2021-10-03] MEDS: ZOSYN VIAL 3.375 GRAMS 3.375 G in NS 100 ML IV 100 ML IV SCH ×3 (05:08→22:19)
[2021-10-03 06:08] LABS: ALANINE AMINOTRANSFERASE 6 Units/L (12-78); ALBUMIN 1.9 g/dL (3.4-5.0); ALKALINE PHOSPHATASE 85 Units/L (46-116); ASPARTATE AMINO TRANSFERASE 17 Units/L (15-37); BLOOD UREA NITROGEN 13 mg/dL (7-18); CALCIUM 8.2 mg/dL (8.5-10.1); CARBON DIOXIDE 32.9 mmol/L (21-32); CHLORIDE 108 mmol/L (98-107); COR CA(FOR HYPOALB) 9.9 mg/dL (8.5-10.1); CREATININE 0.93 mg/dL (0.70-1.30); SODIUM 146 mmol/L (136-145); TOTAL PROTEIN 5.8 g/dL (6.4-8.2); eGFR NON BLACK RACES > 60 (>60)
--- NOTE | 2021-10-03 06:13 | RAD ---
HISTORYFollow-up pneumonia, shortness of breathSTUDYChest AP [id number]/09/2022FINDINGSPati ent is status post median sternotomy and valve replacement. The heart remains enlarged. No congestive heart failure is noted. Diffuse bilateral patchy and confluent alveolar infiltrates are identified not significantly changed when compared with the prior examination. No pneumothorax or definite pleural effusions identified. Bony thorax is unremarkable.IMPRESSIONNo change cardiomegaly without congestive heart failureNo change diffuse bilateral patchy and confluent alveolar infiltratesElectronically signed by: LUDA QUEZADA (Oct 03, 2021 06:11:33)
[2021-10-03 06:31] LABS: BASOPHILS % (AUTO) 0.4 % (0.2-1.0); EOSINOPHILS # (AUTO) 0.1 x10^3/uL (0.0-0.2); EOSINOPHILS % (AUTO) 1.6 % (0.9-2.9); HEMATOCRIT 21.7 % (42.0-54.0); HEMOGLOBIN 7.3 g/dL (13.5-18.0); LYMPHOCYTES # (AUTO) 0.5 X10^3/uL (1.3-2.9); LYMPHOCYTES % (AUTO) 8.6 % (21.0-51.0); MEAN CORPUSCULAR HEMOGLOBIN 31.8 pg (27.0-34.0); MEAN CORPUSCULAR HGB CONC 33.3 g/dL (33.0-35.0); MEAN CORPUSCULAR VOLUME 95.4 fL (80.0-100.0); MEAN PLATELET VOLUME 7.6 fL (7.4-11.0); MONOCYTES # (AUTO) 1.2 x10^3/uL (0.3-0.8); MONOCYTES % (AUTO) 19.9 % (0.0-13.0); NEUTROPHILS # (AUTO) 4.2 x10^3/uL (2.2-4.8); NEUTROPHILS % (AUTO) 69.5 % (42.0-75.0); RED BLOOD COUNT 2.28 X10^6/uL (4.7-6.0); RED CELL DISTRIBUTION WIDTH 15.7 % (11.6-16.5); WHITE BLOOD COUNT 6.1 X10^3/uL (3.6-10.0)
[2021-10-03] MEDS: XOPENEX 1.25 MG/3 ML NEBULE NEB SCH ×5 (08:25→21:30)
[2021-10-03] MEDS: PULMICORT NEB TX 0.5 MG NEB SCH ×2 (08:25→21:30)
[2021-10-03] MEDS: CIPRO IV 400 MG PREMIX* 400 MG/200 ML IV.SOLN. IV SCH (08:37)
[2021-10-03] MEDS: HEMOCYTE-PLUS PO SCH (08:37)
[2021-10-03] MEDS: FLONASE NASAL SPRAY ENOSTRIL SCH (08:37)
[2021-10-03] MEDS: PriLOSEC PO SCH (08:38)
[2021-10-03] MEDS: MAG-OX TAB PO SCH (08:38)
[2021-10-03] MEDS: NEURONTIN CAP 300 MG PO SCH ×2 (08:38→20:27)
[2021-10-03] MEDS: MICRO K EXTEN CAP 10 MEQ PO SCH ×2 (08:38→20:28)
[2021-10-03] MEDS: PROzac PO SCH (08:39)
[2021-10-03] MEDS: REQUIP PO SCH ×2 (08:39→20:27)
[2021-10-03] MEDS: SYNTHROID 75 mcg TAB PO SCH (08:39)
[2021-10-03] MEDS: LASIX IVP SCH (09:00)
--- NOTE | 2021-10-03 14:49 | RAD ---
HISTORYBILATERAL PNEUMONIA, FAILED OUT PATIENT TREATMENT.br LINE PLACEMENTSTUDYCHEST, 1 [id number]/10/2022FINDINGSThe cardiomediastinal silhouette is stable. Similar median sternotomy changes. Similar bilateral airspace opacities. Left PICC placement with tip overlying the right atrium. No pneumothorax or effusion. The bony thorax appears intact.IMPRESSIONExpected appearance of left PICC with tip overlying the right atrium.Similar bilateral pneumonia.Electronically signed by: LUDA QUEZADA (Oct 03, 2021 14:47:51)
--- NOTE | 2021-10-03 15:01 | DR.UPDATE ---
H&P Update History and Physical Update: History and Physical reviewed and patient examined. Changes noted: NO Yes with the following:will place picc as ordered by MD H&P Reviewed: Yes Patient was examined?: Yes Procedures (ALL) - Central Line Placement PCM.CLCO: written consent Time out performed: Yes Patient placed pm monitor/pulse ox: Yes prep: mask, gown, gloves, other Centrial line prep: chlorhexidine scrub, sterile drapes applied Local anesthsia used: lidocane 1% Ultrasound used for placement: Yes (left bsilic id'd via u/s and cannulation visualized) Central line lumen ininserted: double (5.5fr arrowpicc) Post procedure: good blood return, all ports aspirated, flushed,capped, sterile dressing applied Post procedure xray: tip oc catheter in good position, no pneumothorax seen Patient tolerated procedure: Yes Complications: none
[2021-10-03] MEDS: DILTIAZEM 125mg/125mL-0.7%NACL 125 MG/125 ML PLAST..BAG IV PRN (15:56)
[2021-10-03] MEDS: ZyrTEC TAB 10 MG PO SCH (20:26)
[2021-10-03] MEDS: ANTIVERT TAB 25 MG PO SCH (20:26)
[2021-10-03] MEDS: OXYBUTYNIN CHLORIDE ER PO SCH (20:27)
[2021-10-03] MEDS: CRESTOR TAB 10 MG PO SCH (20:27)
[2021-10-03] MEDS: FLOMAX PO SCH (20:27)
[2021-10-03] MEDS: COLACE CAP 100 MG PO SCH (20:27)
[2021-10-03] MEDS: SINGULAIR TAB 10 MG PO SCH (20:28)
[2021-10-03] MEDS ORDERED: LOPRESSOR INJ 5 MG AMP IVP PRN (23:26)
--- NOTE | 2021-10-03 23:38 | PCM.PROG ---
Progress Note - Progress Note for Day of Date of Exam: 10/02/21 - Subjective Subjective: IS CURRENTLY BEING TREATED FOR BILATERAL PNEUMONIA, HYPOXIEMIA, AND HEMOPTYSIS. HE HAS A PMH OF HTN, DYSLIPIDEMIA, DEPRESSION, HYPOTHYROIDISM, ANEMIA, CVA, GERD, CHF, AND VALVULAR HEART DISEASE. TODAY, HE IS ALERT, LYING IN BED ON MORNING ROUNDS. HE IS DISORIENTED THIS MORNING. STAFF REPORTS THAT HE HAS HAD INCREASED AGITATION THROUGHOUT THE NIGHT. HE COMPLAINS OF PERSISTENT COUGH, SHORTNESS OF BREATH, AND WEAKNESS. HE IS CURRENTLY ON NASAL CANNULA AT 2-3 LPM. ON EXAMINATION, HEART IS REGULAR IN RATE AND RHYTHM. BILATERAL LUNGS NOTED WITH SCATTERED WHEEZING AND RHONCHI THROUGHOUT. ABDOMEN IS ROUND, SOFT, AND NON-TENDER WITH NORMAL BOWEL SOUNDS NOTED IN ALL QUADRANTS. BILATERAL LOWER EXTREMITIES ARE NOTED WITH 2+ PITTING EDEMA. HIS VITALS THIS MORNING ARE: 99.6-92-29-100%-142/68. LABS WERE OBTAINED. WBC 8.0, RBC 2.45, HGB 7.7, HCT 23.4, PLT COUNT 152, SODIUM 143, POTASSIUM 4.1, CHLORIDE 107, BUN 13, CREATININE 1.01, GLUCOSE 109, CALCIUM 8.2, AST 17, ALT 8, ALK PHOS 95, TOTAL PROTEIN 6.2, ALBUMIN 2.1. SPUTUM CULTURES REVEAL GROWTH OF KLEBSIELLA PNEUMONIAE. BLOOD CULTURES ARE PENDING. CHEST XRAY OBTAINED AND REVEALED: The trachea is midline. The cardiac silhouette is enlarged. Bilateral patchy and confluent alveolar infiltrates unchanged. No pneumothorax the bony thorax is unremarkable. HE IS CURRENTLY RECEIVING NORMAL SALINE AT 80 ML/HR, ZOSYN 3.375G IV TID, CIPRO 400MG IV Q12H, XOPENEX NEBS QID, PULMICORT NEBS BID, TUSSIONEX 5ML PO Q12H PRN, TESSALON PERLES 200MG PO TID PRN, LASIX 20MG IV DAILY, OTBS ACHS, HIS HOME MEDICATIONS OF WELLBUTRIN, ZYRTEC, PROZAC, FLOANSE, NEURONTIN, SYNTHROID, MAGNESIUM OXIDE, ANTIVERT, SINGULAIR, HEMOCYTE PLUS, PRILOSEC, OXY BUTYNIN, PERCOCET, MICRO K, SEROQUEL, REQUIP, CRESTOR, AND FLOMAX WERE RESUMED. TODAY, WE WILL DISCONTINUE THE WELLBUTRIN. WE WILL INCREASE PROZAC TO 40MG DAILY AND INCREASE SEROQUEL TO 200MG PO HS. OTHERWISE, WE WILL FOLLOW UP WITH AM LABS AND CHEST XRAY AND CONTINUE TO MONITOR. TIME SPENT ON CLINICAL ASSESSMENT, REVIWING LABS AND IMAGING, DECISION MAKING, AND DOCUMENTATION GREATER THAN 45 MINUTES. - Past Medical Family Social History Past Med/Fam/Surg Hx: No changes since H&P Allergies: Allergies cilastatin [From Primaxin] Allergy (Verified 06/22/21 17:35) clarithromycin [From Biaxin] Allergy (Verified 06/22/21 17:35) imipenem [From Primaxin] Allergy (Verified 06/22/21 17:35) - Review of Systems ROS: No change since H&P - Vital Signs and I&O's Vital Signs: Temperature 98.4 F Pulse Rate [Right Radial] 85 Pulse Rate 93 Respiratory Rate 20 Blood Pressure [Left Arm] 108/55 Blood Pressure [Right Arm] 98/53 Blood Pressure 118/64 O2 Sat by Pulse Oximetry 93 Intake and Output: Intake & Output 10/01/21 10/02/21 10/03/21 10/04/21 11:59 11:59 11:59 11:59 Intake Total 2187 / 2187 3647 / 3647 1866 / 1866 1291 / 1291 Output Total 1150 / 1150 1850 / 1850 300 / 300 Balance 2187 / 2187 2497 / 2497 16 / 991 / 991 - Physical Exam Oriented: Normal Eyes: Normal Ear: Normal Nose: Normal Throat: Normal Respiratory: Wheezes, Rhonchi Cardiovascular: Normal : Normal Auscultation: Bowel Sounds: Normal Palpation: Normal Tenderness: Normal Skin: Normal Musculoskeletal: Normal Psychiatric: Normal Mood Description: Calm Affect: Normal Speech Pattern: Clear, Appropriate - Laboratory and Diagnostics Result Diagrams: 10/03/21 05:15 10/03/21 05:15 Labs: 09/28/21 10:50 Blood Blood Culture - Final 09/28/21 10:41 Blood Blood Culture - Final 09/28/21 13:37 Sputum - Expectorated Sputum Sputum Culture - Final Klebsiella Pneumoniae 09/28/21 13:37 Sputum - Expectorated Sputum - Final Laboratory WBC 6.1 X10^3/uL (3.6-10.0) 10/03/21 05:15 RBC 2.28 X10^6/uL (4.7-6.0) L 10/03/21 05:15 Hgb 7.3 g/dL (13.5-18.0) L 10/03/21 05:15 Hct 21.7 % (42.0-54.0) L 10/03/21 05:15 MCV 95.4 fL (80.0-100.0) 10/03/21 05:15 MCH 31.8 pg (27.0-34.0) 10/03/21 05:15 MCHC 33.3 g/dL (33.0-35.0) 10/03/21 05:15 RDW 15.7 % (11.6-16.5) 10/03/21 05:15 Plt Count 141 X10^3/uL (150.0-450.0) L 10/03/21 05:15 Plt Count Comment Adequate (ADEQUATE) 10/02/21 04:55 MPV 7.6 fL (7.4-11.0) 10/03/21 05:15 Neut % (Auto) 69.5 % (42.0-75.0) 10/03/21 05:15 Lymph % (Auto) 8.6 % (21.0-51.0) L 10/03/21 05:15 [place] % (Auto) 19.9 % (0.0-13.0) H 10/03/21 05:15 Eos % (Auto) 1.6 % (0.9-2.9) 10/03/21 05:15 Baso % (Auto) 0.4 % (0.2-1.0) 10/03/21 05:15 Neut # (Auto) 4.2 x10^3/uL (2.2-4.8) 10/03/21 05:15 Lymph # (Auto) 0.5 X10^3/uL (1.3-2.9) L 10/03/21 05:15 [place] # (Auto) 1.2 x10^3/uL (0.3-0.8) H 10/03/21 05:15 Eos # (Auto) 0.1 x10^3/uL (0.0-0.2) 10/03/21 05:15 Baso # (Auto) 0.0 X10^3/uL (0.0-0.1) 10/03/21 05:15 Absolute Nucleated RBC 0.1 /100WBC 10/03/21 05:15 Total Counted 100 10/02/21 04:55 Neutrophils % (Manual) 80 % (39-76) H 10/02/21 04:55 Band Neutrophils % 8 % (0-10) 09/28/21 05:09 Lymphocytes % (Manual) 2 % (13-43) L 10/02/21 04:55 Monocytes % (Manual) 18 % (4-9) H 10/02/21 04:55 Plt Morphology Comment Normal (NORMAL) 10/02/21 04:55 RBC Morphology Normal (NORMAL) 10/02/21 04:55 Anisocytosis Slight A 09/28/21 05:09 PT 15.7 SECONDS (11.8-14.3) 09/28/21 00:55 INR Target Range - 09/28/21 00:55 INR 1.30 (0.8-1.3) 09/28/21 00:55 Sample Site Lr 09/28/21 00:56 ABG pH 7.380 (7.35-7.45) 09/28/21 00:56 ABG pCO2 56.0 mmHg (35.0-45.0) H* 09/28/21 00:56 ABG pO2 67.0 mmHg (80.0-100.0) L 09/28/21 00:56 ABG HCO3 33.1 mmol/L (22-26) H* 09/28/21 00:56 ABG O2 Saturation 93.0 % (90-100) 09/28/21 00:56 ABG Base Excess 6.4 mmol/L (-2.0-2.0) H 09/28/21 00:56 Sunny Test Pos 09/28/21 00:56 A-a Gradient 148.0 mmHg 09/28/21 00:56 FiO2 40.0 09/28/21 00:56 Blood Gas Comments Joy well ae 09/28/21 00:56 Sodium 146 mmol/L (136-145) H 10/03/21 05:15 Corrected Sodium TNP 10/03/21 05:15 Potassium 3.9 mmol/L (3.5-5.1) 10/03/21 05:15 Chloride 108 mmol/L (98-107) H 10/03/21 05:15 Carbon Dioxide 32.9 mmol/L (21-32) H 10/03/21 05:15 BUN 13 mg/dL (7-18) 10/03/21 05:15 Creatinine 0.93 mg/dL (0.70-1.30) 10/03/21 05:15 Est GFR (MDRD) Af Amer > 60 (>60) 10/03/21 05:15 Est GFR (MDRD) Non-Af > 60 (>60) 10/03/21 05:15 Glucose 82 mg/dL (65-99) 10/03/21 05:15 POC Glucose (mg/dL) 121 mg/dL (65-99) H 10/03/21 19:55 Calcium 8.2 mg/dL (8.5-10.1) L 10/03/21 05:15 Corrected Calcium 9.9 mg/dL (8.5-10.1) 10/03/21 05:15 Magnesium 2.0 mg/dL (1.7-2.9) 09/29/21 04:12 Total Bilirubin 0.60 mg/dL (0.2-1.0) 10/03/21 05:15 AST 17 Units/L (15-37) 10/03/21 05:15 ALT 6 Units/L (12-78) L 10/03/21 05:15 Alkaline Phosphatase 85 Units/L (46-116) 10/03/21 05:15 Creatine Kinase 37 Units/L (39-308) L 10/02/21 04:55 Troponin I High Sens 20.7 ng/L (4.0-60.0) 10/02/21 04:55 Total Protein 5.8 g/dL (6.4-8.2) L 10/03/21 05:15 Albumin 1.9 g/dL (3.4-5.0) L 10/03/21 05:15 Globulin 3.9 g/dL (2.5-4.5) 10/03/21 05:15 Albumin/Globulin Ratio 0.5 Ratio (1.1-2.1) L 10/03/21 05:15 Specimen Type Clean catch urine 09/28/21 19:55 Urine Color Yellow (YELLOW) 09/28/21 19:55 Urine Appearance Clear (CLEAR) 09/28/21 19:55 Urine pH 5.0 (5.0 - 8.0) 09/28/21 19:55 Ur Specific [place] 1.015 (1.000-1.030) 09/28/21 19:55 Urine Protein 1+ (NEGATIVE) 09/28/21 19:55 Urine Glucose (UA) Negative (NEGATIVE) 09/28/21 19:55 Urine Ketones Negative (NEGATIVE) 09/28/21 19:55 Urine Blood Negative (NEGATIVE) 09/28/21 19:55 Urine Nitrite Negative (NEGATIVE) 09/28/21 19:55 Urine Bilirubin Negative (NEGATIVE) 09/28/21 19:55 Urine Urobilinogen Normal (NORMAL) 09/28/21 19:55 Ur Leukocyte Esterase Negative (NEGATIVE) 09/28/21 19:55 Urine RBC 0-2 /HPF (0-3) 09/28/21 19:55 Urine WBC None seen /HPF (0-5) 09/28/21 19:55 Ur Squamous Epith Cells Rare /HPF (NEGATIVE) 09/28/21 19:55 Urine Bacteria Negative /HPF (NEGATIVE) 09/28/21 19:55 Hyaline Casts Few /LPF (NEGATIVE) 09/28/21 19:55 Urine Mucus Few /HPF (NEGATIVE) 09/28/21 19:55 Ur Culture Indicated? No/not indicated 09/28/21 19:55 SARS-CoV-2 (PCR) Negative (NEGATIVE) 09/28/21 00:55 Influenza Type A (PCR) Negative (NEGATIVE) 09/28/21 00:55 Influenza Type B (PCR) Negative (NEGATIVE) 09/28/21 00:55 RSV (PCR) Negative (NEGATIVE) 09/28/21 00:55 SARS CoV-2 RNA Rapid YUSUF Cancelled 09/28/21 00:55 Blood Type O POSITIVE 09/28/21 00:55 Antibody Screen Positive 09/28/21 00:55 Antibody Identification Anti-E Anti-Fya 09/28/21 00:55 Antibody Identification Anti-E Anti-Fya 09/28/21 00:55 - Plan (1) Bilateral pneumonia Status: Acute Qualifiers: Pneumonia type: due to unspecified organism Lung location: unspecified part of lung Qualified Code(s): J18.9 - Pneumonia, unspecified organism Plan: supplemental oxygen, iv antibiotics, nebulizer treatments, resume home meds (2) Hypoxemia Status: Acute (3) Hemoptysis Status: Acute (4) Anemia Status: Acute Qualifiers: Anemia type: unspecified type (5) CHF (congestive heart failure) Status: Chronic Qualifiers: Heart failure type: combined systolic and diastolic Heart failure chronicity: chronic Qualified Code(s): I50.42 - Chronic combined systolic (congestive) and diastolic (congestive) heart failure (6) COPD (chronic obstructive pulmonary disease) Status: Chronic Qualifiers: COPD type: unspecified COPD Qualified Code(s): J44.9 - Chronic obstructive pulmonary disease, unspecified (7) Hyperlipidemia Status: Chronic Qualifiers: Hyperlipidemia type: mixed hyperlipidemia Qualified Code(s): E78.2 - Mixed hyperlipidemia (8) Hypertension Status: Chronic Qualifiers: Hypertension type: primary hypertension Qualified Code(s): I10 - Essential (primary) hypertension (9) History of CVA (cerebrovascular accident) Status: Chronic
--- NOTE | 2021-10-03 23:46 | PCM.PROG ---
Progress Note - Progress Note for Day of Date of Exam: 10/03/21 - Subjective Subjective: IS CURRENTLY BEING TREATED FOR BILATERAL PNEUMONIA, HYPOXIEMIA, AND HEMOPTYSIS. HE HAS A PMH OF HTN, DYSLIPIDEMIA, DEPRESSION, HYPOTHYROIDISM, ANEMIA, CVA, GERD, CHF, AND VALVULAR HEART DISEASE. TODAY, HE IS ALERT, SITTING UP IN CHAIR ON MORNING ROUNDS. HE IS SOMEWHAT SOMNOLENT THIS MORNING. HE APPARENTLY RECEIVED VALIUM EARLY THIS MORNING DUE TO INCREASED AGITATION. HE COMPLAINS OF PERSISTENT COUGH, SHORTNESS OF BREATH, AND WEAKNESS. HE DOES ADMIT TO SLIGHT IMPROVEMENT IN SYMPTOMS THIS MORNING. HE IS CURRENTLY ON NASAL CANNULA AT 2-3 LPM. ON EXAMINATION, HEART IS REGULAR IN RATE AND RHYTHM. BILATERAL LUNGS NOTED WITH SCATTERED WHEEZING AND RHONCHI THROUGHOUT. ABDOMEN IS ROUND, SOFT, AND NON-TENDER WITH NORMAL BOWEL SOUNDS NOTED IN ALL QUADRANTS. BILATERAL LOWER EXTREMITIES ARE NOTED WITH 1+ PITTING EDEMA. HIS VITALS THIS MORNING ARE: 98.1-80-19-100%-120/58. LABS WERE OBTAINED. WBC 6.1, RBC 2.28, HGB 7.3, HCT 21.7, PLT COUNT 141, SODIUM 146, POTASSIUM 3.9, CHLORIDE 108, BUN 13, CREATININE 32.9, GLUCOSE 82, CALCIUM 8.2, AST 17, ALT 6, ALK PHOS 85, TOTAL PROTEIN 5.8, ALBUMIN 1.9. SPUTUM CULTURES REVEAL GROWTH OF KLEBSIELLA PNEUMONIAE. BLOOD CULTURES ARE PENDING. CHEST XRAY OBTAINED AND REVEALED: No change cardiomegaly without congestive heart failure. No change diffuse bilateral patchy and confluent alveolar infiltrates. HE IS CURRENTLY RECEIVING NORMAL SALINE AT 80 ML/HR, ZOSYN 3.375G IV TID, CIPRO 400MG IV Q12H, XOPENEX NEBS QID, PULMICORT NEBS BID, TUSSIONEX 5ML PO Q12H PRN, TESSALON PERLES 200MG PO TID PRN, LASIX 20MG IV DAILY, PROZAC 40MG DAILY, SEROQUEL 200MG HS, OTBS ACHS, HIS HOME MEDICATIONS OF ZYRTEC, FLOANSE, NEURONTIN, SYNTHROID, MAGNESIUM OXIDE, ANTIVERT, SINGULAIR, HEMOCYTE PLUS, PRILOSEC, OXYBUTYNIN, PERCOCET, MICRO K, REQUIP, CRESTOR, AND FLOMAX WERE RESUMED. WE WILL CONTINUE WITH CURRENT PLAN OF CARE TODAY. OTHERWISE, WE WILL FOLLOW UP WITH AM LABS AND CHEST XRAY AND CONTINUE TO MONITOR. TIME SPENT ON CLINICAL ASSESSMENT, REVIWING LABS AND IMAGING, DECISION MAKING, AND DOCUMENTATION GREATER THAN 45 MINUTES. - Past Medical Family Social History Past Med/Fam/Surg Hx: No changes since H&P Allergies: Allergies cilastatin [From Primaxin] Allergy (Verified 06/22/21 17:35) clarithromycin [From Biaxin] Allergy (Verified 06/22/21 17:35) imipenem [From Primaxin] Allergy (Verified 06/22/21 17:35) - Review of Systems ROS: No change since H&P - Vital Signs and I&O's Vital Signs: Temperature 98.4 F Pulse Rate [Right Radial] 85 Pulse Rate 93 Respiratory Rate 20 Blood Pressure [Left Arm] 108/55 Blood Pressure [Right Arm] 98/53 Blood Pressure 118/64 O2 Sat by Pulse Oximetry 93 Intake and Output: Intake & Output 10/01/21 10/02/21 10/03/21 10/04/21 11:59 11:59 11:59 11:59 Intake Total 2187 / 2187 3647 / 3647 1866 / 1866 1291 / 1291 Output Total 1150 / 1150 1850 / 1850 300 / 300 Balance 2187 / 2187 2497 / 2497 991 / 991 - Physical Exam Oriented: Normal Eyes: Normal Ear: Normal Nose: Normal Throat: Normal Respiratory: Wheezes, Rhonchi Cardiovascular: Normal : Normal Auscultation: Bowel Sounds: Normal Palpation: Normal Tenderness: Normal Skin: Normal Musculoskeletal: Normal Psychiatric: Normal Mood Description: Calm Affect: Normal Speech Pattern: Clear, Appropriate - Laboratory and Diagnostics Result Diagrams: 10/03/21 05:15 10/03/21 05:15 Labs: 09/28/21 10:50 Blood Blood Culture - Final 09/28/21 10:41 Blood Blood Culture - Final 09/28/21 13:37 Sputum - Expectorated Sputum Sputum Culture - Final Klebsiella Pneumoniae 09/28/21 13:37 Sputum - Expectorated Sputum - Final Laboratory WBC 6.1 X10^3/uL (3.6-10.0) 10/03/21 05:15 RBC 2.28 X10^6/uL (4.7-6.0) L 10/03/21 05:15 Hgb 7.3 g/dL (13.5-18.0) L 10/03/21 05:15 Hct 21.7 % (42.0-54.0) L 10/03/21 05:15 MCV 95.4 fL (80.0-100.0) 10/03/21 05:15 MCH 31.8 pg (27.0-34.0) 10/03/21 05:15 MCHC 33.3 g/dL (33.0-35.0) 10/03/21 05:15 RDW 15.7 % (11.6-16.5) 10/03/21 05:15 Plt Count 141 X10^3/uL (150.0-450.0) L 10/03/21 05:15 Plt Count Comment Adequate (ADEQUATE) 10/02/21 04:55 MPV 7.6 fL (7.4-11.0) 10/03/21 05:15 Neut % (Auto) 69.5 % (42.0-75.0) 10/03/21 05:15 Lymph % (Auto) 8.6 % (21.0-51.0) L 10/03/21 05:15 [place] % (Auto) 19.9 % (0.0-13.0) H 10/03/21 05:15 Eos % (Auto) 1.6 % (0.9-2.9) 10/03/21 05:15 Baso % (Auto) 0.4 % (0.2-1.0) 10/03/21 05:15 Neut # (Auto) 4.2 x10^3/uL (2.2-4.8) 10/03/21 05:15 Lymph # (Auto) 0.5 X10^3/uL (1.3-2.9) L 10/03/21 05:15 [place] # (Auto) 1.2 x10^3/uL (0.3-0.8) H 10/03/21 05:15 Eos # (Auto) 0.1 x10^3/uL (0.0-0.2) 10/03/21 05:15 Baso # (Auto) 0.0 X10^3/uL (0.0-0.1) 10/03/21 05:15 Absolute Nucleated RBC 0.1 /100WBC 10/03/21 05:15 Total Counted 100 10/02/21 04:55 Neutrophils % (Manual) 80 % (39-76) H 10/02/21 04:55 Band Neutrophils % 8 % (0-10) 09/28/21 05:09 Lymphocytes % (Manual) 2 % (13-43) L 10/02/21 04:55 Monocytes % (Manual) 18 % (4-9) H 10/02/21 04:55 Plt Morphology Comment Normal (NORMAL) 10/02/21 04:55 RBC Morphology Normal (NORMAL) 10/02/21 04:55 Anisocytosis Slight A 09/28/21 05:09 PT 15.7 SECONDS (11.8-14.3) 09/28/21 00:55 INR Target Range - 09/28/21 00:55 INR 1.30 (0.8-1.3) 08 00:55 Sample Site Lr 09/28/21 00:56 ABG pH 7.380 (7.35-7.45) 09/28/21 00:56 ABG pCO2 56.0 mmHg (35.0-45.0) H* 09/28/21 00:56 ABG pO2 67.0 mmHg (80.0-100.0) L 09/28/21 00:56 ABG HCO3 33.1 mmol/L (22-26) H* 09/28/21 00:56 ABG O2 Saturation 93.0 % (90-100) 09/28/21 00:56 ABG Base Excess 6.4 mmol/L (-2.0-2.0) H 09/28/21 00:56 Sunny Test Pos 09/28/21 00:56 A-a Gradient 148.0 mmHg 09/28/21 00:56 FiO2 40.0 09/28/21 00:56 Blood Gas Comments Joy well ae 09/28/21 00:56 Sodium 146 mmol/L (136-145) H 10/03/21 05:15 Corrected Sodium TNP 10/03/21 05:15 Potassium 3.9 mmol/L (3.5-5.1) 10/03/21 05:15 Chloride 108 mmol/L (98-107) H 10/03/21 05:15 Carbon Dioxide 32.9 mmol/L (21-32) H 10/03/21 05:15 BUN 13 mg/dL (7-18) 10/03/21 05:15 Creatinine 0.93 mg/dL (0.70-1.30) 10/03/21 05:15 Est GFR (MDRD) Af Amer > 60 (>60) 10/03/21 05:15 Est GFR (MDRD) Non-Af > 60 (>60) 10/03/21 05:15 Glucose 82 mg/dL (65-99) 10/03/21 05:15 POC Glucose (mg/dL) 121 mg/dL (65-99) H 10/03/21 19:55 Calcium 8.2 mg/dL (8.5-10.1) L 10/03/21 05:15 Corrected Calcium 9.9 mg/dL (8.5-10.1) 10/03/21 05:15 Magnesium 2.0 mg/dL (1.7-2.9) 09/29/21 04:12 Total Bilirubin 0.60 mg/dL (0.2-1.0) 10/03/21 05:15 AST 17 Units/L (15-37) 10/03/21 05:15 ALT 6 Units/L (12-78) L 10/03/21 05:15 Alkaline Phosphatase 85 Units/L (46-116) 10/03/21 05:15 Creatine Kinase 37 Units/L (39-308) L 10/02/21 04:55 Troponin I High Sens 20.7 ng/L (4.0-60.0) 10/02/21 04:55 Total Protein 5.8 g/dL (6.4-8.2) L 10/03/21 05:15 Albumin 1.9 g/dL (3.4-5.0) L 10/03/21 05:15 Globulin 3.9 g/dL (2.5-4.5) 10/03/21 05:15 Albumin/Globulin Ratio 0.5 Ratio (1.1-2.1) L 10/03/21 05:15 Specimen Type Clean catch urine 09/28/21 19:55 Urine Color Yellow (YELLOW) 09/28/21 19:55 Urine Appearance Clear (CLEAR) 09/28/21 19:55 Urine pH 5.0 (5.0 - 8.0) 09/28/21 19:55 Ur Specific [place] 1.015 (1.000-1.030) 09/28/21 19:55 Urine Protein 1+ (NEGATIVE) 09/28/21 19:55 Urine Glucose (UA) Negative (NEGATIVE) 09/28/21 19:55 Urine Ketones Negative (NEGATIVE) 09/28/21 19:55 Urine Blood Negative (NEGATIVE) 09/28/21 19:55 Urine Nitrite Negative (NEGATIVE) 09/28/21 19:55 Urine Bilirubin Negative (NEGATIVE) 09/28/21 19:55 Urine Urobilinogen Normal (NORMAL) 09/28/21 19:55 Ur Leukocyte Esterase Negative (NEGATIVE) 09/28/21 19:55 Urine RBC 0-2 /HPF (0-3) 09/28/21 19:55 Urine WBC None seen /HPF (0-5) 09/28/21 19:55 Ur Squamous Epith Cells Rare /HPF (NEGATIVE) 09/28/21 19:55 Urine Bacteria Negative /HPF (NEGATIVE) 09/28/21 19:55 Hyaline Casts Few /LPF (NEGATIVE) 09/28/21 19:55 Urine Mucus Few /HPF (NEGATIVE) 09/28/21 19:55 Ur Culture Indicated? No/not indicated 09/28/21 19:55 SARS-CoV-2 (PCR) Negative (NEGATIVE) 09/28/21 00:55 Influenza Type A (PCR) Negative (NEGATIVE) 09/28/21 00:55 Influenza Type B (PCR) Negative (NEGATIVE) 09/28/21 00:55 RSV (PCR) Negative (NEGATIVE) 09/28/21 00:55 SARS CoV-2 RNA Rapid YUSUF Cancelled 09/28/21 00:55 Blood Type O POSITIVE 09/28/21 00:55 Antibody Screen Positive 09/28/21 00:55 Antibody Identification Anti-E Anti-Fya 09/28/21 00:55 Antibody Identification Anti-E Anti-Fya 09/28/21 00:55 - Plan (1) Bilateral pneumonia Status: Acute Qualifiers: Pneumonia type: due to unspecified organism Lung location: unspecified part of lung Qualified Code(s): J18.9 - Pneumonia, unspecified organism Plan: supplemental oxygen, iv antibiotics, nebulizer treatments, resume home meds (2) Hypoxemia Status: Acute (3) Hemoptysis Status: Acute (4) Anemia Status: Acute Qualifiers: Anemia type: unspecified type (5) CHF (congestive heart failure) Status: Chronic Qualifiers: Heart failure type: combined systolic and diastolic Heart failure chronicity: chronic Qualified Code(s): I50.42 - Chronic combined systolic (congestive) and diastolic (congestive) heart failure (6) COPD (chronic obstructive pulmonary disease) Status: Chronic Qualifiers: COPD type: unspecified COPD Qualified Code(s): J44.9 - Chronic obstructive pulmonary disease, unspecified (7) Hyperlipidemia Status: Chronic Qualifiers: Hyperlipidemia type: mixed hyperlipidemia Qualified Code(s): E78.2 - Mixed hyperlipidemia (8) Hypertension Status: Chronic Qualifiers: Hypertension type: primary hypertension Qualified Code(s): I10 - Essential (primary) hypertension (9) History of CVA (cerebrovascular accident) Status: Chronic
[2021-10-04] MEDS: NS 1,000 ML IV 1,000 ML IV SCH ×3 (04:17→18:47)
[2021-10-04] MEDS: ZOSYN VIAL 3.375 GRAMS 3.375 G in NS 100 ML IV 100 ML IV SCH ×3 (05:26→21:14)
[2021-10-04] MEDS: DILTIAZEM 125mg/125mL-0.7%NACL 125 MG/125 ML PLAST..BAG IV PRN (05:26)
[2021-10-04 05:28] LABS: BASOPHILS % (AUTO) 0.6 % (0.2-1.0); EOSINOPHILS # (AUTO) 0.3 x10^3/uL (0.0-0.2); EOSINOPHILS % (AUTO) 5.7 % (0.9-2.9); HEMATOCRIT 20.6 % (42.0-54.0); LYMPHOCYTES # (AUTO) 0.5 X10^3/uL (1.3-2.9); LYMPHOCYTES % (AUTO) 9.3 % (21.0-51.0); MEAN CORPUSCULAR HEMOGLOBIN 31.8 pg (27.0-34.0); MEAN CORPUSCULAR HGB CONC 33.4 g/dL (33.0-35.0); MEAN CORPUSCULAR VOLUME 95.5 fL (80.0-100.0); MEAN PLATELET VOLUME 7.6 fL (7.4-11.0); MONOCYTES % (AUTO) 19.3 % (0.0-13.0); NEUTROPHILS # (AUTO) 3.2 x10^3/uL (2.2-4.8); NEUTROPHILS % (AUTO) 65.1 % (42.0-75.0); RED BLOOD COUNT 2.16 X10^6/uL (4.7-6.0); RED CELL DISTRIBUTION WIDTH 15.9 % (11.6-16.5); WHITE BLOOD COUNT 4.9 X10^3/uL (3.6-10.0)
[2021-10-04 05:30] LABS: ALANINE AMINOTRANSFERASE 7 Units/L (12-78); ALBUMIN 1.7 g/dL (3.4-5.0); ALKALINE PHOSPHATASE 84 Units/L (46-116); ASPARTATE AMINO TRANSFERASE 18 Units/L (15-37); BLOOD UREA NITROGEN 13 mg/dL (7-18); CALCIUM 8.1 mg/dL (8.5-10.1); CARBON DIOXIDE 34.7 mmol/L (21-32); CHLORIDE 109 mmol/L (98-107); COR CA(FOR HYPOALB) 9.9 mg/dL (8.5-10.1); CREATININE 0.92 mg/dL (0.70-1.30); SODIUM 146 mmol/L (136-145); TOTAL PROTEIN 5.3 g/dL (6.4-8.2); eGFR NON BLACK RACES > 60 (>60)
[2021-10-04 05:54] LABS: HEMOGLOBIN 6.9 g/dL (13.5-18.0)
[2021-10-04 06:18] LABS: BILIRUBIN,URINE NEGATIVE (NEGATIVE); BLOOD/HEMOGLOBIN,URINE NEGATIVE (NEGATIVE); GLUCOSE, URINE NEGATIVE (NEGATIVE); KETONES,URINE 1+ (NEGATIVE); LEUKOCYTE ESTERASE ,URINE NEGATIVE (NEGATIVE); NITRITES,URINE NEGATIVE (NEGATIVE); PROTEIN,URINE 2+ (NEGATIVE); UROBILINOGEN,URINE NORMAL (NORMAL)
--- NOTE | 2021-10-04 06:30 | RAD ---
HISTORYFollow-up pneumonia, shortness of breathSTUDYChest AP [id number] ent is rotated to the right. There is a left-sided PICC line with its tip in the expected position of superior vena cava. Patient is status post median sternotomy and valve replacements. Heart remains enlarged. No congestive heart failure is noted. Diffuse bilateral lung infiltrates again identified and unchanged. No definite pleural effusion or pneumothorax identified. Bony thorax is unremarkable.IMPRESSIONNo change cardiomegaly without congestive heart failureNo change diffuse bilateral alveolar infiltratesElectronically signed by: LUDA QUEZADA (Oct 04, 2021 06:29:11)
[2021-10-04 06:33] LABS: APPEARANCE,URINE CLEAR (CLEAR); BACTERIA,URINE NEGATIVE /HPF (NEGATIVE); COLOR,URINE YELLOW (YELLOW); HYALINE CASTS, URINE RARE /LPF (NEGATIVE); RBC,URINE NONE SEEN /HPF (0-3); SQUAMOUS EPITHELIAL CELL,UR RARE /HPF (NEGATIVE)
[2021-10-04] MEDS ORDERED: LASIX IVP ONE (08:31)
[2021-10-04] MEDS: PULMICORT NEB TX 0.5 MG NEB SCH ×2 (09:09→21:15)
[2021-10-04] MEDS: XOPENEX 1.25 MG/3 ML NEBULE NEB SCH ×4 (09:09→21:15)
[2021-10-04] MEDS: FLONASE NASAL SPRAY ENOSTRIL SCH (09:18)
[2021-10-04] MEDS: PriLOSEC PO SCH (09:19)
[2021-10-04] MEDS: SYNTHROID 75 mcg TAB PO SCH (09:19)
[2021-10-04] MEDS: LASIX IVP SCH (09:19)
[2021-10-04] MEDS: HEMOCYTE-PLUS PO SCH (09:22)
[2021-10-04] MEDS: REQUIP PO SCH ×2 (09:23→20:46)
[2021-10-04] MEDS: PROzac PO SCH (09:23)
[2021-10-04] MEDS: NEURONTIN CAP 300 MG PO SCH ×2 (09:23→20:48)
[2021-10-04] MEDS: MICRO K EXTEN CAP 10 MEQ PO SCH ×2 (09:24→20:49)
[2021-10-04] MEDS: MAG-OX TAB PO SCH (09:24)
--- NOTE | 2021-10-04 10:50 | RAD ---
HISTORYPOSSIBLE ASPIRATIONSTUDYCHEST, 1 VIEWCOMPARISONSame day chest radiograph.TECHNIQUEAP view of the chestFINDINGSStatus post median sternotomy and cardiac valve replacement. Cardiac silhouette is stably enlarged. Mediastinal contours appear normal. Left upper extremity PICC line in good position. Similar appearing bilateral airspace opacities. Suspect small pleural effusions. No pneumothorax. Soft tissue attenuation limits evaluation.IMPRESSIONNo significant radiographic change compared to prior.Electronically signed by: Erik Campos (Oct 04, 2021 10:49:11)
[2021-10-04 13:52] LABS: HEMATOCRIT 23.5 % (42.0-54.0); HEMOGLOBIN 7.5 g/dL (13.5-18.0)
[2021-10-04] MEDS: TUSSIONEX PENNKINETIC SUSP PO PRN (14:12)
[2021-10-04 20:34] LABS: HEMATOCRIT 24.6 % (42.0-54.0); HEMOGLOBIN 8.1 g/dL (13.5-18.0)
[2021-10-04] MEDS: CRESTOR TAB 10 MG PO SCH (20:46)
[2021-10-04] MEDS: ZyrTEC TAB 10 MG PO SCH (20:47)
[2021-10-04] MEDS: SINGULAIR TAB 10 MG PO SCH (20:47)
[2021-10-04] MEDS: OXYBUTYNIN CHLORIDE ER PO SCH (20:48)
[2021-10-04] MEDS: FLOMAX PO SCH (20:48)
[2021-10-04] MEDS: ANTIVERT TAB 25 MG PO SCH (20:49)
[2021-10-04] MEDS: COLACE CAP 100 MG PO SCH (20:49)
[2021-10-04] MEDS: TESSALON PERLES PO PRN (20:50)
--- NOTE | 2021-10-05 05:03 | RAD ---
HISTORYSOB CVA, TIA, CHF SX: CABG, AAA REPAIRSTUDYCHEST, 1 [id number] trachea is midline. Left PICC line tip in SVC. The cardiac silhouette is mildly enlarged. The median sternotomy changes with prosthetic heart valve.. Stable bilateral airspace opacities. No pneumothorax. The bony thorax is unremarkable.IMPRESSIONStable portable chest.Electronically signed by: Geoff Olmos (Oct 05, 2021 05:02:05)
[2021-10-05 05:25] LABS: BASOPHILS % (AUTO) 0.5 % (0.2-1.0); EOSINOPHILS # (AUTO) 0.3 x10^3/uL (0.0-0.2); EOSINOPHILS % (AUTO) 6.8 % (0.9-2.9); HEMATOCRIT 20.8 % (42.0-54.0); LYMPHOCYTES # (AUTO) 0.6 X10^3/uL (1.3-2.9); LYMPHOCYTES % (AUTO) 11.1 % (21.0-51.0); MEAN CORPUSCULAR HEMOGLOBIN 31.8 pg (27.0-34.0); MEAN CORPUSCULAR HGB CONC 33.6 g/dL (33.0-35.0); MEAN CORPUSCULAR VOLUME 94.6 fL (80.0-100.0); MEAN PLATELET VOLUME 7.6 fL (7.4-11.0); MONOCYTES # (AUTO) 0.8 x10^3/uL (0.3-0.8); MONOCYTES % (AUTO) 16.6 % (0.0-13.0); NEUTROPHILS # (AUTO) 3.2 x10^3/uL (2.2-4.8); RED CELL DISTRIBUTION WIDTH 15.6 % (11.6-16.5)
[2021-10-05 05:33] LABS: ALANINE AMINOTRANSFERASE 9 Units/L (12-78); ALBUMIN 1.7 g/dL (3.4-5.0); ALKALINE PHOSPHATASE 85 Units/L (46-116); ASPARTATE AMINO TRANSFERASE 20 Units/L (15-37); BLOOD UREA NITROGEN 9 mg/dL (7-18); CALCIUM 7.9 mg/dL (8.5-10.1); CARBON DIOXIDE 38.8 mmol/L (21-32); CHLORIDE 109 mmol/L (98-107); COR CA(FOR HYPOALB) 9.7 mg/dL (8.5-10.1); CREATININE 0.85 mg/dL (0.70-1.30); SODIUM 146 mmol/L (136-145); TOTAL PROTEIN 5.3 g/dL (6.4-8.2); eGFR NON BLACK RACES > 60 (>60)
[2021-10-05] MEDS: ZOSYN VIAL 3.375 GRAMS 3.375 G in NS 100 ML IV 100 ML IV SCH ×3 (05:49→22:13)
[2021-10-05] MEDS: HEMOCYTE-PLUS PO SCH (08:48)
[2021-10-05] MEDS: SYNTHROID 75 mcg TAB PO SCH (08:49)
[2021-10-05] MEDS: REQUIP PO SCH ×2 (08:49→20:48)
[2021-10-05] MEDS: PROzac PO SCH (08:49)
[2021-10-05] MEDS: LASIX IVP SCH (08:49)
[2021-10-05] MEDS: PriLOSEC PO SCH (08:50)
[2021-10-05] MEDS: MAG-OX TAB PO SCH (08:50)
[2021-10-05] MEDS: NEURONTIN CAP 300 MG PO SCH ×2 (08:50→20:49)
[2021-10-05] MEDS: MICRO K EXTEN CAP 10 MEQ PO SCH ×2 (08:50→20:50)
[2021-10-05] MEDS: FLONASE NASAL SPRAY ENOSTRIL SCH (08:51)
[2021-10-05 09:03] VITALS: BMI 40.0
[2021-10-05] MEDS: XOPENEX 1.25 MG/3 ML NEBULE NEB SCH ×4 (09:30→21:42)
[2021-10-05] MEDS: PULMICORT NEB TX 0.5 MG NEB SCH ×2 (09:30→21:42)
[2021-10-05] MEDS ORDERED: LASIX IVP ONE (09:58)
[2021-10-05] MEDS ORDERED: NS 500 ML IV 500 ML IV ONE (13:23)
[2021-10-05] MEDS: NS 1,000 ML IV 1,000 ML IV SCH (15:00)
[2021-10-05] MEDS ORDERED: LASIX ONE (18:01)
[2021-10-05 19:02] LABS: HEMATOCRIT 24.9 % (42.0-54.0); HEMOGLOBIN 8.3 g/dL (13.5-18.0)
[2021-10-05] MEDS: COLACE CAP 100 MG PO SCH (20:47)
[2021-10-05] MEDS: TESSALON PERLES PO PRN (20:48)
[2021-10-05] MEDS: FLOMAX PO SCH (20:48)
[2021-10-05] MEDS: ZyrTEC TAB 10 MG PO SCH (20:48)
[2021-10-05] MEDS: CRESTOR TAB 10 MG PO SCH (20:48)
[2021-10-05] MEDS: OXYBUTYNIN CHLORIDE ER PO SCH (20:49)
[2021-10-05] MEDS: SINGULAIR TAB 10 MG PO SCH (20:49)
[2021-10-05] MEDS: ANTIVERT TAB 25 MG PO SCH (20:51)
--- NOTE | 2021-10-05 21:11 | PCM.PROG ---
Progress Note - Progress Note for Day of Date of Exam: 10/04/21 - Subjective Subjective: IS CURRENTLY BEING TREATED FOR BILATERAL PNEUMONIA, HYPOXIEMIA, AND HEMOPTYSIS. HE HAS A PMH OF HTN, DYSLIPIDEMIA, DEPRESSION, HYPOTHYROIDISM, ANEMIA, CVA, GERD, CHF, AND VALVULAR HEART DISEASE. TODAY, HE IS ALERT, SITTING UP IN CHAIR ON MORNING ROUNDS. HE IS SOMEWHAT CONFUSED AND TALKING OUT OF HIS HEAD THIS MORNING. STAFF REPORTS THAT HE WAS AGITATED AND CONFUSED THROUGHOUT THE NIGHT WELL. HE COMPLAINS OF PERSISTENT COUGH, SHORTNESS OF BREATH, AND WEAKNESS. STAFF REPORTS THAT HE HAD DIFFICULTY SWALLOWING THIS MORNING. HE IS CURRENTLY ON NASAL CANNULA AT 2-3 LPM. YESTERDAY, HEART RATE WAS SUSTAINED AT 30-140 BPM. HE WAS STARTED ON A CARDIZEMP DRIP. A MEEHAN CATHETER WAS ALSO INSERTED DUE TO DECREASED URINE OUTPUT. ON EXAMINATION, HEART IS REGULAR IN RATE AND RHYTHM. BILATERAL LUNGS NOTED WITH SCATTERED WHEEZING AND RHONCHI THROUGHOUT. ABDOMEN IS ROUND, SOFT, AND NON-TENDER WITH NORMAL BOWEL SOUNDS NOTED IN ALL QUADRANTS. BILATERAL LOWER EXTREMITIES ARE NOTED WITH 1+ PITTING EDEMA. HIS VITALS THIS MORNING ARE: 97.9-81-23-90%-112/59. LABS WERE OBTAINED. WBC 4.9, RBC 2.16, HGB 6.9, HCT 20.6, PLT COUNT 142, SODIUM 146, POTASSIUM 3.6, CHLORIDE 109, SERA DIOXIDE 34.7, BUN 13, CREATININE 0.92, GLUCOSE 100, CALCIUM 8.1, AST 18, ALT 7, ALK PHOS 84, BNP 280, TOTAL PROTEIN 5.3, ALBUMIN 1.7. SPUTUM CULTURES REVEAL GROWTH OF KLEBSIELLA PNEUMONIAE. BLOOD CULTURES ARE PENDING. CHEST XRAY OBTAINED AND REVEALED: No change cardiomegaly without congestive heart failure. No change diffuse bilateral alveolar infiltrates. HE IS CURRENTLY RECEIVING NORMAL SALINE AT 80 ML/HR, ZOSYN 3.375G IV TID, CIPRO 400MG IV Q12H, XOPENEX NEBS QID, PULMICORT NEBS BID, TUSSIONEX 5ML PO Q12H PRN, TESSALON PERLES 200MG PO TID PRN, LASIX 20MG IV DAILY, PROZAC 40MG DAILY, SEROQUEL 200MG HS, OTBS ACHS, HIS HOME MEDICATIONS OF ZYRTEC, FLOANSE, NEURONTIN, SYNTHROID, MAGNESIUM OXIDE, ANTIVERT, SINGULAIR, HEMOCYTE PLUS, PRILOSEC, OXYBUTYNIN, PERCOCET, MICRO K, REQUIP, CRESTOR, AND FLOMAX WERE RESUMED. TODAY, WE WILL DECREASE IV FLUIDS TO KVO. WE WILL RECHECK HIS HEMOGLOBIN AT 1300 AND WILL MAKE DECISION ABOUT TRANSFUSION THEN. OTHERWISE, WE WILL FOLLOW UP WITH AM LABS AND CHEST XRAY AND CONTINUE TO MONITOR. TIME SPENT ON CLINICAL ASSESSMENT, REVIWING LABS AND IMAGING, DECISION MAKING, AND DOCUMENTATION GREATER THAN 45 MINUTES. - Past Medical Family Social History Past Med/Fam/Surg Hx: No changes since H&P Allergies: Allergies cilastatin [From Primaxin] Allergy (Verified 06/22/21 17:35) clarithromycin [From Biaxin] Allergy (Verified 06/22/21 17:35) imipenem [From Primaxin] Allergy (Verified 06/22/21 17:35) - Review of Systems ROS: No change since H&P - Vital Signs and I&O's Vital Signs: Temperature 97.7 F Pulse Rate [Right Radial] 85 Pulse Rate 71 Respiratory Rate 29 Blood Pressure [Left Arm] 108/55 Blood Pressure [Right Arm] 98/53 Blood Pressure 135/67 O2 Sat by Pulse Oximetry 99 Intake and Output: Intake & Output 10/03/21 10/04/21 10/05/21 10/06/21 11:59 11:59 11:59 11:59 Intake Total 1866 / 1866 3422 / 3422 2525 / 2525 820 / 820 Output Total 1850 / 1850 1400 / 1400 2400 / 2400 1350 / 1350 Balance 2021 125 / 125 -530 / -530 - Physical Exam Oriented: Normal Eyes: Normal Ear: Normal Nose: Normal Throat: Normal Respiratory: Wheezes, Rhonchi Cardiovascular: Normal : Normal Auscultation: Bowel Sounds: Normal Tenderness: Normal Skin: Normal Musculoskeletal: Normal Psychiatric: Normal Mood Description: Calm Affect: Normal Speech Pattern: Clear, Appropriate - Laboratory and Diagnostics Result Diagrams: 10/05/21 18:50 10/05/21 04:40 Labs: 09/28/21 10:50 Blood Blood Culture - Final 09/28/21 10:41 Blood Blood Culture - Final 09/28/21 13:37 Sputum - Expectorated Sputum Sputum Culture - Final Klebsiella Pneumoniae 09/28/21 13:37 Sputum - Expectorated Sputum - Final Laboratory WBC 5.0 X10^3/uL (3.6-10.0) 10/05/21 04:40 RBC 2.20 X10^6/uL (4.7-6.0) L 10/05/21 04:40 Hgb 8.3 g/dL (13.5-18.0) L 10/05/21 18:50 Hct 24.9 % (42.0-54.0) L 10/05/21 18:50 MCV 94.6 fL (80.0-100.0) 10/05/21 04:40 MCH 31.8 pg (27.0-34.0) 10/05/21 04:40 MCHC 33.6 g/dL (33.0-35.0) 10/05/21 04:40 RDW 15.6 % (11.6-16.5) 10/05/21 04:40 Plt Count 145 X10^3/uL (150.0-450.0) L 10/05/21 04:40 Plt Count Comment Adequate (ADEQUATE) 10/02/21 04:55 MPV 7.6 fL (7.4-11.0) 10/05/21 04:40 Neut % (Auto) 65.0 % (42.0-75.0) 10/05/21 04:40 Lymph % (Auto) 11.1 % (21.0-51.0) L 10/05/21 04:40 [place] % (Auto) 16.6 % (0.0-13.0) H 10/05/21 04:40 Eos % (Auto) 6.8 % (0.9-2.9) H 10/05/21 04:40 Baso % (Auto) 0.5 % (0.2-1.0) 10/05/21 04:40 Neut # (Auto) 3.2 x10^3/uL (2.2-4.8) 10/05/21 04:40 Lymph # (Auto) 0.6 X10^3/uL (1.3-2.9) L 10/05/21 04:40 [place] # (Auto) 0.8 x10^3/uL (0.3-0.8) 10/05/21 04:40 Eos # (Auto) 0.3 x10^3/uL (0.0-0.2) H 10/05/21 04:40 Baso # (Auto) 0.0 X10^3/uL (0.0-0.1) 10/05/21 04:40 Absolute Nucleated RBC 0.0 /100WBC 10/05/21 04:40 Total Counted 100 10/02/21 04:55 Neutrophils % (Manual) 80 % (39-76) H 10/02/21 04:55 Band Neutrophils % 8 % (0-10) 09/28/21 05:09 Lymphocytes % (Manual) 2 % (13-43) L 10/02/21 04:55 Monocytes % (Manual) 18 % (4-9) H 10/02/21 04:55 Plt Morphology Comment Normal (NORMAL) 10/02/21 04:55 RBC Morphology Normal (NORMAL) 10/02/21 04:55 Anisocytosis Slight A 09/28/21 05:09 PT 15.7 SECONDS (11.8-14.3) 09/28/21 00:55 INR Target Range - 09/28/21 00:55 INR 1.30 (0.8-1.3) 09/28/21 00:55 Sample Site Lr 09/28/21 00:56 ABG pH 7.380 (7.35-7.45) 09/28/21 00:56 ABG pCO2 56.0 mmHg (35.0-45.0) H* 09/28/21 00:56 ABG pO2 67.0 mmHg (80.0-100.0) L 09/28/21 00:56 ABG HCO3 33.1 mmol/L (22-26) H* 09/28/21 00:56 ABG O2 Saturation 93.0 % (90-100) 09/28/21 00:56 ABG Base Excess 6.4 mmol/L (-2.0-2.0) H 09/28/21 00:56 Sunny Test Pos 09/28/21 00:56 A-a Gradient 148.0 mmHg 09/28/21 00:56 FiO2 40.0 09/28/21 00:56 Blood Gas Comments Joy well ae 09/28/21 00:56 Sodium 146 mmol/L (136-145) H 10/05/21 04:40 Corrected Sodium TNP 10/05/21 04:40 Potassium 3.3 mmol/L (3.5-5.1) L 10/05/21 04:40 Chloride 109 mmol/L (98-107) H 10/05/21 04:40 Carbon Dioxide 38.8 mmol/L (21-32) H 10/05/21 04:40 BUN 9 mg/dL (7-18) 10/05/21 04:40 Creatinine 0.85 mg/dL (0.70-1.30) 10/05/21 04:40 Est GFR (MDRD) Af Amer > 60 (>60) 10/05/21 04:40 Est GFR (MDRD) Non-Af > 60 (>60) 10/05/21 04:40 Glucose 90 mg/dL (65-99) 10/05/21 04:40 POC Glucose (mg/dL) 160 mg/dL (65-99) H 10/05/21 16:24 Calcium 7.9 mg/dL (8.5-10.1) L 10/05/21 04:40 Corrected Calcium 9.7 mg/dL (8.5-10.1) 10/05/21 04:40 Magnesium 2.0 mg/dL (1.7-2.9) 09/29/21 04:12 Total Bilirubin 0.40 mg/dL (0.2-1.0) 10/05/21 04:40 AST 20 Units/L (15-37) 10/05/21 04:40 ALT 9 Units/L (12-78) L 10/05/21 04:40 Alkaline Phosphatase 85 Units/L (46-116) 10/05/21 04:40 Creatine Kinase 37 Units/L (39-308) L 10/02/21 04:55 Troponin I High Sens 20.7 ng/L (4.0-60.0) 10/02/21 04:55 B-Natriuretic Peptide 280 pg/mL (0-79) H 10/04/21 16:20 Total Protein 5.3 g/dL (6.4-8.2) L 10/05/21 04:40 Albumin 1.7 g/dL (3.4-5.0) L 10/05/21 04:40 Globulin 3.6 g/dL (2.5-4.5) 10/05/21 04:40 Albumin/Globulin Ratio 0.5 Ratio (1.1-2.1) L 10/05/21 04:40 Specimen Type Clean catch urine 10/04/21 05:45 Urine Color Yellow (YELLOW) 10/04/21 05:45 Urine Appearance Clear (CLEAR) 10/04/21 05:45 Urine pH 5.0 (5.0 - 8.0) 10/04/21 05:45 Ur Specific [place] 1.020 (1.000-1.030) 10/04/21 05:45 Urine Protein 2+ (NEGATIVE) 10/04/21 05:45 Urine Glucose (UA) Negative (NEGATIVE) 10/04/21 05:45 Urine Ketones 1+ (NEGATIVE) 10/04/21 05:45 Urine Blood Negative (NEGATIVE) 10/04/21 05:45 Urine Nitrite Negative (NEGATIVE) 10/04/21 05:45 Urine Bilirubin Negative (NEGATIVE) 10/04/21 05:45 Urine Urobilinogen Normal (NORMAL) 10/04/21 05:45 Ur Leukocyte Esterase Negative (NEGATIVE) 10/04/21 05:45 Urine RBC None seen /HPF (0-3) 10/04/21 05:45 Urine WBC None seen /HPF (0-5) 10/04/21 05:45 Ur Squamous Epith Cells Rare /HPF (NEGATIVE) 10/04/21 05:45 Urine Bacteria Negative /HPF (NEGATIVE) 10/04/21 05:45 Hyaline Casts Rare /LPF (NEGATIVE) 10/04/21 05:45 Urine Mucus Few /HPF (NEGATIVE) 09/28/21 19:55 Ur Culture Indicated? No/not indicated 10/04/21 05:45 Stool Description 100 grams 10/05/21 16:45 Stl Occult Blood (IFOB) Negative (NEGATIVE) 10/05/21 16:45 SARS-CoV-2 (PCR) Negative (NEGATIVE) 09/28/21 00:55 Influenza Type A (PCR) Negative (NEGATIVE) 09/28/21 00:55 Influenza Type B (PCR) Negative (NEGATIVE) 09/28/21 00:55 RSV (PCR) Negative (NEGATIVE) 09/28/21 00:55 SARS CoV-2 RNA Rapid YUSUF Cancelled 09/28/21 00:55 Blood Type Cancelled 10/04/21 07:21 Antibody Screen Cancelled 10/04/21 07:21 Antibody Identification Anti-E Anti-Fya 09/28/21 00:55 Antibody Identification Anti-E Anti-Fya 09/28/21 00:55 Crossmatch See Detail 10/04/21 07:21 - Plan (1) Bilateral pneumonia Status: Acute Qualifiers: Pneumonia type: due to unspecified organism Lung location: unspecified part of lung Qualified Code(s): J18.9 - Pneumonia, unspecified organism Plan: supplemental oxygen, iv fluids, iv antibiotics, iv cardizem, nebulizer treatments, resume home meds (2) Hypoxemia Status: Acute (3) Hemoptysis Status: Acute (4) Anemia Status: Acute Qualifiers: Anemia type: unspecified type (5) CHF (congestive heart failure) Status: Chronic Qualifiers: Heart failure type: combined systolic and diastolic Heart failure chronicity: chronic Qualified Code(s): I50.42 - Chronic combined systolic (congestive) and diastolic (congestive) heart failure (6) COPD (chronic obstructive pulmonary disease) Status: Chronic Qualifiers: COPD type: unspecified COPD Qualified Code(s): J44.9 - Chronic obstructive pulmonary disease, unspecified (7) Hyperlipidemia Status: Chronic Qualifiers: Hyperlipidemia type: mixed hyperlipidemia Qualified Code(s): E78.2 - Mixed hyperlipidemia (8) Hypertension Status: Chronic Qualifiers: Hypertension type: primary hypertension Qualified Code(s): I10 - Essential (primary) hypertension (9) History of CVA (cerebrovascular accident) Status: Chronic
[2021-10-05] MEDS: K-DUR TAB 20 MEQ PO PRN (22:15)
[2021-10-05] MEDS: TUSSIONEX PENNKINETIC SUSP PO PRN (22:30)
[2021-10-05] MEDS: ZOFRAN INJ 4 MG VIAL IVP PRN (22:41)
[2021-10-05] MEDS: DILTIAZEM 125mg/125mL-0.7%NACL 125 MG/125 ML PLAST..BAG IV PRN (23:45)
[2021-10-06] MEDS ORDERED: ROBITUSSIN DM PO PRN (01:28)
[2021-10-06] MEDS ORDERED: ROBITUSSIN DM ONE (01:41)
[2021-10-06 05:28] LABS: BASOPHILS % (AUTO) 0.3 % (0.2-1.0); EOSINOPHILS # (AUTO) 0.4 x10^3/uL (0.0-0.2); EOSINOPHILS % (AUTO) 6.4 % (0.9-2.9); HEMATOCRIT 24.2 % (42.0-54.0); LYMPHOCYTES # (AUTO) 0.6 X10^3/uL (1.3-2.9); LYMPHOCYTES % (AUTO) 8.8 % (21.0-51.0); MEAN CORPUSCULAR HEMOGLOBIN 30.6 pg (27.0-34.0); MEAN CORPUSCULAR VOLUME 92.7 fL (80.0-100.0); MEAN PLATELET VOLUME 7.9 fL (7.4-11.0); MONOCYTES # (AUTO) 0.9 x10^3/uL (0.3-0.8); MONOCYTES % (AUTO) 14.6 % (0.0-13.0); NEUTROPHILS # (AUTO) 4.4 x10^3/uL (2.2-4.8); NEUTROPHILS % (AUTO) 69.9 % (42.0-75.0); RED BLOOD COUNT 2.61 X10^6/uL (4.7-6.0); RED CELL DISTRIBUTION WIDTH 16.1 % (11.6-16.5); WHITE BLOOD COUNT 6.3 X10^3/uL (3.6-10.0)
[2021-10-06] MEDS: ZOFRAN INJ 4 MG VIAL IVP PRN ×2 (05:33→10:57)
[2021-10-06 05:34] LABS: ABG BASE EXCESS 15.8 mmol/L (-2.0-2.0)
[2021-10-06] MEDS: ZOSYN VIAL 3.375 GRAMS 3.375 G in NS 100 ML IV 100 ML IV SCH ×2 (05:34→13:55)
[2021-10-06 05:37] LABS: ABG ALLEN TEST POS; ABG HCO3 44.2 mmol/L (22-26)
[2021-10-06 05:39] LABS: ALANINE AMINOTRANSFERASE 10 Units/L (12-78); ALBUMIN 1.9 g/dL (3.4-5.0); ALKALINE PHOSPHATASE 92 Units/L (46-116); ASPARTATE AMINO TRANSFERASE 17 Units/L (15-37); BLOOD UREA NITROGEN 6 mg/dL (7-18); CALCIUM 8.2 mg/dL (8.5-10.1); CARBON DIOXIDE 38.5 mmol/L (21-32); CHLORIDE 108 mmol/L (98-107); COR CA(FOR HYPOALB) 9.9 mg/dL (8.5-10.1); CREATININE 0.88 mg/dL (0.70-1.30); MAGNESIUM 1.8 mg/dL (1.7-2.9); SODIUM 148 mmol/L (136-145); TOTAL PROTEIN 5.9 g/dL (6.4-8.2); eGFR NON BLACK RACES > 60 (>60)
--- NOTE | 2021-10-06 05:58 | RAD ---
PROCEDURE: Chest X-ray 1 View .HISTORY: Dyspnea.TECHNIQUE: AP view .COMPARISON: 10/05/2021.TECHNICAL QUALITY: Satisfactory .FINDINGS:Unchanged mild cardiomegaly.Mediastinum and hilar regions show no masses or lymphadenopathy .Normal central vascularity .Moderate patchy pneumonia lung bases slightly increased on the right and unchanged on the left. No pleural fluid.No acute bony abnormality .IMPRESSION:Unchanged pneumonia on the left and slightly increased on the right.Electronically signed by: Jourdan Selby (Oct 06, 2021 05:56:51)
[2021-10-06] MEDS: REQUIP PO SCH ×3 (08:09→20:56)
[2021-10-06] MEDS: ALBUMIN HUMAN 25%- 100 ML 100 ML IV SCH (08:09)
[2021-10-06] MEDS: PROzac PO SCH ×2 (08:10→12:10)
[2021-10-06] MEDS: TESSALON PERLES PO PRN (08:10)
[2021-10-06] MEDS: SYNTHROID 75 mcg TAB PO SCH ×2 (08:10→12:11)
[2021-10-06] MEDS: HEMOCYTE-PLUS PO SCH ×2 (08:10→12:11)
[2021-10-06] MEDS: MICRO K EXTEN CAP 10 MEQ PO SCH ×3 (08:10→20:55)
[2021-10-06] MEDS: PriLOSEC PO SCH ×2 (08:10→12:13)
[2021-10-06] MEDS: NEURONTIN CAP 300 MG PO SCH ×3 (08:10→20:54)
[2021-10-06] MEDS: MAG-OX TAB PO SCH ×2 (08:11→12:11)
[2021-10-06] MEDS: FLONASE NASAL SPRAY ENOSTRIL SCH (08:11)
[2021-10-06] MEDS: LASIX IVP SCH ×2 (08:11→09:00)
[2021-10-06] MEDS: NS 1,000 ML IV 1,000 ML IV SCH (08:11)
[2021-10-06] MEDS: PULMICORT NEB TX 0.5 MG NEB SCH ×2 (08:50→20:53)
[2021-10-06] MEDS: XOPENEX 1.25 MG/3 ML NEBULE NEB SCH ×4 (08:50→20:53)
[2021-10-06] MEDS ORDERED: POTASSIUM CHL 40 MEQ/NS 0.45% 500 ML IV PRN (11:36)
[2021-10-06] MEDS ORDERED: POTASSIUM CHL 60 MEQ/NS 0.45% 500 ML IV PRN (11:36)
[2021-10-06] MEDS ORDERED: PHARMACY CONSULT - TPN XX SCH (13:00)
[2021-10-06] MEDS: K-RIDER 10 MEQ/NS 100 ML 10 MEQ/100 ML BAG IV PRN ×2 (13:01→13:55)
[2021-10-06] MEDS: PROTONIX INJ 40 MG VIAL IVP SCH ×2 (14:00→21:42)
[2021-10-06] MEDS: CLINIMIX 4.25%-5% 1,000 ML IV SCH (16:11)
[2021-10-06] MEDS: VALIUM INJ IM PRN (19:36)
[2021-10-06] MEDS ORDERED: INVanz INJ 1 GRAM VIAL 1 G in NS 100 ML IV 100 ML IV PRN (20:25)
[2021-10-06] MEDS ORDERED: TORADOL 15 MG VIAL IVP ONE (20:46)
[2021-10-06] MEDS: CRESTOR TAB 10 MG PO SCH (20:52)
[2021-10-06] MEDS: COLACE CAP 100 MG PO SCH (20:52)
[2021-10-06] MEDS: ANTIVERT TAB 25 MG PO SCH (20:52)
[2021-10-06] MEDS: ZyrTEC TAB 10 MG PO SCH (20:53)
[2021-10-06] MEDS: SINGULAIR TAB 10 MG PO SCH (20:53)
[2021-10-06] MEDS: FLOMAX PO SCH (20:53)
[2021-10-06] MEDS: OXYBUTYNIN CHLORIDE ER PO SCH (20:55)
[2021-10-06] MEDS ORDERED: INVanz INJ 1 GRAM VIAL 1 G in NS 100 ML IV 100 ML IV SCH (21:00)
[2021-10-06] MEDS: ZITHROMAX INJ 500 MG VIAL 500 MG in NS 250 ML IV 250 ML IV SCH (21:43)
[2021-10-06] MEDS ORDERED: INVanz INJ 1 GRAM VIAL 0.5 G in NS 50 ML IV 50 ML IV SCH (22:00)
[2021-10-06] MEDS: DILTIAZEM 125mg/125mL-0.7%NACL 125 MG/125 ML PLAST..BAG IV PRN (23:14)
[2021-10-07] MEDS ORDERED: CLEOCIN 600 MG IV PREMIX 600 MG/50 ML BAG IV ONE (01:15)
[2021-10-07] MEDS ORDERED: CLEOCIN 300 MG IV PREMIX 300 MG/50 ML BAG IV ONE (01:16)
[2021-10-07] MEDS: CLEOCIN VIAL 600 MG 900 MG in D5W 50 ML IV 50 ML IV SCH ×3 (01:20→09:55)
[2021-10-07] MEDS: LEVAQUIN PREMIX IV 500 MG 500 MG/100 ML BAG IV SCH (01:40)
[2021-10-07 05:19] LABS: BASOPHILS % (AUTO) 0.2 % (0.2-1.0); EOSINOPHILS # (AUTO) 0.1 x10^3/uL (0.0-0.2); EOSINOPHILS % (AUTO) 0.5 % (0.9-2.9); HEMATOCRIT 21.8 % (42.0-54.0); HEMOGLOBIN 7.1 g/dL (13.5-18.0); LYMPHOCYTES # (AUTO) 0.5 X10^3/uL (1.3-2.9); LYMPHOCYTES % (AUTO) 3.9 % (21.0-51.0); MEAN CORPUSCULAR HEMOGLOBIN 30.6 pg (27.0-34.0); MEAN CORPUSCULAR HGB CONC 32.6 g/dL (33.0-35.0); MEAN CORPUSCULAR VOLUME 93.6 fL (80.0-100.0); MONOCYTES # (AUTO) 1.2 x10^3/uL (0.3-0.8); MONOCYTES % (AUTO) 9.2 % (0.0-13.0); NEUTROPHILS # (AUTO) 11.2 x10^3/uL (2.2-4.8); NEUTROPHILS % (AUTO) 86.2 % (42.0-75.0); RED BLOOD COUNT 2.33 X10^6/uL (4.7-6.0); RED CELL DISTRIBUTION WIDTH 16.5 % (11.6-16.5)
[2021-10-07 05:42] LABS: ALANINE AMINOTRANSFERASE 8 Units/L (12-78); ALBUMIN 1.8 g/dL (3.4-5.0); ALKALINE PHOSPHATASE 76 Units/L (46-116); ASPARTATE AMINO TRANSFERASE 14 Units/L (15-37); BLOOD UREA NITROGEN 9 mg/dL (7-18); CALCIUM 7.8 mg/dL (8.5-10.1); CARBON DIOXIDE 39.7 mmol/L (21-32); CHLORIDE 107 mmol/L (98-107); COR CA(FOR HYPOALB) 9.6 mg/dL (8.5-10.1); CREATINE KINASE 14 Units/L (39-308); CREATININE 0.99 mg/dL (0.70-1.30); SODIUM 148 mmol/L (136-145); TOTAL PROTEIN 5.4 g/dL (6.4-8.2); eGFR NON BLACK RACES > 60 (>60)
--- NOTE | 2021-10-07 06:09 | RAD ---
Chest AP portableIndication: DyspneaCOMPARISONAugust 2021FINDINGSPICC line tip is over the SVC. There is cardiomegaly with sternotomy change and valve hardware present. Right effusion noted. Dense bilateral pulmonary opacities are noted. There is no pneumothorax.IMPRESSIONCardiomegaly and dense bilateral pulmonary opacities, probably worsening in the right lung. Follow-up to resolutionElectronically signed by: LUIS MCCLURE (Oct 07, 2021 06:07:35)
[2021-10-07] MEDS: MAG-OX TAB PO SCH (08:09)
[2021-10-07] MEDS: HEMOCYTE-PLUS PO SCH (08:09)
[2021-10-07] MEDS: SYNTHROID 75 mcg TAB PO SCH (08:09)
[2021-10-07] MEDS: LASIX IVP SCH ×2 (08:09→09:02)
[2021-10-07] MEDS: NEURONTIN CAP 300 MG PO SCH ×2 (08:10→20:42)
[2021-10-07] MEDS: PROzac PO SCH (08:10)
[2021-10-07] MEDS: MICRO K EXTEN CAP 10 MEQ PO SCH ×2 (08:10→20:42)
[2021-10-07] MEDS: REQUIP PO SCH ×2 (08:10→20:54)
[2021-10-07] MEDS: XOPENEX 1.25 MG/3 ML NEBULE NEB SCH ×4 (08:40→20:10)
[2021-10-07] MEDS: PULMICORT NEB TX 0.5 MG NEB SCH ×2 (08:40→20:10)
[2021-10-07] MEDS: PROTONIX INJ 40 MG VIAL IVP SCH ×2 (08:56→20:53)
[2021-10-07] MEDS: ALBUMIN HUMAN 25%- 100 ML 100 ML IV SCH (09:01)
[2021-10-07] MEDS: FLONASE NASAL SPRAY ENOSTRIL SCH (09:55)
[2021-10-07] MEDS: CLEOCIN 300 MG IV PREMIX 300 MG/50 ML BAG IV SCH ×2 (09:56→21:34)
[2021-10-07] MEDS: CLEOCIN 600 MG IV PREMIX 600 MG/50 ML BAG IV SCH ×2 (10:36→21:35)
[2021-10-07] MEDS: CLINIMIX 4.25%-5% 1,000 ML IV SCH (10:37)
[2021-10-07] MEDS: CLINIMIX 5 %/20 % 1,000 ML with MVI INJ (ADULT) 10 ML IV SCH ×2 (11:40)
--- NOTE | 2021-10-07 13:13 | PCM.PROG ---
Progress Note - Progress Note for Day of Date of Exam: 10/06/21 - Subjective Subjective: IS CURRENTLY BEING TREATED FOR BILATERAL PNEUMONIA, HYPOXIEMIA, AND HEMOPTYSIS. HE HAS A PMH OF HTN, DYSLIPIDEMIA, DEPRESSION, HYPOTHYROIDISM, ANEMIA, CVA, GERD, CHF, AND VALVULAR HEART DISEASE. HE COMPLAINS OF PERSISTENT COUGH, SHORTNESS OF BREATH, AND WEAKNESS. STAFF REPORTS THAT HE HAD DIFFICULTY SWALLOWING THIS MORNING WITH SPEECH EVALUATION ORDERED. PT HAD DIFFUSE CENTRAL RHONCHI AND COPIOUS AMOUNTS THICK CLEAR MUCOUS. DUE TO PTS DYSPHAGIA WE CHANGED HIM TO NPO AND CONSULTED PHARMACY FOR TPN SUPPLEMENT. PT REMAINS ON CARDIZEM DRIP WITH HEART RATE CONTROLLED IN THE 70S THIS AM. PT IS ON HHF 30%FIO2. PT IS CURRENTLY ON IV ATBX WITH ZITHROMAX AND LEVAQUIN, DR SHELTON STARTED PT ON IV CLINDAMYCIN. WBC 6.3, HGB 8.0, BUN/CREAT 6/0.88. FAMILY IS AT BEDSIDE AND REVIEWED DIAGNOSTIC TESTS AND LABS AND CURRENT PLAN OF CARE. - Past Medical Family Social History Past Med/Fam/Surg Hx: No changes since H&P Allergies: Allergies cilastatin [From Primaxin] Allergy (Verified 06/22/21 17:35) clarithromycin [From Biaxin] Allergy (Verified 06/22/21 17:35) imipenem [From Primaxin] Allergy (Verified 06/22/21 17:35) - Review of Systems ROS: No change since H&P - Vital Signs and I&O's Vital Signs: Temperature 98.9 F Pulse Rate [Right Radial] 85 Pulse Rate 81 Respiratory Rate 24 Blood Pressure [Left Arm] 108/55 Blood Pressure [Right Arm] 98/53 Blood Pressure 147/58 O2 Sat by Pulse Oximetry 98 Intake and Output: Intake & Output 10/05/21 10/06/21 10/07/21 10/08/21 11:59 11:59 11:59 11:59 Intake Total 2525 / 2525 1774.0 / 1774.0 708 / 708 Output Total 2400 / 2400 3450 / 3450 1870 / 1870 Balance 125 / 125 -1676.0 / -1676.0 -1162 / -1162 - Physical Exam Oriented: Normal Eyes: Normal Ear: Normal Nose: Normal Throat: Normal Respiratory: Wheezes, Rhonchi Cardiovascular: Normal : Normal Auscultation: Bowel Sounds: Normal Tenderness: Normal Skin: Decreased Turgur Musculoskeletal: Motor Deficit (DIFFUSE UPPER AND LOWER WEAKNESS) Psychiatric: Anxiety Mood Description: Anxious Affect: Anxious, Normal Speech Pattern: Appropriate - Laboratory and Diagnostics Result Diagrams: 10/07/21 04:30 10/07/21 04:30 Labs: 10/06/21 10:20 Sputum - Expectorated Sputum - Final 09/28/21 10:50 Blood Blood Culture - Final 09/28/21 10:41 Blood Blood Culture - Final 09/28/21 13:37 Sputum - Expectorated Sputum Sputum Culture - Final Klebsiella Pneumoniae 09/28/21 13:37 Sputum - Expectorated Sputum - Final Laboratory WBC 13.0 X10^3/uL (3.6-10.0) H 10/07/21 04:30 RBC 2.33 X10^6/uL (4.7-6.0) L 10/07/21 04:30 Hgb 7.1 g/dL (13.5-18.0) L 10/07/21 04:30 Hct 21.8 % (42.0-54.0) L 10/07/21 04:30 MCV 93.6 fL (80.0-100.0) 10/07/21 04:30 MCH 30.6 pg (27.0-34.0) 10/07/21 04:30 MCHC 32.6 g/dL (33.0-35.0) L 10/07/21 04:30 RDW 16.5 % (11.6-16.5) 10/07/21 04:30 Plt Count 175 X10^3/uL (150.0-450.0) 10/07/21 04:30 Plt Count Comment Adequate (ADEQUATE) 10/02/21 04:55 MPV 8.0 fL (7.4-11.0) 10/07/21 04:30 Neut % (Auto) 86.2 % (42.0-75.0) H 10/07/21 04:30 Lymph % (Auto) 3.9 % (21.0-51.0) L 10/07/21 04:30 [place] % (Auto) 9.2 % (0.0-13.0) 10/07/21 04:30 Eos % (Auto) 0.5 % (0.9-2.9) L 10/07/21 04:30 Baso % (Auto) 0.2 % (0.2-1.0) 10/07/21 04:30 Neut # (Auto) 11.2 x10^3/uL (2.2-4.8) H 10/07/21 04:30 Lymph # (Auto) 0.5 X10^3/uL (1.3-2.9) L 10/07/21 04:30 [place] # (Auto) 1.2 x10^3/uL (0.3-0.8) H 10/07/21 04:30 Eos # (Auto) 0.1 x10^3/uL (0.0-0.2) 10/07/21 04:30 Baso # (Auto) 0.0 X10^3/uL (0.0-0.1) 10/07/21 04:30 Absolute Nucleated RBC 0.0 /100WBC 10/07/21 04:30 Total Counted 100 10/02/21 04:55 Neutrophils % (Manual) 80 % (39-76) H 10/02/21 04:55 Band Neutrophils % 8 % (0-10) 09/28/21 05:09 Lymphocytes % (Manual) 2 % (13-43) L 10/02/21 04:55 Monocytes % (Manual) 18 % (4-9) H 10/02/21 04:55 Plt Morphology Comment Normal (NORMAL) 10/02/21 04:55 RBC Morphology Normal (NORMAL) 10/02/21 04:55 Anisocytosis Slight A 09/28/21 05:09 PT 15.7 SECONDS (11.8-14.3) 09/28/21 00:55 INR Target Range - 09/28/21 00:55 INR 1.30 (0.8-1.3) 09/28/21 00:55 Sample Site Lrad 10/06/21 05:32 ABG pH 7.390 (7.35-7.45) 10/06/21 05:32 ABG pCO2 73.0 mmHg (35.0-45.0) H* 10/06/21 05:32 ABG pO2 77.0 mmHg (80.0-100.0) L 10/06/21 05:32 ABG HCO3 44.2 mmol/L (22-26) H* 10/06/21 05:32 ABG O2 Saturation 95.0 % (90-100) 10/06/21 05:32 ABG Base Excess 15.8 mmol/L (-2.0-2.0) H 10/06/21 05:32 Sunny Test Pos 10/06/21 05:32 A-a Gradient 96.0 mmHg 10/06/21 05:32 FiO2 37.0 10/06/21 05:32 Blood Gas Comments Joy abg well-mtf 10/06/21 05:32 Sodium 148 mmol/L (136-145) H 10/07/21 04:30 Corrected Sodium TNP 10/07/21 04:30 Potassium 3.7 mmol/L (3.5-5.1) 10/07/21 04:30 Chloride 107 mmol/L (98-107) 10/07/21 04:30 Carbon Dioxide 39.7 mmol/L (21-32) H 10/07/21 04:30 BUN 9 mg/dL (7-18) 10/07/21 04:30 Creatinine 0.99 mg/dL (0.70-1.30) 10/07/21 04:30 Est GFR (MDRD) Af Amer > 60 (>60) 10/07/21 04:30 Est GFR (MDRD) Non-Af > 60 (>60) 10/07/21 04:30 Glucose 94 mg/dL (65-99) 10/07/21 04:30 POC Glucose (mg/dL) 90 mg/dL (65-99) 10/07/21 12:04 Calcium 7.8 mg/dL (8.5-10.1) L 10/07/21 04:30 Corrected Calcium 9.6 mg/dL (8.5-10.1) 10/07/21 04:30 Magnesium 2.0 mg/dL (1.7-2.9) 10/06/21 12:05 Total Bilirubin 0.50 mg/dL (0.2-1.0) 10/07/21 04:30 AST 14 Units/L (15-37) L 10/07/21 04:30 ALT 8 Units/L (12-78) L 10/07/21 04:30 Alkaline Phosphatase 76 Units/L (46-116) 10/07/21 04:30 Creatine Kinase 14 Units/L (39-308) L 10/07/21 04:30 Troponin I High Sens 19.8 ng/L (4.0-60.0) 10/07/21 04:30 B-Natriuretic Peptide 280 pg/mL (0-79) H 10/04/21 16:20 Total Protein 5.4 g/dL (6.4-8.2) L 10/07/21 04:30 Albumin 1.8 g/dL (3.4-5.0) L 10/07/21 04:30 Globulin 3.6 g/dL (2.5-4.5) 10/07/21 04:30 Albumin/Globulin Ratio 0.5 Ratio (1.1-2.1) L 10/07/21 04:30 Specimen Type Clean catch urine 10/04/21 05:45 Urine Color Yellow (YELLOW) 10/04/21 05:45 Urine Appearance Clear (CLEAR) 10/04/21 05:45 Urine pH 5.0 (5.0 - 8.0) 10/04/21 05:45 Ur Specific [place] 1.020 (1.000-1.030) 10/04/21 05:45 Urine Protein 2+ (NEGATIVE) 10/04/21 05:45 Urine Glucose (UA) Negative (NEGATIVE) 10/04/21 05:45 Urine Ketones 1+ (NEGATIVE) 10/04/21 05:45 Urine Blood Negative (NEGATIVE) 10/04/21 05:45 Urine Nitrite Negative (NEGATIVE) 10/04/21 05:45 Urine Bilirubin Negative (NEGATIVE) 10/04/21 05:45 Urine Urobilinogen Normal (NORMAL) 10/04/21 05:45 Ur Leukocyte Esterase Negative (NEGATIVE) 10/04/21 05:45 Urine RBC None seen /HPF (0-3) 10/04/21 05:45 Urine WBC None seen /HPF (0-5) 10/04/21 05:45 Ur Squamous Epith Cells Rare /HPF (NEGATIVE) 10/04/21 05:45 Urine Bacteria Negative /HPF (NEGATIVE) 10/04/21 05:45 Hyaline Casts Rare /LPF (NEGATIVE) 10/04/21 05:45 Urine Mucus Few /HPF (NEGATIVE) 09/28/21 19:55 Ur Culture Indicated? No/not indicated 10/04/21 05:45 Stool Description 100 grams 10/05/21 16:45 Stl Occult Blood (IFOB) Negative (NEGATIVE) 10/05/21 16:45 SARS-CoV-2 (PCR) Negative (NEGATIVE) 10/06/21 20:40 Influenza Type A (PCR) Negative (NEGATIVE) 10/06/21 20:40 Influenza Type B (PCR) Negative (NEGATIVE) 10/06/21 20:40 RSV (PCR) Negative (NEGATIVE) 10/06/21 20:40 SARS CoV-2 RNA Rapid YUSUF Cancelled 09/28/21 00:55 Blood Type Cancelled 10/04/21 07:21 Antibody Screen Cancelled 10/04/21 07:21 Antibody Identification Anti-E Anti-Fya 09/28/21 00:55 Antibody Identification Anti-E Anti-Fya 09/28/21 00:55 Crossmatch See Detail 10/04/21 07:21 - Plan (1) Bilateral pneumonia Status: Acute Qualifiers: Pneumonia type: due to unspecified organism Lung location: unspecified part of lung Qualified Code(s): J18.9 - Pneumonia, unspecified organism Plan: supplemental oxygen,Bipap PRN, iv fluids with strict I&Os, iv antibiotics zithromax, levaquin and starting clindamycin, iv cardizem drip per protocol and continuous cardiac monitoring. nebulizer treatments, resume home meds. NPO with speech consult and peripheral nutrition (2) Atrial fibrillation Status: Acute (3) Hypoxemia Status: Acute (4) History of CVA (cerebrovascular accident) Status: Chronic (5) Acute CHF (congestive heart failure) Status: Acute Qualifiers: Heart failure type: unspecified (6) GERD (gastroesophageal reflux disease) Status: Chronic Qualifiers: Esophagitis presence: esophagitis presence not specified Qualified Code(s): K21.9 - Gastro-esophageal reflux disease without esophagitis (7) Hyperlipidemia Status: Chronic Qualifiers: Hyperlipidemia type: mixed hyperlipidemia Qualified Code(s): E78.2 - Mixed hyperlipidemia
--- NOTE | 2021-10-07 13:23 | PCM.PROG ---
Progress Note - Progress Note for Day of Date of Exam: 10/07/21 - Subjective Subjective: IS CURRENTLY BEING TREATED FOR BILATERAL PNEUMONIA, HYPOXIEMIA, AND HEMOPTYSIS. HE HAS A PMH OF HTN, DYSLIPIDEMIA, DEPRESSION, HYPOTHYROIDISM, ANEMIA, CVA, GERD, CHF, AND VALVULAR HEART DISEASE. HE COMPLAINS OF PERSISTENT COUGH, SHORTNESS OF BREATH, AND WEAKNESS. STAFF REPORTS THAT HE HAD DIFFICULTY SWALLOWING THIS MORNING WITH SPEECH EVALUATION ORDERED. DUE TO PTS DYSPHAGIA AND WE CHANGED HIM TO NPO AND CONSULTED PHARMACY FOR TPN SUPPLEMENT. PT REMAINS ON CARDIZEM DRIP WITH HEART RATE CONTROLLED IN THE 70S THIS AM. PT IS ON HHF 45%FIO2. HE SLEPT USING BIPAP LAST NIGHT AND SPOUSE REPORTS "HE DID MUCH BETTER". PT IS MORE AWAKE AND ALERT THIS MORING. CONTINUES WITH DIFFUSE RHONCHI. PT IS CURRENTLY ON IV ATBX WITH ZITHROMAX AND LEVAQUIN, DR SHELTON STARTED PT ON IV CLINDAMYCIN ON 10/06. WBC 13, HGB 7.1, BUN/CREAT 9/0.99. FAMILY IS AT BEDSIDE AND REVIEWED DIAGNOSTIC TESTS AND LABS AND CURRENT PLAN OF CARE. - Past Medical Family Social History Past Med/Fam/Surg Hx: No changes since H&P Allergies: Allergies cilastatin [From Primaxin] Allergy (Verified 06/22/21 17:35) clarithromycin [From Biaxin] Allergy (Verified 06/22/21 17:35) imipenem [From Primaxin] Allergy (Verified 06/22/21 17:35) - Review of Systems ROS: No change since H&P - Vital Signs and I&O's Vital Signs: Temperature 98.9 F Pulse Rate [Right Radial] 85 Pulse Rate 80 Respiratory Rate 24 Blood Pressure [Left Arm] 108/55 Blood Pressure [Right Arm] 98/53 Blood Pressure 111/59 O2 Sat by Pulse Oximetry 100 Intake and Output: Intake & Output 10/05/21 10/06/21 10/07/21 10/08/21 11:59 11:59 11:59 11:59 Intake Total 2525 / 2525 1774.0 / 1774.0 708 / 708 Output Total 2400 / 2400 3450 / 3450 1870 / 1870 Balance 125 / 125 -1676.0 / -1676.0 -1162 / -1162 - Physical Exam Oriented: Normal Eyes: Normal Ear: Normal Nose: Normal Throat: Normal Respiratory: Wheezes, Rhonchi Cardiovascular: Normal : Normal Auscultation: Bowel Sounds: Normal Tenderness: Normal Skin: Decreased Turgur Musculoskeletal: Motor Deficit (DIFFUSE UPPER AND LOWER WEAKNESS) Psychiatric: Anxiety Mood Description: Anxious Affect: Anxious, Normal Speech Pattern: Appropriate - Laboratory and Diagnostics Result Diagrams: 10/07/21 04:30 10/07/21 04:30 Labs: 10/06/21 10:20 Sputum - Expectorated Sputum - Final 09/28/21 10:50 Blood Blood Culture - Final 09/28/21 10:41 Blood Blood Culture - Final 09/28/21 13:37 Sputum - Expectorated Sputum Sputum Culture - Final Klebsiella Pneumoniae 09/28/21 13:37 Sputum - Expectorated Sputum - Final Laboratory WBC 13.0 X10^3/uL (3.6-10.0) H 10/07/21 04:30 RBC 2.33 X10^6/uL (4.7-6.0) L 10/07/21 04:30 Hgb 7.1 g/dL (13.5-18.0) L 10/07/21 04:30 Hct 21.8 % (42.0-54.0) L 10/07/21 04:30 MCV 93.6 fL (80.0-100.0) 10/07/21 04:30 MCH 30.6 pg (27.0-34.0) 10/07/21 04:30 MCHC 32.6 g/dL (33.0-35.0) L 10/07/21 04:30 RDW 16.5 % (11.6-16.5) 10/07/21 04:30 Plt Count 175 X10^3/uL (150.0-450.0) 10/07/21 04:30 Plt Count Comment Adequate (ADEQUATE) 10/02/21 04:55 MPV 8.0 fL (7.4-11.0) 10/07/21 04:30 Neut % (Auto) 86.2 % (42.0-75.0) H 10/07/21 04:30 Lymph % (Auto) 3.9 % (21.0-51.0) L 10/07/21 04:30 [place] % (Auto) 9.2 % (0.0-13.0) 10/07/21 04:30 Eos % (Auto) 0.5 % (0.9-2.9) L 10/07/21 04:30 Baso % (Auto) 0.2 % (0.2-1.0) 10/07/21 04:30 Neut # (Auto) 11.2 x10^3/uL (2.2-4.8) H 10/07/21 04:30 Lymph # (Auto) 0.5 X10^3/uL (1.3-2.9) L 10/07/21 04:30 [place] # (Auto) 1.2 x10^3/uL (0.3-0.8) H 10/07/21 04:30 Eos # (Auto) 0.1 x10^3/uL (0.0-0.2) 10/07/21 04:30 Baso # (Auto) 0.0 X10^3/uL (0.0-0.1) 10/07/21 04:30 Absolute Nucleated RBC 0.0 /100WBC 10/07/21 04:30 Total Counted 100 10/02/21 04:55 Neutrophils % (Manual) 80 % (39-76) H 10/02/21 04:55 Band Neutrophils % 8 % (0-10) 09/28/21 05:09 Lymphocytes % (Manual) 2 % (13-43) L 10/02/21 04:55 Monocytes % (Manual) 18 % (4-9) H 10/02/21 04:55 Plt Morphology Comment Normal (NORMAL) 10/02/21 04:55 RBC Morphology Normal (NORMAL) 10/02/21 04:55 Anisocytosis Slight A 09/28/21 05:09 PT 15.7 SECONDS (11.8-14.3) 09/28/21 00:55 INR Target Range - 09/28/21 00:55 INR 1.30 (0.8-1.3) 09/28/21 00:55 Sample Site Lrad 10/06/21 05:32 ABG pH 7.390 (7.35-7.45) 10/06/21 05:32 ABG pCO2 73.0 mmHg (35.0-45.0) H* 10/06/21 05:32 ABG pO2 77.0 mmHg (80.0-100.0) L 10/06/21 05:32 ABG HCO3 44.2 mmol/L (22-26) H* 10/06/21 05:32 ABG O2 Saturation 95.0 % (90-100) 10/06/21 05:32 ABG Base Excess 15.8 mmol/L (-2.0-2.0) H 10/06/21 05:32 Sunny Test Pos 10/06/21 05:32 A-a Gradient 96.0 mmHg 10/06/21 05:32 FiO2 37.0 10/06/21 05:32 Blood Gas Comments Joy abg well-mtf 10/06/21 05:32 Sodium 148 mmol/L (136-145) H 10/07/21 04:30 Corrected Sodium TNP 10/07/21 04:30 Potassium 3.7 mmol/L (3.5-5.1) 10/07/21 04:30 Chloride 107 mmol/L (98-107) 10/07/21 04:30 Carbon Dioxide 39.7 mmol/L (21-32) H 10/07/21 04:30 BUN 9 mg/dL (7-18) 10/07/21 04:30 Creatinine 0.99 mg/dL (0.70-1.30) 10/07/21 04:30 Est GFR (MDRD) Af Amer > 60 (>60) 10/07/21 04:30 Est GFR (MDRD) Non-Af > 60 (>60) 10/07/21 04:30 Glucose 94 mg/dL (65-99) 10/07/21 04:30 POC Glucose (mg/dL) 90 mg/dL (65-99) 10/07/21 12:04 Calcium 7.8 mg/dL (8.5-10.1) L 10/07/21 04:30 Corrected Calcium 9.6 mg/dL (8.5-10.1) 10/07/21 04:30 Magnesium 2.0 mg/dL (1.7-2.9) 10/06/21 12:05 Total Bilirubin 0.50 mg/dL (0.2-1.0) 10/07/21 04:30 AST 14 Units/L (15-37) L 10/07/21 04:30 ALT 8 Units/L (12-78) L 10/07/21 04:30 Alkaline Phosphatase 76 Units/L (46-116) 10/07/21 04:30 Creatine Kinase 14 Units/L (39-308) L 10/07/21 04:30 Troponin I High Sens 19.8 ng/L (4.0-60.0) 10/07/21 04:30 B-Natriuretic Peptide 280 pg/mL (0-79) H 10/04/21 16:20 Total Protein 5.4 g/dL (6.4-8.2) L 10/07/21 04:30 Albumin 1.8 g/dL (3.4-5.0) L 10/07/21 04:30 Globulin 3.6 g/dL (2.5-4.5) 10/07/21 04:30 Albumin/Globulin Ratio 0.5 Ratio (1.1-2.1) L 10/07/21 04:30 Specimen Type Clean catch urine 10/04/21 05:45 Urine Color Yellow (YELLOW) 10/04/21 05:45 Urine Appearance Clear (CLEAR) 10/04/21 05:45 Urine pH 5.0 (5.0 - 8.0) 10/04/21 05:45 Ur Specific [place] 1.020 (1.000-1.030) 10/04/21 05:45 Urine Protein 2+ (NEGATIVE) 10/04/21 05:45 Urine Glucose (UA) Negative (NEGATIVE) 10/04/21 05:45 Urine Ketones 1+ (NEGATIVE) 10/04/21 05:45 Urine Blood Negative (NEGATIVE) 10/04/21 05:45 Urine Nitrite Negative (NEGATIVE) 10/04/21 05:45 Urine Bilirubin Negative (NEGATIVE) 10/04/21 05:45 Urine Urobilinogen Normal (NORMAL) 10/04/21 05:45 Ur Leukocyte Esterase Negative (NEGATIVE) 10/04/21 05:45 Urine RBC None seen /HPF (0-3) 10/04/21 05:45 Urine WBC None seen /HPF (0-5) 10/04/21 05:45 Ur Squamous Epith Cells Rare /HPF (NEGATIVE) 10/04/21 05:45 Urine Bacteria Negative /HPF (NEGATIVE) 10/04/21 05:45 Hyaline Casts Rare /LPF (NEGATIVE) 10/04/21 05:45 Urine Mucus Few /HPF (NEGATIVE) 09/28/21 19:55 Ur Culture Indicated? No/not indicated 10/04/21 05:45 Stool Description 100 grams 10/05/21 16:45 Stl Occult Blood (IFOB) Negative (NEGATIVE) 10/05/21 16:45 SARS-CoV-2 (PCR) Negative (NEGATIVE) 10/06/21 20:40 Influenza Type A (PCR) Negative (NEGATIVE) 10/06/21 20:40 Influenza Type B (PCR) Negative (NEGATIVE) 10/06/21 20:40 RSV (PCR) Negative (NEGATIVE) 10/06/21 20:40 SARS CoV-2 RNA Rapid YUSUF Cancelled 09/28/21 00:55 Blood Type Cancelled 10/04/21 07:21 Antibody Screen Cancelled 10/04/21 07:21 Antibody Identification Anti-E Anti-Fya 09/28/21 00:55 Antibody Identification Anti-E Anti-Fya 09/28/21 00:55 Crossmatch See Detail 10/04/21 07:21 - Plan (1) Bilateral pneumonia Status: Acute Qualifiers: Pneumonia type: due to unspecified organism Lung location: unspecified part of lung Qualified Code(s): J18.9 - Pneumonia, unspecified organism Plan: supplemental oxygen,Bipap PRN, iv fluids with strict I&Os, iv antibiotics zithromax, levaquin and starting clindamycin, iv cardizem drip per protocol and continuous cardiac monitoring. nebulizer treatments, resume home meds. NPO with speech consult and peripheral nutrition (2) Atrial fibrillation Status: Acute (3) Hypoxemia Status: Acute (4) History of CVA (cerebrovascular accident) Status: Chronic (5) Acute CHF (congestive heart failure) Status: Acute Qualifiers: Heart failure type: unspecified (6) GERD (gastroesophageal reflux disease) Status: Chronic Qualifiers: Esophagitis presence: esophagitis presence not specified Qualified Code(s): K21.9 - Gastro-esophageal reflux disease without esophagitis (7) Hyperlipidemia Status: Chronic Qualifiers: Hyperlipidemia type: mixed hyperlipidemia Qualified Code(s): E78.2 - Mixed hyperlipidemia
[2021-10-07] MEDS ORDERED: OFIRMEV IV 1000 MG VIAL 1,000 MG/100 ML VIAL IV ONE (16:54)
[2021-10-07] MEDS ORDERED: TORADOL 15 MG VIAL IM ONE (16:55)
[2021-10-07] MEDS: COLACE CAP 100 MG PO SCH (20:41)
[2021-10-07] MEDS: CRESTOR TAB 10 MG PO SCH (20:41)
[2021-10-07] MEDS: ANTIVERT TAB 25 MG PO SCH (20:41)
[2021-10-07] MEDS: FLOMAX PO SCH (20:42)
[2021-10-07] MEDS: ZyrTEC TAB 10 MG PO SCH (20:54)
[2021-10-07] MEDS: SINGULAIR TAB 10 MG PO SCH (20:54)
[2021-10-07] MEDS: OXYBUTYNIN CHLORIDE ER PO SCH (20:54)
[2021-10-07] MEDS: ZITHROMAX INJ 500 MG VIAL 500 MG in NS 250 ML IV 250 ML IV SCH (21:34)
[2021-10-07] MEDS: VALIUM INJ IM PRN (22:07)
[2021-10-08] MEDS: HALDOL INJ IM PRN (00:13)
[2021-10-08] MEDS: LEVAQUIN PREMIX IV 500 MG 500 MG/100 ML BAG IV SCH (03:00)
[2021-10-08 05:18] LABS: BASOPHILS % (AUTO) 0.2 % (0.2-1.0); EOSINOPHILS # (AUTO) 0.5 x10^3/uL (0.0-0.2); EOSINOPHILS % (AUTO) 4.3 % (0.9-2.9); HEMOGLOBIN 7.6 g/dL (13.5-18.0); LYMPHOCYTES # (AUTO) 0.6 X10^3/uL (1.3-2.9); LYMPHOCYTES % (AUTO) 5.6 % (21.0-51.0); MEAN CORPUSCULAR HEMOGLOBIN 30.8 pg (27.0-34.0); MEAN CORPUSCULAR HGB CONC 32.9 g/dL (33.0-35.0); MEAN CORPUSCULAR VOLUME 93.9 fL (80.0-100.0); MEAN PLATELET VOLUME 8.2 fL (7.4-11.0); MONOCYTES # (AUTO) 1.1 x10^3/uL (0.3-0.8); MONOCYTES % (AUTO) 10.2 % (0.0-13.0); NEUTROPHILS # (AUTO) 8.4 x10^3/uL (2.2-4.8); NEUTROPHILS % (AUTO) 79.7 % (42.0-75.0); RED BLOOD COUNT 2.46 X10^6/uL (4.7-6.0); RED CELL DISTRIBUTION WIDTH 16.5 % (11.6-16.5); WHITE BLOOD COUNT 10.5 X10^3/uL (3.6-10.0)
[2021-10-08] MEDS: CLEOCIN 600 MG IV PREMIX 600 MG/50 ML BAG IV SCH ×2 (05:23→15:00)
[2021-10-08] MEDS: CLEOCIN 300 MG IV PREMIX 300 MG/50 ML BAG IV SCH ×2 (05:23→15:00)
[2021-10-08 05:38] LABS: ALANINE AMINOTRANSFERASE 8 Units/L (12-78); ALBUMIN 2.1 g/dL (3.4-5.0); ALKALINE PHOSPHATASE 80 Units/L (46-116); ASPARTATE AMINO TRANSFERASE 15 Units/L (15-37); BLOOD UREA NITROGEN 16 mg/dL (7-18); CALCIUM 8.4 mg/dL (8.5-10.1); CARBON DIOXIDE 38.5 mmol/L (21-32); CHLORIDE 106 mmol/L (98-107); COR CA(FOR HYPOALB) 9.9 mg/dL (8.5-10.1); COR NA(FOR HYPERGLY) 148 mmol/L (136-145); CREATININE 0.91 mg/dL (0.70-1.30); SODIUM 147 mmol/L (136-145); eGFR NON BLACK RACES > 60 (>60)
[2021-10-08] MEDS: VALIUM INJ IM PRN ×2 (06:11→21:59)
--- NOTE | 2021-10-08 08:09 | RAD ---
HISTORYSOBSTUDYCHEST x-ray, 1 VIEWCOMPARISONX-ray 10/07/21FINDINGSBilateral lung infiltrates are unchanged. These could be pulmonary edema, atelectasis, and/or pneumonia. Likely persistent moderate right pleural effusion is present. There is likely a degree of atelectasis in the right lung which likely accounts for the increased density adjacent to the right-side of the mediastinum.Heart is probably enlarged and there is likely CHF. A PICC line terminates in the region of the mid SVC. No pneumothorax is seen.IMPRESSIONAppearance of the chest is unchanged.Electronically signed by: Robert Collier (Oct 08, 2021 08:07:04)
[2021-10-08] MEDS: PULMICORT NEB TX 0.5 MG NEB SCH ×2 (08:15→21:00)
[2021-10-08] MEDS: XOPENEX 1.25 MG/3 ML NEBULE NEB SCH ×4 (08:15→21:00)
[2021-10-08] MEDS ORDERED: LASIX IVP ONE (08:31)
[2021-10-08] MEDS ORDERED: CARDIZEM INJ 50 MG VIAL IVP ONE (09:00)
[2021-10-08] MEDS: FLONASE NASAL SPRAY ENOSTRIL SCH (09:15)
[2021-10-08] MEDS: ALBUMIN HUMAN 25%- 100 ML 100 ML IV SCH (09:33)
[2021-10-08] MEDS: PROzac PO SCH (09:35)
[2021-10-08] MEDS: PROTONIX INJ 40 MG VIAL IVP SCH ×2 (09:35→22:36)
[2021-10-08] MEDS: LASIX IVP SCH ×2 (10:00→12:12)
[2021-10-08] MEDS: DILTIAZEM 125mg/125mL-0.7%NACL 125 MG/125 ML PLAST..BAG IV PRN (10:26)
[2021-10-08] MEDS ORDERED: NS 100 ML IV 100 ML ONE (10:40)
[2021-10-08] MEDS: CLINIMIX 5 %/20 % 1,000 ML with MVI INJ (ADULT) 10 ML IV SCH ×2 (12:09)
[2021-10-08] MEDS: HEMOCYTE-PLUS PO SCH (12:11)
[2021-10-08] MEDS: MAG-OX TAB PO SCH (12:12)
[2021-10-08] MEDS: MICRO K EXTEN CAP 10 MEQ PO SCH ×2 (12:12→22:22)
[2021-10-08] MEDS: REQUIP PO SCH ×2 (12:13→22:23)
[2021-10-08] MEDS: NEURONTIN CAP 300 MG PO SCH ×2 (12:13→22:23)
[2021-10-08] MEDS: SYNTHROID 75 mcg TAB PO SCH (12:13)
--- NOTE | 2021-10-08 14:08 | CT ---
HISTORYhypoxia, cough, sob, lung infiltratesSTUDYCT chest with IV contrastCOMPARISONCT 09/28/2021TECHNIQUEMultiple axial images of the chest were obtained from the thoracic inlet to the upper abdomenwith the administration of IV contrast. Sagittal and coronal reformations are performed. Dose reduction techniques including Automated Exposure Control (AEC) and adjustment of mA and kV were utilized.FINDINGSWorsening alveolar infiltrates are seen bilaterally. This may be pneumonia and/or pulmonary edema. Borderline CHF changes persist. There are moderate pleural effusions that have slightly worsened since prior study. No pneumothorax is seen.There is no pericardial effusion. Thoracic aorta is normal in size. There is mediastinal lymphadenopathy. Largest lymph node is seen in the precarinal region and measures 1.3 x 3.2 cm. It is slightly increased in size from prior study where it measured 1.3 x 2.6 cm.Mild splenomegaly and there may be hepatomegaly. There is likely fatty infiltration of the liver. Gallbladder wall appears slightly prominent. Consider possible cholecystitis. Correlation with right upper quadrant ultrasound may be useful.IMPRESSIONProbable worsening bilateral pneumonia is present but a small degree of pulmonary edema cannot be excluded. There is borderline CHF and mild worsening of moderate bilateral pleural effusions.Mild worsening of mediastinal lymphadenopathy. This may be reactive lymphadenopathy but continued follow-up is recommended to assure resolution.Gallbladder wall appears slightly thickened compared to prior study. Recommend further evaluation with right upper quadrant ultrasound.Electronically signed by: Robert Collier (Oct 08, 2021 14:06:10)
[2021-10-08] MEDS: MORPHINE SULFATE INJ 2 MG INJ IVP PRN (15:43)
[2021-10-08] MEDS: ANTIVERT TAB 25 MG PO SCH (22:21)
[2021-10-08] MEDS: CRESTOR TAB 10 MG PO SCH (22:22)
[2021-10-08] MEDS: FLOMAX PO SCH (22:22)
[2021-10-08] MEDS: COLACE CAP 100 MG PO SCH (22:22)
[2021-10-08] MEDS: OXYBUTYNIN CHLORIDE ER PO SCH (22:23)
[2021-10-08] MEDS: ZyrTEC TAB 10 MG PO SCH (22:24)
[2021-10-08] MEDS: SINGULAIR TAB 10 MG PO SCH (22:24)
--- NOTE | 2021-10-08 22:31 | PCM.PROG ---
Progress Note - Progress Note for Day of Date of Exam: 10/08/21 - Subjective Subjective: IS CURRENTLY BEING TREATED FOR BILATERAL PNEUMONIA, HYPOXIEMIA, AND HEMOPTYSIS. HE HAS A PMH OF HTN, DYSLIPIDEMIA, DEPRESSION, HYPOTHYROIDISM, ANEMIA, CVA, GERD, CHF, AND VALVULAR HEART DISEASE. HE HAS RECEIVED ONE UNIT OF PRBC SINCE ADMISSION. TODAY, HE IS ALERT, LYING IN BED ON MORNING ROUNDS. STAFF REPORTS THAT HE CONTINUES WITH AGITATION AND RESTLESSNESS. HE DOES ANSWER QUESTIONS APPROPRIATELY AND FOLLOWS COMMANDS THIS MORNING. HIS SON IS AT BEDSIDE. HE COMPLAINS OF PERSISTENT COUGH, SHORTNESS OF BREATH, AND WEAKNESS. STAFF REPORTS THAT HE CONTINUES TO HAVE DIFFICULTY SWALLOWING. HE IS CURRENTLY ON HEATED HIGH FLOW OXYGEN WITH FI02 45%. ON EXAMINATION, HE IS TACHYCARDIC WITH HR IN THE 120s-130s. BILATERAL LUNGS NOTED WITH SCATTERED RHONCHI THROUGHOUT. ABDOMEN IS ROUND, SOFT, AND NON-TENDER WITH NORMAL BOWEL SOUNDS NOTED IN ALL QUADRANTS. BILATERAL LOWER EXTREMITIES ARE NOTED WITH 1+ PITTING EDEMA. HIS VITALS THIS MORNING ARE: 97.5-135-16-93%-118/79. LABS WERE OB TAINED. WBC 10.5, RBC 2.46, HGB 7.6, HCT 23.0, SODIUM 147, POTASSIUM 3.2, BUN 16, CREATININE 0.91, GLUCOSE 129, CALCIUM 8.4, AST 15, ALT 8, ALK PHOS 80, BNP 245, TOTAL PROTEIN 6.0, ALBUMIN 2.1. SPUTUM CULTURES REVEAL GROWTH OF KLEBSIELLA PNEUMONIAE. BLOOD CULTURES ARE PENDING. CHEST XRAY OBTAINED AND REVEALED: Bilateral lung infiltrates are unchanged. These could be pulmonary edema, atelectasis, and/or pneumonia. Likely persistent moderate right pleural effusion is present. There is likely a degree of atelectasis in the right lung which likely accounts for the increased density adjacent to the right-side of the mediastinum. Heart is probably enlarged and there is likely CHF. A PICC line terminates in the region of the mid SVC. No pneumothorax is seen. HE IS CURRENTLY RECEIVING TPN, ALBUMIN 25% IV DAILY, LEVAQUIN 500MG IV DAILY, CLEOCIN 900MG Q8H, AZITHROMYCIN 500MG DAILY, XOPENEX NEBS QID, PULMICORT NEBS BID, TUSSIONEX 5ML PO Q12H PRN, TESSALON PERLES 200MG PO TID PRN, LASIX 20MG IV DA АННА, PROTONIX 40MG IV BID, PROZAC 40MG DAILY, SEROQUEL 200MG HS, OTBS ACHS, THIS POTASSIUM AND MAGNESIUM PROTOCOLS. HIS HOME MEDICATIONS OF ZYRTEC, FLOANSE, NEURONTIN, SYNTHROID, MAGNESIUM OXIDE, ANTIVERT, SINGULAIR, HEMOCYTE PLUS, OXYBUTYNIN, PERCOCET, MICRO K, REQUIP, CRESTOR, AND FLOMAX WERE RESUMED. SPEECH THERAPY HAS BEEN CONSULTED AND WILL SEE PATIENT TODAY. IN THE MEANTIME, HE WILL REMAIN NPO. WE WILL REPEAT A CHEST CT TODAY AND RESUME THE CARDIZEM DRIP. OTHERWISE, WE WILL FOLLOW UP WITH AM LABS AND CHEST XRAY AND CONTINUE TO MONITOR. TIME SPENT ON CLINICAL ASSESSMENT, REVIWING LABS AND IMAGING, DECISION MAKING, AND DOCUMENTATION GREATER THAN 45 MINUTES. - Past Medical Family Social History Past Med/Fam/Surg Hx: No changes since H&P Allergies: Allergies cilastatin [From Primaxin] Allergy (Verified 06/22/21 17:35) clarithromycin [From Biaxin] Allergy (Verified 06/22/21 17:35) imipenem [From Primaxin] Allergy (Verified 06/22/21 17:35) - Review of Systems ROS: No change since H&P - Vital Signs and I&O's Vital Signs: Temperature 97.2 F Pulse Rate [Right Radial] 85 Pulse Rate 71 Respiratory Rate 21 Blood Pressure [Left Arm] 108/55 Blood Pressure [Right Arm] 98/53 Blood Pressure 138/61 O2 Sat by Pulse Oximetry 91 Intake and Output: Intake & Output 10/06/21 10/07/21 10/08/21 10/09/21 11:59 11:59 11:59 11:59 Intake Total 1774.0 / 1774.0 708 / 708 1418 / 1418 Output Total 3450 / 3450 1870 / 1870 1200 / 1200 900 / 900 Balance -1676.0 / -1676.0 -1162 / -1162 218 / 218 -900 / -900 - Physical Exam Oriented: Normal Eyes: Normal Ear: Normal Nose: Normal Throat: Normal Respiratory: Rhonchi Cardiovascular: Normal : Normal Auscultation: Bowel Sounds: Normal Palpation: Normal Tenderness: Normal Skin: Decreased Turgur Musculoskeletal: Motor Deficit (DIFFUSE UPPER AND LOWER WEAKNESS) Psychiatric: Anxiety Mood Description: Anxious Affect: Anxious, Normal Speech Pattern: Clear, Appropriate - Laboratory and Diagnostics Result Diagrams: 10/08/21 04:25 10/08/21 04:25 Labs: 10/06/21 20:30 Blood Blood Culture - Preliminary 10/06/21 20:40 Blood Blood Culture - Preliminary 10/06/21 10:20 Sputum - Expectorated Sputum Sputum Culture - Preliminary 10/06/21 10:20 Sputum - Expectorated Sputum - Final 09/28/21 10:50 Blood Blood Culture - Final 09/28/21 10:41 Blood Blood Culture - Final 09/28/21 13:37 Sputum - Expectorated Sputum Sputum Culture - Final Klebsiella Pneumoniae 09/28/21 13:37 Sputum - Expectorated Sputum - Final Laboratory WBC 10.5 X10^3/uL (3.6-10.0) H 10/08/21 04:25 RBC 2.46 X10^6/uL (4.7-6.0) L 10/08/21 04:25 Hgb 7.6 g/dL (13.5-18.0) L 10/08/21 04:25 Hct 23.0 % (42.0-54.0) L 10/08/21 04:25 MCV 93.9 fL (80.0-100.0) 10/08/21 04:25 MCH 30.8 pg (27.0-34.0) 10/08/21 04:25 MCHC 32.9 g/dL (33.0-35.0) L 10/08/21 04:25 RDW 16.5 % (11.6-16.5) 10/08/21 04:25 Plt Count 161 X10^3/uL (150.0-450.0) 10/08/21 04:25 Plt Count Comment Adequate (ADEQUATE) 10/02/21 04:55 MPV 8.2 fL (7.4-11.0) 10/08/21 04:25 Neut % (Auto) 79.7 % (42.0-75.0) H 10/08/21 04:25 Lymph % (Auto) 5.6 % (21.0-51.0) L 10/08/21 04:25 [place] % (Auto) 10.2 % (0.0-13.0) 10/08/21 04:25 Eos % (Auto) 4.3 % (0.9-2.9) H 10/08/21 04:25 Baso % (Auto) 0.2 % (0.2-1.0) 10/08/21 04:25 Neut # (Auto) 8.4 x10^3/uL (2.2-4.8) H 10/08/21 04:25 Lymph # (Auto) 0.6 X10^3/uL (1.3-2.9) L 10/08/21 04:25 [place] # (Auto) 1.1 x10^3/uL (0.3-0.8) H 10/08/21 04:25 Eos # (Auto) 0.5 x10^3/uL (0.0-0.2) H 10/08/21 04:25 Baso # (Auto) 0.0 X10^3/uL (0.0-0.1) 10/08/21 04:25 Absolute Nucleated RBC 0.1 /100WBC 10/08/21 04:25 Total Counted 100 10/02/21 04:55 Neutrophils % (Manual) 80 % (39-76) H 10/02/21 04:55 Band Neutrophils % 8 % (0-10) 09/28/21 05:09 Lymphocytes % (Manual) 2 % (13-43) L 10/02/21 04:55 Monocytes % (Manual) 18 % (4-9) H 10/02/21 04:55 Plt Morphology Comment Normal (NORMAL) 10/02/21 04:55 RBC Morphology Normal (NORMAL) 10/02/21 04:55 Anisocytosis Slight A 09/28/21 05:09 PT 15.7 SECONDS (11.8-14.3) 09/28/21 00:55 INR Target Range - 09/28/21 00:55 INR 1.30 (0.8-1.3) 09/28/21 00:55 Sample Site Lrad 10/06/21 05:32 ABG pH 7.390 (7.35-7.45) 10/06/21 05:32 ABG pCO2 73.0 mmHg (35.0-45.0) H* 10/06/21 05:32 ABG pO2 77.0 mmHg (80.0-100.0) L 10/06/21 05:32 ABG HCO3 44.2 mmol/L (22-26) H* 10/06/21 05:32 ABG O2 Saturation 95.0 % (90-100) 10/06/21 05:32 ABG Base Excess 15.8 mmol/L (-2.0-2.0) H 10/06/21 05:32 Sunny Test Pos 10/06/21 05:32 A-a Gradient 96.0 mmHg 10/06/21 05:32 FiO2 37.0 10/06/21 05:32 Blood Gas Comments Joy abg well-mtf 10/06/21 05:32 Sodium 147 mmol/L (136-145) H 10/08/21 04:25 Corrected Sodium 148 mmol/L (136-145) H 10/08/21 04:25 Potassium 3.2 mmol/L (3.5-5.1) L 10/08/21 04:25 Chloride 106 mmol/L (98-107) 10/08/21 04:25 Carbon Dioxide 38.5 mmol/L (21-32) H 10/08/21 04:25 BUN 16 mg/dL (7-18) 10/08/21 04:25 Creatinine 0.91 mg/dL (0.70-1.30) 10/08/21 04:25 Est GFR (MDRD) Af Amer > 60 (>60) 10/08/21 04:25 Est GFR (MDRD) Non-Af > 60 (>60) 10/08/21 04:25 Glucose 129 mg/dL (65-99) H 10/08/21 04:25 POC Glucose (mg/dL) 110 mg/dL (65-99) H 10/08/21 20:11 Calcium 8.4 mg/dL (8.5-10.1) L 10/08/21 04:25 Corrected Calcium 9.9 mg/dL (8.5-10.1) 10/08/21 04:25 Magnesium 2.0 mg/dL (1.7-2.9) 10/06/21 12:05 Total Bilirubin 0.50 mg/dL (0.2-1.0) 10/08/21 04:25 AST 15 Units/L (15-37) 10/08/21 04:25 ALT 8 Units/L (12-78) L 10/08/21 04:25 Alkaline Phosphatase 80 Units/L (46-116) 10/08/21 04:25 Creatine Kinase 14 Units/L (39-308) L 10/07/21 04:30 Troponin I High Sens 19.8 ng/L (4.0-60.0) 10/07/21 04:30 B-Natriuretic Peptide 245 pg/mL (0-79) H 10/08/21 04:25 Total Protein 6.0 g/dL (6.4-8.2) L 10/08/21 04:25 Albumin 2.1 g/dL (3.4-5.0) L 10/08/21 04:25 Globulin 3.9 g/dL (2.5-4.5) 10/08/21 04:25 Albumin/Globulin Ratio 0.5 Ratio (1.1-2.1) L 10/08/21 04:25 Specimen Type Clean catch urine 10/04/21 05:45 Urine Color Yellow (YELLOW) 10/04/21 05:45 Urine Appearance Clear (CLEAR) 10/04/21 05:45 Urine pH 5.0 (5.0 - 8.0) 10/04/21 05:45 Ur Specific [place] 1.020 (1.000-1.030) 10/04/21 05:45 Urine Protein 2+ (NEGATIVE) 10/04/21 05:45 Urine Glucose (UA) Negative (NEGATIVE) 10/04/21 05:45 Urine Ketones 1+ (NEGATIVE) 10/04/21 05:45 Urine Blood Negative (NEGATIVE) 10/04/21 05:45 Urine Nitrite Negative (NEGATIVE) 10/04/21 05:45 Urine Bilirubin Negative (NEGATIVE) 10/04/21 05:45 Urine Urobilinogen Normal (NORMAL) 10/04/21 05:45 Ur Leukocyte Esterase Negative (NEGATIVE) 10/04/21 05:45 Urine RBC None seen /HPF (0-3) 10/04/21 05:45 Urine WBC None seen /HPF (0-5) 10/04/21 05:45 Ur Squamous Epith Cells Rare /HPF (NEGATIVE) 10/04/21 05:45 Urine Bacteria Negative /HPF (NEGATIVE) 10/04/21 05:45 Hyaline Casts Rare /LPF (NEGATIVE) 10/04/21 05:45 Urine Mucus Few /HPF (NEGATIVE) 09/28/21 19:55 Ur Culture Indicated? No/not indicated 10/04/21 05:45 Stool Description 100 grams 10/05/21 16:45 Stl Occult Blood (IFOB) Negative (NEGATIVE) 10/05/21 16:45 SARS-CoV-2 (PCR) Negative (NEGATIVE) 10/06/21 20:40 Influenza Type A (PCR) Negative (NEGATIVE) 10/06/21 20:40 Influenza Type B (PCR) Negative (NEGATIVE) 10/06/21 20:40 RSV (PCR) Negative (NEGATIVE) 10/06/21 20:40 SARS CoV-2 RNA Rapid YUSUF Cancelled 09/28/21 00:55 Blood Type Cancelled 10/04/21 07:21 Antibody Screen Cancelled 10/04/21 07:21 Antibody Identification Anti-E Anti-Fya 09/28/21 00:55 Antibody Identification Anti-E Anti-Fya 09/28/21 00:55 Crossmatch See Detail 10/04/21 07:21 - Plan (1) Bilateral pneumonia Status: Acute Qualifiers: Pneumonia type: due to unspecified organism Lung location: unspecified part of lung Qualified Code(s): J18.9 - Pneumonia, unspecified organism Plan: supplemental oxygen,Bipap PRN, iv fluids with strict I&Os, iv antibiotics zithromax, levaquin and starting clindamycin, iv cardizem drip per protocol and continuous cardiac monitoring. nebulizer treatments, resume home meds. NPO with speech consult and peripheral nutrition (2) Hypoxemia Status: Acute (3) Hemoptysis Status: Acute (4) Anemia Status: Acute Qualifiers: Anemia type: unspecified type (5) CHF (congestive heart failure) Status: Chronic Qualifiers: Heart failure type: combined systolic and diastolic Heart failure chronicity: chronic Qualified Code(s): I50.42 - Chronic combined systolic (congestive) and diastolic (congestive) heart failure (6) COPD (chronic obstructive pulmonary disease) Status: Chronic Qualifiers: COPD type: unspecified COPD Qualified Code(s): J44.9 - Chronic obstructive pulmonary disease, unspecified (7) Hyperlipidemia Status: Chronic Qualifiers: Hyperlipidemia type: mixed hyperlipidemia Qualified Code(s): E78.2 - Mixed hyperlipidemia (8) Hypertension Status: Chronic Qualifiers: Hypertension type: primary hypertension Qualified Code(s): I10 - Essential (primary) hypertension (9) History of CVA (cerebrovascular accident) Status: Chronic
[2021-10-08] MEDS: ZITHROMAX INJ 500 MG VIAL 500 MG in NS 250 ML IV 250 ML IV SCH (22:40)
[2021-10-08] MEDS ORDERED: CLEOCIN 300 MG IV PREMIX 300 MG/50 ML BAG IV ONE (23:08)
[2021-10-08] MEDS ORDERED: CLEOCIN 600 MG IV PREMIX 600 MG/50 ML BAG IV ONE (23:08)
[2021-10-08] MEDS ORDERED: DRUG FILTER EXTENSION SET ONE (23:15)
[2021-10-09] MEDS: DILTIAZEM 125mg/125mL-0.7%NACL 125 MG/125 ML PLAST..BAG IV PRN (00:42)
[2021-10-09] MEDS: CLEOCIN 600 MG IV PREMIX 600 MG/50 ML BAG IV SCH ×6 (00:43→23:17)
[2021-10-09] MEDS: CLEOCIN 300 MG IV PREMIX 300 MG/50 ML BAG IV SCH ×4 (00:43→22:30)
[2021-10-09] MEDS: LEVAQUIN PREMIX IV 500 MG 500 MG/100 ML BAG IV SCH (01:47)
[2021-10-09 05:31] LABS: BASOPHILS % (AUTO) 0.3 % (0.2-1.0); EOSINOPHILS # (AUTO) 0.6 x10^3/uL (0.0-0.2); EOSINOPHILS % (AUTO) 5.1 % (0.9-2.9); HEMATOCRIT 23.2 % (42.0-54.0); HEMOGLOBIN 7.8 g/dL (13.5-18.0); LYMPHOCYTES # (AUTO) 0.5 X10^3/uL (1.3-2.9); LYMPHOCYTES % (AUTO) 4.3 % (21.0-51.0); MEAN CORPUSCULAR HEMOGLOBIN 31.1 pg (27.0-34.0); MEAN CORPUSCULAR HGB CONC 33.4 g/dL (33.0-35.0); MEAN PLATELET VOLUME 8.6 fL (7.4-11.0); MONOCYTES # (AUTO) 1.1 x10^3/uL (0.3-0.8); MONOCYTES % (AUTO) 10.2 % (0.0-13.0); NEUTROPHILS # (AUTO) 8.7 x10^3/uL (2.2-4.8); NEUTROPHILS % (AUTO) 80.1 % (42.0-75.0); RED BLOOD COUNT 2.49 X10^6/uL (4.7-6.0); RED CELL DISTRIBUTION WIDTH 16.1 % (11.6-16.5); WHITE BLOOD COUNT 10.9 X10^3/uL (3.6-10.0)
[2021-10-09 05:42] LABS: ALANINE AMINOTRANSFERASE 9 Units/L (12-78); ALBUMIN 2.3 g/dL (3.4-5.0); ALKALINE PHOSPHATASE 76 Units/L (46-116); ASPARTATE AMINO TRANSFERASE 24 Units/L (15-37); BLOOD UREA NITROGEN 15 mg/dL (7-18); CALCIUM 8.7 mg/dL (8.5-10.1); CARBON DIOXIDE 40.8 mmol/L (21-32); CHLORIDE 105 mmol/L (98-107); COR CA(FOR HYPOALB) 10.1 mg/dL (8.5-10.1); CREATININE 0.75 mg/dL (0.70-1.30); SODIUM 149 mmol/L (136-145); TOTAL PROTEIN 6.2 g/dL (6.4-8.2); eGFR NON BLACK RACES > 60 (>60)
--- NOTE | 2021-10-09 06:13 | RAD ---
HISTORYFollow-up pneumoniaSTUDYChest AP [id number] chest x-ray and CT chestFINDINGSPatient is rotated to the right. Patient is status post median sternotomy. There is a left-sided PICC line with its tip in the expected position of superior vena cava. Heart remains enlarged. Heart size appears upper limits normal. Diffuse bilateral alveolar infiltrates are present right greater than left unchanged from the prior examination. Right pleural effusion is likely present. The left pleural effusion visualized on the recent CT is not well demonstrated on this plain film. Bony thorax is unremarkable.IMPRESSIONNo change diffuse bilateral alveolar infiltrates right greater than left likely bilateral pneumoniaNo change right pleural effusionElectronically signed by: LUDA QUEZADA (Oct 09, 2021 06:12:15)
[2021-10-09] MEDS: MORPHINE SULFATE INJ 2 MG INJ IVP PRN ×3 (07:29→23:56)
[2021-10-09] MEDS: XOPENEX 1.25 MG/3 ML NEBULE NEB SCH ×4 (08:25→20:45)
[2021-10-09] MEDS: PULMICORT NEB TX 0.5 MG NEB SCH ×2 (08:25→20:45)
[2021-10-09] MEDS: LASIX IVP SCH (10:00)
[2021-10-09] MEDS: PROTONIX INJ 40 MG VIAL IVP SCH ×2 (10:00→20:48)
[2021-10-09] MEDS: ALBUMIN HUMAN 25%- 100 ML 100 ML IV SCH (10:15)
[2021-10-09] MEDS: CLINIMIX 5 %/20 % 1,000 ML with MVI INJ (ADULT) 10 ML IV SCH ×2 (10:20)
[2021-10-09] MEDS: FLONASE NASAL SPRAY ENOSTRIL SCH (10:20)
[2021-10-09] MEDS: HEMOCYTE-PLUS PO SCH (10:21)
[2021-10-09] MEDS: NEURONTIN CAP 300 MG PO SCH ×2 (10:22→23:16)
[2021-10-09] MEDS: MICRO K EXTEN CAP 10 MEQ PO SCH ×2 (10:22→23:11)
[2021-10-09] MEDS: MAG-OX TAB PO SCH (10:22)
[2021-10-09] MEDS: PROzac PO SCH (10:23)
[2021-10-09] MEDS: REQUIP PO SCH ×2 (10:23→23:16)
[2021-10-09] MEDS: SYNTHROID 75 mcg TAB PO SCH (10:24)
[2021-10-09] MEDS ORDERED: NS 100 ML IV 100 ML ONE (10:45)
--- NOTE | 2021-10-09 10:52 | PCM.PROG ---
Progress Note - Progress Note for Day of Date of Exam: 10/09/21 - Subjective Subjective: IS CURRENTLY BEING TREATED FOR BILATERAL PNEUMONIA, HYPOXIEMIA, AND HEMOPTYSIS. HE HAS A PMH OF HTN, DYSLIPIDEMIA, DEPRESSION, HYPOTHYROIDISM, ANEMIA, CVA, GERD, CHF, AND VALVULAR HEART DISEASE. HE HAS RECEIVED ONE UNIT OF PRBC SINCE ADMISSION. TODAY, HE IS ALERT, LYING IN BED ON MORNING ROUNDS. STAFF REPORTS THAT HE CONTINUES WITH AGITATION AND RESTLESSNESS. HE DOES ANSWER QUESTIONS APPROPRIATELY AND FOLLOWS COMMANDS THIS MORNING. HIS SPOUSE AND SON ARE AT BEDSIDE. HE COMPLAINS OF PERSISTENT COUGH, SHORTNESS OF BREATH, AND WEAKNESS. COUGH IS PRODUCTIVE OF THICK SPUTUM. STAFF REPORTS THAT HE CONTINUES TO HAVE DIFFICULTY SWALLOWING. SPEECH THERAPY SAW HIM YESTERDAY AND RECOMMENDED THAT HE REMAIN NPO AND HAVE A SWALLOW STUDY IN THE NEAR FUTURE. HE IS CURRENTLY ON HEATED HIGH FLOW OXYGEN WITH FI02 45%. ON EXAMINATION, HEART IS REGULAR IN RATE AND RHYTHM. BILATERAL LUNGS NOTED WITH SCATTERED RHONCHI THROUGHOUT. ABDOMEN IS ROUND, SOFT, AND NON-TENDER WITH NORMAL BOWEL SOUNDS NOTED IN ALL QUADRANTS. BILATERAL LOWER EXTREMITIES ARE NOTED WITH TRACE EDEMA. HIS VITALS THIS MORNING ARE: 98.0-70-18-92%-140/66. LABS WERE OBTAINED. WBC 10.9, RBC 2.49, HGB 7.8, HCT 23.2, SODIUM 149, POTASSIUM 3.7, BUN 15, CREATININE 0.75, GLUCOSE 107, CALCIUM 8.7, AST 24, ALT 9, ALK PHOS 76, BNP 268, TOTAL PROTEIN 6.2, ALBUMIN 2.3. SPUTUM CULTURES REVEAL GROWTH OF KLEBSIELLA PNEUMONIAE. REPEAT BLOOD CULTURES ARE PENDING. REPEAT CHEST CT WAS OBTAINED YESTERDAY AND REVEALED: Probable worsening bilateral pneumonia is present but a small degree of pulmonary edema cannot be excluded. There is borderline CHF and mild worsening of moderate bilateral pleural effusions. Mild worsening of med iastinal lymphadenopathy. This may be reactive lymphadenopathy but continued follow-up is recommended to assure resolution. Gallbladder wall appears slightly thickened compared to prior study. Recommend further evaluation with right upper quadrant ultrasound. CHEST XRAY WAS OBTAINED THIS MORNING AND REVEALED: No change diffuse bilateral alveolar infiltrates right greater than left likely bilateral pneumonia. No change right pleural effusion. HE IS CURRENTLY RECEIVING TPN, ALBUMIN 25% IV DAILY, LEVAQUIN 500MG IV DAILY, CLEOCIN 900MG Q8H, AZITHROMYCIN 500MG DAILY, XOPENEX NEBS QID, PULMICORT NEBS BID, LASIX 20MG IV DAILY, PROTONIX 40MG IV BID, OTBS ACHS, THIS POTASSIUM AND MAGNESIUM PROTOCOLS. HIS HOME MEDICATIONS OF ZYRTEC, FLOANSE, NEURONTIN, SYNTHROID, MAGNESIUM OXIDE, ANTIVERT, SINGULAIR, HEMOCYTE PLUS, OXYBUTYNIN, PERCOCET, MICRO K, REQUIP, CRESTOR, AND FLOMAX ARE BEING HELD AT THIS TIME DUE TO NPO STATUS. WE DISCUSSED PATIENTS CONDITION WITH HIS SPOUSE AND SON. THEY REQUEST FOR PATIENT TO HAVE PEG TUBE REINSERTED. WE WILL CONSULT WITH FOR REINSERTION OF PEG TUBE. OTHERWISE, WE WILL FOLLOW UP WITH AM LABS AND CHEST XRAY AND CONTINUE TO MONITOR. TIME SPENT ON CLINICAL ASSESSMENT, REVIEWING LABS AND IMAGING, DECISION MAKING, AND DOCUMENTATION GREATER THAN 45 MINUTES. - Past Medical Family Social History Past Med/Fam/Surg Hx: No changes since H&P Allergies: Allergies cilastatin [From Primaxin] Allergy (Verified 06/22/21 17:35) clarithromycin [From Biaxin] Allergy (Verified 06/22/21 17:35) imipenem [From Primaxin] Allergy (Verified 06/22/21 17:35) - Review of Systems ROS: No change since H&P - Vital Signs and I&O's Vital Signs: Temperature 98.0 F Pulse Rate [Right Radial] 85 Pulse Rate 69 Respiratory Rate 16 Blood Pressure [Left Arm] 108/55 Blood Pressure [Right Arm] 98/53 Blood Pressure 155/74 O2 Sat by Pulse Oximetry 96 Intake and Output: Intake & Output 10/06/21 10/07/21 10/08/21 10/09/21 11:59 11:59 11:59 11:59 Intake Total 1774.0 / 1774.0 708 / 708 1418 / 1418 825 / 825 Output Total 3450 / 3450 1870 / 1870 1200 / 1200 2100 / 2100 Balance -1676.0 / -1676.0 -1162 / -1162 218 / 218 -1275 / -1275 - Physical Exam Oriented: Normal Eyes: Normal Ear: Normal Nose: Normal Throat: Normal Respiratory: Rhonchi Cardiovascular: Normal : Normal Auscultation: Bowel Sounds: Normal Palpation: Normal Tenderness: Normal Skin: Decreased Turgur Musculoskeletal: Motor Deficit (DIFFUSE UPPER AND LOWER WEAKNESS) Psychiatric: Anxiety Mood Description: Anxious Affect: Anxious, Normal Speech Pattern: Appropriate - Laboratory and Diagnostics Result Diagrams: 10/09/21 04:25 10/09/21 04:25 Labs: 10/06/21 10:20 Sputum - Expectorated Sputum Sputum Culture - Preliminary 10/06/21 10:20 Sputum - Expectorated Sputum - Final 10/06/21 20:30 Blood Blood Culture - Preliminary 10/06/21 20:40 Blood Blood Culture - Preliminary 09/28/21 10:50 Blood Blood Culture - Final 09/28/21 10:41 Blood Blood Culture - Final 09/28/21 13:37 Sputum - Expectorated Sputum Sputum Culture - Final Klebsiella Pneumoniae 09/28/21 13:37 Sputum - Expectorated Sputum - Final Laboratory WBC 10.9 X10^3/uL (3.6-10.0) H 10/09/21 04:25 RBC 2.49 X10^6/uL (4.7-6.0) L 10/09/21 04:25 Hgb 7.8 g/dL (13.5-18.0) L 10/09/21 04:25 Hct 23.2 % (42.0-54.0) L 10/09/21 04:25 MCV 93.0 fL (80.0-100.0) 10/09/21 04:25 MCH 31.1 pg (27.0-34.0) 10/09/21 04:25 MCHC 33.4 g/dL (33.0-35.0) 10/09/21 04:25 RDW 16.1 % (11.6-16.5) 10/09/21 04:25 Plt Count 218 X10^3/uL (150.0-450.0) 10/09/21 04:25 Plt Count Comment Adequate (ADEQUATE) 10/02/21 04:55 MPV 8.6 fL (7.4-11.0) 10/09/21 04:25 Neut % (Auto) 80.1 % (42.0-75.0) H 10/09/21 04:25 Lymph % (Auto) 4.3 % (21.0-51.0) L 10/09/21 04:25 [place] % (Auto) 10.2 % (0.0-13.0) 10/09/21 04:25 Eos % (Auto) 5.1 % (0.9-2.9) H 10/09/21 04:25 Baso % (Auto) 0.3 % (0.2-1.0) 10/09/21 04:25 Neut # (Auto) 8.7 x10^3/uL (2.2-4.8) H 10/09/21 04:25 Lymph # (Auto) 0.5 X10^3/uL (1.3-2.9) L 10/09/21 04:25 [place] # (Auto) 1.1 x10^3/uL (0.3-0.8) H 10/09/21 04:25 Eos # (Auto) 0.6 x10^3/uL (0.0-0.2) H 10/09/21 04:25 Baso # (Auto) 0.0 X10^3/uL (0.0-0.1) 10/09/21 04:25 Absolute Nucleated RBC 0.0 /100WBC 10/09/21 04:25 Total Counted 100 10/02/21 04:55 Neutrophils % (Manual) 80 % (39-76) H 10/02/21 04:55 Band Neutrophils % 8 % (0-10) 09/28/21 05:09 Lymphocytes % (Manual) 2 % (13-43) L 10/02/21 04:55 Monocytes % (Manual) 18 % (4-9) H 10/02/21 04:55 Plt Morphology Comment Normal (NORMAL) 10/02/21 04:55 RBC Morphology Normal (NORMAL) 10/02/21 04:55 Anisocytosis Slight A 09/28/21 05:09 PT 15.7 SECONDS (11.8-14.3) 09/28/21 00:55 INR Target Range - 09/28/21 00:55 INR 1.30 (0.8-1.3) 09/28/21 00:55 Sample Site Lrad 10/06/21 05:32 ABG pH 7.390 (7.35-7.45) 10/06/21 05:32 ABG pCO2 73.0 mmHg (35.0-45.0) H* 10/06/21 05:32 ABG pO2 77.0 mmHg (80.0-100.0) L 10/06/21 05:32 ABG HCO3 44.2 mmol/L (22-26) H* 10/06/21 05:32 ABG O2 Saturation 95.0 % (90-100) 10/06/21 05:32 ABG Base Excess 15.8 mmol/L (-2.0-2.0) H 10/06/21 05:32 Sunny Test Pos 10/06/21 05:32 A-a Gradient 96.0 mmHg 10/06/21 05:32 FiO2 37.0 10/06/21 05:32 Blood Gas Comments Joy abg well-mtf 10/06/21 05:32 Sodium 149 mmol/L (136-145) H 10/09/21 04:25 Corrected Sodium TNP 10/09/21 04:25 Potassium 3.7 mmol/L (3.5-5.1) 10/09/21 04:25 Chloride 105 mmol/L (98-107) 10/09/21 04:25 Carbon Dioxide 40.8 mmol/L (21-32) H 10/09/21 04:25 BUN 15 mg/dL (7-18) 10/09/21 04:25 Creatinine 0.75 mg/dL (0.70-1.30) 10/09/21 04:25 Est GFR (MDRD) Af Amer > 60 (>60) 10/09/21 04:25 Est GFR (MDRD) Non-Af > 60 (>60) 10/09/21 04:25 Glucose 107 mg/dL (65-99) H 10/09/21 04:25 POC Glucose (mg/dL) 110 mg/dL (65-99) H 10/08/21 20:11 Calcium 8.7 mg/dL (8.5-10.1) 10/09/21 04:25 Corrected Calcium 10.1 mg/dL (8.5-10.1) 10/09/21 04:25 Magnesium 2.0 mg/dL (1.7-2.9) 10/06/21 12:05 Total Bilirubin 0.60 mg/dL (0.2-1.0) 10/09/21 04:25 AST 24 Units/L (15-37) 10/09/21 04:25 ALT 9 Units/L (12-78) L 10/09/21 04:25 Alkaline Phosphatase 76 Units/L (46-116) 10/09/21 04:25 Creatine Kinase 14 Units/L (39-308) L 10/07/21 04:30 Troponin I High Sens 19.8 ng/L (4.0-60.0) 10/07/21 04:30 B-Natriuretic Peptide 268 pg/mL (0-79) H 10/09/21 04:25 Total Protein 6.2 g/dL (6.4-8.2) L 10/09/21 04:25 Albumin 2.3 g/dL (3.4-5.0) L 10/09/21 04:25 Globulin 3.9 g/dL (2.5-4.5) 10/09/21 04:25 Albumin/Globulin Ratio 0.6 Ratio (1.1-2.1) L 10/09/21 04:25 Specimen Type Clean catch urine 10/04/21 05:45 Urine Color Yellow (YELLOW) 10/04/21 05:45 Urine Appearance Clear (CLEAR) 10/04/21 05:45 Urine pH 5.0 (5.0 - 8.0) 10/04/21 05:45 Ur Specific [place] 1.020 (1.000-1.030) 10/04/21 05:45 Urine Protein 2+ (NEGATIVE) 10/04/21 05:45 Urine Glucose (UA) Negative (NEGATIVE) 10/04/21 05:45 Urine Ketones 1+ (NEGATIVE) 10/04/21 05:45 Urine Blood Negative (NEGATIVE) 10/04/21 05:45 Urine Nitrite Negative (NEGATIVE) 10/04/21 05:45 Urine Bilirubin Negative (NEGATIVE) 10/04/21 05:45 Urine Urobilinogen Normal (NORMAL) 10/04/21 05:45 Ur Leukocyte Esterase Negative (NEGATIVE) 10/04/21 05:45 Urine RBC None seen /HPF (0-3) 10/04/21 05:45 Urine WBC None seen /HPF (0-5) 10/04/21 05:45 Ur Squamous Epith Cells Rare /HPF (NEGATIVE) 10/04/21 05:45 Urine Bacteria Negative /HPF (NEGATIVE) 10/04/21 05:45 Hyaline Casts Rare /LPF (NEGATIVE) 10/04/21 05:45 Urine Mucus Few /HPF (NEGATIVE) 09/28/21 19:55 Ur Culture Indicated? No/not indicated 10/04/21 05:45 Stool Description 100 grams 10/05/21 16:45 Stl Occult Blood (IFOB) Negative (NEGATIVE) 10/05/21 16:45 SARS-CoV-2 (PCR) Negative (NEGATIVE) 10/06/21 20:40 Influenza Type A (PCR) Negative (NEGATIVE) 10/06/21 20:40 Influenza Type B (PCR) Negative (NEGATIVE) 10/06/21 20:40 RSV (PCR) Negative (NEGATIVE) 10/06/21 20:40 SARS CoV-2 RNA Rapid YUSUF Cancelled 09/28/21 00:55 Blood Type Cancelled 10/04/21 07:21 Antibody Screen Cancelled 10/04/21 07:21 Antibody Identification Anti-E Anti-Fya 09/28/21 00:55 Antibody Identification Anti-E Anti-Fya 09/28/21 00:55 Crossmatch See Detail 10/04/21 07:21 - Plan (1) Bilateral pneumonia Status: Acute Qualifiers: Pneumonia type: due to unspecified organism Lung location: unspecified part of lung Qualified Code(s): J18.9 - Pneumonia, unspecified organism Plan: supplemental oxygen,Bipap PRN, iv fluids with strict I&Os, iv antibiotics zithromax, levaquin and starting clindamycin, iv cardizem drip per protocol and continuous cardiac monitoring. nebulizer treatments, resume home meds. NPO with speech consult and peripheral nutrition (2) Hypoxemia Status: Acute (3) Hemoptysis Status: Acute (4) Dysphasia Status: Acute (5) Anemia Status: Acute Qualifiers: Anemia type: unspecified type (6) CHF (congestive heart failure) Status: Chronic Qualifiers: Heart failure type: combined systolic and diastolic Heart failure chronicity: chronic Qualified Code(s): I50.42 - Chronic combined systolic (congestive) and diastolic (congestive) heart failure (7) COPD (chronic obstructive pulmonary disease) Status: Chronic Qualifiers: COPD type: unspecified COPD Qualified Code(s): J44.9 - Chronic obstructive pulmonary disease, unspecified (8) Hyperlipidemia Status: Chronic Qualifiers: Hyperlipidemia type: mixed hyperlipidemia Qualified Code(s): E78.2 - Mixed hyperlipidemia (9) Hypertension Status: Chronic Qualifiers: Hypertension type: primary hypertension Qualified Code(s): I10 - Essential (primary) hypertension (10) History of CVA (cerebrovascular accident) Status: Chronic
[2021-10-09] MEDS: K-RIDER 10 MEQ/NS 100 ML 10 MEQ/100 ML BAG IV PRN ×2 (16:50→17:55)
[2021-10-09] MEDS: ZITHROMAX INJ 500 MG VIAL 500 MG in NS 250 ML IV 250 ML IV SCH (20:30)
[2021-10-09] MEDS: VALIUM INJ IM PRN (20:46)
[2021-10-09] MEDS: ANTIVERT TAB 25 MG PO SCH (22:18)
[2021-10-09] MEDS: COLACE CAP 100 MG PO SCH (23:08)
[2021-10-09] MEDS: FLOMAX PO SCH (23:09)
[2021-10-09] MEDS: CRESTOR TAB 10 MG PO SCH (23:09)
[2021-10-09] MEDS: ZyrTEC TAB 10 MG PO SCH (23:10)
[2021-10-09] MEDS: SINGULAIR TAB 10 MG PO SCH (23:15)
[2021-10-09] MEDS: OXYBUTYNIN CHLORIDE ER PO SCH (23:16)
[2021-10-10] MEDS ORDERED: NS 100 ML IV 100 ML ONE (00:49)
[2021-10-10] MEDS: HALDOL INJ IM PRN (00:57)
[2021-10-10] MEDS: LEVAQUIN PREMIX IV 500 MG 500 MG/100 ML BAG IV SCH (01:45)
[2021-10-10] MEDS: DILTIAZEM 125mg/125mL-0.7%NACL 125 MG/125 ML PLAST..BAG IV PRN (01:45)
[2021-10-10] MEDS: CLEOCIN 300 MG IV PREMIX 300 MG/50 ML BAG IV SCH ×3 (05:17→22:04)
[2021-10-10 05:22] LABS: BASOPHILS % (AUTO) 0.4 % (0.2-1.0); EOSINOPHILS # (AUTO) 0.6 x10^3/uL (0.0-0.2); EOSINOPHILS % (AUTO) 6.3 % (0.9-2.9); HEMATOCRIT 23.2 % (42.0-54.0); HEMOGLOBIN 7.6 g/dL (13.5-18.0); LYMPHOCYTES # (AUTO) 0.4 X10^3/uL (1.3-2.9); LYMPHOCYTES % (AUTO) 4.5 % (21.0-51.0); MEAN CORPUSCULAR HEMOGLOBIN 30.6 pg (27.0-34.0); MEAN CORPUSCULAR HGB CONC 32.8 g/dL (33.0-35.0); MEAN CORPUSCULAR VOLUME 93.4 fL (80.0-100.0); MEAN PLATELET VOLUME 7.9 fL (7.4-11.0); MONOCYTES # (AUTO) 1.2 x10^3/uL (0.3-0.8); MONOCYTES % (AUTO) 12.8 % (0.0-13.0); NEUTROPHILS # (AUTO) 7.2 x10^3/uL (2.2-4.8); RED BLOOD COUNT 2.49 X10^6/uL (4.7-6.0); RED CELL DISTRIBUTION WIDTH 16.5 % (11.6-16.5); WHITE BLOOD COUNT 9.4 X10^3/uL (3.6-10.0)
[2021-10-10 05:33] LABS: ALANINE AMINOTRANSFERASE 8 Units/L (12-78); ALBUMIN 2.3 g/dL (3.4-5.0); ALKALINE PHOSPHATASE 71 Units/L (46-116); ASPARTATE AMINO TRANSFERASE 11 Units/L (15-37); BLOOD UREA NITROGEN 12 mg/dL (7-18); CALCIUM 8.5 mg/dL (8.5-10.1); CARBON DIOXIDE 40.7 mmol/L (21-32); CHLORIDE 106 mmol/L (98-107); COR CA(FOR HYPOALB) 9.9 mg/dL (8.5-10.1); COR NA(FOR HYPERGLY) 150 mmol/L (136-145); CREATININE 0.74 mg/dL (0.70-1.30); SODIUM 149 mmol/L (136-145); TOTAL PROTEIN 6.3 g/dL (6.4-8.2); eGFR NON BLACK RACES > 60 (>60)
[2021-10-10] MEDS: CLEOCIN 600 MG IV PREMIX 600 MG/50 ML BAG IV SCH ×3 (06:20→22:35)
--- NOTE | 2021-10-10 06:21 | RAD ---
HISTORYFollow-up pneumonia, shortness of breathSTUDYChest AP [id number] t is rotated to the right. There is a left-sided PICC line in good position. Patient is status post median sternotomy and valve replacement. Heart is enlarged. Diffuse bilateral alveolar infiltrates are unchanged in degree and distribution from the prior examination. Small right pleural effusion is likely present. Bony thorax is unremarkable.IMPRESSIONNo change diffuse bilateral alveolar infiltrates right slightly greater than leftElectronically signed by: LUDA QUEZADA (Oct 10, 2021 06:20:09)
[2021-10-10] MEDS: K-RIDER 10 MEQ/NS 100 ML 10 MEQ/100 ML BAG IV PRN ×4 (06:33→13:31)
[2021-10-10] MEDS: VALIUM INJ IM PRN ×2 (06:34→20:34)
[2021-10-10] MEDS: MORPHINE SULFATE INJ 2 MG INJ IVP PRN ×4 (07:56→23:27)
[2021-10-10] MEDS: XOPENEX 1.25 MG/3 ML NEBULE NEB SCH ×4 (08:00→20:52)
[2021-10-10] MEDS: PULMICORT NEB TX 0.5 MG NEB SCH ×2 (08:00→20:52)
[2021-10-10] MEDS ORDERED: DIPRIVAN VIAL 20 ML ONE (09:23)
[2021-10-10] MEDS: ALBUMIN HUMAN 25%- 100 ML 100 ML IV SCH (09:39)
[2021-10-10] MEDS: FLONASE NASAL SPRAY ENOSTRIL SCH (09:40)
[2021-10-10] MEDS: HEMOCYTE-PLUS PO SCH (09:49)
[2021-10-10] MEDS: LASIX IVP SCH (09:50)
[2021-10-10] MEDS: MAG-OX TAB PO SCH (09:50)
[2021-10-10] MEDS: MICRO K EXTEN CAP 10 MEQ PO SCH ×2 (09:51→20:10)
[2021-10-10] MEDS: PROTONIX INJ 40 MG VIAL IVP SCH ×2 (09:51→20:34)
[2021-10-10] MEDS: NEURONTIN CAP 300 MG PO SCH ×2 (09:51→20:10)
[2021-10-10] MEDS: PROzac PO SCH (09:52)
[2021-10-10] MEDS: REQUIP PO SCH ×2 (09:52→20:11)
[2021-10-10] MEDS: SYNTHROID 75 mcg TAB PO SCH (09:52)
[2021-10-10] MEDS: CLINIMIX 5 %/20 % 1,000 ML with MVI INJ (ADULT) 10 ML IV SCH ×2 (13:29)
[2021-10-10] MEDS: ANTIVERT TAB 25 MG PO SCH (20:09)
[2021-10-10] MEDS: COLACE CAP 100 MG PO SCH (20:09)
[2021-10-10] MEDS: FLOMAX PO SCH (20:09)
[2021-10-10] MEDS: CRESTOR TAB 10 MG PO SCH (20:09)
[2021-10-10] MEDS: OXYBUTYNIN CHLORIDE ER PO SCH (20:10)
[2021-10-10] MEDS: ZITHROMAX INJ 500 MG VIAL 500 MG in NS 250 ML IV 250 ML IV SCH (20:11)
[2021-10-10] MEDS: SINGULAIR TAB 10 MG PO SCH (20:11)
[2021-10-10] MEDS: ZyrTEC TAB 10 MG PO SCH (20:11)
[2021-10-11] MEDS: LEVAQUIN PREMIX IV 500 MG 500 MG/100 ML BAG IV SCH (01:31)
[2021-10-11] MEDS: DILTIAZEM 125mg/125mL-0.7%NACL 125 MG/125 ML PLAST..BAG IV PRN (04:11)
[2021-10-11] MEDS: CLEOCIN 300 MG IV PREMIX 300 MG/50 ML BAG IV SCH (05:27)
[2021-10-11] MEDS: CLEOCIN 600 MG IV PREMIX 600 MG/50 ML BAG IV SCH (05:27)
[2021-10-11] MEDS: MORPHINE SULFATE INJ 2 MG INJ IVP PRN ×2 (05:28→09:18)
[2021-10-11 05:34] LABS: BASOPHILS # (AUTO) 0.1 X10^3/uL (0.0-0.1); BASOPHILS % (AUTO) 0.6 % (0.2-1.0); EOSINOPHILS # (AUTO) 0.6 x10^3/uL (0.0-0.2); EOSINOPHILS % (AUTO) 6.5 % (0.9-2.9); HEMATOCRIT 23.3 % (42.0-54.0); HEMOGLOBIN 7.7 g/dL (13.5-18.0); LYMPHOCYTES # (AUTO) 0.6 X10^3/uL (1.3-2.9); LYMPHOCYTES % (AUTO) 5.6 % (21.0-51.0); MEAN CORPUSCULAR HEMOGLOBIN 30.6 pg (27.0-34.0); MEAN CORPUSCULAR HGB CONC 32.9 g/dL (33.0-35.0); MEAN CORPUSCULAR VOLUME 93.1 fL (80.0-100.0); MONOCYTES # (AUTO) 1.8 x10^3/uL (0.3-0.8); MONOCYTES % (AUTO) 18.3 % (0.0-13.0); NEUTROPHILS # (AUTO) 6.8 x10^3/uL (2.2-4.8); RED CELL DISTRIBUTION WIDTH 16.3 % (11.6-16.5); WHITE BLOOD COUNT 9.9 X10^3/uL (3.6-10.0)
[2021-10-11 05:47] LABS: ALANINE AMINOTRANSFERASE 6 Units/L (12-78); ALBUMIN 2.5 g/dL (3.4-5.0); ALKALINE PHOSPHATASE 66 Units/L (46-116); ASPARTATE AMINO TRANSFERASE 12 Units/L (15-37); BLOOD UREA NITROGEN 12 mg/dL (7-18); CALCIUM 8.7 mg/dL (8.5-10.1); CARBON DIOXIDE 43.7 mmol/L (21-32); CHLORIDE 106 mmol/L (98-107); COR CA(FOR HYPOALB) 9.9 mg/dL (8.5-10.1); CREATININE 0.72 mg/dL (0.70-1.30); MAGNESIUM 1.9 mg/dL (1.7-2.9); TOTAL PROTEIN 6.4 g/dL (6.4-8.2); eGFR NON BLACK RACES > 60 (>60)
[2021-10-11 05:59] LABS: SODIUM 150 mmol/L (136-145)
--- NOTE | 2021-10-11 06:03 | RAD ---
HISTORYFollow-up pneumonia, shortness of breathSTUDYChest AP [id number]/17/2022FINDINGSTher e is a left-sided PICC line in good position. Patient is status post median sternotomy and valve replacement. Heart is enlarged. Diffuse bilateral alveolar infiltrates are present and unchanged in degree and distribution from the prior examination. Small right pleural effusion is likely present. Bony thorax is unremarkable.IMPRESSIONNo change diffuse bilateral alveolar infiltratesNo change cardiomegaly without definite congestive heart failureElectronically signed by: LUDA QUEZADA (Oct 11, 2021 06:02:03)
[2021-10-11] MEDS ORDERED: VALIUM INJ IVP PRN (07:43)
[2021-10-11] MEDS: ALBUMIN HUMAN 25%- 100 ML 100 ML IV SCH (08:02)
[2021-10-11] MEDS ORDERED: MAGNESIUM SULFATE 1 GRAM/100 mL PREMIX 1 G/100 ML BAG IV PRN (08:08)
[2021-10-11] MEDS ORDERED: VERSED 100 MG in NS 100 ML IV 80 ML IV PRN (11:43)
[2021-10-11] MEDS ORDERED: MORPHINE SULFATE PCA 30 MG IVP PRN (11:43)
[2021-10-11] MEDS ORDERED: VALIUM INJ IVP ONE (12:14)
--- NOTE | 2021-10-11 12:52 | PCM.PROG ---
Progress Note - Progress Note for Day of Date of Exam: 10/10/21 - Subjective Subjective: IS CURRENTLY BEING TREATED FOR BILATERAL PNEUMONIA, HYPOXIEMIA, AND HEMOPTYSIS. HE HAS A PMH OF HTN, DYSLIPIDEMIA, DEPRESSION, HYPOTHYROIDISM, ANEMIA, CVA, GERD, CHF, AND VALVULAR HEART DISEASE. HE HAS RECEIVED ONE UNIT OF PR[facility] SINCE ADMISSION. TODAY, HE IS LYING IN BED WITH EYES CLOSED ON MORNING ROUNDS. HE IS DIFFICULT TO AROUSE THIS MORNING. STAFF REPORTS THAT HE DID HAVE SOME AGITATION AND RESTLESSNESS THROUGHOUT THE NIGHT. HE IS CURRENTLY ON HEATED HIGH FLOW AT 50%. WHEN OXYGEN IS DECREASE, SATURATIONS DECREASE TO THE LOW 80s. HE WAS SCHEDULED FOR PLACEMENT OF PEG TUBE TODAY, HOWEVER, WE FEEL THAT HE IS TOO UNSTABLE TO BE PUT TO SLEEP AT THIS TIME. HE REMAINS ON A CARDIZEM DRIP. ON EXAMINATION, HEART IS REGULAR IN RATE AND RHYTHM. BILATERAL LUNGS NOTED WITH SCATTERED RALES AND RHONCHI THROUGHOUT. ABDOMEN IS ROUND, SOFT, AND NON-TENDER WITH NORMAL BOWEL SOUNDS NOTED IN ALL QUADRANTS. BILATERAL LOWER EXTREMITIES ARE NOTED WITH TRACE EDEMA. HIS VITALS THIS MORNING ARE: 97.9-71-23-93%-139/70. LABS WERE OBTAINED. WBC 9.4, RBC 2.49, HGB 7.6, HCT 23.2, SODIUM 149, POTASSIUM 3.3, CHLORIDE 106, BUN 12, CREATININE 0.74, GLUCOSE 146, AST 11, ALT 8, ALK PHOS 71, BNP 212, TOTAL PROTEIN 6.3, ALBUMIN 2.3. SPUTUM CULTURES REVEAL GROWTH OF KLEBSIELLA PNEUMONIAE. REPEAT BLOOD CULTURES ARE PENDING. CHEST XRAY WAS OBTAINED THIS MORNING AND REVEALED: There is a left- sided PICC line in good position. Patient is status post median sternotomy and valve replacement. Heart is enlarged. Diffuse bilateral alveolar infiltrates are unchanged in degree and distribution from the prior examination. Small right pleural effusion is likely present. Bony thorax is unremarkable. HE IS CURRENTLY RECEIVING TPN, ALBUMIN 25% IV DAILY, LEVAQUIN 500MG IV DAILY, CLEOCIN 900MG Q8H, AZITHROMYCIN 500MG DAILY, XOPENEX NEBS QID, PULMICORT NEBS BID, LASIX 20MG IV DAILY, PROTONIX 40MG IV BID, OTBS ACHS, THIS POTASSIUM AND MAGNESIUM PROTOCOLS. HIS HOME MEDICATIONS OF ZYRTEC, FLOANSE, NEURONTIN, SYNTHROID, MAGNESIUM OXIDE, ANTIVERT, SINGULAIR, HEMOCYTE PLUS, OXYBUTYNIN, PERCOCET, MICRO K, REQUIP, CRESTOR, AND FLOMAX ARE BEING HELD AT THIS TIME DUE TO NPO STATUS. WE DISCUSSED PATIENTS DECLINING CONDITION WITH HIS SPOUSE AND SON. THEY VERBALIZE UNDERSTANDING. WE WILL CONTINUE WITH CURRENT PLAN OF CARE TODAY. OTHERWISE, WE WILL FOLLOW UP WITH AM LABS AND CHEST XRAY AND CONTINUE TO MONITOR. TIME SPENT ON CLINICAL ASSESSMENT, REVIEWING LABS AND IMAGING, DECISION MAKING, AND DOCUMENTATION GREATER THAN 45 MINUTES. - Past Medical Family Social History Past Med/Fam/Surg Hx: No changes since H&P Allergies: Allergies cilastatin [From Primaxin] Allergy (Verified 06/22/21 17:35) clarithromycin [From Biaxin] Allergy (Verified 06/22/21 17:35) imipenem [From Primaxin] Allergy (Verified 06/22/21 17:35) - Review of Systems ROS: No change since H&P - Vital Signs and I&O's Vital Signs: Temperature 98.3 F Pulse Rate [Right Radial] 85 Pulse Rate 79 Respiratory Rate 12 Blood Pressure [Left Arm] 108/55 Blood Pressure [Right Arm] 98/53 Blood Pressure 128/60 O2 Sat by Pulse Oximetry 100 Intake and Output: Intake & Output 10/09/21 10/10/21 10/11/21 10/12/21 11:59 11:59 11:59 11:59 Intake Total 825 / 825 1220 / 1220 2110 / 2110 Output Total 2100 / 2100 1900 / 1900 1350 / 1350 Balance -1275 / -1275 -680 / -680 760 / 760 - Physical Exam Oriented: Unable to test Eyes: Normal Ear: Normal Nose: Normal Throat: Normal Respiratory: Rhonchi Cardiovascular: Normal : Normal Auscultation: Bowel Sounds: Normal Palpation: Normal Tenderness: Normal Skin: Decreased Turgur Musculoskeletal: Motor Deficit (DIFFUSE UPPER AND LOWER WEAKNESS) Mood Description: Flat, Anxious Affect: Anxious, Flat Speech Pattern: Clear, Inappropriate - Laboratory and Diagnostics Result Diagrams: 10/11/21 04:45 10/11/21 04:45 Labs: 10/06/21 10:20 Sputum - Expectorated Sputum Sputum Culture - Final Klebsiella Pneumoniae 10/06/21 10:20 Sputum - Expectorated Sputum - Final 10/06/21 20:30 Blood Blood Culture - Preliminary 10/06/21 20:40 Blood Blood Culture - Preliminary 09/28/21 10:50 Blood Blood Culture - Final 09/28/21 10:41 Blood Blood Culture - Final 09/28/21 13:37 Sputum - Expectorated Sputum Sputum Culture - Final Klebsiella Pneumoniae 09/28/21 13:37 Sputum - Expectorated Sputum - Final Laboratory WBC 9.9 X10^3/uL (3.6-10.0) 10/11/21 04:45 RBC 2.50 X10^6/uL (4.7-6.0) L 10/11/21 04:45 Hgb 7.7 g/dL (13.5-18.0) L 10/11/21 04:45 Hct 23.3 % (42.0-54.0) L 10/11/21 04:45 MCV 93.1 fL (80.0-100.0) 10/11/21 04:45 MCH 30.6 pg (27.0-34.0) 10/11/21 04:45 MCHC 32.9 g/dL (33.0-35.0) L 10/11/21 04:45 RDW 16.3 % (11.6-16.5) 10/11/21 04:45 Plt Count 248 X10^3/uL (150.0-450.0) 10/11/21 04:45 Plt Count Comment Adequate (ADEQUATE) 10/02/21 04:55 MPV 8.0 fL (7.4-11.0) 10/11/21 04:45 Neut % (Auto) 69.0 % (42.0-75.0) 10/11/21 04:45 Lymph % (Auto) 5.6 % (21.0-51.0) L 10/11/21 04:45 Borden % (Auto) 18.3 % (0.0-13.0) H 10/11/21 04:45 Eos % (Auto) 6.5 % (0.9-2.9) H 10/11/21 04:45 Baso % (Auto) 0.6 % (0.2-1.0) 10/11/21 04:45 Neut # (Auto) 6.8 x10^3/uL (2.2-4.8) H 10/11/21 04:45 Lymph # (Auto) 0.6 X10^3/uL (1.3-2.9) L 10/11/21 04:45 Borden # (Auto) 1.8 x10^3/uL (0.3-0.8) H 10/11/21 04:45 Eos # (Auto) 0.6 x10^3/uL (0.0-0.2) H 10/11/21 04:45 Baso # (Auto) 0.1 X10^3/uL (0.0-0.1) 10/11/21 04:45 Absolute Nucleated RBC 0.0 /100WBC 10/11/21 04:45 Total Counted 100 10/02/21 04:55 Neutrophils % (Manual) 80 % (39-76) H 10/02/21 04:55 Band Neutrophils % 8 % (0-10) 09/28/21 05:09 Lymphocytes % (Manual) 2 % (13-43) L 10/02/21 04:55 Monocytes % (Manual) 18 % (4-9) H 10/02/21 04:55 Plt Morphology Comment Normal (NORMAL) 10/02/21 04:55 RBC Morphology Normal (NORMAL) 10/02/21 04:55 Anisocytosis Slight A 09/28/21 05:09 PT 15.7 SECONDS (11.8-14.3) 09/28/21 00:55 INR Target Range - 09/28/21 00:55 INR 1.30 (0.8-1.3) 09/28/21 00:55 Sample Site Lrad 10/06/21 05:32 ABG pH 7.390 (7.35-7.45) 10/06/21 05:32 ABG pCO2 73.0 mmHg (35.0-45.0) H* 10/06/21 05:32 ABG pO2 77.0 mmHg (80.0-100.0) L 10/06/21 05:32 ABG HCO3 44.2 mmol/L (22-26) H* 10/06/21 05:32 ABG O2 Saturation 95.0 % (90-100) 10/06/21 05:32 ABG Base Excess 15.8 mmol/L (-2.0-2.0) H 10/06/21 05:32 Sunny Test Pos 10/06/21 05:32 A-a Gradient 96.0 mmHg 10/06/21 05:32 FiO2 37.0 10/06/21 05:32 Blood Gas Comments Joy abg well-mtf 10/06/21 05:32 Sodium 150 mmol/L (136-145) H* 10/11/21 04:45 Corrected Sodium TNP 10/11/21 04:45 Potassium 3.6 mmol/L (3.5-5.1) 10/11/21 04:45 Chloride 106 mmol/L (98-107) 10/11/21 04:45 Carbon Dioxide 43.7 mmol/L (21-32) H 10/11/21 04:45 BUN 12 mg/dL (7-18) 10/11/21 04:45 Creatinine 0.72 mg/dL (0.70-1.30) 10/11/21 04:45 Est GFR (MDRD) Af Amer > 60 (>60) 10/11/21 04:45 Est GFR (MDRD) Non-Af > 60 (>60) 10/11/21 04:45 Glucose 86 mg/dL (65-99) 10/11/21 04:45 POC Glucose (mg/dL) 86 mg/dL (65-99) 10/11/21 05:44 Calcium 8.7 mg/dL (8.5-10.1) 10/11/21 04:45 Corrected Calcium 9.9 mg/dL (8.5-10.1) 10/11/21 04:45 Magnesium 1.9 mg/dL (1.7-2.9) 10/11/21 04:45 Total Bilirubin 0.50 mg/dL (0.2-1.0) 10/11/21 04:45 AST 12 Units/L (15-37) L 10/11/21 04:45 ALT 6 Units/L (12-78) L 10/11/21 04:45 Alkaline Phosphatase 66 Units/L (46-116) 10/11/21 04:45 Creatine Kinase 14 Units/L (39-308) L 10/07/21 04:30 Troponin I High Sens 19.8 ng/L (4.0-60.0) 10/07/21 04:30 B-Natriuretic Peptide 184 pg/mL (0-79) H 10/11/21 04:45 Total Protein 6.4 g/dL (6.4-8.2) 10/11/21 04:45 Albumin 2.5 g/dL (3.4-5.0) L 10/11/21 04:45 Globulin 3.9 g/dL (2.5-4.5) 10/11/21 04:45 Albumin/Globulin Ratio 0.6 Ratio (1.1-2.1) L 10/11/21 04:45 Specimen Type Clean catch urine 10/04/21 05:45 Urine Color Yellow (YELLOW) 10/04/21 05:45 Urine Appearance Clear (CLEAR) 10/04/21 05:45 Urine pH 5.0 (5.0 - 8.0) 10/04/21 05:45 Ur Specific Fenton 1.020 (1.000-1.030) 10/04/21 05:45 Urine Protein 2+ (NEGATIVE) 10/04/21 05:45 Urine Glucose (UA) Negative (NEGATIVE) 10/04/21 05:45 Urine Ketones 1+ (NEGATIVE) 10/04/21 05:45 Urine Blood Negative (NEGATIVE) 10/04/21 05:45 Urine Nitrite Negative (NEGATIVE) 10/04/21 05:45 Urine Bilirubin Negative (NEGATIVE) 10/04/21 05:45 Urine Urobilinogen Normal (NORMAL) 10/04/21 05:45 Ur Leukocyte Esterase Negative (NEGATIVE) 10/04/21 05:45 Urine RBC None seen /HPF (0-3) 10/04/21 05:45 Urine WBC None seen /HPF (0-5) 10/04/21 05:45 Ur Squamous Epith Cells Rare /HPF (NEGATIVE) 10/04/21 05:45 Urine Bacteria Negative /HPF (NEGATIVE) 10/04/21 05:45 Hyaline Casts Rare /LPF (NEGATIVE) 10/04/21 05:45 Urine Mucus Few /HPF (NEGATIVE) 09/28/21 19:55 Ur Culture Indicated? No/not indicated 10/04/21 05:45 Stool Description 100 grams 10/05/21 16:45 Stl Occult Blood (IFOB) Negative (NEGATIVE) 10/05/21 16:45 SARS-CoV-2 (PCR) Negative (NEGATIVE) 10/06/21 20:40 Influenza Type A (PCR) Negative (NEGATIVE) 10/06/21 20:40 Influenza Type B (PCR) Negative (NEGATIVE) 10/06/21 20:40 RSV (PCR) Negative (NEGATIVE) 10/06/21 20:40 SARS CoV-2 RNA Rapid YUSUF Cancelled 09/28/21 00:55 Blood Type Cancelled 10/04/21 07:21 Antibody Screen Cancelled 10/04/21 07:21 Antibody Identification Anti-E Anti-Fya 09/28/21 00:55 Antibody Identification Anti-E Anti-Fya 09/28/21 00:55 Crossmatch See Detail 10/04/21 07:21 - Plan (1) Bilateral pneumonia Status: Acute Qualifiers: Pneumonia type: due to unspecified organism Lung location: unspecified part of lung Qualified Code(s): J18.9 - Pneumonia, unspecified organism Plan: supplemental oxygen,Bipap PRN, iv fluids with strict I&Os, iv antibiotics zithromax, levaquin and starting clindamycin, iv cardizem drip per protocol and continuous cardiac monitoring. nebulizer treatments, resume home meds. NPO with speech consult and peripheral nutrition (2) Hypoxemia Status: Acute (3) Hemoptysis Status: Acute (4) Dysphasia Status: Acute (5) Anemia Status: Acute Qualifiers: Anemia type: unspecified type (6) CHF (congestive heart failure) Status: Chronic Qualifiers: Heart failure type: combined systolic and diastolic Heart failure chronicity: chronic Qualified Code(s): I50.42 - Chronic combined systolic (congestive) and diastolic (congestive) heart failure (7) COPD (chronic obstructive pulmonary disease) Status: Chronic Qualifiers: COPD type: unspecified COPD Qualified Code(s): J44.9 - Chronic obstructive pulmonary disease, unspecified (8) Hyperlipidemia Status: Chronic Qualifiers: Hyperlipidemia type: mixed hyperlipidemia Qualified Code(s): E78.2 - Mixed hyperlipidemia (9) Hypertension Status: Chronic Qualifiers: Hypertension type: primary hypertension Qualified Code(s): I10 - Essential (primary) hypertension (10) History of CVA (cerebrovascular accident) Status: Chronic
[2021-10-11] MEDS ORDERED: NS 500 ML IV 500 ML IV ONE (13:57)
[2021-10-11] MEDS ORDERED: ISOPTO ATROPINE SL PRN (14:48)
[2021-10-11] MEDS ORDERED: VERSED IV PREMIX 100 MG/100 ML IV.SOLN IV PRN (19:27)
[2021-10-11 20:24] VITALS: BP 62/32
== END 2021-10-11 22:40 | disposition expired | DRG 177 ==
LOC: ICU 00:45 → ER 00:45 → ICU 05:15
PROVIDERS: ADMIT Internal Medicine; ATTEND Internal Medicine
DX: E03.8 Other specified hypothyroidism; Z20.822 Contact with and (suspected) exposure to COVID-19; D64.89 Other specified anemias; E78.2 Mixed hyperlipidemia; Z78.1 Physical restraint status; Z86.73 Personal history of transient ischemic attack (TIA), and cerebral infarction without residual deficits; R04.2 Hemoptysis; I48.91 Unspecified atrial fibrillation; R94.31 Abnormal electrocardiogram [ECG] [EKG]; J15.0 Pneumonia due to Klebsiella pneumoniae; J44.9 Chronic obstructive pulmonary disease, unspecified; R06.02 Shortness of breath; J90 Pleural effusion, not elsewhere classified; K21.9 Gastro-esophageal reflux disease without esophagitis; R13.11 Dysphagia, oral phase; I50.42 Chronic combined systolic (congestive) and diastolic (congestive) heart failure; I63.9 Cerebral infarction, unspecified; R09.02 Hypoxemia; I11.0 Hypertensive heart disease with heart failure